=== PATIENT | female | born 1970 | race Hispanic/Latino ===

== ENCOUNTER 2016-09-11 20:20 | Inpatient (IN) | payer BC ==
[2016-09-11 20:32] VITALS: BMI 38.3
[2016-09-11 21:01] LABS: ADD MANUAL DIFF? NO
[2016-09-11 21:09] LABS: BASO # 0.02 K/mm3 (0.0-2.0); BASO % 0.4 % (0.0-3.0); EOS % 0.5 % (1.5-5.0); GRAN # 3.96 (1.4-6.5); GRAN % 72.3 % (50.0-68.0); HEMATOCRIT 28.5 % (36.0-48.0); LYMPH % 17.3 % (22.0-35.0); MEAN CELL VOLUME 83.8 fL (80.0-105.0); MEAN CORPUSCULAR HEMOGLOBIN 27.6 pg (25.0-35.0); MONO # 0.5 (0.1-0.6); MONO % 9.5 % (1.0-6.0); PLATELET COUNT 82 10^3/uL (120.0-450.0); RED CELL DISTRIBUTION WIDTH 25.9 % (11.5-14.5); WHITE BLOOD COUNT 5.5 10^3/ul (4.5-11.0)
[2016-09-11 21:17] LABS: INR 1.55 (0.93-1.08); PARTIAL THROMBOPLASTIN TIME 32.2 Seconds (23.7-30.8)
--- NOTE | 2016-09-11 21:30 | ED PDOC ---
Arrival/HPI - General Chief Complaint: Lower Extremity Problem/Injury Time Seen by Provider: 09/11/16 20:33 Historian: Patient - History of Present Illness Narrative History of Present Illness (Text): 09/11/16 20:38 Sandra Mcnamara is a 45 year old female, whose past medical history includes chronic pain, cholecystectomy, gastric bypass surgery, and bilateral lower extremity lymphedema, who presents to the Emergency department complaining of body pain. Patient states she fell recently at home and is now experiencing diffuse body pain and states "everything hurts." Patient states she feels swollen. reports patient regularly drinkg Gatorade and vodka on a daily basis. Patient denies any fever, chills, chest pain, shortness of breath, nausea , vomiting, diarrhea, urinary symptoms, headache, dizziness, or any other complaints. Time/Duration: Other (today) Symptom Onset: Gradual Symptom Course: Unchanged Activities at Onset: Rest, Light Context: Home Past Medical History - Provider Review Nursing Documentation Reviewed: Yes - Infectious Disease Hx of Infectious Diseases: None - Tetanus Immunization Tetanus Immunization: Unknown - Past Medical History Past Medical History: No Previous - Cardiac Hx Cardiac Disorders: Yes (CAD) Hx Hypertension: Yes - Pulmonary Hx Respiratory Disorders: No - Neurological Hx Neurological Disorder: Yes Hx Dizziness: Yes Hx Seizures: Yes Other/Comment: neuropathy arms and legs - HEENT Hx HEENT Disorder: No (WEARS RX GLASSES) - Renal Hx Renal Disorder: Yes Hx Kidney Stones: Yes - Endocrine/Metabolic Hx Endocrine Disorders: No - Hematological/Oncological Hx Blood Disorders: Yes Hx Anemia: Yes (BLOOD TRANSFUSION) - Integumentary Other/Comment: TATOOS ,BILATERAL LEG EDEMA, multiple bruises old and new to b/l knees and b/l arms - Musculoskeletal/Rheumatological Hx Falls: Yes - Gastrointestinal Hx Gastrointestinal Disorders: Yes Hx Diverticulitis: Yes Hx Gall Bladder Disease: Yes Hx Liver Failure: Yes (cirrhosis, jundiced) Other/Comment: COLITIS,CHOLELITHIASIS,DIVERTICULITIS,GASTRIC BYPASS 2008 lost 100 lbs gained some back - Genitourinary/Gynecological Hx Genitourinary Disorders: Yes (2 C SECTIONS,TUBAL LIGATION) Other/Comment: IUD insertion - Psychiatric Hx Psychophysiologic Disorder: Yes Hx Anxiety: Yes Hx Depression: Yes Hx Substance Use: No Other/Comment: ETOH ABUSE 1 1/.2 to 2 pints vodka a day quit 2 dys ago, INTOXICATION,INSOMNIA - Surgical History Hx Cardiac Catheterization: No Hx Cholecystectomy: Yes (2011) Hx Coronary Stent: No Hx Gastric Bypass Surgery: Yes (2007) Other/Comment: C/S X2,GASTRIC BYPASS,TUBAL LIGATION,BREAST REDUCTION,bladder sling - Anesthesia Hx Anesthesia: Yes Hx Anesthesia Reactions: No Hx Malignant Hyperthermia: No - Suicidal Assessment Feels Threatened In Home Enviroment: No Family/Social History - Physician Review Nursing Documentation Reviewed: Yes Family/Social History: No Known Family HX Smoking Status: Never Smoked Hx Alcohol Use: Yes (daily 1 1/2 to 2 pints vodka/pday quit 2 days ago) Hx Substance Use: No Hx Substance Use Treatment: No Allergies/Home Meds Allergies/Adverse Reactions: Allergies No Known Allergies Allergy (Verified 12/21/15 04:38) Home Medications: Home Meds Medication Instructions Recorded Confirmed Zolpidem Tartrate 12.5 mg PO HS 12/16/13 12/21/15 Pantoprazole [Protonix EC Tab] 20 mg PO DAILY 01/01/15 12/21/15 Furosemide [Lasix] 20 mg PO DAILY 03/03/15 12/21/15 ALPRAZolam [Xanax] 1 mg PO QID PRN 12/09/15 12/21/15 Ambien 10 mg PO HS PRN 12/09/15 12/21/15 Escitalopram [Lexapro] 10 mg PO DAILY 12/09/15 12/21/15 levETIRAcetam [Keppra] 1 tab PO BID 12/09/15 12/21/15 metOLazone [Zaroxolyn] 5 mg PO DAILY 12/09/15 12/21/15 Review of Systems - Physician Review All systems were reviewed & negative as marked: Yes - Review of Systems Constitutional: Normal. absent: Fevers Eyes: Normal ENT: Normal Respiratory: Normal. absent: SOB, Cough Cardiovascular: Normal. absent: Chest Pain Gastrointestinal: Normal. absent: Abdominal Pain, Diarrhea, Nausea, Vomiting Genitourinary Female: Normal. absent: Dysuria, Frequency, Hematuria Musculoskeletal: Myalgias (+diffuse body pain). absent: Back Pain, Neck Pain Skin: Normal. absent: Rash Neurological: Normal Endocrine: Normal Hemo/Lymphatic: Normal Psychiatric: Normal Physical Exam Vital Signs Reviewed: Yes Vital Signs Temp Pulse Resp BP Pulse Ox 09/12/16 02:09 98.6 F 95 H 22 153/92 H 09/12/16 00:10 84 17 140/76 97 09/11/16 22:32 88 17 132/78 98 09/11/16 20:30 98.5 F 101 H 18 122/92 H 96 Temperature: Afebrile Blood Pressure: Normal Pulse: Regular Respiratory Rate: Normal Appearance: Positive for: Well-Appearing, Non-Toxic, Comfortable Pain Distress: None Mental Status: Positive for: Alert and Oriented X 3 - Systems Exam Head: Present: Atraumatic, Normocephalic Pupils: Present: PERRL Extroacular Muscles: Present: EOMI Conjunctiva: Present: Normal Mouth: Present: Moist Mucous Membranes Neck: Present: Normal Range of Motion Respiratory/Chest: Present: Clear to Auscultation, Good Air Exchange. No: Respiratory Distress, Accessory Muscle Use Cardiovascular: Present: Regular Rate and Rhythm, Normal S1, S2. No: Murmurs Abdomen: Present: Normal Bowel Sounds. No: Tenderness, Distention, Peritoneal Signs Breast/Axillary: Present: Erythema (Erythematous fungoid rash beneath breasts) Back: Present: Normal Inspection Upper Extremity: Present: Other (Erythemtous fungoid rash to right/left groin). No: Cyanosis, Edema Lower Extremity: Present: Edema (Bilateral lower extremity edema), NORMAL PULSES , Normal ROM, Neurovascularly Intact, Capillary Refill < 2 s. No: Cyanosis, Tenderness, Erythema, Deformity, Temperature Abnormalties Neurological: Present: GCS=15, CN II-XII Intact, Speech Normal Skin: Present: Warm, Dry, Rashes (rt thigh and groin and under breast consistent with fungal), Normal Color Psychiatric: Present: Alert, Oriented x 3, Normal Insight, Normal Concentration Medical Decision Making ED Course and Treatment: 09/11/16 20:38 Impression: 45 year old female complaining of diffuse body pain s/p fall. Plan: -- CT Head w/o contrast -- EKG -- Labs, cardiac enzymes, alcohol level -- Urinalysis, urine cultures -- Reassess and disposition Prior Visits: Notes and results from previous visits were reviewed. On 12/21/2015, pt was seen in the Emergency department for near-syncope, dizziness, light-headedness, and weakness. Pt was admitted to the hospital for further evaluation. Progress Notes: Reviewed EKG, NSR at 92 bpm[address] Non-specific ST/T wave changes. 09/11/16 23:[address] Wes Mcdowell, who is aware and agrees with plan. Accepts pt in to his service. Pt will be admitted to [facility] for hypokalemia. Pt is no acute distress. Discussed results and hospital admission plan with pt, who is aware and verbalizes understanding. 09/12/16 01:09 Reviewed Chest X-ray, shows no active disease. CT Head shows: Brain: There is mild prominence of the ventricles and frontal sulci, compatible with atrophy. The white-del toro differentiation is preserved demonstrating no acute territorial type infarct. No acute intracranial hemorrhage is seen. Midline shift: There is no midline shift. Ventricles: See above. Bones/joints: The calvarium demonstrates no evidence for a depressed fracture. Soft tissues: There is mild soft tissue swelling of the right frontal scalp. Sinuses: Unremarkable as visualized. No acute sinusitis. Mastoid air cells: No mastoid effusion. IMPRESSION: 1. No acute intracranial abnormality. 2. Mild atrophy. - Lab Interpretations Lab Results: 09/11/16 20:45 09/11/16 20:45 Lab Results 09/11/16 22:00: Urine Color Yellow, Urine Appearance Turbid, Urine pH 7.0, Ur Specific [place] <= 1.005, Urine Protein Negative, Urine Glucose (UA) Negative, Urine Ketones Negative, Urine Blood Trace-lysed H, Urine Nitrate Negative, Urine Bilirubin Moderate H, Urine Urobilinogen 1.0 H, Ur Leukocyte Esterase Trace H, Urine RBC 0 - 2, Urine WBC 0 - 2, Ur Epithelial Cells 1 - 3, Urine Bacteria Few 09/11/16 22:00: Urine Opiates Screen Negative, Urine Methadone Screen Negative, Ur Barbiturates Screen Negative, Ur Phencyclidine Scrn Negative, Ur Amphetamines Screen Negative, U Benzodiazepines Scrn Positive H, U Oth Cocaine Metabols Negative, U Cannabinoids Screen Negative 09/11/16 20:45: Alcohol, Quantitative 288 H 09/11/16 20:45: Sodium 143, Potassium 2.9 L* D, Chloride 102, Carbon Dioxide 25 , Anion Gap 19, BUN < 2 L, Creatinine 0.9, Est GFR ( Amer) > 60, Est GFR (Non-Af Amer) > 60, Random Glucose 109, Calcium 6.8 L*, Total Bilirubin 5.2 H, AST 308 H, ALT 147 H, Alkaline Phosphatase 366 H, Total Creatine Kinase 768 H, CK-MB (CK-2) 1.3, CK-MB (CK-2) % 0.2 L, Troponin I < 0.01, Total Protein 7.4, Albumin 2.9 L, Globulin 4.5, Albumin/Globulin Ratio 0.6 L 09/11/16 20:45: PT 16.7 H, INR 1.55 H, APTT 32.2 H 09/11/16 20:45: WBC 5.5, RBC 3.40 L, Hgb 9.4 L, Hct 28.5 L, MCV 83.8, MCH 27.6, MCHC 33.0, RDW 25.9 H, Plt Count 82 L, Gran % 72.3 H, Lymph % (Auto) 17.3 L, [place] % (Auto) 9.5 H, Eos % (Auto) 0.5 L, Baso % (Auto) 0.4, Gran # 3.96, Lymph # 1.0 L, [place] # 0.5, Eos # 0.0, Baso # 0.02 I have reviewed the lab results: Yes - RAD Interpretation Radiology Orders: 09/11/16 22:30 HEAD W/O CONTRAST [CT] Stat Road Traffic Controller: ED Physician, Radiologist - EKG Interpretation Interpreted by ED Physician: Yes Type: 12 lead EKG - Medication Orders Current Medication Orders: Acetaminophen (Tylenol 325mg Tab) 650 mg PO Q4H PRN PRN Reason: Fever >100.5 F Last Admin: 09/12/16 15:41 Dose: 650 mg Betamethasone/Clotrimazole (Lotrisone) 0 gm TOP BID [facility] Last Admin: 09/12/16 12:00 Dose: 1 cre Chlordiazepoxide (Librium) 50 mg PO Q8 JACKIE PRN Reason: Protocol Chlordiazepoxide (Librium) 25 mg PO Q8 PRN; Protocol PRN Reason: Agitation Last Admin: 09/12/16 15:39 Dose: 25 mg Docusate Sodium (Colace) 100 mg PO BID [facility] Escitalopram Oxalate (Lexapro) 10 mg PO DAILY [facility] Last Admin: 09/12/16 09:40 Dose: 10 mg Potassium Chloride 10 meq/ (Sodium Chloride) 1,005 mls @ 100 mls/hr IV .Q10H3M [facility] Last Admin: 09/12/16 15:37 Dose: 100 mls/hr Levetiracetam (Keppra) 500 mg PO BID [facility] Last Admin: 09/12/16 09:40 Dose: 500 mg Ondansetron HCl (Zofran Inj) 4 mg IVP Q8H PRN PRN Reason: Nausea/Vomiting Oxycodone HCl (Oxycontin Extended Release Tab) 20 mg PO Q12 JACKIE Oxycodone HCl (Oxycodone Immediate Release Tab) 10 mg PO Q8H PRN PRN Reason: Pain, severe (8-10) Last Admin: 09/12/16 15:40 Dose: 10 mg Pantoprazole Sodium (Protonix Ec Tab) 40 mg PO 0630 [facility] Last Admin: 09/12/16 09:43 Dose: 40 mg Potassium Chloride (K-Dur 20 Meq Er Tab) 20 meq PO TID [facility] Stop: 09/14/16 23:59 Last Admin: 09/12/16 15:39 Dose: 20 meq Discontinued Medications Alprazolam (Xanax) 0.5 mg PO TID PRN; Protocol PRN Reason: Anxiety Alprazolam (Xanax) 0.5 mg PO TID [facility] PRN Reason: Protocol Last Admin: 09/12/16 09:40 Dose: 0.5 mg Re-Assess: Reassess Psych Meds Document 09/12/16 10:40 GLI (Rec: 09/12/16 10:57 GLI [id number]) Reassess Psych Med Effective Chlordiazepoxide (Librium) 50 mg PO ONCE ONE PRN Reason: Protocol Stop: 09/12/16 12:08 Last Admin: 09/12/16 12:15 Dose: 50 mg Re-Assess: Reassess Psych Meds Document 09/12/16 13:15 AE (Rec: 09/12/16 13:55 AE [facility] [id number]) Reassess Psych Med Ineffective-LIP notifed Chlordiazepoxide (Librium) 25 mg PO Q8 JACKIE PRN Reason: Protocol Potassium Chloride (Potassium Chloride 20 Meq/100 Ml) 20 meq in 100 mls @ 50 mls/hr IVPB Q2H [facility] Stop: 09/12/16 01:59 Last Admin: 09/12/16 02:26 Dose: 50 mls/hr Calcium Gluconate 1,000 mg/ (Sodium Chloride) 110 mls @ 110 mls/hr IVPB ONCE ONE Stop: 09/11/16 23:29 Last Admin: 09/12/16 02:27 Dose: 110 mls/hr Sodium Chloride (Sodium Chloride 0.9%) 1,000 mls @ 150 mls/hr IV .Q6H40M [facility] Last Admin: 09/12/16 02:26 Dose: 150 mls/hr Sodium Chloride (Sodium Chloride 0.9%) 1,000 mls @ 100 mls/hr IV .Q10H [facility] Last Admin: 09/12/16 11:56 Dose: 100 mls/hr Calcium Gluconate 1,000 mg/ (Dextrose) 110 mls @ 110 mls/hr IVPB ONCE ONE Stop: 09/12/16 14:59 Last Admin: 09/12/16 15:42 Dose: 110 mls/hr Lorazepam (Ativan) 1 mg IVP ONCE ONE PRN Reason: Protocol Stop: 09/12/16 04:04 Last Admin: 09/12/16 04:15 Dose: 1 mg Oxycodone HCl (Oxycodone Immediate Release Tab) 10 mg PO Q8H [facility] Last Admin: 09/12/16 09:39 Dose: 10 mg Re-Assess: LEESA Pain Assessment Document 09/12/16 10:39 GLI (Rec: 09/12/16 11:12 GLI [id number]) Pain Reassessment Is this a pain reassessment? Yes Sleep Is patient sleeping during reassessment? Yes Potassium Chloride (K-Dur 20 Meq Er Tab) 20 meq PO ONCE ONE Stop: 09/12/16 11:28 Last Admin: 09/12/16 11:58 Dose: 20 meq - Scribe Statement The provider has reviewed the documentation as recorded by the Scribdeann Macias All medical record entries made by the Scribdeann were at my direction and personally dictated by me. I have reviewed the chart and agree that the record accurately reflects my personal performance of the history, physical exam, medical decision making, and the department course for this patient. I have also personally directed, reviewed, and agree with the discharge instructions and disposition. Disposition/Present on Arrival - Present on Arrival Any Indicators Present on Arrival: No History of DVT/PE: No History of Uncontrolled Diabetes: No Urinary Catheter: No History of Decub. Ulcer: No History Surgical Site Infection Following: Bariatric Surgery, None - Disposition Have Diagnosis and Disposition been Completed?: Yes Diagnosis: Alcohol abuse, Hypokalemia, Hypocalcemia Disposition: HOSPITALIZED Disposition Time: 23:00 Condition: FAIR
[2016-09-11 21:41] LABS: ALB/GLOB RATIO 0.6 (1.1-1.8); ALKALINE PHOSPHATASE 366 U/L (38-133); ALT/SGPT 147 U/L (7-56); AST/SGOT 308 U/L (15-39); BILIRUBIN,TOTAL 5.2 mg/dL (0.2-1.3); CARBON DIOXIDE 25 mmol/L (21-33); CHLORIDE 102 mmol/L (98-107); GFR AFRICAN-AMERICAN > 60; GLUCOSE,RANDOM 109 mg/dL (70-110); SODIUM 143 mmol/L (132-148); TOTAL PROTEIN 7.4 g/dL (5.8-8.3)
[2016-09-11 21:50] LABS: BLOOD UREA NITROGEN < 2 mg/dL (7-21)
[2016-09-11 21:52] LABS: CALCIUM 6.8 mg/dL (8.4-10.5); TROPONIN I < 0.01 ng/mL
[2016-09-11 22:26] LABS: URINE BILIRUBIN MODERATE (NEGATIVE); URINE BLOOD TRACE-LYSED (NEGATIVE); URINE GLUCOSE (UA) NEGATIVE (NEGATIVE); URINE KETONE NEGATIVE (NEGATIVE); URINE LEUKOCYTE ESTERASE TRACE Leu/uL (NEGATIVE); URINE PROTEIN NEGATIVE mg/dL (<30 mg/dL)
[2016-09-11 22:27] LABS: URINE APPEARANCE TURBID (CLEAR); URINE COLOR YELLOW (YELLOW)
[2016-09-11 22:32] LABS: POTASSIUM 2.9 mmol/L (3.6-5.0)
[2016-09-11 22:34] LABS: URINE BACTERIA FEW (NEG); URINE RBC 0 - 2 /hpf (0-2); URINE WBC 0 - 2 /hpf (0-6)
[2016-09-12] MEDS: Sodium Chloride 0.9% 1,000 ML IV SCH ×2 (02:26→20:20)
[2016-09-12] MEDS: Clotrimazole/Betamethasone Cream(15 gm) TOP SCH ×4 (02:34→22:35)
[2016-09-12] MEDS ORDERED: oxyCODONE 10 mg Immediate Release Tab PO SCH (09:15)
[2016-09-12] MEDS: Pantoprazole 40 mg EC Tab PO SCH (09:43)
--- NOTE | 2016-09-12 10:19 | RAD ---
PROCEDURE: CHEST RADIOGRAPH, 1 VIEW HISTORY: pain COMPARISON: 12/21/2015 FINDINGS: LUNGS: Poor inspiration with low lung volumes, crowded bronchovascular markings and mild bibasilar atelectasis PLEURA: No pneumothorax or pleural fluid seen. CARDIOVASCULAR: Heart size upper limits of normal -borderline enlarged. OSSEOUS STRUCTURES: No significant abnormalities. VISUALIZED UPPER ABDOMEN: Normal. OTHER FINDINGS: None. IMPRESSION: Poor inspiration with low lung volumes, crowded bronchovascular markings and mild bibasilar atelectasis
[2016-09-12 10:24] LABS: ADD MANUAL DIFF? NO
[2016-09-12 10:30] LABS: BASO # 0.01 K/mm3 (0.0-2.0); BASO % 0.2 % (0.0-3.0); EOS % 0.5 % (1.5-5.0); GRAN # 3.03 (1.4-6.5); GRAN % 70.6 % (50.0-68.0); HEMATOCRIT 26.2 % (36.0-48.0); LYMPH # 0.8 (1.2-3.4); LYMPH % 17.7 % (22.0-35.0); MEAN CELL VOLUME 85.1 fL (80.0-105.0); MEAN CORPUSCULAR HEMOGLOBIN 27.6 pg (25.0-35.0); MEAN CORPUSCULAR HGB CONC 32.4 g/dl (31.0-37.0); MONO # 0.5 (0.1-0.6); PLATELET COUNT 72 10^3/uL (120.0-450.0); RED CELL DISTRIBUTION WIDTH 25.9 % (11.5-14.5); WHITE BLOOD COUNT 4.3 10^3/ul (4.5-11.0)
[2016-09-12 10:44] LABS: ALB/GLOB RATIO 0.6 (1.1-1.8); ALKALINE PHOSPHATASE 342 U/L (38-133); ALT/SGPT 149 U/L (7-56); AST/SGOT 269 U/L (15-39); BLOOD UREA NITROGEN 2 mg/dL (7-21); CARBON DIOXIDE 25 mmol/L (21-33); CHLORIDE 105 mmol/L (98-107); GFR AFRICAN-AMERICAN > 60; GLUCOSE,RANDOM 81 mg/dL (70-110); POTASSIUM 3.3 mmol/L (3.6-5.0); SODIUM 143 mmol/L (132-148); TOTAL PROTEIN 6.7 g/dL (5.8-8.3)
[2016-09-12 10:57] LABS: CALCIUM 6.6 mg/dL (8.4-10.5)
--- NOTE | 2016-09-12 11:14 | CT ---
PROCEDURE: CT HEAD WITHOUT CONTRAST. HISTORY: fall COMPARISON: None available. TECHNIQUE: Axial computed tomography images were obtained through the head/brain without intravenous contrast. Radiation dose: Total exam DLP = 774.23 mGy-cm. This CT exam was performed using one or more of the following dose reduction techniques: Automated exposure control, adjustment of the mA and/or kV according to patient size, and/or use of iterative reconstruction technique. FINDINGS: HEMORRHAGE: No intracranial hemorrhage. BRAIN: There appears to be some minimal chronic periventricular white matter ischemic changes. In addition, questionable artifact versus tiny chronic lacunar right basal ganglia VENTRICLES: Mild volume loss which appears somewhat more central, evidenced by enlargement of the ventricles more so than sulci. CALVARIUM: Unremarkable. PARANASAL SINUSES: Unremarkable as visualized. No significant inflammatory changes. MASTOID AIR CELLS: Unremarkable as visualized. No inflammatory changes. OTHER FINDINGS: None. IMPRESSION: No acute intracranial hemorrhage. There appears to be some minimal chronic periventricular white matter ischemic changes. In addition, questionable artifact versus tiny chronic lacunar right basal ganglia Mild central volume loss
[2016-09-12] MEDS ORDERED: Potassium Chloride 20 mEq ER Tab PO ONE (11:27)
[2016-09-12] MEDS ORDERED: Sodium Chloride 0.9% 1,000 ML IV SCH (11:30)
[2016-09-12 12:52] LABS: MAGNESIUM 1.3 mg/dL (1.7-2.2)
[2016-09-12 13:01] LABS: IRON 66 ug/dL (45-180)
[2016-09-12] MEDS: Potassium Chloride 20 mEq ER Tab PO SCH ×2 (15:39→18:13)
[2016-09-12] MEDS: oxyCODONE 10 mg Immediate Release Tab PO PRN (15:40)
--- NOTE | 2016-09-12 18:04 | CON ---
DATE: 09/12/2016 REASON FOR CONSULTATION: Hypokalemia, hypocalcemia, alcohol intoxication. HISTORY OF PRESENTING ILLNESS: A 45-year-old lady, brought to the Emergency Room with complaints of pain in her legs, thighs, knees, weakness, fatigue. The patient reports she was not feeling well. She was having in a lot of pain in her body because of neuropathy. She fell. She was unable to get up and hence was brought to the Emergency Room by her son. She reports that she has chronic pain in her legs. In the Emergency Room, she was found to have a potassium of 2.9, calcium of 6.8, elevated LFTs, elevated total bilirubin. She is currently admitted to the ICU with alcohol intoxication/withdrawal, multiple electrolyte abnormalities. PAST MEDICAL AND SURGICAL HISTORY: Seizure disorder, alcohol abuse, hypertension, anxiety, depression, CAD, gastric bypass, tubal ligation, breast reduction surgery, cholecystectomy and peripheral neuropathy. FAMILY HISTORY: Noncontributory. SOCIAL HISTORY: Current heavy alcohol use, no drug abuse, no smoking. ALLERGIES: No known drug allergies. MEDICATIONS AT HOME: Oxycodone, Keppra, zolpidem, Protonix, Lasix 20 mg daily, metolazone 5 mg daily, Lexapro, Ambien, Xanax. REVIEW OF SYSTEMS: Complains of pain all over the body, she also complains of burning under her breasts and in her thighs, she complains of rash under her breasts and in the inguinal fold, she complains of fatigue, she complains of weakness, she denies any chest pain. She denies any palpitations. She denies any dysuria. All other systems are unremarkable. PHYSICAL EXAMINATION: GENERAL: A young woman, morbidly obese, lying in bed, in the ICU, in moderate distress. VITAL SIGNS: Blood pressure 118/74, heart rate 88, respiratory rate 20, temperature 98. HEENT: Normocephalic, atraumatic, positive pallor, no icterus. NECK: Supple, no JVD. LUNGS: Bilateral equal air entry, no rales appreciated, no rhonchi appreciated. CARDIAC: S1, S2, regular rate and rhythm, no murmur, no rub. ABDOMEN: Obese, distended, soft, nontender, bowel sounds present, extensive erythematous rash under the breasts, also extensive rash in the inguinal folds. EXTREMITIES: 1+ pitting edema of the lower extremities. INTAKE AND OUTPUT: Not charted. LABORATORY DATA: WBC 4.3, hemoglobin 8.5, hematocrit 26, platelets 72, MCV 85. Sodium 143, potassium 3.3, chloride 105, CO2 25, BUN 2, creatinine 0.7, calcium 6.6, albumin 2.6, corrected calcium is 7.6, total bili 6.0, AST 269, ALT 149. Urinalysis: Yellow, turbid, pH 7.0, specific gravity less than 1.005 , moderate bilirubin, leukocyte esterase trace. Urine positive for opiates and initial alcohol level was 288. Today's alcohol level is 62. Chest x-ray shows poor inspiration with low lung volumes, crowded bronchovascular markings, mild bibasilar atelectasis. CURRENT MEDICATIONS: K-Dur 20 mEq t.i.d., Keppra, Lexapro, Lotrisone, Protonix , normal saline at 100 mL per hour, Xanax, Zofran, calcium gluconate 1 gram given this morning, Librium 50 mg given this morning, 20 mEq riders of potassium x 2 bags. ASSESSMENT AND PLAN: A 45-year-old young woman with a history of anxiety, depression, chronic pain, dependence on pain medication, chronic alcohol abuse who was admitted with alcohol intoxication, weakness, fatigue. She was found to have life-threatening hypokalemia, severe hypocalcemia, acute liver toxicity. 1. Hypokalemia, patient's potassium was 2.9 at the time of admission. Currently, her potassium is 3.3, still precariously low, needs aggressive potassium supplementation. 2. Hypocalcemia. Her corrected calcium is also only 7.6, this could predispose her to arrhythmias. 3. Elevated liver function tests. 4. Hypernatremia, dehydration. 5. Severe anemia. 6. ? gastrointestinal bleed. 7. Chronic dependence on pain medication. PLAN: 1. Add potassium 10 mEq to each bag of IV fluids. 2. Replace calcium intravenously. 3. Check iron stores. 4. Check stool occults x 3. 5. Check magnesium levels. 6. GI evaluation. 7. Abdominal imaging. 8. Librium 25 mg q. 8 hours. 9. Monitor for delirium tremens. 11. Treat for alcohol withdrawal. 12. Case discussed with ICU staff at length. 13. Recommend holding transfer out of ICU. Thank you for the courtesy of this consultation. More than 35 minutes spent in the care of this critically ill, young, unfortunate woman. Mariya Vega MD cc: [id number] TT: 09/12/2016 18:03:23 Confirmation # [id number] Dictation # [id number] [id number]
[2016-09-12] MEDS ORDERED: Magnesium Sulfate 2 GM in Sodium Chloride 0.9% 100 ML IVPB ONE (20:53)
[2016-09-12] MEDS: oxyCODONE 20 mg ER Tab (oxyCONTIN) PO SCH (21:10)
--- NOTE | 2016-09-12 22:08 | HP ---
CHIEF COMPLAINT: Weakness, acute intoxication and jaundice, complaining of pain. HISTORY OF PRESENT ILLNESS: This is a 45-year-old woman who I do not know, but is seen in our practi ce and hospitalization. She was hospitalized 3 times in 2016 and 4 times in 2014. This is her first admission to [facility] this year. She presented to the Emergency Room complaining of pain, w as found to be acutely intoxicated with a blood alcohol over 260 and severely hypokalemic as she had been in the past in a prior admission with potassium of 2.8. She was evaluated by the firmware software verification engineer robert miranda admitted to ICU. PAST MEDICAL HISTORY: Significant for hypertension and a questionable history of coronary artery dis ease. She has a history of alcohol abuse as well as polysubstance abuse, Xanax and prescription opia braden. She has a history of hepatic failure, hyperbilirubinemia due to liver failure with elevated coa gs, yet continues to drink. She has a history of renal stones, colitis, cholelithiasis and diverticu litis as well as anxiety and depression, polysubstance abuse as noted above. SOCIAL HISTORY: She is with children, abuses alcohol and takes prescription medications incl uding oxycodone, which the patient reports in the range of 30 mg 5 times a day and Valium 1 mg 3-4 ti mes a day. MEDICATIONS: She takes Zaroxolyn and furosemide for reasons I am not quite certain and takes Ambien at bedtime for sleep. ALLERGIES: She has no known allergies. REVIEW OF SYSTEMS: Difficult to obtain as she responds yes to symptoms in all organ systems. PHYSICAL EXAMINATION: GENERAL: The patient was seen in room 271 this Tuesday afternoon around 1 p.m. She was in bed compla ining of pain requesting narcotic analgesics in the form of IV Dilaudid, with a bit of a tremor noted in the right upper extremity as well as the trunk. HEENT: Conjunctivae are pink. Mucous membranes are moist. NECK: Supple, without masses. Thyroid is not palpable. LUNGS: Show good aeration, right and left. HEART: Regular, but not tachycardic. ABDOMEN: Obese and soft. EXTREMITIES: Again, overweight, but no significant deep pitting edema. IMPRESSION: 1. Acute alcohol intoxication. 2. Polysubstance use and abuse. 3. Acute liver failure. 4. Chronic anemia. 5. Hypokalemia, perhaps related to medications. 6. Hypocalcemia. 7. Hypoalbuminemia with elevated liver function tests and most likely underlying cirrhosis as a caus e of her liver failure. 8. Jaundice with a total bilirubin of 6.0. 9. Chronic pain syndrome. 10. Anxiety. 11. Depression. PLAN: We will certainly continue her antidepressant medicines as prescribed before. She had already been started on benzodiazepines for alcohol withdrawal prevention. She was seen earlier by renal co nsultant, Dr. Vega, who added an additional benzo, perhaps not realizing she had already been on one on a regularly scheduled basis; therefore, I will adjust accordingly. Would continue Keppra and loo k further into her history of seizures. I spoke with the patient at length regarding her pain and he r medical followup. I encouraged her to seek help from a psychiatrist. She had spoken with Dr. Cook by in the past and so I will ask him to reconsult. I will also ask for a consult from mercedez Burgos and look further at her prior reports and imaging procedures that may have been done. Her hypokalemia has been supplemented and will continue to supplement with oral potassium and follow her lytes closely. We will use benzodiazepines to avoid benzo withdrawal. I will change her dosing schedule of opiates to a regularly scheduled lower dose of a long acting opiate as well as intermitt ent immediately short-acting opioid at least until we receive the skillful input of pain management, perhaps she would be a candidate for Suboxone, but will follow. I will also ask for consultation gunjan rodriguez renal hepatology regarding her acute liver failure on top of chronic liver failure and most likely cirrhosis, all related to alcohol and opiates. Leonel Mcdowell MD cc: [id number] TT: 09/12/2016 22:07:17 ia
--- NOTE | 2016-09-12 22:12 | CARD ---
APPROVED REPORT EKG Measurement Heart [id number] HI 148P [id number] <Conclusion> Normal sinus rhythm Minimal voltage criteria for LVH, may be normal variant Nonspecific ST and T wave abnormality Prolonged QT Abnormal ECG
[2016-09-13] MEDS: oxyCODONE 10 mg Immediate Release Tab PO PRN ×3 (04:41→23:35)
[2016-09-13] MEDS: Pantoprazole 40 mg EC Tab PO SCH (05:32)
[2016-09-13 08:52] LABS: ADD MANUAL DIFF? NO; BASO # 0.02 K/mm3 (0.0-2.0); BASO % 0.5 % (0.0-3.0); EOS # 0.1 (0.0-0.7); EOS % 1.6 % (1.5-5.0); GRAN # 2.49 (1.4-6.5); HEMATOCRIT 25.1 % (36.0-48.0); LYMPH # 0.7 (1.2-3.4); LYMPH % 19.3 % (22.0-35.0); MEAN CELL VOLUME 86.3 fL (80.0-105.0); MEAN CORPUSCULAR HEMOGLOBIN 28.2 pg (25.0-35.0); MEAN CORPUSCULAR HGB CONC 32.7 g/dl (31.0-37.0); MONO # 0.4 (0.1-0.6); MONO % 10.6 % (1.0-6.0); PLATELET COUNT 82 10^3/uL (120.0-450.0); RED CELL DISTRIBUTION WIDTH 27.1 % (11.5-14.5); WHITE BLOOD COUNT 3.7 10^3/ul (4.5-11.0)
[2016-09-13 09:06] LABS: ALB/GLOB RATIO 0.6 (1.1-1.8); ALKALINE PHOSPHATASE 321 U/L (38-133); ALT/SGPT 144 U/L (7-56); AST/SGOT 216 U/L (15-39); BILIRUBIN,TOTAL 6.5 mg/dL (0.2-1.3); BLOOD UREA NITROGEN 4 mg/dL (7-21); CARBON DIOXIDE 25 mmol/L (21-33); CHLORIDE 105 mmol/L (98-107); GFR AFRICAN-AMERICAN > 60; GLUCOSE,RANDOM 94 mg/dL (70-110); POTASSIUM 3.5 mmol/L (3.6-5.0); SODIUM 139 mmol/L (132-148); TOTAL PROTEIN 6.5 g/dL (5.8-8.3)
[2016-09-13] MEDS: oxyCODONE 20 mg ER Tab (oxyCONTIN) PO SCH ×2 (09:06→21:16)
[2016-09-13] MEDS: Potassium Chloride 20 mEq ER Tab PO SCH ×3 (09:09→18:30)
[2016-09-13] MEDS: Clotrimazole/Betamethasone Cream(15 gm) TOP SCH ×2 (09:10→17:08)
[2016-09-13 09:18] LABS: CALCIUM 6.3 mg/dL (8.4-10.5)
[2016-09-13 09:20] LABS: FREE T4 2.15 ng/dL (0.78-2.19)
[2016-09-13 09:34] LABS: THYROID STIMULATING HORMONE 5.93 mIU/mL (0.46-4.68)
--- NOTE | 2016-09-13 11:59 | PN ---
DATE: 09/13/2016 SUBJECTIVE: The patient is seen sitting in bed. She is awake. She is alert. She is comfortable. She complains of weakness. Appetite is poor. PHYSICAL EXAMINATION: GENERAL: Obese young woman sitting in bed. VITAL SIGNS: Blood pressure 105/68, heart rate 88, respiratory rate 20, temperature 98.9. HEENT: Normocephalic, atraumatic, positive pallor. NECK: Supple. No JVD. LUNGS: Bilateral equal air entry. No rales. CARDIAC: S1, S2, regular rate and rhythm. No murmur, no rub. ABDOMEN: Obese, distended, soft, nontender, bowel sounds present. EXTREMITIES: Trace lower extremity edema. INTAKE AND OUTPUT: Not charted. LABORATORY DATA: WBC 3.7, hemoglobin 8.2, hematocrit 25, platelets 82. Sodium 139, potassium 3.5, c hloride 105, CO2 of 25, BUN 4, creatinine 0.8, glucose 94, calcium 6.3, albumin 2.4, corrected calciu m 7.3, total bili 6.5, AST 216, ALT 144. TSH 5.9. Stool occult positive. Iron saturation 25, eduin tin 26, iron 66, magnesium 1.3. CURRENT MEDICATIONS: Colace 100, K-Dur 20 mEq t.i.d., Keppra 500 b.i.d., Lexapro, Librium, Os-Modesto 50 0 b.i.d., oxycodone, Protonix, Tylenol, Zofran, normal saline with 10 mEq potassium at 100. ASSESSMENT: 1. Acute alcohol intoxication. 2. Severe hypokalemia. 3. Hypomagnesemia. 4. Severe anemia. 5. Acute liver injury. 6. Hypocalcemia. 7. Hypoalbuminemia. 8. Chronic pain. 9. Depression. 10. Anxiety. PLAN: 1. Discontinue IV fluids. The patient has received adequate fluid resuscitation. 2. Supplement potassium orally. 3. Stool occult is positive. Iron stores are low. Suspect gastritis. GI evaluation recommended. 4. Continue PPI. 5. IV calcium gluconate x 1 dose. 6. Psychiatric evaluation. 7. IV Venofer 200 mg. Check magnesium levels. Mariya Vega MD cc: [id number] TT: 09/13/2016 11:58:23 Confirmation # [id number] Dictation # [id number] jn
--- NOTE | 2016-09-13 15:03 | CON ---
DATE: 09/13/2016 REQUEST FOR CONSULT: For liver failure. HISTORY OF PRESENT ILLNESS: This is a 45-year-old female with a past medical history of hypertension , history of alcohol abuse and polysubstance abuse. She has history of hyperbilirubinemia secondary to liver failure and elevated coags as well as cholelithiasis. Came to the Emergency Room with compl aints of weakness, complaining of generalized body pain, reporting that she recently fell at home. T he patient has reportedly been taking on a regular basis Gatorade and vodka. This patient was last s een by our service back in 12/2015 for transaminitis. She was advised that she had transaminitis whi ch was thought to be multifactorial secondary to history of ETOH fatty liver and rhabdomyolysis. She was advised to avoid alcohol and go for outpatient followup. Her last endoscopy was about 2 years a go and reported history of ulcers. On review of her labs, she was noted to have elevated liver enzym es and also came with alcohol quantitative of 288. PAST MEDICAL HISTORY: As stated above, hypertension, chronic pain secondary to herniated disk, GERD, history of peptic ulcer disease, ETOH abuse, polysubstance abuse, anxiety, depression, diverticuliti s, renal stones. PAST SURGICAL HISTORY: Cholecystectomy, gastric bypass, last endoscopy was 2 years ago reports ulcer . FAMILY HISTORY: Grandmother with breast cancer. SOCIAL HISTORY: Positive ETOH, abuses alcohol and takes prescription medications like oxycodone. ALLERGIES: No known drug allergies. MEDICATIONS: Reviewed as per MAR. REVIEW OF SYSTEMS: Systems were reviewed with positive findings. VITAL SIGNS: Temperature is 98.9, blood pressure 105/68, pulse 86, respirations 20, 95 on room air. LABORATORY DATA: WBC is 3.7, H and H is 8.2 and 25.1, platelets of 82. PT is 16.7, INR is 1.55, PTT is 32.2. Sodium 139, K 3.5, BUN is 4, creatinine 0.8. Total bilirubin is 6.5, on admission it was 5.2. AST 216, ALT 144, this shows some slight improvement. Alkaline phos is 321. Total creatinine kinase on admission is 768. Urine shows trace leukocyte esterase. Stool for occult blood is positiv e. Alcohol quantitative on 09/11 is 288, 09/12 is 62. Positive for benzodiazepines. Head CT done o n admission shows no intracranial hemorrhage, minimal chronic periventricular white matter ischemic c hanges. In addition, questionable artifact versus tiny chronic right basal ganglia. Chest x-r ay shows no pneumothorax or pleural effusion, poor inspiration with low lung volumes, crowded broncho vascular vascular markings and mild bibasilar atelectasis. PHYSICAL EXAMINATION: HEENT: Sclerae anicteric. NECK: Supple. CARDIAC: S1, S2. LUNGS: Decreased breath sounds, no rales or wheeze. ABDOMEN: With bowel sounds, softly obese, nondistended, did not palpate any tenderness. No rebound, guarding or organomegaly. EXTREMITIES: Trace bilateral lower edema. NEUROLOGIC: Awake, alert, and oriented. ASSESSMENT: This is a 45-year-old female with a past medical history of polysubstance abuse, ETOH ab use, past history of gastric bypass comes to the Emergency Room with complaints of feeling weak. The patient is currently drinking daily. Her alcohol level was over 200. She is also noted to be hypok alemic, anemia, now positive guaiac, acute renal failure, depression, chronic pain. PLAN: Check hepatitis panel. Also request for abdominal ultrasound. She is on a low residual soft diet. The patient will likely benefit from GI workup in view of low H and H. She is noted to have l ow TIBC. We will check her B12 and folate. No tremors noted, but patient is on Librium, getting IV iron, Zofran p.r.n. and is on Percocet. Continue Protonix. Monitor electrolytes. Thank you for this consult and allowing us to participate in your patient's care. Will make further recommendations based upon patient's clinical course. The patient was seen and case discussed with Dr. Meza. Whitney KATHLEEN cc: [id number] TT: 09/13/2016 15:02:28 Confirmation # [id number] Dictation # [id number] an
--- NOTE | 2016-09-13 16:34 | US ---
HISTORY: elelvated LFT COMPARISON: Comparison made with CT scan of the abdomen and pelvis dated 12/21/2015. TECHNIQUE: Sonographic evaluation of the abdomen. FINDINGS: LIVER: Enlarged measuring approximately 24 cm in CC dimension. Increased echotexture consistent with fatty infiltration. Smooth contour. No obvious hepatic mass or collection. Portal vein exhibits hepatopetal flow. No ascites GALLBLADDER: Cholecystectomy. COMMON BILE DUCT: Measures 6 mm. No stones. No dilatation. PANCREAS: Unremarkable as visualized. No mass. No ductal dilatation. RIGHT KIDNEY: Measures 10.5 x 3.5 x 5.2 cmcm. Normal echogenicity. No calculus, mass, or hydronephrosis. LEFT KIDNEY: Measures 12.2 x 4.4 x 5.1 cm. Normal echogenicity. No calculus, mass, or hydronephrosis. SPLEEN: Normal in size and contour. No mass. AORTA: No aneurysmal dilatation. IVC: Unremarkable. OTHER FINDINGS: None. IMPRESSION: Findings consistent with hepatomegaly and fatty infiltration. . Status post cholecystectomy
[2016-09-13] MEDS: Magnesium Oxide 400 mg Tab UD PO SCH (20:09)
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
--- NOTE | 2016-09-13 23:57 | CON ---
DATE: 09/13/2016 This patient was seen and evaluated earlier today. The previous GI workup reviewed. This 45-year-old patient, status post gastric bypass, admitted with alcohol intoxication and abdominal pain. The patient was complaining of midepigastric abdominal discomfort, history of status post gastric bypass, history of ETOH. RECOMMENDATIONS: 1. Followup of the LFTs. 2. Continue the PPI. 3. Followup of the LFTs. 4. We will continue to follow up with her care and suggest further recommendation based on the clinical course. Ana Meza MD cc: [id number] TT: 09/13/2016 23:56:17 Confirmation # [id number] Dictation # [id number] tn MTDD
[2016-09-14] MEDS: Pantoprazole 40 mg EC Tab PO SCH (05:34)
[2016-09-14] MEDS: oxyCODONE 10 mg Immediate Release Tab PO PRN (08:07)
[2016-09-14 08:14] LABS: ADD MANUAL DIFF? NO
[2016-09-14 08:20] LABS: BASO # 0.02 K/mm3 (0.0-2.0); BASO % 0.4 % (0.0-3.0); EOS # 0.1 (0.0-0.7); EOS % 2.2 % (1.5-5.0); GRAN # 3.04 (1.4-6.5); GRAN % 67.5 % (50.0-68.0); HEMATOCRIT 27.8 % (36.0-48.0); LYMPH # 0.9 (1.2-3.4); LYMPH % 20.8 % (22.0-35.0); MEAN CELL VOLUME 88.5 fL (80.0-105.0); MEAN CORPUSCULAR HEMOGLOBIN 28.3 pg (25.0-35.0); MONO # 0.4 (0.1-0.6); MONO % 9.1 % (1.0-6.0); PLATELET COUNT 99 10^3/uL (120.0-450.0); RED CELL DISTRIBUTION WIDTH 27.8 % (11.5-14.5); WHITE BLOOD COUNT 4.5 10^3/ul (4.5-11.0)
[2016-09-14 08:31] LABS: ALB/GLOB RATIO 0.6 (1.1-1.8); ALKALINE PHOSPHATASE 333 U/L (38-133); ALT/SGPT 149 U/L (7-56); AST/SGOT 207 U/L (15-39); BILIRUBIN,TOTAL 7.5 mg/dL (0.2-1.3); BLOOD UREA NITROGEN 3 mg/dL (7-21); CARBON DIOXIDE 25 mmol/L (21-33); CHLORIDE 104 mmol/L (98-107); GFR AFRICAN-AMERICAN > 60; GLUCOSE,RANDOM 67 mg/dL (70-110); POTASSIUM 3.9 mmol/L (3.6-5.0); SODIUM 139 mmol/L (132-148); TOTAL PROTEIN 7.2 g/dL (5.8-8.3)
[2016-09-14 08:36] LABS: CALCIUM 6.9 mg/dL (8.4-10.5)
[2016-09-14] MEDS: Potassium Chloride 20 mEq ER Tab PO SCH ×3 (09:51→17:45)
[2016-09-14] MEDS: Magnesium Oxide 400 mg Tab UD PO SCH ×2 (09:51→17:44)
[2016-09-14] MEDS: oxyCODONE 20 mg ER Tab (oxyCONTIN) PO SCH ×3 (10:00→20:59)
[2016-09-14] MEDS: Clotrimazole/Betamethasone Cream(15 gm) TOP SCH ×2 (10:15→17:57)
--- NOTE | 2016-09-14 10:40 | PN ---
DATE: 09/14/2016 FOLLOWUP NOTE Seen and examined at the bedside earlier today. She is out of bed to chair, complaining of tremors. She is on Librium [id number], and also has p.r.n. orders. She received doses this morning. No complaints of nausea, vomiting, or abdominal pain. She does report loose bowel movements. She did notice some blood. Spoke to the nursing staff. They were obtaining stool studies, but not sure if her stool was mixed with urine, so unable to send. Is unsure if the blood is from the bowel or the bladder, as per nursing staff. Denies any shortness of breath or chest pain. VITAL SIGNS: Temperature is 98.6. Blood pressure is 108/68, pulse 76, respirations 20. LABORATORY DATA: WBC is 4.5, H and H are 8.9 and 27.8. Platelets are 99. Sodium 139, K 3.9, BUN 3. Creatinine is 0.9. Total bilirubin is 7.5. AST is 207, ALT 149. Alkaline phosphatase is 333. Folate is pending. B12 is 622. Stool guaiac done yesterday. It was positive. PHYSICAL EXAMINATION: HEENT: Sclerae are icteric, does appear jaundiced. NECK: Supple. CARDIAC: S1, S2. LUNGS: With decreased breath sounds, but good air entry. No rales or wheeze. ABDOMEN: With bowel sounds, softly obese, nontender on palpation at this time. No rebound, guarding, or organomegaly. NEUROLOGIC: Positive tremors. ASSESSMENT: This is a 45-year-old female with history of EtOH abuse, polysubstance abuse, and gastric bypass comes to the Emergency Room with complaints of weakness, and also complaining of abdominal pain. She has elevated liver enzymes, and bilirubin has noticeable jaundice, anemia, guaiac positive, complaining of loose stools, acute renal failure, history of chronic pain, and depression. H/O cholecystectomy. PLAN: Sent the patient for ultrasound, and the patient is noted to have hepatomegaly with fatty infiltration. Common bile duct measures 6 mm. No stones or dilatation. The patient is on Librium, is getting IV iron, magnesium. She is on Protonix daily and getting potassium replacement. Hepatitis serology is negative. Continue to monitor LFTs. WIll obtain MRCP r/o CBD stone. ADDENDUM: Patient Dariey's Discriminant Funtion for Alcoholic Hepatitis is 30, > 32 indicates poor prognosis, may benefit from steroid therapy, we would consider starting Prednisone 10 mg daily, recheck labs in am but in few c/o bloody stool/guiac positive, will plan for EGD r/o ulcer, varices. NPO after clear liquids, recheck labs in am: cbc, cmp, pt/ptt. Had positive SLIME in the past, will r/o Autoimmune Hepatitis and order autoimmune markers, see orders. The patient was seen and case discussed with Dr. Meza. Whitney KATHLEEN cc: 451 TT: 09/14/2016 10:40:04 Confirmation # [id number] Dictation # [id number] jn MTDD
[2016-09-14 17:17] LABS: FOLATE 6.9 ng/mL
[2016-09-14] MEDS: Ergocalciferol 50,000 Intl Units Cap PO SCH (17:45)
--- NOTE | 2016-09-14 18:11 | PN ---
DATE: 09/14/2016 SUBJECTIVE: The patient is currently seen on telemetry. She is sitting up at the side of her bed. She appears to be in no acute distress. She is off IV fluid hydration. MEDICATIONS: Medication list reviewed. The patient is currently on Bactroban, Colace, IV iron, pota ssium tablets, Keppra, Lexapro, Librium, Lotrisone, mag oxide, calcium carbonate, oxycodone p.r.n., O xyContin, Protonix, p.r.n. Tylenol, p.r.n. Zofran. OBJECTIVE: INTAKE AND OUTPUT: Intake 1080, output not charted. VITAL SIGNS: Blood pressure 100/64, temperature 98.3, pulse 93, respiratory rate 19. HEENT: Shows her to be normocephalic, atraumatic. Conjunctivae are pale. Sclerae are icteric. NECK: Supple, no neck vein distention. CHEST: Clear to auscultation and percussion. No rales, no rhonchi, no wheezing. CARDIOVASCULAR: Shows a regular rate and rhythm without murmurs, rubs, or gallops. ABDOMEN: Mildly obese. Mild distention. No masses appreciated. No rebound, no guarding. EXTREMITIES: Show trace to 1+ pitting lower extremity edema. No cyanosis, no clubbing. LABORATORY DATA AND IMAGING: CBC: White blood cell count 4.5, hemoglobin 8.9 with a platelet count of 99,000. Coags: PT 16.7 with a PTT of 32.2. Chemistries: Electrolytes are normal. BUN 3 with a creatinine of 0.9. K is 3.9. Glucose is 67. Calcium is 6.9 with an albumin of 2.8, corrects to 7. 8. Bilirubin is 7.5. Elevated liver enzymes, AST 207 with an ALT of 149, alkaline phosphatase is 33 3. Albumin is low at 2.9. Vitamin D level was low at less than 12.8. TSH level was mildly elevated at 5.93, but the free T4 level was normal. Microbiology: Urine culture, mixed specimen. Nasal MRS A is positive. IMAGING: Abdominal ultrasound shows hepatomegaly with a fatty liver. Status post cholecystectomy. No stones in the common bile duct. ASSESSMENT: 1. Acute alcohol intoxication. In all likelihood, her alcohol level is now back to normal as it had been dropping. 2. Status post multiple electrolyte abnormalities including that of hypokalemia, hypomagnesemia, hyp ocalcemia. The patient is on calcium supplements, magnesium supplements and magnesium level was 1.5 and we can increase the magnesium to 400 mg 3 times a day. I will also start the patient on vitamin D as her vitamin D level is low. She will start ergocalciferol 50,000 units weekly. I agree with th e continuation of Os-Modesto. I will increase Os-Modesto to 500 mg 3 times a day. The patient for right now may remain on potassium supplements. 3. Acute liver injury secondary to alcohol intake. The patient has elevated liver enzymes, elevated bilirubin. Her ultrasound shows hepatomegaly with fatty infiltration. I cautioned patient that if she continues to progress with a fatty liver she could likely end up with scarring of the liver leadi ng to cirrhosis and end-stage liver disease. 4. History of depression and anxiety, currently stable. 5. History of seizure disorder. The patient remains on Keppra. Seizures were diagnosed 1 year ago. 6. Anemia with a borderline low iron level. The patient had been started on IV Venofer. Possible b one marrow suppression secondary to alcoholic intoxication. Poor p.o. intake. Her B12 level was nor mal. Folate level is pending. 7. Methicillin-resistant Staphylococcus aureus in her nasal passages. The patient will likely start on Bactroban. PLAN: 1. Encourage patient to never touch alcohol again in light of the changes that were seen in her live r architecture. 2. Continue magnesium, calcium and vitamin D supplements. 3. Hoping to see a fall in her liver enzymes as patient gets further away from her acute alcoholic i ntoxication. 4. Continue Keppra for her seizure disorder. 5. Bactroban for the MRSA, which is positive in her nasal passages. Anthony Kelsey MD cc: [id number] TT: 09/14/2016 18:10:16 Confirmation # [id number] Dictation # [id number] mn
[2016-09-15] MEDS: oxyCODONE 10 mg Immediate Release Tab PO PRN ×2 (05:43→16:25)
[2016-09-15] MEDS: Pantoprazole 40 mg EC Tab PO SCH (06:10)
--- NOTE | 2016-09-15 07:35 | PN ---
DATE: 09/14/2016 The patient was seen yesterday by Dr. [place] Mcdowell and I am seeing her again this Tuesday morning, 06/2016. She is in bed, in no acute distress, seems relatively comfortable with current levels of me dications, but asking for more. Signs of alcohol withdrawal and tremor have been reduced and subside d. Today, she is calm. There is no tremor. Her potassium and calcium are being supplemented and fo llowed closely by renal energy sales consultant. Psychiatry note was appreciated. Looking forward to their input on medication choices and help with alcohol and/or opiate detox. Pain management consultation kay cuenca. PHYSICAL EXAMINATION: LUNGS: Clear. HEART: Regular. EXTREMITIES: Chronic bilateral edema related to liver failure noted. IMPRESSION: 1. Acute alcohol intoxication. 2. Chronic alcohol use. 3. Polypharmacy abuse, benzodiazepines and opiates. 4. Liver failure with elevated LFTs and total bilirubin, and low protein, normal coags and edema. PLAN: Case discussed with GI nurse practitioner. Will try to decrease the benzodiazepines and perha ps even the opiates tomorrow. Will add subQ Lovenox to avoid complications of deep venous thrombosis , even though the patient is mildly anticoagulated. Will need to follow closely as far as future arnaud ns if the patient is interested in detox/rehabilitation. eLonel Mcdowell MD cc: [id number] TT: 09/15/2016 07:35:00 Confirmation # [id number] Dictation # [id number] en
[2016-09-15 08:02] LABS: MEAN CELL VOLUME 90.9 fL (80.0-105.0); MEAN CORPUSCULAR HEMOGLOBIN 28.5 pg (25.0-35.0); MEAN CORPUSCULAR HGB CONC 31.4 g/dl (31.0-37.0); PLATELET COUNT 127 10^3/uL (120.0-450.0); RED CELL DISTRIBUTION WIDTH 28.7 % (11.5-14.5); WHITE BLOOD COUNT 4.9 10^3/ul (4.5-11.0)
[2016-09-15 08:16] LABS: ALB/GLOB RATIO 0.6 (1.1-1.8); ALKALINE PHOSPHATASE 361 U/L (38-133); ALT/SGPT 142 U/L (7-56); AST/SGOT 189 U/L (15-39); BILIRUBIN,DIRECT 5.7 mg/dL (0.0-0.4); BILIRUBIN,TOTAL 7.5 mg/dL (0.2-1.3); BLOOD UREA NITROGEN 3 mg/dL (7-21); CALCIUM 7.5 mg/dL (8.4-10.5); CARBON DIOXIDE 26 mmol/L (21-33); CHLORIDE 104 mmol/L (95-110); GFR AFRICAN-AMERICAN > 60; GLUCOSE,RANDOM 65 mg/dL (70-110); INR 1.92 (0.93-1.08); MAGNESIUM 1.5 mg/dL (1.7-2.2); PARTIAL THROMBOPLASTIN TIME 38.8 Seconds (23.7-30.8); PHOSPHOROUS 1.6 mg/dL (2.5-4.5); POTASSIUM 4.4 mmol/L (3.6-5.0); SODIUM 138 mmol/L (132-148); TOTAL PROTEIN 7.3 g/dL (5.8-8.3)
[2016-09-15] MEDS: Enoxaparin 40 mg Syringe SC SCH (09:41)
[2016-09-15] MEDS: Clotrimazole/Betamethasone Cream(15 gm) TOP SCH ×2 (10:20→19:16)
[2016-09-15] MEDS: oxyCODONE 20 mg ER Tab (oxyCONTIN) PO SCH ×2 (10:31→22:16)
[2016-09-15] MEDS: Magnesium Oxide 400 mg Tab UD PO SCH ×3 (10:37→17:27)
[2016-09-15] MEDS ORDERED: Lactated Ringer's 1,000 ML IV SCH (13:53)
[2016-09-15] MEDS ORDERED: Benzocaine/Butamben/Tetracai 14-2-2% TOP Spray TOP ONE (14:38)
[2016-09-15] MEDS ORDERED: Propofol 10 mg/ml Inj (20 ML) ONE (14:41)
[2016-09-15] MEDS ORDERED: Lidocaine 1% Inj (20ml) ONE (14:43)
--- NOTE | 2016-09-15 17:04 | PCM.PYCHPN ---
Psychiatric Progress Note - Psychiatric Progress Note Patient seen today, length of contact: 25 Patient Chief Complaint: Anxiety and depression Problems Identified/Issues Discussed: Is presently anxious and somewhat blunted in affect. There is about to go for a echocardiogram Medical Problems: Has had liver failure with increased liver function tests and increased total bilirubin. Also has lowered serum protein and is edematous Diagnostic Results: H/H3.19/9.1 AST 189 ALC 142 total bilirubin 7.5 Temperature 98.2 pulse 94 respiratory rate 166/77 respiratory rate 15 DSM 5 Symptoms Update: Anxious about present testing. Medication Change: Yes (Have stopped standing order of Librium. We'll get when necessary only) Medical Record Reviewed: Yes Consults ordered or reviewed: Reviewed Mental Status Examination - Cognitive Function Orientation: Person ( ), Place, Situation, Time Memory: Intact Attention: WNL Concentration: WNL Association: WNL Fund of Knowledge: WNL Decription of patient's judgement and insights: Patient aware of surroundings, reason for hospitalization and intermittent testing. There is anxious about this Can be medication seeking - Mood Mood: Anxious - Affect Affect: Blunted - Speech Speech: Appropriate - Formal Thought Process Formal Thought Process: No Impairment Psychotic Thoughts and Behaviors: None - Suicidal Ideation Suicidal Ideation: No - Homicidal Ideation Homicidal Ideation: No Goal/Treatment Plan - Goal/Treatment Plan Progress Toward Problem(s) and Goals/Treatment Plan: Will offer therapeutic supports while patient undergoes medical evaluation. We will be working with you on tapering patient's medications and placing on appropriate medication for anxiety mood in this substance abusing patient
[2016-09-16] MEDS: oxyCODONE 10 mg Immediate Release Tab PO PRN ×2 (00:33→13:48)
[2016-09-16] MEDS: Pantoprazole 40 mg EC Tab PO SCH (07:36)
[2016-09-16 07:48] LABS: INR 2.08 (0.93-1.08)
[2016-09-16 07:49] LABS: MEAN CORPUSCULAR HEMOGLOBIN 28.9 pg (25.0-35.0); MEAN CORPUSCULAR HGB CONC 31.1 g/dl (31.0-37.0); MEAN PLATELET VOLUME 10.8 fl (7.0-11.0); RED CELL DISTRIBUTION WIDTH 29.6 % (11.5-14.5); WHITE BLOOD COUNT 4.3 10^3/ul (4.5-11.0)
[2016-09-16 07:54] LABS: HEMATOCRIT 23.8 % (36.0-48.0)
[2016-09-16 08:00] LABS: ALB/GLOB RATIO 0.5 (1.1-1.8); ALKALINE PHOSPHATASE 255 U/L (38-133); ALT/SGPT 114 U/L (7-56); AST/SGOT 123 U/L (15-39); BILIRUBIN,DIRECT 4.8 mg/dL (0.0-0.4); BILIRUBIN,TOTAL 6.3 mg/dL (0.2-1.3); BLOOD UREA NITROGEN 3 mg/dL (7-21); CARBON DIOXIDE 29 mmol/L (21-33); CHLORIDE 105 mmol/L (98-107); GFR AFRICAN-AMERICAN > 60; GLUCOSE,RANDOM 86 mg/dL (70-110); POTASSIUM 4.1 mmol/L (3.6-5.0); SODIUM 138 mmol/L (132-148)
--- NOTE | 2016-09-16 08:07 | PN ---
DATE: 09/14/2016 SUBJECTIVE: The patient seen ____. She appears comfortable. She does not appear to be in any kind of distress. PHYSICAL EXAMINATION: VITAL SIGNS: Blood pressure ____, heart rate ____, respiratory rate 15, temperature 98.2. HEENT: Normocephalic, atraumatic, positive pallor. NECK: Supple, no JVD. LUNGS: Bilateral equal air entry, no rales. CARDIAC: S1, S2, regular rate and rhythm, no murmur, no rub. ABDOMEN: Obese, distended, soft, nontender, bowel sounds present. EXTREMITIES: Trace lower extremity edema. INTAKE AND OUTPUT: ____/1550. LABORATORY DATA: WBC 4.9, hemoglobin 9.1, hematocrit 29, platelets 127, MCV 90. Sodium 138, potassi um 4.4, chloride 104, CO2 26, BUN 3, creatinine 0.9, glucose 65, calcium 7.5, phosphorus 1.6, magnesi um 1.5, direct bili 5.7, total bili 7.5, AST ___, ALT 142. CURRENT MEDICATIONS: Colace, ____, potassium ____, Lotrisone, mag oxide, calcium carbonate, oxycodon e, OxyContin, ____, Tylenol. ASSESSMENT: 1. Acute alcohol intoxication. 2. Acute liver injury. 3. Hyperkalemia. 4. Hypomagnesemia. 5. Hypophosphatemia. 6. ____. 7. Obesity. PLAN: 1. ____. 2. Replace phosphorus. 3. Encourage p.o. intake. 4. Follow up endoscopy results. 5. Treatment of alcoholic hepatitis as per GI. Mariya Vega MD cc: [id number] TT: 09/15/2016 17:32:55 Confirmation # [id number] Dictation # [id number] en
[2016-09-16] MEDS: oxyCODONE 20 mg ER Tab (oxyCONTIN) PO SCH ×2 (09:09→21:50)
[2016-09-16] MEDS: Magnesium Oxide 400 mg Tab UD PO SCH ×3 (10:10→17:38)
[2016-09-16] MEDS: Enoxaparin 40 mg Syringe SC SCH (10:10)
[2016-09-16] MEDS: Clotrimazole/Betamethasone Cream(15 gm) TOP SCH ×2 (10:10→17:38)
--- NOTE | 2016-09-16 12:49 | PCM.PYCHPN ---
Psychiatric Progress Note - Psychiatric Progress Note Patient seen today, length of contact: 25 Patient Chief Complaint: Anxiety and depression Problems Identified/Issues Discussed: Is presently anxious and somewhat blunted in affect. There is about to go for a echocardiogram Medical Problems: Has had liver failure with increased liver function tests and increased total bilirubin. Also has lowered serum protein and is edematous Diagnostic Results: H/H3.19/9.1 AST 189 ALC 142 total bilirubin 7.5 Temperature 98.2 pulse 94 respiratory rate 166/77 respiratory rate 15 DSM 5 Symptoms Update: Mood and affect appear brighter. Reports alcohol craving. We'll start on Campral Medication Change: Yes (have started on Campral) Medical Record Reviewed: Yes Mental Status Examination - Cognitive Function Orientation: Person ( ), Place, Situation, Time Memory: Intact Attention: WNL Concentration: WNL Association: WNL Fund of Knowledge: [facility] Decription of patient's judgement and insights: Patient aware of surroundings, reason for hospitalization and intermittent testing. There is anxious about this Can be medication seeking - Mood Mood: Anxious, Neutral - Affect Affect: Blunted, Other - Speech Speech: Appropriate - Formal Thought Process Formal Thought Process: No Impairment Psychotic Thoughts and Behaviors: None - Suicidal Ideation Suicidal Ideation: No - Homicidal Ideation Homicidal Ideation: No Goal/Treatment Plan - Goal/Treatment Plan Progress Toward Problem(s) and Goals/Treatment Plan: Will offer therapeutic supports while patient undergoes medical evaluation. We will be working with you on tapering patient's medications and placing on appropriate medication for anxiety mood in this substance abusing patient Today (September for M (reports increased alcohol craving or pers She did not start on Revia because patient on opiates
[2016-09-16] MEDS ORDERED: Potassium Phosphate 15 MMOLE in Dextrose 5% In Water 250 ML IVPB ONE (14:18)
--- NOTE | 2016-09-16 15:08 | PN ---
DATE: 09/16/2016 SUBJECTIVE: The patient is seen in bed. She is groggy, arousable. Complains of weakness. PHYSICAL EXAMINATION: GENERAL: Obese young woman lying in bed. VITAL SIGNS: Blood pressure 94/61, heart rate 74, respiratory rate 18, temperature 97.7. HEENT: Normocephalic, atraumatic, positive pallor. NECK: Supple, no JVD. LUNGS: Bilateral equal air entry, no rales. CARDIAC: S1, S2, regular rate and rhythm, no murmur, no rub. ABDOMEN: Obese, distended, soft, nontender, bowel sounds present. EXTREMITIES: No lower extremity edema. INTAKE AND OUTPUT: 840/1325. LABORATORY DATA: WBC 4, hemoglobin 7.4, hematocrit 23.8, platelets 103. Sodium 138, potassium 4.1, chloride 105, CO2 29, BUN 3, creatinine 0.8, glucose 86, calcium 7.0, albumin 2.1, corrected calcium is 8.4, total bilirubin 6.3, direct bilirubin 4.8. AST 123, ALT 114. Folate 6.9. Endoscopy report, evidence of gastric bypass, gastric pouch with 4 cm from the GE junction, healthy a ppearing mucosa, moderate inflammation characterized with erythema found in the gastric pouch. CURRENT MEDICATIONS: Actigall, Colace, Drisdol, Keppra, Lexapro, Librium, mag oxide, Os-[place], predniso ne, Zofran. ASSESSMENT: 1. Alcoholic hepatitis. 2. Acute alcohol intoxication. 3. Acute liver injury. 4. Hypokalemia. 5. Hypomagnesemia. 6. Hypophosphatemia. 7. Severe anemia. 8. Pancytopenia. PLAN: 1. Replace potassium phosphate. 2. Replace magnesium sulfate. 3. Neutra-Phos p.o. 4. Prednisone started by GI for alcoholic hepatitis. 5. Prognosis guarded. Mariya Vega MD cc: [id number] TT: 09/16/2016 15:08:26 Confirmation # [id number] Dictation # [id number] paulette
--- NOTE | 2016-09-16 15:32 | PN ---
DATE: 09/16/2016 Seen and examined at the bedside earlier today. She had an endoscopy yesterday and was found to have gastritis. The patient is feeling slightly better. No reports of nausea, vomiting or abdominal eloise n. No fever, chills, shortness of breath or chest pain. She did have a formed bowel movement and do es not report any bleeding. The patient was started on prednisone yesterday. VITAL SIGNS: Temperature is 97.7, pulse rate was 74, blood pressure is 103/56, respirations are 20. LABORATORY DATA: WBC is 4.3, H and H is 7.4 and 23.8, platelets are 103. PT is 22.5, INR is 2.08. C hem: Sodium is 138, her K is 4.1, BUN is 3, creatinine is 0.8. Her liver enzymes, total bilirubin i s 6.3, direct bilirubin is 4.8, AST 23, ALT 114, alkaline phosphatase is 255. There is some mild sli ght improvement on LFTs. PHYSICAL EXAMINATION: HEENT: Sclerae are icteric. The patient does appear jaundiced. NECK: Supple. CARDIAC: S1, S2. LUNGS: Decreased breath sounds but good air entry, no rales or wheeze. ABDOMEN: With bowel sounds, soft. It is nontender. No rebound, guarding, or organomegaly. ASSESSMENT: This is a 45-year-old female with a history of chronic ETOH with history of polysubstanc e abuse, history of gastric bypass, came to the Emergency Room with complaints of weakness. The clifford ent also was having abdominal pain, noted to have elevated liver enzymes, is noticeable jaundice, fou nd with anemia and is guaiac positive, likely secondary to alcoholic hepatitis. The patient had an e ndoscopy done. No ulcers were found, just gastritis. In view of elevated coagulopathy, no biopsies were obtained. Also, she was started on prednisone. Her Maddrey discriminant factor was 48.4 yester day and anything greater than 32 shows poor prognosis. History of depression and chronic pain. The patient was sent for ultrasound during this admission, which showed hepatomegaly and fatty infiltrati on. PLAN: Continue the prednisone. She is getting 40 daily. Also started on Ursodiol. Monitor the LFT s. Continue Protonix. Follow up her autoimmune markers. She is on Librium p.r.n. and stool softene rs. We will continue to follow closely. The patient was seen and case discussed with Dr. Meza. Whitney KATHLEEN cc: [id number] TT: 09/16/2016 15:31:00 Confirmation # [id number] Dictation # [id number] rn
[2016-09-16] MEDS: Potassium & Sodium Phosphate PO SCH (17:38)
[2016-09-16] MEDS: HYDROmorphone 1 mg/ml ISec IVP PRN (20:22)
--- NOTE | 2016-09-16 22:17 | PN ---
DATE: 09/16/2016 The patient was seen this morning in room 271, bed 2. She is resting much more comfortably in bed with her benzodiazepine dose, then dose of Librium having been decreased to just p.r.n. Psychiatry input appreciated. She is complaining of diet and is hungry and has been on a liquid diet for the last 3 days. Of note is also on her labs showing her PT/INR is elevated. Therefore, we will discontinue Lovenox and increase her diet. HBG = 7.4 so transfusion has been ordered. PHYSICAL EXAMINATION: Remains essentially unremarkable. ABDOMEN: Soft, no significant tenderness that is easily reproducible. EXTREMITIES: Obese and edematous. IMPRESSION: 1. Liver failure. 2. Underlying liver failure, suspected due to alcohol etiology. 3. Cirrhosis 4. Polysubstance abuse. 5. History of benzoin with benzodiazepine withdrawal seizures. 6. Peripheral edema. 7. Hypocalcemia. 8. Hypokalemia. Leonel Mcdowell MD cc: [phone] TT: 09/16/2016 22:16:46 Confirmation # [id number] Dictation # [id number] melanie CHANDRA
[2016-09-17] MEDS: oxyCODONE 10 mg Immediate Release Tab PO PRN ×2 (00:32→13:30)
--- NOTE | 2016-09-17 00:48 | PN ---
DATE: 09/16/2016 Addendum to the GI progress note of ZACARIAS Dumont SUBJECTIVE: This patient was seen and evaluated earlier today. The patient has been on prednisone now, 40 mg received yesterday. The patient is feeling better, tolerating the diet. LABORATORY DATA: Hemoglobin of 7.4. LFTs show the total bilirubin has come down to 6.3, AST 120, ALT 114, alkaline phosphatase is 265. IMPRESSION: This is a 45-year-old patient with a history of ETOH admitted to the ER for alcohol and also increased LFTs. CBD normal. Alcohol hepatitis, improving slowly. We will continue with current treatment. The patient improving. Followup of the hemoglobin, hematocrit. Thank you very much for allowing me to participate in the care of the patient. Ana Meza MD cc: [phone] TT: 09/17/2016 00:48:12 Confirmation # [id number] Dictation # [id number] tiffany CHANDRA
[2016-09-17] MEDS: HYDROmorphone 1 mg/ml ISec IVP PRN ×4 (02:23→23:20)
[2016-09-17] MEDS: Pantoprazole 40 mg EC Tab PO SCH (05:40)
[2016-09-17 08:00] LABS: HEMATOCRIT 31.2 % (36.0-48.0); MEAN CELL VOLUME 93.1 fL (80.0-105.0); MEAN CORPUSCULAR HEMOGLOBIN 29.3 pg (25.0-35.0); MEAN CORPUSCULAR HGB CONC 31.4 g/dl (31.0-37.0); MEAN PLATELET VOLUME 10.5 fl (7.0-11.0); RED CELL DISTRIBUTION WIDTH 28.7 % (11.5-14.5); WHITE BLOOD COUNT 4.2 10^3/ul (4.5-11.0)
[2016-09-17 08:23] LABS: ALB/GLOB RATIO 0.6 (1.1-1.8); ALKALINE PHOSPHATASE 282 U/L (38-133); ALT/SGPT 110 U/L (7-56); AST/SGOT 151 U/L (15-39); BILIRUBIN,DIRECT 5.9 mg/dL (0.0-0.4); BILIRUBIN,TOTAL 7.7 mg/dL (0.2-1.3); BLOOD UREA NITROGEN 4 mg/dL (7-21); CALCIUM 7.5 mg/dL (8.4-10.5); CARBON DIOXIDE 28 mmol/L (21-33); CHLORIDE 106 mmol/L (98-107); GFR AFRICAN-AMERICAN > 60; GLUCOSE,RANDOM 63 mg/dL (70-110); POTASSIUM 4.1 mmol/L (3.6-5.0); SODIUM 139 mmol/L (132-148); TOTAL PROTEIN 6.8 g/dL (5.8-8.3)
[2016-09-17] MEDS: Potassium & Sodium Phosphate PO SCH ×2 (09:23→18:44)
[2016-09-17] MEDS: Magnesium Oxide 400 mg Tab UD PO SCH ×3 (09:23→18:44)
[2016-09-17] MEDS: oxyCODONE 20 mg ER Tab (oxyCONTIN) PO SCH ×2 (09:23→22:27)
[2016-09-17] MEDS: Clotrimazole/Betamethasone Cream(15 gm) TOP SCH ×2 (09:28→18:46)
--- NOTE | 2016-09-17 10:57 | PN ---
DATE: 09/17/2016 SUBJECTIVE: The patient is seen lying in bed. She complains of feeling weak. She is also complaini ng of lower extremity pain. She is complaining of back pain. She denies any nausea, vomiting. PHYSICAL EXAMINATION: GENERAL: Obese, middle-aged lady lying in bed. VITAL SIGNS: Blood pressure 111/73, heart rate 74, respiratory rate 20, temperature 98.1. HEENT: Normocephalic, atraumatic, positive pallor. NECK: Supple, no JVD. LUNGS: Symmetrical expansion, bilateral equal air entry. CARDIAC: S1, S2, regular rate and rhythm, no murmur, no rub. ABDOMEN: Obese, distended, soft, nontender, bowel sounds present. EXTREMITIES: 2+ pitting edema of the lower extremities. INTAKE AND OUTPUT: 1767/900. LABORATORY DATA: WBC 4.2, hemoglobin 9.8, hematocrit 31, platelets 108. Sodium 139, potassium 4.1, chloride 106, CO2 28, BUN 4, creatinine 0.9, glucose 63, calcium 7.5, albumin 2.6, corrected calcium 8.5. Direct bilirubin 5.9, AST 151, ALT 110. Hepatitis profile is negative. Antimitochondrial anti body negative. CURRENT MEDICATIONS: Actigall, bacitracin, Colace, Dilaudid, Drisdol, Flexeril, Keppra, Lexapro, Seda rium, Lyrica, mag oxide, Neutra-Phos, Os-[place], prednisone, Protonix, Tylenol, Zofran. The patient received 2 units of blood yesterday. ASSESSMENT: 1. Acute alcoholic hepatitis. 2. Status post acute alcohol intoxication. 3. Multiple electrolyte abnormalities, now corrected. 4. Severe hypoalbuminemia secondary to acute liver injury. 5. Pancytopenia, secondary to alcohol-induced marrow suppression. 6. Lower extremity edema, third spacing secondary to hypoalbuminemia. PLAN: 1. Continue oral magnesium oxide. 2. Continue Neutra-Phos. 3. Continue prednisone as advised by GI. 4. Continue thiamine, B12. 5. No diuretics at this point because of low blood pressure and risks of hypotensive liver injury. Mariya Vega MD cc: [id number] TT: 09/17/2016 10:57:13 Confirmation # [id number] Dictation # [id number] mn
--- NOTE | 2016-09-17 12:31 | PCM.PYCHPN ---
Psychiatric Progress Note - Psychiatric Progress Note Patient seen today, length of contact: 25 Patient Chief Complaint: Anxiety and depression Problems Identified/Issues Discussed: Is presently anxious and somewhat blunted in affect. There is about to go for a echocardiogram Medical Problems: Has had liver failure with increased liver function tests and increased total bilirubin. Also has lowered serum protein and is edematous Diagnostic Results: H/H3.19/9.1 AST 189 ALC 142 total bilirubin 7.5 Temperature 98.2 pulse 94 respiratory rate 166/77 respiratory rate 15 DSM 5 Symptoms Update: Seems more withdrawn than yesterday The patient is concerned that she has not gotten Campral as described to her (2 pills 3 times daily) Medication Change: Yes (have started on Campral) Medical Record Reviewed: Yes Mental Status Examination - Cognitive Function Orientation: Person ( ), Place, Situation, Time Memory: Intact Attention: WNL Concentration: WNL Association: WNL Fund of Knowledge: [facility] Decription of patient's judgement and insights: Patient aware of surroundings, reason for hospitalization and intermittent testing. There is anxious about this Can be medication seeking - Mood Mood: Anxious, Neutral - Affect Affect: Blunted, Other - Speech Speech: Appropriate - Formal Thought Process Formal Thought Process: No Impairment Psychotic Thoughts and Behaviors: None - Suicidal Ideation Suicidal Ideation: No - Homicidal Ideation Homicidal Ideation: No Goal/Treatment Plan - Goal/Treatment Plan Progress Toward Problem(s) and Goals/Treatment Plan: Will offer therapeutic supports while patient undergoes medical evaluation. We will be working with you on tapering patient's medications and placing on appropriate medication for anxiety mood in this substance abusing patient Today (September M (reports increased alcohol craving or pers She did not start on Revia because patient on opiates On September 17 it was noted that she had been started on Campral probably yesterday to reduce her alcohol proclivity Patient seems more sluggish today
--- NOTE | 2016-09-17 16:01 | PN ---
DATE: 09/17/2016 HISTORY OF PRESENT ILLNESS: Seen and examined at the bedside earlier today. Denies any nausea, vomi ting, or abdominal pain. She is moving her bowels, but no reports of any bleeding. States she did n ot get much sleep last night. Tolerating oral intake. LABORATORY DATA: WBC is 4.2, H and H are 9.8 and 31.2. Her platelet count is 108. Sodium is 139, p otassium 4.1, BUN 4, creatinine is 0.9, BUN is 4, creatinine is 0.9. The total bilirubin is 7.7, dir ect bili is 5.9, AST 151, ALT 110, alk phos is 282. Today, the LFTs are noted to slightly trend up. PHYSICAL EXAMINATION: HEENT: Sclera is icteric. NECK: Supple. CARDIAC: S1, S2. LUNGS: With decreased breath sounds, but good aeration. No rales or wheeze. ABDOMEN: With bowel sounds, soft, nontender. No rebound or guarding. EXTREMITIES: Positive bilateral edema. ASSESSMENT: A 45-year-old obese female with history of ethyl alcohol, admitted with elevated LFTs wi th alcoholic hepatitis. Started on prednisone. The patient is also noted to be anemic. Status post 2 units of packed RBCs yesterday. She did go for an endoscopy and found to have gastritis, history of gastric bypass. PLAN: We will continue the 40 mg of prednisone, but will break it up to 20 b.i.d. Continue the emile diol, monitor LFTs. Also, request for CMP, PT, PTT. Continue her diet as tolerated. The patient is on Librium. Improved tremors, not noticeable. Continue Colace. The patient is getting Dilaudid fo r pain and oxycodone. Continue PPI. Will continue to follow closely. The patient was seen and case discussed with Dr. Meza. Whitney Crystal HEVER cc: 451 TT: 09/17/2016 16:01:04 Confirmation # [id number] Dictation # [id number] dn
[2016-09-17 19:21] LABS: LKM-1 Ab (IgG) <=20.0 U (<=20.0)
[2016-09-18] MEDS: Pantoprazole 40 mg EC Tab PO SCH (06:31)
[2016-09-18] MEDS: HYDROmorphone 1 mg/ml ISec IVP PRN ×3 (06:32→18:47)
[2016-09-18 07:44] LABS: ADD MANUAL DIFF? NO
[2016-09-18 08:00] LABS: INR 1.76 (0.93-1.08)
[2016-09-18 08:04] LABS: BASO # 0.02 K/mm3 (0.0-2.0); BASO % 0.5 % (0.0-3.0); EOS # 0.1 (0.0-0.7); EOS % 1.4 % (1.5-5.0); GRAN # 2.59 (1.4-6.5); GRAN % 60.4 % (50.0-68.0); LYMPH # 0.9 (1.2-3.4); LYMPH % 20.6 % (22.0-35.0); MEAN CELL VOLUME 94.8 fL (80.0-105.0); MEAN CORPUSCULAR HEMOGLOBIN 29.7 pg (25.0-35.0); MEAN CORPUSCULAR HGB CONC 31.4 g/dl (31.0-37.0); MEAN PLATELET VOLUME 10.6 fl (7.0-11.0); MONO # 0.7 (0.1-0.6); MONO % 17.1 % (1.0-6.0); PLATELET COUNT 104 10^3/uL (120.0-450.0); RED CELL DISTRIBUTION WIDTH 28.9 % (11.5-14.5); RETIC% 6.56 % (0.5-1.5); WHITE BLOOD COUNT 4.3 10^3/ul (4.5-11.0)
[2016-09-18 08:10] LABS: ALB/GLOB RATIO 0.6 (1.1-1.8); ALKALINE PHOSPHATASE 246 U/L (38-133); ALT/SGPT 96 U/L (7-56); AST/SGOT 139 U/L (15-39); BILIRUBIN,DIRECT 5.6 mg/dL (0.0-0.4); BILIRUBIN,TOTAL 7.3 mg/dL (0.2-1.3); BLOOD UREA NITROGEN 5 mg/dL (7-21); CALCIUM 7.5 mg/dL (8.4-10.5); CARBON DIOXIDE 28 mmol/L (21-33); CHLORIDE 106 mmol/L (98-107); GFR AFRICAN-AMERICAN > 60; GLUCOSE,RANDOM 62 mg/dL (70-110); POTASSIUM 3.9 mmol/L (3.6-5.0); SODIUM 140 mmol/L (132-148); TOTAL PROTEIN 6.4 g/dL (5.8-8.3)
[2016-09-18 09:47] LABS: ERYTHROCYTE SEDIMENTATION RATE 29 mm/hr (0.0-20.0)
[2016-09-18] MEDS: Potassium & Sodium Phosphate PO SCH ×2 (10:29→17:28)
[2016-09-18] MEDS: Magnesium Oxide 400 mg Tab UD PO SCH ×3 (10:29→17:28)
[2016-09-18] MEDS: Clotrimazole/Betamethasone Cream(15 gm) TOP SCH ×2 (10:33→17:29)
[2016-09-18] MEDS: oxyCODONE 20 mg ER Tab (oxyCONTIN) PO SCH ×2 (10:34→21:39)
--- NOTE | 2016-09-18 14:15 | PN ---
DATE: 09/18/2016 SUBJECTIVE: The patient is seen lying in bed. She appears weak, lethargic. PHYSICAL EXAMINATION: GENERAL: Obese, middle-aged lady lying in bed. VITAL SIGNS: Blood pressure 100/72, heart rate 80, respiratory rate 18, temperature 98.2. HEENT: Normocephalic, atraumatic, positive pallor. NECK: Supple, no JVD. LUNGS: Bilateral equal air entry, no rales. CARDIAC: S1, S2, regular rate and rhythm, no murmur, no rub. ABDOMEN: Obese, distended, soft, nontender, bowel sounds present. EXTREMITIES: 2+ pitting edema of the lower extremities. INTAKE AND OUTPUT: 900/800. LABORATORY DATA: WBC 4.3, hemoglobin 9.1, hematocrit 29, platelets 104. Sodium 140, potassium 3.9, chloride 106, CO2 28, BUN 5, creatinine 1.0, glucose 62, calcium 7.5, albumin 2.3, corrected calcium is 8.6, total bilirubin 7.3, direct bili 5.6, AST 139, ALT 96. CURRENT MEDICATIONS: Actigall, Bactroban, Colace, Dilaudid, vitamin D, Flexeril, Keppra, Lexapro, Li brium, pregabalin, mag oxide, Neutra-Phos, Os-[place], prednisone, Protonix, Tylenol, Zofran. ASSESSMENT AND PLAN: 1. Acute alcoholic intoxication. 2. Acute alcoholic hepatitis. 3. Severe hypoalbuminemia. 4. Multiple electrolyte abnormalities, now corrected. 5. Depression. 6. Chronic pain. 7. Pancytopenia. 8. Lower extremity edema. PLAN: 1. Continue prednisone as per GI. 2. Continue Librium. 3. Continue pain management. 4. Continue PPI. 5. Continue mag oxide and Neutra-Phos. Mariya Vega MD cc: [id number] TT: 09/18/2016 14:14:25 Confirmation # [id number] Dictation # [id number] melanie
[2016-09-18] MEDS: PrednisoLONE 15 mg/5 ml Oral Syrup (240 ml) PO SCH (17:31)
--- NOTE | 2016-09-18 20:22 | PN ---
DATE: 09/17/2016 The patient was seen this Tuesday morning in room 271, bed 2. Pain management consultation was apprec iated. The patient continues to be followed by renal for her severe hypokalemia and hypocalcemia as well as GI. Endoscopy was performed. She is on a trial dose of steroids on the outside chance that some of her abnormal liver function tests may be related to autoimmune involvement, although I would tend to think this is extremely unlikely in view of the patient's history. Will continue medications as above and follow closely. Leonel Mcdowell MD cc: 439 TT: 09/18/2016 20:21:42 Confirmation # [id number] Dictation # [id number] dn
--- NOTE | 2016-09-18 20:47 | PN ---
DATE: 09/18/2016 SUBJECTIVE: The patient was seen this Tuesday morning in room 271, bed 2. She is in bed, quite com fortable in fact quite groggy and lethargic having received a dose of IV Dilaudid earlier this mornin g. She is sleepy and obtunded, but yet arousable. Breath sounds are equal bilaterally and heart is not tachycardic. IMPRESSION: 1. Underlying liver disease with jaundice and icterus, abnormal LFTs. 2. Polysubstance abuse. 3. Chronic opiate use. 4. Chronic benzo use with a history of benzo withdrawal seizures. 5. Chronic alcoholism with acute alcohol intoxication on admission at 286. 6. Morbid obesity. 7. Peripheral edema related to hypoalbuminemia. 8. Severe hypokalemia, hypocalcemia, possibly related to diuretics versus true underlying renal dise ase. PLAN: In view of the altered mental status and lethargy, I will decrease the Dilaudid added by our p ain cash management officer. I will also decrease the dose on the regularly scheduled long acting oral opiate and continue the p.r.n. opiate as ordered. Her regularly scheduled benzodiazepine has been d iscontinued. Leave the p.r.n. dose as is and start to decrease that further hopefully with the input and guidance of our psychiatry foreign law consultant and rely more heavily on the Lyrica, cyclobenzaprine and n on-opiate suggestions from pain management. Leonel Mcdowell MD cc: [phone] TT: 09/18/2016 20:46:55 Confirmation # [id number] Dictation # [id number] paulette
[2016-09-18] MEDS: oxyCODONE 10 mg Immediate Release Tab PO PRN (22:50)
[2016-09-19] MEDS: HYDROmorphone 1 mg/ml ISec IVP PRN ×3 (05:35→17:11)
[2016-09-19] MEDS: Pantoprazole 40 mg EC Tab PO SCH (05:35)
[2016-09-19 07:59] LABS: ADD MANUAL DIFF? NO
[2016-09-19 08:12] LABS: INR 1.74 (0.93-1.08)
[2016-09-19 08:19] LABS: ALB/GLOB RATIO 0.6 (1.1-1.8); ALKALINE PHOSPHATASE 230 U/L (38-133); ALT/SGPT 85 U/L (7-56); AST/SGOT 124 U/L (15-39); BILIRUBIN,TOTAL 6.4 mg/dL (0.2-1.3); BLOOD UREA NITROGEN 5 mg/dL (7-21); CALCIUM 7.6 mg/dL (8.4-10.5); CARBON DIOXIDE 28 mmol/L (21-33); CHLORIDE 107 mmol/L (95-110); GFR AFRICAN-AMERICAN > 60; GLUCOSE,RANDOM 56 mg/dL (70-110); MAGNESIUM 1.9 mg/dL (1.7-2.2); POTASSIUM 3.8 mmol/L (3.6-5.0); SODIUM 142 mmol/L (132-148); TOTAL PROTEIN 6.1 g/dL (5.8-8.3)
[2016-09-19 09:06] LABS: BASO # 0.02 K/mm3 (0.0-2.0); BASO % 0.5 % (0.0-3.0); EOS # 0.1 (0.0-0.7); EOS % 1.4 % (1.5-5.0); GRAN # 2.57 (1.4-6.5); GRAN % 60.6 % (50.0-68.0); HEMATOCRIT 29.3 % (36.0-48.0); LYMPH # 0.9 (1.2-3.4); LYMPH % 21.7 % (22.0-35.0); MEAN CELL VOLUME 95.8 fL (80.0-105.0); MEAN CORPUSCULAR HEMOGLOBIN 29.4 pg (25.0-35.0); MEAN CORPUSCULAR HGB CONC 30.7 g/dl (31.0-37.0); MEAN PLATELET VOLUME 11.2 fl (7.0-11.0); MONO # 0.7 (0.1-0.6); MONO % 15.8 % (1.0-6.0); PLATELET COUNT 109 10^3/uL (120.0-450.0); RED CELL DISTRIBUTION WIDTH 28.9 % (11.5-14.5); WHITE BLOOD COUNT 4.2 10^3/ul (4.5-11.0)
[2016-09-19] MEDS: oxyCODONE 20 mg ER Tab (oxyCONTIN) PO SCH ×2 (10:08→22:33)
[2016-09-19] MEDS: Magnesium Oxide 400 mg Tab UD PO SCH ×3 (11:09→17:11)
[2016-09-19] MEDS: Potassium & Sodium Phosphate PO SCH ×2 (11:10→17:11)
[2016-09-19] MEDS: Clotrimazole/Betamethasone Cream(15 gm) TOP SCH ×2 (11:10→17:03)
[2016-09-19] MEDS: PrednisoLONE 15 mg/5 ml Oral Syrup (240 ml) PO SCH ×2 (11:22→17:18)
--- NOTE | 2016-09-19 17:28 | PN ---
DATE: 09/18/2016 SUBJECTIVE: This patient was seen and evaluated earlier. Discussed with the nursing staff. The patient appears to be more lethargic. PHYSICAL EXAMINATION: VITAL SIGNS: Temperature was 98.7, blood pressure 115/72, pulse 87, respirations 19. HEENT: Atraumatic, jaundiced. NECK: Supple. HEART: S1, S2 heard. LUNGS: Bilateral air entry present. ABDOMEN: Soft. EXTREMITIES: Mild edema present. LABORATORY DATA: Hemoglobin is 9.1, hematocrit 29, WBC 4.3, platelets is 104. Chemistry showed a bilirubin is 7.6, direct bilirubin . AST is 139, ALT 96 , alkaline phosphatase 246. IMPRESSION: A 45-year-old patient with alcoholic hepatitis, elevated ammonia level. The patient's MELD score was high. The patient's discriminant factor was his significant elevation. Started the patient on prednisolone. The patient was on prednisone and has been changed to prednisolone in view of these hepatic dysfunction, which can alter the metabolism of prednisone. Will repeat the labs in a.m. Will continue to closely follow up her care. Thank you very much for allowing me to participate in the care of this patient. Ana Meza MD cc: [phone] TT: 09/19/2016 17:28:02 Confirmation # [id number] Dictation # [id number] clarisa CHANDRA
--- NOTE | 2016-09-19 17:34 | PN ---
DATE: 09/19/2016 SUBJECTIVE: This patient was seen and evaluated earlier today. The patient appears to be more alert. VITAL SIGNS: Temperature is 98.5, blood pressure is 112/68, pulse 70, respirations 19, and O2 sat is 98. HEENT: Atraumatic, jaundiced. NECK: Supple. HEART: S1, S2 heard. LUNGS: Bilateral air entry present. ABDOMEN: Soft. EXTREMITIES: Mild edema present. LABORATORY DATA: Bilirubin has come down to 6.4, AST 124, ALT is 85 and alkaline phosphatase 230. IMPRESSION/PLAN: This is a 45-year-old patient with probable alcoholic hepatitis with the increased discriminant factor ratio on prednisone or prednisolone 40 mg daily in divided doses. The patient has hepatic encephalopathy with elevated ammonia level. The patient has been started on Xifaxan and also on lactulose. The patient is still mobile. Her INR is elevated to 1.74. The reasonable thing is to consider DVT prophylaxis in a lower dose of 5000 units b.i.d. q.12 hourly. Continue to closely follow up the LFTs and also repeat the INR. Will follow up ammonia level and mental status changes. Will continue lactulose and rifaximin and also p.o. prednisolone. I will follow up the labs. Thank you very much for allowing us to participate in the care of the patient. Ana Meza MD cc: [phone] TT: 09/19/2016 17:33:21 Confirmation # [id number] Dictation # [id number] clarisa CHANDRA
[2016-09-20] MEDS: HYDROmorphone 1 mg/ml ISec IVP PRN ×4 (00:53→18:29)
[2016-09-20] MEDS: Pantoprazole 40 mg EC Tab PO SCH (06:25)
[2016-09-20 07:02] LABS: ALB/GLOB RATIO 0.6 (1.1-1.8); ALKALINE PHOSPHATASE 238 U/L (38-133); ALT/SGPT 91 U/L (7-56); AST/SGOT 130 U/L (15-39); BILIRUBIN,TOTAL 6.8 mg/dL (0.2-1.3); BLOOD UREA NITROGEN 6 mg/dL (7-21); CALCIUM 7.8 mg/dL (8.4-10.5); CARBON DIOXIDE 27 mmol/L (21-33); CHLORIDE 107 mmol/L (98-107); GFR AFRICAN-AMERICAN > 60; GLUCOSE,RANDOM 62 mg/dL (70-110); POTASSIUM 3.7 mmol/L (3.6-5.0); SODIUM 141 mmol/L (132-148); TOTAL PROTEIN 6.6 g/dL (5.8-8.3)
[2016-09-20 07:23] LABS: URINE APPEARANCE SL CLOUDY (CLEAR); URINE BILIRUBIN MODERATE (NEGATIVE); URINE BLOOD TRACE-LYSED (NEGATIVE); URINE COLOR DARK YELLOW (YELLOW); URINE GLUCOSE (UA) NEGATIVE (NEGATIVE); URINE KETONE NEGATIVE (NEGATIVE); URINE LEUKOCYTE ESTERASE TRACE Leu/uL (NEGATIVE); URINE PROTEIN NEGATIVE mg/dL (<30 mg/dL)
[2016-09-20 07:36] LABS: URINE BACTERIA MOD (NEG); URINE RBC 0 - 2 /hpf (0-2); URINE WBC 0 - 2 /hpf (0-6)
[2016-09-20 07:37] LABS: INR 1.56 (0.93-1.08)
--- NOTE | 2016-09-20 08:21 | PN ---
DATE: 09/19/2016 The patient was seen this Tuesday afternoon near the noon hour resting comfortably in room 271, bed 2. She is awake but groggy, lethargic, complaining of pain and wanting more pain medicines. I explain ed to her that she is groggy and lethargic, and her response is that she is tired and groggy and leth argic because of poor sleep because of pain and, therefore, needs more pain medicines. I explained t o her the progress that she has made in reducing the benzodiazepines and opiates, but she is just ask ing for more drugs. I spoke with her at great length about the possibility of long-term polysubstanc e abuse rehabilitation program, but she is not at all interested at this point. Will need to seek ad vice of a multitude of consultants: licensing worker, social planners, discharge planners and social serv ices as to eventual disposition of this case when medically stable. Leonel Mcdowell MD cc: [phone] TT: 09/20/2016 08:20:55 Confirmation # [id number] Dictation # [id number] tiffany
[2016-09-20] MEDS: oxyCODONE 20 mg ER Tab (oxyCONTIN) PO SCH ×2 (09:51→22:35)
[2016-09-20] MEDS: Potassium & Sodium Phosphate PO SCH ×2 (09:53→18:08)
[2016-09-20] MEDS: Magnesium Oxide 400 mg Tab UD PO SCH ×3 (09:53→18:08)
[2016-09-20] MEDS: Clotrimazole/Betamethasone Cream(15 gm) TOP SCH ×2 (09:54→18:09)
[2016-09-20] MEDS: PrednisoLONE 15 mg/5 ml Oral Syrup (240 ml) PO SCH ×2 (11:08→18:08)
--- NOTE | 2016-09-20 12:49 | PCM.PYCHPN ---
Psychiatric Progress Note - Psychiatric Progress Note Patient seen today, length of contact: 25 Patient Chief Complaint: Anxiety and depression On September 20 complaining of severe back pain asking for more pain medication Affect constricted. Hard to redirect away from her present pain complaints and request for analgesic relief Problems Identified/Issues Discussed: Is presently anxious and somewhat blunted in affect. There is about to go for a echocardiogram On September 20 complaining of pain. Affect constricted. Pain medication seeking I have learned that campral has not yet been started then hopefully will start later today or tomorrow Medical Problems: Has had liver failure with increased liver function tests and increased total bilirubin. Also has lowered serum protein and is edematous Diagnostic Results: H/H3.19/9.1 AST 189 ALC 142 total bilirubin 7.5 Temperature 98.2 pulse 94 respiratory rate 166/77 respiratory rate 15 DSM 5 Symptoms Update: Affect constricted. Focusing on pain complaints in her back. Seeking analgesic/ opioid relief. Dr. Goetz's note reviewed and appreciated Medication Change: Yes (Hopefully we'll get started on Campral 2 tabs 3 times a day) Medical Record Reviewed: Yes Mental Status Examination - Cognitive Function Orientation: Person ( ), Place, Situation, Time Memory: Intact Attention: WNL Concentration: Poor Association: WNL Fund of Knowledge: WNL Decription of patient's judgement and insights: Patient aware of surroundings, reason for hospitalization and intermittent testing. There is anxious about this Can be medication seeking - Mood Mood: Anxious, Neutral - Affect Affect: Blunted, Other - Speech Speech: Appropriate - Formal Thought Process Formal Thought Process: No Impairment Psychotic Thoughts and Behaviors: None - Suicidal Ideation Suicidal Ideation: No - Homicidal Ideation Homicidal Ideation: No Goal/Treatment Plan - Goal/Treatment Plan Progress Toward Problem(s) and Goals/Treatment Plan: Will offer therapeutic supports while patient undergoes medical evaluation. We will be working with you on tapering patient's medications and placing on appropriate medication for anxiety mood in this substance abusing patient Today (September M (reports increased alcohol craving or pers She did not start on Revia because patient on opiates On September 17 it was noted that she had been started on Campral probably yesterday to reduce her alcohol proclivity Patient seems more sluggish today On September 20 appears more blunted and more medication seeking and complaining of greater pain. Hopefully will start on Campral today
--- NOTE | 2016-09-20 12:50 | CP.PCM.PN ---
Subjective - Date & Time of Evaluation Date of Evaluation: 09/20/16 Time of Evaluation: 11:00 - Subjective Subjective: Seen and examined earlier today. No acute overnight events. Patient lethargic but oriented, she reprots she didnt sleep well last night. No reports of bleeding. Ammonia level yesterday 26. Objective - Vital Signs/Intake and Output Vital Signs (last 24 hours): Temp Pulse Resp BP Pulse Ox 97.9 F 69 20 120/76 96 09/20/16 06:00 09/20/16 06:00 09/20/16 06:00 09/20/16 06:00 09/20/16 06:00 Intake and Output: 09/20/16 09/20/16 06:59 18:59 Intake Total 857 Output Total 700 Balance 157 - Medications Medications: Current Medications Betamethasone/Clotrimazole (Lotrisone) 0 gm TOP BID [facility] Last Admin: 09/20/16 09:54 Dose: 1 cre Calcium Carbonate (Oscal) 500 mg PO TID [facility] Last Admin: 09/20/16 09:53 Dose: 500 mg Chlordiazepoxide (Librium) 25 mg PO Q8 PRN; Protocol PRN Reason: Agitation Last Admin: 09/18/16 10:29 Dose: 25 mg Cyclobenzaprine HCl (Flexeril) 10 mg PO HS [facility] Last Admin: 09/19/16 22:32 Dose: 10 mg Ergocalciferol (Drisdol 50,000 Intl Units Cap) 1 cap PO Q7D [facility] Last Admin: 09/14/16 17:45 Dose: 1 cap Escitalopram Oxalate (Lexapro) 10 mg PO DAILY [facility] Last Admin: 09/20/16 09:53 Dose: 10 mg Heparin Sodium (Porcine) (Heparin) 5,000 units SC Q12 [facility] PRN Reason: Protocol Last Admin: 09/20/16 09:53 Dose: 5,000 units Hydromorphone HCl (Dilaudid) 0.5 mg IVP Q6H PRN PRN Reason: Pain, severe (8-10) Last Admin: 09/20/16 06:25 Dose: 0.5 mg Lactulose (Enulose) 20 gm PO BID [facility] Last Admin: 09/20/16 09:53 Dose: 20 gm Levetiracetam (Keppra) 500 mg PO BID [facility] Last Admin: 09/20/16 09:53 Dose: 500 mg Magnesium Oxide (Mag-Ox) 400 mg PO TID [facility] Last Admin: 09/20/16 09:53 Dose: 400 mg Mupirocin (Bactroban Ointment) 1 gm TOP BID [facility] Last Admin: 09/20/16 09:54 Dose: 1 applic Ondansetron HCl (Zofran Inj) 4 mg IVP Q8H PRN PRN Reason: Nausea/Vomiting Last Admin: 09/16/16 20:21 Dose: 4 mg Oxycodone HCl (Oxycontin Extended Release Tab) 10 mg PO Q12 [facility] Last Admin: 09/20/16 09:51 Dose: 10 mg Pantoprazole Sodium (Protonix Ec Tab) 40 mg PO 0630 [facility] Last Admin: 09/20/16 06:25 Dose: 40 mg Potassium Phos/Sodium Phos (Neutra-Phos) 1 pkt PO BID [facility] Last Admin: 09/20/16 09:53 Dose: 1 pkt Prednisolone (Prednisolone Oral Soln) 20 mg PO BID [facility] Last Admin: 09/20/16 11:08 Dose: 20 mg Pregabalin (Lyrica) 50 mg PO BID [facility] Last Admin: 09/20/16 09:52 Dose: 50 mg Rifaximin (Xifaxan) 550 mg PO BID [facility] PRN Reason: Protocol Last Admin: 09/20/16 09:53 Dose: 550 mg Ursodiol (Actigall) 300 mg PO BID [facility] Last Admin: 09/20/16 09:53 Dose: 300 mg - Labs Labs: 09/19/16 07:57 09/20/16 06:00 PT 16.9 Seconds (9.9-11.8) H 09/20/16 06:00 INR 1.56 (0.93-1.08) H 09/20/16 06:00 APTT 38.8 Seconds (23.7-30.8) H 09/15/16 07:20 - Constitutional Appears: No Acute Distress - Head Exam Head Exam: NORMAL INSPECTION - Eye Exam Eye Exam: Normal appearance, Scleral icterus - ENT Exam ENT Exam: Mucous Membranes Moist - Neck Exam Neck Exam: Normal Inspection - Respiratory Exam Respiratory Exam: NORMAL BREATHING PATTERN. absent: Rales, Wheezes, Respiratory Distress - Cardiovascular Exam Cardiovascular Exam: +S1, +S2 - GI/Abdominal Exam GI & Abdominal Exam: Soft, Normal Bowel Sounds. absent: Guarding, Tenderness, Organomegaly, Rebound - Extremities Exam Extremities Exam: Pedal Edema. absent: Calf Tenderness Additional comments: bilateral, no calf tenderness - Neurological Exam Neurological Exam: Oriented x3 - Skin Additional comments: less jaundice Assessment and Plan - Assessment and Plan (Free Text) Assessment: ASSESSMENT: Alcoholic Hepatitis Anemia, s/p 2unitis PRBC s/p EGD Gastritis H/O Gastric Bypass Hepatic encephalopathy PLAN: Continue Prednisone, on 20 mg BID continue Urisodiol monitor LFT continue COlace, monitor for diarrhea continue PPI monitor for overt GI bleed on Xifaxin Patient Maddrey's descriminant funtion has improved, from 48.4 to currently today at 30.3, good prognosis, remains on prednisone and will titrate accordingly. The patient was seen and case discussed with Dr. Meza.
--- NOTE | 2016-09-20 18:21 | PN ---
DATE: 09/20/2016 SUBJECTIVE: The patient is lying in bed. She appears to be sedated. She appears comfortable. PHYSICAL EXAMINATION: GENERAL: Obese young woman lying in bed. VITAL SIGNS: Blood pressure 131/89, heart rate 82, respiratory rate 18, temperature 97.8. HEENT: Normocephalic, atraumatic, positive pallor. NECK: Supple, no JVD. LUNGS: Bilateral equal air entry, no rales. CARDIAC: S1, S2, regular rate and rhythm, no murmur, no rub. ABDOMEN: Obese, distended, soft, nontender, bowel sounds present. EXTREMITIES: 2+ pitting edema of the lower extremities. INTAKE AND OUTPUT: 962/600. LABORATORY DATA: WBC 4.2, hemoglobin 9.0, hematocrit 29, platelets 109. Sodium 141, potassium 3.7, chloride 107, CO2 27, BUN 6, creatinine 0.9, glucose 62, calcium 7.8, total bili 6.8, AST 130, ALT 91 , albumin 2.4, corrected calcium is 8.9. CURRENT MEDICATIONS: Actigall, Bactroban, Dilaudid, Drisdol, Enulose, Flexeril, Keppra, Librium, Lot risone, mag oxide, Neutra-Phos, Os-[place], prednisone 20 b.i.d., Protonix, Rifampin, Zofran. ASSESSMENT AND PLAN: 1. Acute alcohol intoxication. 2. Acute alcoholic hepatitis. 3. Chronic pain. 4. Multiple electrolyte abnormalities, now resolving. 5. Hypokalemia. 6. Hypophosphatemia. PLAN: 1. Check phosphorus levels. 2. Continue phosphorus supplementation. 3. Continue prednisone for acute alcoholic hepatitis as per GI. 4. Monitor electrolytes closely. 5. Limit pain medication. Mariya Vega MD cc: [id number] TT: 09/20/2016 18:20:43 Confirmation # [id number] Dictation # [id number] mn
--- NOTE | 2016-09-20 20:41 | PN ---
DATE: 09/20/2016 ADDENDUM This is an addendum to the GI progress report dictated by Whitney Rojas NP. The patient complains of loose bowel movements. Presently, on Rifaximin for hepatic encephalopathy, Also, on prednisolone 20 mg b.i.d. The patient is on magnesium oxide and this could also be contributing to the diarrhea. We will discontinue. PHYSICAL EXAMINATION: ABDOMEN: Soft, jaundiced; the patient has no tenderness. RECOMMENDATIONS: To discontinue the magnesium oxide. We will consider IV magnesium if needed. We will discontinue the lactulose first and then will consider magnesium oxide. Will continue the Rifaximin. Monitor LFTs, transaminases. Her total bilirubin still remains. 6.8. We will continue to follow patient. Ana Meza MD cc: [id number] TT: 09/20/2016 20:40:13 Confirmation # [id number] Dictation # [id number] mn COR[place]ON
[2016-09-21] MEDS: HYDROmorphone 1 mg/ml ISec IVP PRN ×4 (00:21→18:33)
[2016-09-21] MEDS: Pantoprazole 40 mg EC Tab PO SCH (06:28)
[2016-09-21 07:04] LABS: ALB/GLOB RATIO 0.6 (1.1-1.8); ALKALINE PHOSPHATASE 238 U/L (38-133); ALT/SGPT 92 U/L (7-56); AST/SGOT 142 U/L (15-39); BILIRUBIN,TOTAL 7.4 mg/dL (0.2-1.3); BLOOD UREA NITROGEN 6 mg/dL (7-21); CALCIUM 7.8 mg/dL (8.4-10.5); CARBON DIOXIDE 30 mmol/L (21-33); CHLORIDE 105 mmol/L (98-107); GFR AFRICAN-AMERICAN > 60; GLUCOSE,RANDOM 62 mg/dL (70-110); POTASSIUM 4.1 mmol/L (3.6-5.0); SODIUM 141 mmol/L (132-148); TOTAL PROTEIN 6.9 g/dL (5.8-8.3)
[2016-09-21 07:10] LABS: INR 1.59 (0.93-1.08); PARTIAL THROMBOPLASTIN TIME 34.1 Seconds (23.7-30.8)
--- NOTE | 2016-09-21 09:24 | PN ---
DATE: 09/20/2016 The patient is a 45-year-old female who was admitted to [facility] 8 days ago with hypoka lemia, hypocalcemia. She is known to have a history of alcoholic hepatitis. She is also on chronic opioids because of low back pain. She has difficulty keeping away from alcohol. On admission, her blood alcohol level was over 260. She also has a history of hypertension, coronary artery disease, alcohol abuse, as well as his opioid abuse. When seen today, she is lying in bed. She is awake. She is somewhat groggy. She has no complaints other than asking for increased dosage of opiates for chronic pain. PHYSICAL EXAMINATION: GENERAL: She is anasarcic ABDOMEN: Round, tense. EXTREMITIES: She has lymph edema of both lower extremities. She is being followed by Dr. Israel - the psychiatrist, Dr. Vega - the electric crane operator, Dr. Meza - the it program auditor. LABORATORY DATA: Her liver enzymes at this point remain elevated with a total bilirubin of 6.8. AST is 130. ALT is 91. They were somewhat higher. They came down to this level and seem to have plat eaued over the past few days. Her ammonia level remains elevated, for which she is receiving lactulose and Actigall, vitamin D. She is receiving subacute heparin for DVT prophylaxis. She is also receiving Rifaximin, as well as Prot tima, oral prednisolone, Os-[place], Neutra-Phos, Lyrica, Lotrisone to the skin folds, Librium, Lexapro, Keppra for history of seizures, Flexeril. We will continue to follow the patient closely. Case was discussed with the patient's . He i s rather disgusted and upset with the patient continuing to drink and continuing to use opiates. We will continue to lecture the patient as far as dangers of alcohol and drug abuse. We are following t he patient's lab work closely. Hopefully, the ammonia level and liver enzymes will continue to fall, and as the patient stabilizes, will be discharged to home. She once again was reminded the need for alcohol and substance abuse counseling post-discharge, but it does not seem likely the patient will agree to this at this point. Russell Mcdowell MD cc: [phone] TT: 09/21/2016 09:23:22 Confirmation # [id number] Dictation # [id number] jn
[2016-09-21] MEDS: oxyCODONE 20 mg ER Tab (oxyCONTIN) PO SCH ×2 (09:29→21:40)
[2016-09-21] MEDS: Potassium & Sodium Phosphate PO SCH ×2 (09:30→17:22)
[2016-09-21] MEDS: Clotrimazole/Betamethasone Cream(15 gm) TOP SCH ×2 (09:31→17:24)
[2016-09-21] MEDS: PrednisoLONE 15 mg/5 ml Oral Syrup (240 ml) PO SCH ×2 (11:00→17:44)
--- NOTE | 2016-09-21 12:58 | PN ---
DATE: 09/21/2016 Seen and examined at the bedside earlier today. She is a little more awake compared to yesterday. T he patient complaint of numerous stools yesterday. She reports having 3 pasty bowel movements this m orning. No bleeding. Her lactulose and magnesium oxide was discontinued yesterday. VITAL SIGNS: Temperature is 97.6, blood pressure 115/66, pulse 68, respirations 18, 98 on room air. LABORATORY DATA: PT is 17.9, INR is 1.59, PTT 34.1. Sodium 141, K 4.1, BUN 6, creatinine is 0.8. To vince bilirubin is 7.4, direct bilirubin is 142, ALT is 92, alkaline phosphatase is 238. Immunology: The SLIME is positive. Her antimitochondrial antibody is negative. The actin IgG antibody is less than 20, so that is negative. Her LKMA is less than 20, so that is negative. This was done to rule out autoimmune hepatitis. PHYSICAL EXAMINATION: HEENT: Sclerae are icteric. NECK: Supple. CARDIAC: S1, S2. LUNGS: Decreased breath sounds but good air entry, no rales or wheeze. ABDOMEN: With bowel sounds, soft. No tenderness on palpation. No rebound or guarding. EXTREMITIES: Positive bilateral lower edema. NEUROLOGIC: She is awake and oriented, but looks groggy. ASSESSMENT: Alcoholic hepatitis, hepatic encephalopathy. Her ammonia level is better, has improved. Anemia, status post 2 units. H and H is steady. Had endoscopy. No bleeding. Found to have gastri tis. History of gastric bypass. PLAN: The patient now is on prednisolone 20 b.i.d. Continue the Xifaxan and Actigall. Monitor LFTs . Continue PPI. The patient is requesting more pain medication. She is being followed by americo hurley. I will continue to follow closely. She is also on heparin for DVT prophylaxis. Seen and ex amined with Dr. Meza. Whitney Rojas HEVER cc: [id number] TT: 09/21/2016 12:57:40 Confirmation # [id number] Dictation # [id number] paulette
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
[2016-09-21] MEDS: Ergocalciferol 50,000 Intl Units Cap PO SCH (18:38)
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
[2016-09-22] MEDS: HYDROmorphone 1 mg/ml ISec IVP PRN ×2 (00:27→06:28)
--- NOTE | 2016-09-22 01:26 | PN ---
DATE: 09/21/2016 ADDENDUM This is an addendum to the GI progress report dictated by Whitney Rojas APN. The patient was seen and evaluated today. The patient appears more lethargic. Will follow up with a repeat CT. The patient is on aspirin and Plavix, status post recent PCI. The patient has a combination of colitis and ischemic colitis. Continue the antibiotics as per infectious disease. We will discuss with renal about starting the patient on TPN. Thank you very much for allowing us to participate in the care of the patient. Ana Meza MD cc: [phone] TT: 09/22/2016 01:25:36 Confirmation # [id number] Dictation # [id number] clarisa CHANDRA
[2016-09-22] MEDS: Pantoprazole 40 mg EC Tab PO SCH (06:27)
[2016-09-22 07:15] LABS: ALB/GLOB RATIO 0.6 (1.1-1.8); ALKALINE PHOSPHATASE 201 U/L (38-133); ALT/SGPT 79 U/L (7-56); AST/SGOT 131 U/L (15-39); BILIRUBIN,TOTAL 7.1 mg/dL (0.2-1.3); BLOOD UREA NITROGEN 7 mg/dL (7-21); CALCIUM 7.3 mg/dL (8.4-10.5); CARBON DIOXIDE 31 mmol/L (21-33); CHLORIDE 106 mmol/L (98-107); GFR AFRICAN-AMERICAN > 60; GLUCOSE,RANDOM 66 mg/dL (70-110); POTASSIUM 3.8 mmol/L (3.6-5.0); SODIUM 141 mmol/L (132-148); TOTAL PROTEIN 6.1 g/dL (5.8-8.3)
--- NOTE | 2016-09-22 08:17 | PN ---
DATE: 09/21/2016 ADDENDUM This is an addendum to the GI progress report dictated by Whitney Rojas NP. The patient was seen and evaluated earlier. The patient's diarrhea has now improved as 3 small past y stools. The patient is off the lactulose and also his Colace and off the magnesium. Repeat magnes ium level was normal. LABORATORY DATA: Her hemoglobin now remains stable at 9. Chemistry still shows a slightly up total bilirubin of 7.4. The patient has been on prednisone. The patient's hepatitis serology is negative. The SLIME titer is elevated at 150. Other markers negative. Clinically, this morning. PHYSICAL EXAMINATION: ABDOMEN: Soft. There is no tenderness. The patient is also subcu heparin. The patient has been on Flexeril which will discontinued now. In view of this significant hepatic dy sfunction with a persistent elevation of the LFTs. We will also follow up ammonia level. The patien graciela is presently on Librium 25 mg q. 8 hourly. The reasonable thing is to cut down the dosage of the L ibrium. In view of the hepatic dysfunction we will continue to closely follow up her care. Thank you very much for allowing me to participate in the care of the patient. Ana Meza MD cc: [id number] TT: 09/22/2016 01:31:41 Confirmation # [id number] Dictation # [id number] melanie
--- NOTE | 2016-09-22 08:19 | PN ---
DATE: 09/21/2016 SUBJECTIVE: The patient is seen lying in bed. She is sedated. PHYSICAL EXAMINATION: GENERAL: A middle-aged obese lady lying in bed. VITAL SIGNS: Blood pressure 115/66, heart rate , respiratory rate 18, temperature 97.6. HEENT: Atraumatic, normocephalic. Positive pallor. NECK: Supple, no JVD. LUNGS: Bilaterally equal air entry, Decreased air entry at bases. CARDIAC: S1, S2, regular rate and rhythm. ABDOMEN: + pitting edema. EXTREMITIES: INTAKE AND OUTPUT: 420/400. LABORATORY DATA: WBC 4.2, hemoglobin 9, hematocrit 29, platelets 109, sodium 141, potassium 4.1, chloride 105, CO2 30, BUN 6, creatinine 0.8, glucose 62, calcium 7.8, total bilirubin 7.4, AST 142, ALT 92. Albumin 2.6, corrected calcium is 8.8. CURRENT MEDICATIONS: List reviewed. ASSESSMENT: 1. Status post acute alcohol intoxication. 2. Acute alcoholic hepatitis. 3. Hepatic encephalopathy. 4. Resolved hypokalemia, hypomagnesemia. 5. Severe hypoalbuminemia/peripheral edema. PLAN: 1. Continue Rifaximin and prednisone. 2. Push p.o. intake. 3. MOnitor electrolytes 4. IV albumin??. Mariya Vega MD cc: [id number] TT: 09/21/2016 23:38:11 Confirmation # [id number] Dictation # [id number] tiffany CHANDRA
[2016-09-22] MEDS: Potassium & Sodium Phosphate PO SCH ×2 (09:41→18:11)
[2016-09-22] MEDS: Clotrimazole/Betamethasone Cream(15 gm) TOP SCH ×2 (09:41→18:13)
[2016-09-22] MEDS: oxyCODONE 20 mg ER Tab (oxyCONTIN) PO SCH (09:42)
[2016-09-22] MEDS: PrednisoLONE 15 mg/5 ml Oral Syrup (240 ml) PO SCH ×2 (09:49→18:17)
--- NOTE | 2016-09-22 11:50 | PN ---
DATE: 09/22/2016 The patient is a 45-year-old female who was admitted to the [facility] 10 days ago with hypokalemia, hypocalcemia, hypomagnesemia. She is known to have a history of alcoholic hepa titis. She is also on chronic opioids because of back pain. On admission, her blood alcohol level w as over 260. She also has a history of hypertension, coronary artery disease, alcohol and opioid abu se. CURRENT MEDICATIONS: At present, she is being treated with Actigall 300 mg twice a day, human albumi n 12.5 grams intravenously twice a day, ergocalciferol 50,000 units every 7 days, subcutaneous hepari n for DVT prophylaxis, Keppra 500 mg twice a day, Lexapro 10 mg once a day, Librium 25 mg every 8 lalit rs as needed, Lyrica 100 mg twice a day, Neutra-Phos 1 packet twice a day, Os-[place] 500 mg 3 times a da y, prednisone 20 mg twice a day, Protonix 40 mg in the morning, rifaximin 550 mg twice a day and Zofr an as needed. PHYSICAL EXAMINATION: GENERAL: When seen today, the patient had just completed physical therapy. She is feeling well. e offers no new complaints. Her physical exam is unchanged. LUNGS: Clear anteriorly. HEART: Regular. ABDOMEN: Obese. EXTREMITIES: Show bilateral edema up to the hips. She has anasarcic. LABORATORY DATA: Blood work today shows the total bilirubin is 7.1, AST is 131, ALT is 79, alkaline phosphatase is also elevated at 201. Her ammonia is normal at 20. BUN and creatinine are 7 and 0.8. We will continue to follow the patient closely. Encouraged physical therapy and plan for discharge w ithin the next few days. Russell Mcdowell MD cc: [id number] TT: 09/22/2016 11:49:17 Confirmation # [id number] Dictation # [id number] mn
--- NOTE | 2016-09-22 12:17 | PN ---
DATE: 09/22/2016 Seen and examined at the bedside earlier today. She is a little more awake, but still looks lethargi c at times. She said she slept well. No nausea, vomiting. Denies abdominal pain. She had 2 pasty stools this morning. Denies any watery diarrhea. No reports of any bleeding. VITAL SIGNS: Temperature is 98.3, blood pressure 107/72, pulse 80, respirations 20, 97 on room air. LABORATORY DATA: Sodium 141, K is 3.8, ammonia is 20, BUN is 7, creatinine is 0.8. Total bilirubin 7.1, AST 131, ALT 79, alkaline phosphatase is 201. Albumin is 2.2, this is a little lower. PHYSICAL EXAMINATION: HEENT: Sclerae are icteric. NECK: Supple. CARDIAC: S1, S2. LUNGS: With decreased breath sounds but good air entry. ABDOMEN: With bowel sounds. Softly obese, nontender. No rebound or guarding. EXTREMITIES: Positive bilateral edema. ASSESSMENT: A 45-year-old female with alcoholic hepatitis, improving hepatic encephalopathy; anemia, status post 2 units; had endoscopy, found to have gastritis, history of gastric bypass. She has hyp oalbuminemia. Her liver enzymes are fluctuating. Her Flexeril was discontinued in view of her hepat ic dysfunction and fluctuating LFTs. Right now, she is on Librium p.r.n. She is on DVT prophylaxis. We will give her a few days of album in; please see order. On Protonix daily, on prednisolone 20 b.i.d., Xifaxan, and ursodiol. Will con tinue to trend her liver enzymes. The patient is aware that she should stop drinking alcohol. The p atcelestine was seen and case discussed with Dr. Meza. Whitney KATHLEEN cc: [id number] TT: 09/22/2016 12:16:14 Confirmation # [id number] Dictation # [id number] mn
--- NOTE | 2016-09-22 17:24 | PN ---
DATE: 09/22/2016 SUBJECTIVE: The patient is lying in bed. She is groggy, arousable. She complains of back pain. Sh e denies any nausea, vomiting. She is eating. She is also complaining of loose bowels. PHYSICAL EXAMINATION: GENERAL: Obese young woman lying in bed. VITAL SIGNS: Blood pressure 107/72, heart rate 80, respiratory rate 20, temperature 98. HEENT: Normocephalic, atraumatic, positive pallor, positive icterus. NECK: Supple, no JVD. LUNGS: Bilateral equal air entry, decreased breath sounds at bases. CARDIAC: S1, S2, regular rate and rhythm, no murmur, no rub. ABDOMEN: Obese, distended, soft, nontender, bowel sounds present. EXTREMITIES: 2+ pitting edema of the lower extremities. INTAKE AND OUTPUT: Not charted. LABORATORY DATA: Sodium 141, potassium 3.8, chloride 106, CO2 31, BUN 7, creatinine 0.8, glucose 56, calcium 7.3, total bilirubin 7.1. AST 131, ALT 79. CURRENT MEDICATIONS: Actigall, albumin, Bactroban, Dilaudid, Drisdol, heparin, Keppra, Lexapro, Lyri ca, sodium phosphate, Os-[place], oxycodone, prednisone, rifaximin, Zofran. ASSESSMENT: 1. Alcoholic hepatitis. 2. Hepatic encephalopathy. 3. Anemia. 4. Gastritis. 5. Resolved hypokalemia. 6. Severe hypoalbuminemia. 7. Edema. PLAN: 1. Continue prednisone. 2. Continue Xifaxan. 3. Trial of albumin. Mariya Vega MD cc: [id number] TT: 09/22/2016 17:23:57 Confirmation # [id number] Dictation # [id number] ln
[2016-09-22] MEDS: Albumin Human 25% (12.5 gm/50 ml) IV SCH (18:14)
[2016-09-22] MEDS: oxyCODONE 10 mg ER Tab (oxyCONTIN) PO SCH (21:31)
--- NOTE | 2016-09-22 22:02 | PN ---
DATE: 09/22/2016 The patient is a 45-year-old white female who was admitted 10 days ago with hypokalemia, hypo calcemia and hypomagnesemia and with a history of alcoholic hepatitis. She has also been on chronic opioids because of back pain. Her blood alcohol level on admission was over 260 mg percent. She also has a history of hypertension, coronary artery disease. The patient appears flat, pale. She provides little insight. She tells me she is not feeling well. I am of the impression that for reasons uncertain as I have on several occasions left the patient's b ed and nursing side thinking that she had her Campral (acamprosate) started only to find out that thi s has not been the case. I have again reviewed the situation with nursing. This is a medication uti lized to decrease alcohol craving. Blood pressure 138/96, temperature 98.7, pulse rate 86, temperature 20. eMndez Israel MD, PhD cc: [id number] TT: 09/22/2016 22:01:58 Confirmation # [id number] Dictation # [id number] tiffany
--- NOTE | 2016-09-23 00:49 | PN ---
DATE: 09/22/2016 This is an addendum to the GI progress report dictated by Whitney Rojas NP. The patient denies having any good bowel movements. He states a small amount she is passing. Lactulose has been discontinued , because she was complaining of diarrhea. The patient did have hepatic encephalopathy. The patient has been on Xifaxan. PHYSICAL EXAMINATION: GENERAL: Deeply jaundiced. ABDOMEN: Soft. There is mild tenderness on deep palpation in the epigastric area, otherwise unremar kable. The patient is off the now. We will continue to closely followup the LFTs. Continue the Actig all. Followup the LFTs. The patient is still on prednisolone; we will continue that. Ana Meza MD cc: [id number] TT: 09/23/2016 00:48:36 Confirmation # [id number] Dictation # [id number] mn
[2016-09-23] MEDS: Pantoprazole 40 mg EC Tab PO SCH (05:58)
[2016-09-23] MEDS: Potassium & Sodium Phosphate PO SCH ×2 (09:30→17:41)
[2016-09-23] MEDS: oxyCODONE 10 mg ER Tab (oxyCONTIN) PO SCH ×2 (09:31→21:29)
[2016-09-23] MEDS: Clotrimazole/Betamethasone Cream(15 gm) TOP SCH ×2 (09:33→17:37)
[2016-09-23] MEDS: Albumin Human 25% (12.5 gm/50 ml) IV SCH ×2 (09:46→17:34)
[2016-09-23] MEDS: PrednisoLONE 15 mg/5 ml Oral Syrup (240 ml) PO SCH ×2 (09:47→17:37)
--- NOTE | 2016-09-23 11:49 | PN ---
DATE: 09/23/2016 SUBJECTIVE: The patient is seen in 5R. She is awake. She is alert. She is feeling better. She de nies any abdominal pain, nausea, vomiting. She still has diarrhea. PHYSICAL EXAMINATION: GENERAL: Obese, middle-aged lady. VITAL SIGNS: Blood pressure 101/57, heart rate 70, respiratory rate 20, temperature 98. HEENT: Normocephalic, atraumatic. NECK: Supple, no JVD. LUNGS: Bilateral equal air entry, decreased breath sounds at bases. CARDIAC: S1, S2, regular rate and rhythm, no murmur, no rub. ABDOMEN: Obese, distended, soft, nontender, bowel sounds present. EXTREMITIES: 3+ pitting edema of the lower extremities. INTAKE AND OUTPUT: 1740/not charted. LABORATORY DATA: Sodium 141, potassium 3.8, chloride 106, CO2 31, BUN 7, creatinine 0.8, glucose 66, calcium 7.3, albumin 2.2, corrected calcium is 8.5, total bilirubin 7.1. AST 131, ALT 79. MEDICATIONS: List reviewed. ASSESSMENT: 1. Acute alcoholic hepatitis. 2. Hepatic encephalopathy. 3. Chronic pain. 4. Anasarca. 5. Hypoalbuminemia. 6. Resolved hypomagnesemia. 7. Resolved hypophosphatemia. PLAN: 1. Monitor urine output. 2. Daily weights. 3. Continue prednisone and rifaximin. 4. Pain management. Mariya Vega MD cc: [id number] TT: 09/23/2016 11:48:20 Confirmation # [id number] Dictation # [id number] paulette
--- NOTE | 2016-09-23 12:26 | PN ---
DATE: 09/23/2016 Seen and examined at the bedside earlier today. Denies any nausea, vomiting. No abdominal pain. No reports of any overt GI bleed. The patient is having bowel movements, but reports it to be pasty. No diarrhea or bleeding. VITAL SIGNS: Temperature is 98.0, blood pressure is 101/57, pulse 70, respirations 20, 96% on room air. No new labs are noted for today. PHYSICAL EXAMINATION: HEENT: Sclera is icteric. NECK: Supple. CARDIAC: S1, S2. LUNG SOUNDS: With decreased breath sounds, but no rales or wheeze. ABDOMEN: With bowel sounds, soft. It was not tender on palpation. No rebound , guarding. EXTREMITIES: Lower extremities, bilateral edema. NEUROLOGIC: The patient is awake, but always looks lethargic, but easily arousable. ASSESSMENT/PLAN: A 45-year-old female with alcoholic hepatitis, improving, hepatic encephalopathy. The patient's liver enzymes are fluctuating. She was on Flexeril that was discontinued in view of her hepatic dysfunction. The patient was also noted to have anemia, had an upper endoscopy, found to have gastritis, history of gastric bypass, hypoalbuminemia. The patient is on albumin. She is also complaining of multiple bowel movements. We will request stool for Clostridium difficile. Continue gastrointestinal prophylaxis. Encourage patient to sit in chair with assistance. Spoke to nursing staff. She is on heparin q. 12. Continue PPI. She is on prednisone, Xifaxan, Actigall and will have labs in the a.m. We will check her liver enzymes, PT and CBC. As per renal, psychiatry and pain management. The patient was seen and case discussed with Dr. Meza. Whitney KATHLEEN cc: [id number] TT: 09/23/2016 12:25:25 Confirmation # [id number] Dictation # [id number] en MTDD
[2016-09-23] MEDS: ACAMPROSATE CALCIUM 333 MG PO SCH (17:41)
--- NOTE | 2016-09-23 21:25 | PCM.PYCHPN ---
Psychiatric Progress Note - Psychiatric Progress Note Patient seen today, length of contact: 25 Patient Chief Complaint: Anxiety and depression On September 20 complaining of severe back pain asking for more pain medication Affect constricted. Hard to redirect away from her present pain complaints and request for analgesic relief Problems Identified/Issues Discussed: Is presently anxious and somewhat blunted in affect. There is about to go for a echocardiogram On September 20 complaining of pain. Affect constricted. Pain medication seeking I have learned that campral has not yet been started then hopefully will start later today or tomorrow On September 23 met with patient and with perceives that patient is really suffering from a relationship she had with her father when younger. From my perspective patient's father is overemphasizing that earlier developmental plight to her present behavioral and physiologic disturbance Patient herself appears to be more alert, brighter, more focused and more interactive today. I have reviewed situation with nursing and the thus far inability to get the patient started on Campral Note that she had problems liver profile/toxicity is considered to be reasonably good; with a greater emphasis on renal function Medical Problems: Has had liver failure with increased liver function tests and increased total bilirubin. Also has lowered serum protein and is edematous Diagnostic Results: H/H3.19/9.1 AST 189 ALC 142 total bilirubin 7.5 Temperature 98.2 pulse 94 respiratory rate 166/77 respiratory rate 15 DSM 5 Symptoms Update: Mood and affect improved. Patient more spontaneous. Broader range of affect. Medication Change: Yes (Hopefully we'll get started on Campral 2 tabs 3 times a day) Medical Record Reviewed: Yes Mental Status Examination - Cognitive Function Orientation: Person ( ), Place, Situation, Time Memory: Intact Attention: WNL Concentration: Poor Association: WNL Fund of Knowledge: WNL Decription of patient's judgement and insights: Patient aware of surroundings, reason for hospitalization and intermittent testing. There is anxious about this Can be medication seeking On September 23 appears to be brighter, more reasonable, more engageable - Mood Mood: Anxious, Neutral - Affect Affect: Other - Speech Speech: Appropriate - Formal Thought Process Formal Thought Process: No Impairment Psychotic Thoughts and Behaviors: None - Suicidal Ideation Suicidal Ideation: No - Homicidal Ideation Homicidal Ideation: No Goal/Treatment Plan - Goal/Treatment Plan Progress Toward Problem(s) and Goals/Treatment Plan: Will offer therapeutic supports while patient undergoes medical evaluation. We will be working with you on tapering patient's medications and placing on appropriate medication for anxiety mood in this substance abusing patient Today (September for M (reports increased alcohol craving or pers She did not start on Revia because patient on opiates On September 17 it was noted that she had been started on Campral probably yesterday to reduce her alcohol proclivity Patient seems more sluggish today On September 20 appears more blunted and more medication seeking and complaining of greater pain. Hopefully will start on Campral today On September 23 since informing me of an intent to go to a rehabilitation facility in [place] for one month this should be encouraged
[2016-09-23 23:52] VITALS: RESP 18
--- NOTE | 2016-09-24 00:47 | PN ---
DATE: 09/23/2016 ADDENDUM: This is an addendum to the GI progress report dictated by Whitney Roajs NP. SUBJECTIVE: The patient was seen and evaluated earlier. Has episodes of loose bowel movements. Small amount trace of blood also she was complaining of. The patient remains jaundiced. The bilirubin remains stable. The patient is off the Flexeril. RECOMMENDATIONS: We will continue to follow up the LFTs. Continue the pureed diet. Thank you very much for allowing us to participate in the care of the patient. Ana Meza MD cc: [id number] TT: 09/24/2016 00:46:53 Confirmation # [id number] Dictation # [id number] mn MTDD
[2016-09-24] MEDS: Pantoprazole 40 mg EC Tab PO SCH (06:14)
[2016-09-24 07:20] LABS: ADD MANUAL DIFF? NO
[2016-09-24 07:22] LABS: BASO # 0.03 K/mm3 (0.0-2.0); BASO % 0.6 % (0.0-3.0); EOS % 0.6 % (1.5-5.0); GRAN # 3.57 (1.4-6.5); GRAN % 72.5 % (50.0-68.0); HEMATOCRIT 29.3 % (36.0-48.0); LYMPH # 0.8 (1.2-3.4); MEAN CORPUSCULAR HEMOGLOBIN 30.7 pg (25.0-35.0); MEAN CORPUSCULAR HGB CONC 30.7 g/dl (31.0-37.0); MEAN PLATELET VOLUME 10.7 fl (7.0-11.0); MONO # 0.5 (0.1-0.6); MONO % 9.3 % (1.0-6.0); PLATELET COUNT 107 10^3/uL (120.0-450.0); RED CELL DISTRIBUTION WIDTH 27.4 % (11.5-14.5); WHITE BLOOD COUNT 4.9 10^3/ul (4.5-11.0)
[2016-09-24 07:38] LABS: INR 1.59 (0.93-1.08)
[2016-09-24 07:45] LABS: ALB/GLOB RATIO 0.6 (1.1-1.8); ALKALINE PHOSPHATASE 189 U/L (38-133); ALT/SGPT 82 U/L (7-56); AST/SGOT 121 U/L (15-39); BILIRUBIN,TOTAL 6.1 mg/dL (0.2-1.3); BLOOD UREA NITROGEN 8 mg/dL (7-21); CALCIUM 7.3 mg/dL (8.4-10.5); CARBON DIOXIDE 32 mmol/L (21-33); CHLORIDE 105 mmol/L (98-107); GFR AFRICAN-AMERICAN > 60; GLUCOSE,RANDOM 61 mg/dL (70-110); POTASSIUM 3.6 mmol/L (3.6-5.0); SODIUM 141 mmol/L (132-148); TOTAL PROTEIN 5.9 g/dL (5.8-8.3)
[2016-09-24] MEDS: Potassium & Sodium Phosphate PO SCH ×2 (09:37→17:39)
[2016-09-24] MEDS: ACAMPROSATE CALCIUM 333 MG PO SCH ×3 (09:39→17:38)
[2016-09-24] MEDS: oxyCODONE 10 mg ER Tab (oxyCONTIN) PO SCH (09:45)
[2016-09-24] MEDS: Albumin Human 25% (12.5 gm/50 ml) IV SCH ×2 (10:55→17:37)
[2016-09-24] MEDS: PrednisoLONE 15 mg/5 ml Oral Syrup (240 ml) PO SCH ×2 (10:56→17:39)
--- NOTE | 2016-09-24 11:54 | PN ---
DATE: 09/24/2016 Seen and examined at the bedside this morning. The patient is awake and alert, states that she washed herself earlier this morning and does feel like she feels better today. No nausea, vomiting. No shortness of breath or chest pain. Denies any abdominal pain. The patient does report having some loose bowel movements and saw blood in the toilet. Denies any rectal pain. VITAL SIGNS: Temperature is 97.5, blood pressure 112/70, pulse rate is 79, respirations 18. LABORATORY DATA: WBC is 4.9, H and H is 9.0 and 29.3, platelets are 107. PT is 17.2, INR is 1.59. Chem: Sodium 141, K 3.6, BUN is 8, creatinine is 0.7. Her total bilirubin is 6.1, AST 121, ALT 82, alk phos is 189. LFTs show improvement today. Albumin is 2.3. PHYSICAL EXAMINATION: HEENT: Sclerae are icteric. NECK: Supple. CARDIAC: S1, S2. LUNGS: With decreased breath sounds, but good air entry. ABDOMEN: With bowel sounds, softly obese, nontender. NEUROLOGIC: Awake, alert, and oriented. EXTREMITIES: Lower extremities with bilateral edema. She complains of leg pain , but denies any calf tenderness. RECTAL: Noted to have large external hemorrhoids. No blood is noted. Possibly has internal hemorrhoids. ASSESSMENT/PLAN: Alcoholic hepatitis. LFTs show a downward trend today. The patient was taken off of Flexeril as well. The patient was complaining of back pain. Improved hepatics, status post hepatic encephalopathy, history of gastric bypass. Anemia, status post 2 units of packed RBCs. Status post endoscopy, found to have gastritis. The patient has bilateral lower leg edema, complaining of some leg pain. The patient did have Clostridium difficile collected for complaint of loose bowel movements that was negative. She was taken off of her Xifaxan and magnesium as that could be contributing to this: The patient remains on proton pump inhibitor, on heparin subQ q. 12. We will request for Dopplers of bilateral lower extremities. The patient is on prednisolone, Xifaxan, and Actigall. The patient was seen and case discussed with Dr. Meza. Whitney KATHLEEN cc: [id number] TT: 09/24/2016 11:53:33 Confirmation # [id number] Dictation # [id number] tn MTDD
[2016-09-24] MEDS: Clotrimazole/Betamethasone Cream(15 gm) TOP SCH ×2 (13:30→17:38)
--- NOTE | 2016-09-24 14:16 | PCM.PYCHPN ---
Psychiatric Progress Note - Psychiatric Progress Note Patient seen today, length of contact: 25 Patient Chief Complaint: Anxiety and depression On September 20 complaining of severe back pain asking for more pain medication Affect constricted. Hard to redirect away from her present pain complaints and request for analgesic relief Problems Identified/Issues Discussed: Is presently anxious and somewhat blunted in affect. There is about to go for a echocardiogram On September 20 complaining of pain. Affect constricted. Pain medication seeking I have learned that campral has not yet been started then hopefully will start later today or tomorrow On September 23 met with patient and with perceives that patient is really suffering from a relationship she had with her father when younger. From my perspective patient's father is overemphasizing that earlier developmental plight to her present behavioral and physiologic disturbance Patient herself appears to be more alert, brighter, more focused and more interactive today. I have reviewed situation with nursing and the thus far inability to get the patient started on Campral Note that she had problems liver profile/toxicity is considered to be reasonably good; with a greater emphasis on renal function Medical Problems: Has had liver failure with increased liver function tests and increased total bilirubin. Also has lowered serum protein and is edematous Diagnostic Results: H/H3.19/9.1 AST 189 ALC 142 total bilirubin 7.5 Temperature 98.2 pulse 94 respiratory rate 166/77 respiratory rate 15 DSM 5 Symptoms Update: Patient's mood and affect continue to improve. She is paying closer attention to her grooming. I have observed her looking in the mirror. That she is not entirely clear what her follow-up will be with regard to going to a rehabilitation facility in [place]. This represents a less definitive statement than yesterday. Medication Change: No (Hopefully we'll get started on Campral 2 tabs 3 times a day) Medical Record Reviewed: Yes Consults ordered or reviewed: Review ED Mental Status Examination - Cognitive Function Orientation: Person ( ), Place, Situation, Time Memory: Intact Attention: WNL Concentration: WNL Association: WNL Fund of Knowledge: WNL Decription of patient's judgement and insights: Patient aware of surroundings, reason for hospitalization and intermittent testing. There is anxious about this Can be medication seeking On September 23 appears to be brighter, more reasonable, more engageable - Mood Mood: Neutral - Affect Affect: Other - Speech Speech: Appropriate - Formal Thought Process Formal Thought Process: No Impairment Psychotic Thoughts and Behaviors: None - Suicidal Ideation Suicidal Ideation: No - Homicidal Ideation Homicidal Ideation: No Goal/Treatment Plan - Goal/Treatment Plan Progress Toward Problem(s) and Goals/Treatment Plan: Will offer therapeutic supports while patient undergoes medical evaluation. We will be working with you on tapering patient's medications and placing on appropriate medication for anxiety mood in this substance abusing patient Today (September M (reports increased alcohol craving or pers She did not start on Revia because patient on opiates On September 17 it was noted that she had been started on Campral probably yesterday to reduce her alcohol proclivity Patient seems more sluggish today On September 20 appears more blunted and more medication seeking and complaining of greater pain. Hopefully will start on Campral today On September 23 since informing me of an intent to go to a rehabilitation facility in [place] for one month this should be encouraged
--- NOTE | 2016-09-24 14:19 | PN ---
DATE: 09/24/2016 SUBJECTIVE: The patient is seen walking to the bathroom. She is awake. She is alert. She is compl aining of diarrhea. PHYSICAL EXAMINATION: GENERAL: Obese, middle-aged lady, in no acute distress. VITAL SIGNS: Blood pressure was 112/70, heart rate 79, respiratory rate 18, temperature 97. HEENT: Normocephalic, atraumatic, positive pallor. NECK: Supple, no JVD. LUNGS: Bilateral equal air entry. EXTREMITIES: 2+ pitting edema. INTAKE AND OUTPUT: 2039/not charted. LABORATORY DATA: WBC 4.9, hemoglobin 9, hematocrit 29, platelets 107. Sodium 141, potassium 3.6, ch loride 105, CO2 32, BUN 8, creatinine 0.7, glucose 61, calcium 7.3, total bili 6.1. AST 121, ALT 82, albumin 2.3. Corrected calcium is 8.4. CURRENT MEDICATIONS: Actigall, albumin, Bactroban, Dilaudid, vitamin D, heparin, Keppra, Lexapro, Li brium, Lotrisone, Lyrica, Neutra-Phos, Os-[place], prednisone 20 b.i.d., Protonix, Rifaximin, Zofran. ASSESSMENT: 1. Acute alcoholic hepatitis. 2. Hepatic encephalopathy. 3. Diarrhea. 4. Resolved hypophosphatemia. 5. Resolved hypomagnesemia. 6. Mild hypokalemia. 7. History of gastric bypass. PLAN: 1. Continue prednisone. 2. Continue rifaximin. 3. Continue IV albumin for 24 more hours. 4. Continue to monitor LFTs. Mariya Vega MD cc: [id number] TT: 09/24/2016 14:18:58 Confirmation # [id number] Dictation # [id number] paulette
[2016-09-24 17:07] VITALS: BP 108/57; PULSE 90; TEMP 98.3; O2SAT 97
--- NOTE | 2016-09-24 18:05 | US ---
HISTORY: Leg pain and swelling. Evaluate for DVT PHYSICIAN(S): Ronnie Hudson MD. TECHNIQUE: Duplex sonography and color-flow Doppler with graded compression were used to evaluate the deep venous systems of both lower extremities. The exam is very limited by body habitus and edema. The lower femoral veins and tibial veins are not well seen FINDINGS: The visualized deep venous systems of both lower extremities are sonographically normal and compressible. Normal wave forms and augmentation are seen. There is no sonographic evidence for deep venous thrombosis in the visualized segments of both lower extremities. IMPRESSION: No sonographic evidence for deep venous thrombosis in the visualized segments of both lower extremities. Very limited study.
--- NOTE | 2016-09-25 13:48 | CP.PCM.PN ---
Subjective - Date & Time of Evaluation Date of Evaluation: 09/25/16 Time of Evaluation: 13:45 Objective - Vital Signs/Intake and Output Vital Signs (last 24 hours): Temp Pulse Resp BP Pulse Ox 98.3 F 90 18 108/57 L 97 09/24/16 16:00 09/24/16 16:00 09/24/16 16:00 09/24/16 16:00 09/24/16 16:00 - Labs Labs: 09/24/16 07:00 09/24/16 07:00 PT 17.2 Seconds (9.9-11.8) H 09/24/16 07:00 INR 1.59 (0.93-1.08) H 09/24/16 07:00 APTT 34.1 Seconds (23.7-30.8) H 09/21/16 06:00
--- NOTE | 2016-09-27 08:50 | PN ---
DATE: 09/24/2016 ADDENDUM This is an addendum to the GI consultation and progress report dictated by Whitney Rojas NP. The patient is feeling much improved. Ambulating and more alert. She had a Doppler of the lower extremities done to rule out DVT and was negative. The patient is off the Flexeril and partly this could cause elevation in LFT. LFTs also showed a downward trend. Abdomen is soft. The only other complaint is loose bowel movements. The patient is on prednisolone for alcoholic hepatitis. The patient has elevated ammonia level, hepatic encephalopathy. The patient is on Lactulose. Will continue the Xifaxan . At the time of examination, the plan was to transfer to the TCU for further evaluation, we will clinically followup. Ana Meza MD cc: [id number] TT: 09/25/2016 00:27:59 Confirmation # [id number] Dictation # [id number] MTDD
--- NOTE | 2016-10-30 15:17 | DS ---
This is a brief discharge summary for a rather long 2-weeks hospital stay for this 46-year-old unfort unate woman with multiple issues having needed to be addressed. She presented to the acute care faci viviany at [facility] via Emergency Room complaining of generalized weakness as reported by her fa esthela. She was found to be acutely intoxicated with a blood alcohol over 260 and severely hypokalemic with potassium of 2.8. She was therefore evaluated by the senior warehouse clerk and admitted to intensive car e unit. Her past medical history if significant for other hospitalizations for acute alcohol intoxic ation, opiate and benzodiazepine use, severe hypokalemia due to diuretics, edema, liver failure with elevated liver function tests and hyperbilirubinemia, and abnormal coags. In spite of this and count less warnings in past, she continues to drink alcohol. She also has a history of kidney stones, coli tis, cholelithiasis, diverticulitis, anxiety, depression and polysubstance abuse as noted above. She is with children; takes Zaroxolyn, furosemide, Ambien and narcotic analgesics for pain contr ol. She has no allergies. COURSE OF HOSPITAL STAY: Admitted to intensive care, her potassium was supplemented and she improved clinically. She continued to ask for analgesics for pain. Workup, including abdominal ultrasound w as done. Consultations by the renal because of the severe hyponatremia and GI because of her liver f ailure were called. She was also followed by her psychiatrist, Dr. Israel, for mental health issues. She became quite jaundiced with a bilirubin peaking at about 7.5, although from her history and her liver enzymes and bilirubin, the diagnosis of alcoholic liver failure seemed quite obvious, but GI w as still concerned with the possibility of autoimmune hepatitis. She was treated with steroids, but with little response. Through the course of the stay, I continued to college admissions counselor her on her chronic ____ . With the assistance of psychiatrist, Dr. Israel, we were able to taper her benzodiazepines and dis continue them. We were also able to decrease the amount of opiate analgesics used without causing ov ert withdrawal symptoms. This continued to improve, became more alert and awake as medications were decreased. She agreed to consider long-term substance abuse program in [place], but as much as case management and social workers tried to make arrangements, it could not be allowed by her insurance an d so she was transferred to the transitional care unit at [facility] for additional treatment, tapering of her medications and continuation of steroids. She was discharged on 09/24/16. FINAL DISCHARGE RESULTS: 1. Acute alcohol intoxication. 2. Polysubstance use and abuse. 3. Acute liver failure. 4. Chronic anemia. 5. Hypokalemia due to diuretics. 6. Hypocalcemia. 7. Hypoalbuminemia with elevated liver function tests, most likely due to underlying cirrhosis cause d by alcoholic liver failure. 8. Jaundice with a total bilirubin peaking at 7.55. 9. Chronic pain syndrome. 10. Anxiety. 11. Depression. 12. Morbid obesity. PLAN: The patient will transfer to the transitional care unit and we will follow her there. Leonel Mcdowell MD cc: [id number] TT: 10/30/2016 15:16:32 ma
== END 2016-09-24 19:10 | DRG 640 ==
LOC: ED 20:20 → ERH 09-12 00:33 → CCU 09-12 03:51 → 2RSO 09-12 13:14 → 5RSO 09-21 21:58
PROVIDERS: ADMIT Internal Medicine; ATTEND Internal Medicine
PROC: 30233N1 Transfusion of Nonautologous Red Blood Cells into Peripheral Vein, Percutaneous Approach (ICD-10-PCS; principal; 2016-09-16)
DX: E87.6 Hypokalemia (principal); K72.00 Acute and subacute hepatic failure without coma; F10.229 Alcohol dependence with intoxication, unspecified; E83.42 Hypomagnesemia; E86.0 Dehydration; G89.4 Chronic pain syndrome; F11.20 Opioid dependence, uncomplicated; D61.818 Other pancytopenia; E87.0 Hyperosmolality and hypernatremia; I10 Essential (primary) hypertension; E83.51 Hypocalcemia; K70.10 Alcoholic hepatitis without ascites; I25.10 Atherosclerotic heart disease of native coronary artery without angina pectoris; G40.909 Epilepsy, unspecified, not intractable, without status epilepticus; E66.01 Morbid (severe) obesity due to excess calories; G62.1 Alcoholic polyneuropathy; K21.9 Gastro-esophageal reflux disease without esophagitis; Y90.8 Blood alcohol level of 240 mg/100 ml or more; E83.39 Other disorders of phosphorus metabolism; E88.09 Other disorders of plasma-protein metabolism, not elsewhere classified; K29.70 Gastritis, unspecified, without bleeding; F41.9 Anxiety disorder, unspecified; F32.9 Major depressive disorder, single episode, unspecified; M54.10 Radiculopathy, site unspecified; Z98.84 Bariatric surgery status; Z87.442 Personal history of urinary calculi; Z87.11 Personal history of peptic ulcer disease; Z98.61 Coronary angioplasty status; Z90.49 Acquired absence of other specified parts of digestive tract; Z91.81 History of falling; Z80.3 Family history of malignant neoplasm of breast

== ENCOUNTER 2016-09-24 19:10 | Inpatient (IN) | payer BC ==
[2016-09-24 19:53] VITALS: BMI 45.8
[2016-09-25] MEDS: oxyCODONE 10 mg ER Tab (oxyCONTIN) PO SCH ×3 (01:40→21:46)
[2016-09-25] MEDS: Pantoprazole 40 mg EC Tab PO SCH (05:33)
[2016-09-25] MEDS ORDERED: Pantoprazole 20 mg EC Tab PO SCH (06:30)
[2016-09-25 07:53] LABS: ALB/GLOB RATIO 0.6 (1.1-1.8); BILIRUBIN,DIRECT 4.2 mg/dL (0.0-0.4); BILIRUBIN,TOTAL 5.6 mg/dL (0.2-1.3); TOTAL PROTEIN 6.2 g/dL (5.8-8.3)
[2016-09-25 07:54] LABS: INR 1.68 (0.93-1.08)
[2016-09-25] MEDS: Potassium & Sodium Phosphate PO SCH ×2 (09:38→18:32)
[2016-09-25] MEDS: Clotrimazole/Betamethasone Cream(15 gm) TOP SCH ×2 (09:57→18:31)
[2016-09-25] MEDS ORDERED: ACAMPROSATE PO SCH (10:00)
[2016-09-25] MEDS: PrednisoLONE 15 mg/5 ml Oral Syrup (240 ml) PO SCH ×2 (10:03→18:39)
[2016-09-25 13:48] LABS: BLOOD UREA NITROGEN 9 mg/dL (7-21); CARBON DIOXIDE 29 mmol/L (21-33); CHLORIDE 107 mmol/L (95-110); GFR AFRICAN-AMERICAN > 60; GLUCOSE,RANDOM 66 mg/dL (70-110); POTASSIUM 3.5 mmol/L (3.6-5.0); SODIUM 141 mmol/L (132-148)
--- NOTE | 2016-09-25 13:57 | CP.PCM.PN ---
Addendum entered and electronically signed by Sandy Donis MD 09/25/16 17:05: Patient's Hcg is reported Neg Cats can of the head and Xrays ordered stat. Original Note: <Bart Hankins - Last Filed: 09/25/16 13:58> Subjective - Date & Time of Evaluation Date of Evaluation: 09/25/16 Time of Evaluation: 13:30 - Subjective Subjective: 45 year old morbidly obese female fell and hit her right knee and forehead earlier today in her bathroom. Her right knee hit the floor and then her head hit on the wall. Pt. was complaining of right knee pain. She was sitting in her chair initially and then she was able to move to the bed without assistance for the exam. She denied headache or LOC. A one time dose of Toradol was ordered for to manage her knee pain. On exam CN 2-12 were grossly intact, her heart was RRR, and lungs were CTAB, there was sweeling and 4+ pitting edema on her legs. Her right knee pain was made worse with flexion. Urine Hcg was ordered for planned head CT and xrays of her knees, hips, and pelvis. Will order when, HcG is negative. Objective - Vital Signs/Intake and Output Vital Signs (last 24 hours): Temp Pulse Resp BP Pulse Ox 98.2 F 76 18 99/60 L 95 09/25/16 10:00 09/25/16 10:00 09/25/16 10:00 09/25/16 10:00 09/25/16 10:00 Intake and Output: 09/25/16 09/25/16 06:59 18:59 Intake Total 300 Balance 300 - Medications Medications: Current Medications Betamethasone/Clotrimazole (Lotrisone) 0 gm TOP BID [facility] Last Admin: 09/25/16 09:57 Dose: 1 appl Calcium Carbonate (Oscal) 500 mg PO TID [facility] Last Admin: 09/25/16 09:38 Dose: 500 mg Chlordiazepoxide (Librium) 25 mg PO Q8 PRN; Protocol PRN Reason: Agitation Diphenoxylate HCl/Atropine (Lomotil 0.025-2.5 Mg Tablet) 1 tab PO QID [facility] Ergocalciferol (Drisdol 50,000 Intl Units Cap) 1 cap PO Q7D [facility] Escitalopram Oxalate (Lexapro) 10 mg PO DAILY [facility] Last Admin: 09/25/16 09:37 Dose: 10 mg Home Med (Home Med) 2 unit PO TID [facility] Hydromorphone HCl (Dilaudid) 2 mg PO Q6 PRN PRN Reason: moderate pain ( 4-7 ) Last Admin: 09/25/16 11:15 Dose: 2 mg Levetiracetam (Keppra) 500 mg PO BID [facility] Last Admin: 09/25/16 09:37 Dose: 500 mg Mupirocin (Bactroban Ointment) 0 gm TOP BID [facility] Last Admin: 09/25/16 09:56 Dose: 1 appl Ondansetron HCl (Zofran Inj) 4 mg IVP Q8H PRN PRN Reason: Nausea/Vomiting Oxycodone HCl (Oxycontin Extended Release Tab) 10 mg PO Q12 [facility] Stop: 09/27/16 22:01 Last Admin: 09/25/16 09:38 Dose: 10 mg Pantoprazole Sodium (Protonix Ec Tab) 40 mg PO 0630 [facility] Last Admin: 09/25/16 05:33 Dose: 40 mg Potassium Phos/Sodium Phos (Neutra-Phos) 1 pkt PO BID [facility] Last Admin: 09/25/16 09:38 Dose: 1 pkt Prednisolone (Prednisolone Oral Soln) 20 mg PO BID [facility] Last Admin: 09/25/16 10:03 Dose: 20 mg Pregabalin (Lyrica) 100 mg PO BID [facility] Last Admin: 09/25/16 09:43 Dose: 100 mg Rifaximin (Xifaxan) 550 mg PO BID [facility] PRN Reason: Protocol Last Admin: 09/25/16 09:39 Dose: 550 mg Ursodiol (Actigall) 300 mg PO BID [facility] Last Admin: 09/25/16 09:36 Dose: 300 mg - Labs Labs: PT 18.1 Seconds (9.9-11.8) H 09/25/16 07:20 INR 1.68 (0.93-1.08) H 09/25/16 07:20 <Sandy Donis - Last Filed: 09/25/16 14:34> Objective - Vital Signs/Intake and Output Vital Signs (last 24 hours): Temp Pulse Resp BP Pulse Ox 98.2 F 76 18 99/60 L 95 05/13/17 10:00 09/25/16 10:00 09/25/16 10:00 09/25/16 10:00 09/25/16 10:00 Intake and Output: 09/25/16 09/25/16 06:59 18:59 Intake Total 300 Balance 300 - Medications Medications: Current Medications Betamethasone/Clotrimazole (Lotrisone) 0 gm TOP BID [facility] Last Admin: 09/25/16 09:57 Dose: 1 appl Calcium Carbonate (Oscal) 500 mg PO TID [facility] Last Admin: 09/25/16 09:38 Dose: 500 mg Chlordiazepoxide (Librium) 25 mg PO Q8 PRN; Protocol PRN Reason: Agitation Diphenoxylate HCl/Atropine (Lomotil 0.025-2.5 Mg Tablet) 1 tab PO QID [facility] Ergocalciferol (Drisdol 50,000 Intl Units Cap) 1 cap PO Q7D [facility] Escitalopram Oxalate (Lexapro) 10 mg PO DAILY [facility] Last Admin: 09/25/16 09:37 Dose: 10 mg Home Med (Home Med) 2 unit PO TID [facility] Hydromorphone HCl (Dilaudid) 2 mg PO Q6 PRN PRN Reason: moderate pain ( 4-7 ) Last Admin: 09/25/16 11:15 Dose: 2 mg Levetiracetam (Keppra) 500 mg PO BID [facility] Last Admin: 09/25/16 09:37 Dose: 500 mg Mupirocin (Bactroban Ointment) 0 gm TOP BID [facility] Last Admin: 09/25/16 09:56 Dose: 1 appl Ondansetron HCl (Zofran Inj) 4 mg IVP Q8H PRN PRN Reason: Nausea/Vomiting Oxycodone HCl (Oxycontin Extended Release Tab) 10 mg PO Q12 [facility] Stop: 09/27/16 22:01 Last Admin: 09/25/16 09:38 Dose: 10 mg Pantoprazole Sodium (Protonix Ec Tab) 40 mg PO 0630 [facility] Last Admin: 09/25/16 05:33 Dose: 40 mg Potassium Phos/Sodium Phos (Neutra-Phos) 1 pkt PO BID [facility] Last Admin: 09/25/16 09:38 Dose: 1 pkt Prednisolone (Prednisolone Oral Soln) 20 mg PO BID [facility] Last Admin: 09/25/16 10:03 Dose: 20 mg Pregabalin (Lyrica) 100 mg PO BID [facility] Last Admin: 09/25/16 09:43 Dose: 100 mg Rifaximin (Xifaxan) 550 mg PO BID [facility] PRN Reason: Protocol Last Admin: 09/25/16 09:39 Dose: 550 mg Ursodiol (Actigall) 300 mg PO BID [facility] Last Admin: 09/25/16 09:36 Dose: 300 mg - Labs Labs: 09/25/16 13:35 PT 18.1 Seconds (9.9-11.8) H 09/25/16 07:20 INR 1.68 (0.93-1.08) H 09/25/16 07:20 Attending/Attestation - Attestation I have personally seen and examined this patient.: Yes I have fully participated in the care of the patient.: Yes I have reviewed all pertinent clinical information, including history, physical exam and plan: Yes Notes (Text): 09/25/16 14:17 Pt states she had a preexisting pain in the krees,now the pain is worse and also has pain in the lower back. No seizure or noc reported. O/E pt is alert ,awake ,oriented x3. Vs:BP 133/83 RR18 HR 88/min T 98.2 O2 sat 98% Kiana.No localised tenderness or hematoma on the forehead or scalp noted. Ecchymotic areas noted on the forearms(attributed to needlesticks) Movement of both knees are somewhat restricted, worse on the right side than the left. Movement of the right hip is also partially restricted, tenderness noted on palpation on lower back. IMP: S/P fall, worsening of pre-existing pain in the right knee. PLAN: Will get urine HCG, if negative will send her for X-RAYS. Toradol ordered for pain.
[2016-09-25] MEDS: Atropine-Diphenoxylate 0.025-2.5 mg Tab PO SCH ×3 (14:13→21:46)
[2016-09-25] MEDS: [UNRECOGNIZED DRUG - OTHER] PO SCH ×2 (14:13→18:28)
[2016-09-25] MEDS ORDERED: Potassium Chloride 40 mEq/30 ml LIQ UD PO ONE (17:56)
--- NOTE | 2016-09-25 18:47 | CON ---
DATE: 09/25/2016 REASON FOR CONSULTATION: Profuse diarrhea, weakness, electrolyte imbalance. HISTORY OF PRESENTING ILLNESS: The patient is a 45-year-old morbidly obese young woman with s histor y of seizure disorder, alcohol abuse, hypertension, anxiety, depression, chronic pain, coronary arter y disease, history of gastric bypass, cholecystectomy who was initially admitted to the ICU with alco hol intoxication, acute alcoholic hepatitis, hepatic encephalopathy. The patient was treated. Now, she is in the transitional care unit. She is complaining of diarrhea. She is complaining of fatigue . She is complaining of weakness. She is also complaining of inability to lift her legs. PAST MEDICAL AND SURGICAL HISTORY: Hypertension, anxiety, depression, seizure disorder, coronary art jean disease, history of gastric bypass, alcohol abuse, breast reduction surgery, cholecystectomy, per ipheral neuropathy. FAMILY HISTORY: Noncontributory. SOCIAL HISTORY: Alcohol use, no drug abuse, no smoking. ALLERGIES: No known drug allergies. CURRENT MEDICATIONS: Actigall, mupirocin, Dilaudid, Drisdol, Keppra, Lexapro, Librium, Lotrisone, Ly angelique, Neutra-Phos, Os-[place], prednisone, Protonix, , Zofran. REVIEW OF SYSTEMS: All systems are reviewed; pertinent positives as mentioned in the history of pres enting illness, the rest unremarkable. PHYSICAL EXAMINATION: GENERAL: A young woman seen in her room, complaining of lower extremity weakness. VITAL SIGNS: Blood pressure 99/60, heart rate 76, respiratory rate 18, temperature 98.2. HEENT: Normocephalic, atraumatic, positive pallor. NECK: Supple, no JVD. LUNGS: Bilateral equal air entry, decreased breath sounds at bases, equal expansion. CARDIAC: S1, S2, regular rate and rhythm, no murmur, no rub. ABDOMEN: Obese, distended, soft, nontender, bowel sounds present. EXTREMITIES: 2+ pitting edema of the lower extremities. INTAKE AND OUTPUT: Not charted. LABORATORY DATA: Total bili 5.6, direct bilirubin 4.2, AST 139, ALT 80, albumin 2.3, INR 1.6. Stool occult positive. ASSESSMENT AND PLAN: 1. Persistent diarrhea. 2. Blood in stool. 3. Acute alcoholic hepatitis, resolving. 4. Hypokalemia, hypomagnesemia, hypocalcemia. 5. Morbid obesity. 6. Hypertension, currently blood pressure is low. PLAN: 1. Check BMP. 2. Monitor H and H. 3. Lomotil for diarrhea. Mariya Vega MD cc: [id number] TT: 09/25/2016 18:46:47 Confirmation # [id number] Dictation # [id number] dn
--- NOTE | 2016-09-25 23:05 | CP.PCM.PN ---
Subjective - Date & Time of Evaluation Date of Evaluation: 09/25/16 Time of Evaluation: 23:04 - Subjective Subjective: analgesic Objective - Vital Signs/Intake and Output Vital Signs (last 24 hours): Temp Pulse Resp BP Pulse Ox 98.1 F 68 18 101/66 96 09/25/16 16:00 09/25/16 16:00 09/25/16 16:00 09/25/16 16:00 09/25/16 16:00 Intake and Output: 09/25/16 09/26/16 18:59 06:59 Intake Total 300 Balance 300 - Medications Medications: Current Medications Betamethasone/Clotrimazole (Lotrisone) 0 gm TOP BID [facility] Last Admin: 09/25/16 18:31 Dose: 1 appl Calcium Carbonate (Oscal) 500 mg PO QID [facility] Last Admin: 09/25/16 21:46 Dose: 500 mg Chlordiazepoxide (Librium) 25 mg PO Q8 PRN; Protocol PRN Reason: Agitation Diphenoxylate HCl/Atropine (Lomotil 0.025-2.5 Mg Tablet) 1 tab PO QID [facility] Last Admin: 09/25/16 21:46 Dose: 1 tab Ergocalciferol (Drisdol 50,000 Intl Units Cap) 1 cap PO Q7D [facility] Escitalopram Oxalate (Lexapro) 10 mg PO DAILY [facility] Last Admin: 09/25/16 09:37 Dose: 10 mg Home Med (Home Med) 2 unit PO TID [facility] Last Admin: 09/25/16 18:28 Dose: 2 unit Hydromorphone HCl (Dilaudid) 2 mg PO Q6 PRN PRN Reason: moderate pain ( 4-7 ) Last Admin: 09/25/16 19:38 Dose: 2 mg Levetiracetam (Keppra) 500 mg PO BID [facility] Last Admin: 09/25/16 18:29 Dose: 500 mg Mupirocin (Bactroban Ointment) 0 gm TOP BID [facility] Last Admin: 09/25/16 18:28 Dose: 1 appl Ondansetron HCl (Zofran Inj) 4 mg IVP Q8H PRN PRN Reason: Nausea/Vomiting Oxycodone HCl (Oxycontin Extended Release Tab) 10 mg PO Q12 [facility] Stop: 09/27/16 22:01 Last Admin: 09/25/16 21:46 Dose: 10 mg Pantoprazole Sodium (Protonix Ec Tab) 40 mg PO 0630 [facility] Last Admin: 09/25/16 05:33 Dose: 40 mg Potassium Phos/Sodium Phos (Neutra-Phos) 1 pkt PO BID [facility] Last Admin: 09/25/16 18:32 Dose: 1 pkt Prednisolone (Prednisolone Oral Soln) 20 mg PO BID [facility] Last Admin: 09/25/16 18:39 Dose: 20 mg Pregabalin (Lyrica) 100 mg PO BID [facility] Last Admin: 09/25/16 18:33 Dose: 100 mg Rifaximin (Xifaxan) 550 mg PO BID [facility] PRN Reason: Protocol Last Admin: 09/25/16 18:33 Dose: 550 mg Ursodiol (Actigall) 300 mg PO BID [facility] Last Admin: 09/25/16 18:28 Dose: 300 mg - Labs Labs: 09/25/16 13:35 PT 18.1 Seconds (9.9-11.8) H 09/25/16 07:20 INR 1.68 (0.93-1.08) H 09/25/16 07:20
--- NOTE | 2016-09-26 00:17 | PN ---
DATE: 09/25/2016 ADDENDUM This is an addendum to the GI progress report earlier. SUBJECTIVE: This patient was seen and evaluated earlier today. The patient is ambulating well. Appears much more comfortable. Still complains of loose bowel movements. PHYSICAL EXAMINATION: VITAL SIGNS: Temperature is 98.1, pulse is 68, blood pressure is 101/66, respirations 18. HEENT: Atraumatic. Jaundiced. Less pronounced. ABDOMEN: Soft. No tenderness. LUNGS: Bilateral air entry present. HEART: S1, S2 heard. LABORATORY DATA: INR is 1.68. Chemistry: Potassium 3.5 was supplemented p.o. Total bilirubin 5.6; is showing downward trend now, total bilirubin is 4.2. AST 139, ALT is 80, alkaline phosphatase 175, calcium is 7.0, but corrected calcium is normal since the albumin is only 2.3. IMPRESSION/PLAN: This 45-year-old patient with history of alcohol use, admitted with alcoholic hepatitis. The patient also has SLIME positive chronically. The patient had a significantly increased discriminant factor. Started on steroids. The patient is on prednisolone 40 mg daily in divided doses. The patient also on ursodiol. The patient was on Flexeril, which has been discontinued. The patient had hepatic encephalopathy with elevated ammonia level. The patient has been on Xifaxan. The patient on Lomotil now. We will be very cautious on Lomotil as the patient is also on oxycodone and the patient has been on oxycodone 10 mg q. 12 hourly and 2 mg q. 6 hourly. We will continue to closely follow up her care and we will check the serum. Thank you very much for allowing us to participate in the care of the patient. Ana Meza MD cc: [id number] TT: 09/26/2016 00:17:20 Confirmation # [id number] Dictation # [id number] tiffany CHANDRA
--- NOTE | 2016-09-26 01:20 | CP.PCM.PN ---
Subjective - Date & Time of Evaluation Date of Evaluation: 09/26/16 Time of Evaluation: 01:14 - Subjective Subjective: Patient was seen at bedside because she requested intravenous dilaudid for pain. Has pain in both legs. Has no other complaints now. Medical record was reviewed. This 45 year old white woman was admitted with alcohol intoxication, alcoholic hepatitis, alcoholic encephalopathy. Has PMH of HTN, seizure disorder, anxiety, depression, CAD, gastric bypass surgery, alcohol abuse, breast reduction surgery, cholecystectomy, peripheral neuropathy, leg weakness. Objective - Vital Signs/Intake and Output Vital Signs (last 24 hours): Temp Pulse Resp BP Pulse Ox 98.1 F 68 18 101/66 96 09/25/16 16:00 09/25/16 16:00 09/25/16 16:00 09/25/16 16:00 09/25/16 16:00 Intake and Output: 09/25/16 09/26/16 18:59 06:59 Intake Total 300 Balance 300 - Medications Medications: Current Medications Betamethasone/Clotrimazole (Lotrisone) 0 gm TOP BID [facility] Last Admin: 09/25/16 18:31 Dose: 1 appl Calcium Carbonate (Oscal) 500 mg PO QID [facility] Last Admin: 09/25/16 21:46 Dose: 500 mg Chlordiazepoxide (Librium) 25 mg PO Q8 PRN; Protocol PRN Reason: Agitation Diphenoxylate HCl/Atropine (Lomotil 0.025-2.5 Mg Tablet) 1 tab PO QID [facility] Last Admin: 09/25/16 21:46 Dose: 1 tab Ergocalciferol (Drisdol 50,000 Intl Units Cap) 1 cap PO Q7D [facility] Escitalopram Oxalate (Lexapro) 10 mg PO DAILY [facility] Last Admin: 09/25/16 09:37 Dose: 10 mg Home Med (Home Med) 2 unit PO TID [facility] Last Admin: 09/25/16 18:28 Dose: 2 unit Hydromorphone HCl (Dilaudid) 2 mg PO Q6 PRN PRN Reason: moderate pain ( 4-7 ) Last Admin: 09/26/16 00:35 Dose: 2 mg Levetiracetam (Keppra) 500 mg PO BID [facility] Last Admin: 09/25/16 18:29 Dose: 500 mg Mupirocin (Bactroban Ointment) 0 gm TOP BID [facility] Last Admin: 09/25/16 18:28 Dose: 1 appl Ondansetron HCl (Zofran Inj) 4 mg IVP Q8H PRN PRN Reason: Nausea/Vomiting Oxycodone HCl (Oxycontin Extended Release Tab) 10 mg PO Q12 [facility] Stop: 09/27/16 22:01 Last Admin: 09/25/16 21:46 Dose: 10 mg Pantoprazole Sodium (Protonix Ec Tab) 40 mg PO 0630 [facility] Last Admin: 09/25/16 05:33 Dose: 40 mg Potassium Phos/Sodium Phos (Neutra-Phos) 1 pkt PO BID [facility] Last Admin: 09/25/16 18:32 Dose: 1 pkt Prednisolone (Prednisolone Oral Soln) 20 mg PO BID [facility] Last Admin: 09/25/16 18:39 Dose: 20 mg Pregabalin (Lyrica) 100 mg PO BID [facility] Last Admin: 09/25/16 18:33 Dose: 100 mg Rifaximin (Xifaxan) 550 mg PO BID [facility] PRN Reason: Protocol Last Admin: 09/25/16 18:33 Dose: 550 mg Ursodiol (Actigall) 300 mg PO BID [facility] Last Admin: 09/25/16 18:28 Dose: 300 mg - Labs Labs: 09/25/16 13:35 PT 18.1 Seconds (9.9-11.8) H 09/25/16 07:20 INR 1.68 (0.93-1.08) H 09/25/16 07:20 - Constitutional Appears: Well, No Acute Distress - Head Exam Head Exam: ATRAUMATIC, NORMAL INSPECTION, NORMOCEPHALIC - Eye Exam Eye Exam: Normal appearance - ENT Exam ENT Exam: Normal External Ear Exam - Neck Exam Neck Exam: Normal Inspection - Respiratory Exam Respiratory Exam: NORMAL BREATHING PATTERN - Cardiovascular Exam Cardiovascular Exam: absent: JVD - GI/Abdominal Exam GI & Abdominal Exam: absent: Distended - Rectal Exam Rectal Exam: Deferred - Extremities Exam Extremities Exam: Normal Inspection - Back Exam Back Exam: NORMAL INSPECTION - Neurological Exam Neurological Exam: Alert, Oriented x3 - Psychiatric Exam Psychiatric exam: Normal Affect, Normal Mood - Skin Skin Exam: Normal Color Assessment and Plan - Assessment and Plan (Free Text) Assessment: A/P:Legs pain. Peripheral neuropathy. Obesity. Alcohol abuse. HTN. CAD. Continue present management. Ultram 50 mg PO x 1. Flexaril 10 mg PO x 1.
[2016-09-26] MEDS: Pantoprazole 40 mg EC Tab PO SCH (06:22)
[2016-09-26 07:38] LABS: INR 1.66 (0.93-1.08)
[2016-09-26 07:42] LABS: ALB/GLOB RATIO 0.6 (1.1-1.8); BILIRUBIN,DIRECT 3.6 mg/dL (0.0-0.4); BILIRUBIN,TOTAL 4.9 mg/dL (0.2-1.3); MAGNESIUM 1.8 mg/dL (1.7-2.2); TOTAL PROTEIN 6.4 g/dL (5.8-8.3)
[2016-09-26] MEDS: [UNRECOGNIZED DRUG - OTHER] PO SCH ×3 (09:53→17:40)
[2016-09-26] MEDS: Clotrimazole/Betamethasone Cream(15 gm) TOP SCH ×2 (09:54→17:41)
[2016-09-26] MEDS: Atropine-Diphenoxylate 0.025-2.5 mg Tab PO SCH ×3 (09:54→17:41)
[2016-09-26] MEDS: oxyCODONE 10 mg ER Tab (oxyCONTIN) PO SCH (09:55)
[2016-09-26] MEDS: Potassium & Sodium Phosphate PO SCH ×2 (09:55→17:42)
[2016-09-26] MEDS: PrednisoLONE 15 mg/5 ml Oral Syrup (240 ml) PO SCH ×2 (10:10→18:21)
--- NOTE | 2016-09-26 19:16 | PN ---
DATE: 09/26/2016 SUBJECTIVE: This patient was seen and evaluated earlier. The patient said the diarrhea has slowed d own. PHYSICAL EXAMINATION: VITAL SIGNS: Temperature is 97.4, pulse 65, blood pressure 101/66. HEENT: Atraumatic, jaundiced. NECK: Supple. HEART: S1, S2 heard. LUNGS: Bilateral air entry present. ABDOMEN: Soft. There is no tenderness. EXTREMITIES. Mild edema bilaterally present. NEUROLOGIC: Alert, oriented. Moves all the extremities. LABORATORY DATA: INR is 1.66. Total bilirubin 4.9, is turning downward trend. Direct bilirubin 3.6 . Alkaline phosphatase 179, ALT is 85. IMPRESSION: 1. This is a 45-year-old patient admitted with alcoholic hepatitis with elevated discriminant factor over 32, requiring starting of the steroid, presently on prednisolone 20 mg twice daily. The patien t is also on Actigall 300 mg twice daily. 2. History of encephalopathy, elevated ammonia level, presently on Xifaxan. 3. History of diarrhea. Presently on Lomotil around the clock q.i.d. Would recommend to continue c hanging it to p.r.n. basis. Request stool for C. diff. We will continue to closely follow up her ca re. Thank you very much for allowing us to participate in the care of this patient. The patient's potass ium is 3.5 yesterday; recheck the magnesium and also the patient is on Neutra-Phos supplement. We wi ll again check the potassium and also magnesium level in a.m. Ana Meza MD cc: [id number] TT: 09/26/2016 19:15:58 Confirmation # [id number] Dictation # [id number] tiffany
[2016-09-27] MEDS: oxyCODONE 10 mg ER Tab (oxyCONTIN) PO SCH ×3 (00:24→21:19)
[2016-09-27] MEDS: Atropine-Diphenoxylate 0.025-2.5 mg Tab PO SCH (00:24)
--- NOTE | 2016-09-27 03:58 | CP.PCM.PN ---
Subjective - Date & Time of Evaluation Date of Evaluation: 09/27/16 Time of Evaluation: 03:36 - Subjective Subjective: S:Hemorrhoidal cream was requested by patient . Complains of pain in anus. Denies bleeding. Gives history of Hemorrhoids. Denies any constipation. O: Last Vital Signs 3 Temp 97.4 F L 09/26/16 16:00 Pulse 65 09/26/16 16:00 Resp 20 09/26/16 16:00 BP 101/66 09/26/16 16:00 Pulse Ox 95 09/26/16 16:00 Awake, alert. Not in distress. LUNGS:Normal breathing pattern. A:History of hemorroids. P:Anusol cream topically BID. Objective - Vital Signs/Intake and Output Vital Signs (last 24 hours): Temp Pulse Resp BP Pulse Ox 97.4 F L 65 20 101/66 95 09/26/16 16:00 09/26/16 16:00 09/26/16 16:00 09/26/16 16:00 09/26/16 16:00 Intake and Output: 09/26/16 09/27/16 18:59 06:59 Intake Total 300 Balance 300 - Medications Medications: Current Medications Betamethasone/Clotrimazole (Lotrisone) 0 gm TOP BID [facility] Last Admin: 09/26/16 17:41 Dose: 1 appl Calcium Carbonate (Oscal) 500 mg PO QID [facility] Last Admin: 09/27/16 00:24 Dose: 500 mg Chlordiazepoxide (Librium) 25 mg PO Q8 PRN; Protocol PRN Reason: Agitation Diphenoxylate HCl/Atropine (Lomotil 0.025-2.5 Mg Tablet) 1 tab PO QID [facility] Last Admin: 09/27/16 00:24 Dose: 1 tab Doxercalciferol (Hectorol) 0.5 mcg PO DAILY [facility] Last Admin: 09/26/16 12:26 Dose: 0.5 mcg Ergocalciferol (Drisdol 50,000 Intl Units Cap) 1 cap PO Q7D [facility] Escitalopram Oxalate (Lexapro) 10 mg PO DAILY [facility] Last Admin: 09/26/16 09:54 Dose: 10 mg Home Med (Home Med) 2 unit PO TID [facility] Last Admin: 09/26/16 17:40 Dose: 2 unit Hydromorphone HCl (Dilaudid) 2 mg PO Q6 PRN PRN Reason: moderate pain ( 4-7 ) Last Admin: 09/26/16 20:14 Dose: 2 mg Levetiracetam (Keppra) 500 mg PO BID [facility] Last Admin: 09/26/16 17:41 Dose: 500 mg Mupirocin (Bactroban Ointment) 0 gm TOP BID [facility] Last Admin: 09/26/16 17:40 Dose: 1 appl Ondansetron HCl (Zofran Inj) 4 mg IVP Q8H PRN PRN Reason: Nausea/Vomiting Oxycodone HCl (Oxycontin Extended Release Tab) 10 mg PO Q12 [facility] Stop: 09/27/16 22:01 Last Admin: 09/27/16 00:24 Dose: 10 mg Pantoprazole Sodium (Protonix Ec Tab) 40 mg PO 0630 [facility] Last Admin: 09/26/16 06:22 Dose: 40 mg Potassium Phos/Sodium Phos (Neutra-Phos) 1 pkt PO BID [facility] Last Admin: 09/26/16 17:42 Dose: 1 pkt Prednisolone (Prednisolone Oral Soln) 20 mg PO BID [facility] Last Admin: 09/26/16 18:21 Dose: 20 mg Pregabalin (Lyrica) 100 mg PO BID [facility] Last Admin: 09/26/16 17:41 Dose: 100 mg Rifaximin (Xifaxan) 550 mg PO BID [facility] PRN Reason: Protocol Last Admin: 09/26/16 17:42 Dose: 550 mg Ursodiol (Actigall) 300 mg PO BID [facility] Last Admin: 09/26/16 17:40 Dose: 300 mg - Labs Labs: 09/25/16 13:35 PT 17.9 Seconds (9.9-11.8) H 09/26/16 07:00 INR 1.66 (0.93-1.08) H 09/26/16 07:00
[2016-09-27] MEDS: Hydrocortisone 2.5% Rectal Cream(30 gm) PR SCH ×3 (04:23→17:31)
[2016-09-27] MEDS: Pantoprazole 40 mg EC Tab PO SCH (05:37)
[2016-09-27 07:00] LABS: ALB/GLOB RATIO 0.6 (1.1-1.8); ALKALINE PHOSPHATASE 199 U/L (38-133); ALT/SGPT 93 U/L (7-56); AST/SGOT 153 U/L (15-39); BILIRUBIN,DIRECT 3.6 mg/dL (0.0-0.4); BILIRUBIN,TOTAL 4.7 mg/dL (0.2-1.3); BLOOD UREA NITROGEN 11 mg/dL (7-21); CALCIUM 7.1 mg/dL (8.4-10.5); CARBON DIOXIDE 31 mmol/L (21-33); CHLORIDE 106 mmol/L (98-107); GFR AFRICAN-AMERICAN > 60; GLUCOSE,RANDOM 61 mg/dL (70-110); MAGNESIUM 1.8 mg/dL (1.7-2.2); SODIUM 142 mmol/L (132-148); TOTAL PROTEIN 6.7 g/dL (5.8-8.3)
[2016-09-27] MEDS ORDERED: Atropine-Diphenoxylate 0.025-2.5 mg Tab PO PRN (09:25)
[2016-09-27] MEDS: [UNRECOGNIZED DRUG - OTHER] PO SCH ×3 (09:56→17:32)
[2016-09-27] MEDS: Potassium & Sodium Phosphate PO SCH ×2 (09:57→17:33)
[2016-09-27] MEDS: Clotrimazole/Betamethasone Cream(15 gm) TOP SCH ×2 (11:10→17:32)
[2016-09-27] MEDS: PrednisoLONE 15 mg/5 ml Oral Syrup (240 ml) PO SCH ×2 (12:21→17:57)
--- NOTE | 2016-09-27 12:31 | RAD ---
HISTORY: constipation COMPARISON: CT of the abdomen and pelvis with contrast performed 12/14/15 FINDINGS: Examination limited by habitus. Nonspecific bowel gas pattern. Air is noted within small bowel and colon. Moderate constipation. Cholecystectomy clips. IUD. Degenerative changes of the spine and pelvis. IMPRESSION: Moderate constipation.
--- NOTE | 2016-09-27 15:47 | PCM.PYCHPN ---
Psychiatric Progress Note - Psychiatric Progress Note Patient seen today, length of contact: 25 Patient Chief Complaint: body aches and pains and rectal bleeding Problems Identified/Issues Discussed: Patient has a history of opioid and alcohol abuse. While on the medical store gross floor had been started on Campral Steps have been made to have the patient go to a long-term rehabilitation in [place] upon discharge here but patient is wavering in her commitment towards this. Medical Problems: Hemorrhoids, history of anasarca and edema. Alcoholic hepatitis by history. Diagnostic Results: As noted in chart DSM 5 Symptoms Update: Mood and affect appear to be brightening. Patient is physically uncomfortable. Had earlier today gone for an abdominal x-ray series. His having rectal bleeding. Medication Change: No (We'll check to see if patient is still on Campral) Medical Record Reviewed: Yes Consults ordered or reviewed: Reviewed the Mental Status Examination - Cognitive Function Orientation: Place, Situation, Time Memory: Intact Attention: WNL Concentration: WNL Association: WNL Fund of Knowledge: WN Decription of patient's judgement and insights: Intact - Mood Mood: Neutral - Affect Affect: Flat - Speech Speech: Appropriate, Soft - Formal Thought Process Formal Thought Process: No Impairment - Suicidal Ideation Suicidal Ideation: No - Homicidal Ideation Homicidal Ideation: No Goal/Treatment Plan - Goal/Treatment Plan Progress Toward Problem(s) and Goals/Treatment Plan: Will work on getting patient to accept the need for a inpatient rehabilitation upon discharge here. We'll check to see if patient is on Campral here.
--- NOTE | 2016-09-27 17:41 | PN ---
DATE: 09/27/2016 SUBJECTIVE: The patient is seen walking in the hallway. She is awake. She is alert. She complains of some diarrhea. She also complains of rectal bleeding. She admits to having hemorrhoids. PHYSICAL EXAMINATION: GENERAL: Obese, middle-aged lady. VITAL SIGNS: Blood pressure 122/70, heart rate 93, respiratory rate 20, temperature 97.9. HEENT: Normocephalic, atraumatic. NECK: Supple. No JVD. LUNGS: Bilateral equal air entry, no rales. CARDIAC: S1, S2, regular rate, rhythm, no murmur, no rub. ABDOMEN: Obese, distended, soft, nontender, bowel sounds present. EXTREMITIES: 2+ pitting edema of the lower extremities. INTAKE AND OUTPUT: Not charted. LABORATORY DATA: Sodium 142, potassium 4.0, chloride 106, CO2 is 31, BUN 11, creatinine 0.8, glucose 61, calcium 7.1, magnesium 1.8, total bili is 4.7, albumin 2.6, corrected calcium 8.1. ASSESSMENT AND PLAN: 1. Acute alcoholic hepatitis. 2. Hypocalcemia. 3. Resolved hypokalemia. 4. Diarrhea/hemorrhoidal bleeding. 5. Obesity. PLAN: 1. Continue vitamin D 50,000 units once a week. 2. Continue Hectorol 0.5 mcg daily. 3. Monitor labs 2 or 3 times a week. 4. Continue Lomotil for diarrhea. Mariya Vega MD cc: [id number] TT: 09/27/2016 17:41:07 Confirmation # [id number] Dictation # [id number] dn
[2016-09-27] MEDS: Vancomycin 25 MG/ML PO SCH ×2 (17:57→23:04)
--- NOTE | 2016-09-27 21:58 | PN ---
DATE: 09/27/2016 SUBJECTIVE: The patient was seen and evaluated earlier. The patient has been on Lomotil before. St ill has small bowel movements. The concern is whether there is fecal impaction versus C. diff. The patient did have requested for an abdominal x-ray. PHYSICAL EXAMINATION: GENERAL: Remains jaundiced. VITAL SIGNS: Temperature 98.7, pulse 85, blood pressure 117/71, respirations 20, O2 sat is 96%. HEENT: Atraumatic, anicteric. Jaundiced. NECK: Supple. HEART: S1, S2 heard. LUNGS: Bilateral air entry present. ABDOMEN: Soft. There is no mass palpable. No tenderness. EXTREMITIES: Mild edema present. NEUROLOGIC: Alert, oriented. Moves all the extremities. LABORATORY DATA: Total bilirubin has come down to 4.7, alkaline phosphatase 199. Stool for C. diff antigen was positive. Abdominal x-ray shows a large amount of stool present, especially in the dist al colon with a distended colon. IMPRESSION: 1. This 45-year-old patient was admitted with alcoholic hepatitis with elevated discriminant factor over 32 requiring steroid and now on prednisolone 20 mg twice daily. The patient also is on Actigall 300 mg twice daily; is improving. 2. History of diarrhea. The patient did have a significant amount of stool present in the distal co sinan. The patient did have a mildly dilated colon, distended proximal dilated distal colon. The clifford ent's C. diff antigen was positive, clinically is more suggestive of C. difficile colitis, antigen po sitive, the patient on steroid. This is reasonable to start the patient on vancomycin 250 mg q.i.d. and discontinue the Lomotil. 3. History of hepatic encephalopathy and elevated ammonia level. Presently improved. The patient p resently on maintenance Xifaxan. 4. His other comorbidities include chronic back pain on chronic pain medication. We will continue to follow. Continue the present management. Thank you very much for allowing us to participate in the care of the patient. Ana Meza MD cc: [id number] TT: 09/27/2016 21:57:56 Confirmation # [id number] Dictation # [id number] mn
[2016-09-28] MEDS: Pantoprazole 40 mg EC Tab PO SCH (05:32)
--- NOTE | 2016-09-28 09:27 | PN ---
DATE: 09/27/2016 The patient is a 45-year-old female who was admitted to [facility] on 09/12 with hypokalem ia, hypocalcemia, hypomagnesemia, and abnormal liver enzymes. She is known to have a history of alco holic hepatitis. She is on chronic opioids because of back pain. On admission, her blood alcohol level was over 260. She also has a history of hypertension, coronary artery disease, alcohol, and opioid abuse. Her electrolytes were corrected on the medical floor, an d most of her analgesics were markedly decreased. The patient did well, although she did continue se veral times a day to ask for more and more pain medicine, which she did not receive during the hospit al stay. The patient was stabilized, and on 09/24, was transferred to the transitional care unit for physical t herapy. I spoke at length with manager case, the patient, apparently herself on the bedside, contac gume an inpatient drug and alcohol rehab facility, and application was placed. As per case management , we are awaiting acceptance to the facility, and once notice is given, the patient will be transferr ed there. However, the patient did state too that she may not be able to go directly from [facility] to the facility. She needs a few days to purchase clothing, proper attire, etc. During the hospital stay, the patient claims to have fallen in the bathroom, and was another reason t o request increased pain medicine. I continuously assured the patient that she will be withdrawing f rom oral alcohol and pain medicines at a rehab, and it would be beneficial for her to begin now. When seen today, the patient is resting comfortably, and she has no new complaints. Her vital signs are stable, and we are continuing to encourage physical therapy, ambulating with a walker. We will c ontinue to follow the patient closely and await her disposition at discharge to home in approximately 5 days versus discharge to inpatient alcohol and drug abuse center. Russell Mcdowell MD cc: [phone] TT: 09/28/2016 09:27:24 Confirmation # [id number] Dictation # [id number] jn
[2016-09-28] MEDS: [UNRECOGNIZED DRUG - OTHER] PO SCH ×3 (10:03→17:17)
[2016-09-28] MEDS: Clotrimazole/Betamethasone Cream(15 gm) TOP SCH ×2 (10:04→17:18)
[2016-09-28] MEDS: Potassium & Sodium Phosphate PO SCH (10:05)
[2016-09-28] MEDS: Vancomycin 25 MG/ML PO SCH ×4 (10:08→22:39)
[2016-09-28 10:23] VITALS: RESP 18
[2016-09-28] MEDS: Hydrocortisone 2.5% Rectal Cream(30 gm) PR SCH ×2 (11:28→17:16)
[2016-09-28] MEDS: PrednisoLONE 15 mg/5 ml Oral Syrup (240 ml) PO SCH ×2 (11:30→18:31)
[2016-09-28] MEDS ORDERED: Ergocalciferol 50,000 Intl Units Cap PO SCH (20:15)
--- NOTE | 2016-09-29 02:14 | PN ---
DATE: 09/28/2016 SUBJECTIVE: This patient was seen and evaluated earlier today. She discussed the diarrhea has been slowing down. The LFTs have been showing a downward trend. The patient is still on prednisolone. HISTORY OF PRESENT ILLNESS: History of SLIME positive, but clinically, this was more like alcoholic hepatitis pattern. We may consider the liver biopsy. Since the patient is now on prednisolone and improving, we will follow up initially for LFTs. The patient with a history of chronic back pain on pain medication. History of hepatic encephalopathy, on Xifaxan, stool for C. diff antigen positive. History of diarrhea, clinically more suggestive of Clostridium difficile colitis. The patient did have some significant amount of stool in the rectal area. PHYSICAL EXAMINATION: ABDOMEN: Softly distended. No tenderness. RECOMMENDATIONS: Would recommend to follow up with the LFTs. Continue p.o. vancomycin, which has been started. Thank you very much for allowing us to participate in the care of the patient. This is an addendum to the GI progress report dictated by Whitney Rojas NP. Ana Meza MD cc: [id number] TT: 09/29/2016 02:13:58 Confirmation # [id number] Dictation # [id number] tiffany CHANDRA
[2016-09-29] MEDS: Pantoprazole 40 mg EC Tab PO SCH (05:46)
[2016-09-29 08:47] LABS: INR 1.47 (0.93-1.08)
[2016-09-29] MEDS: [UNRECOGNIZED DRUG - OTHER] PO SCH ×3 (09:12→17:21)
[2016-09-29] MEDS: Clotrimazole/Betamethasone Cream(15 gm) TOP SCH ×2 (09:12→17:21)
[2016-09-29] MEDS: Hydrocortisone 2.5% Rectal Cream(30 gm) PR SCH ×2 (09:12→17:20)
[2016-09-29] MEDS: Vancomycin 25 MG/ML PO SCH ×4 (09:13→21:19)
[2016-09-29] MEDS: PrednisoLONE 15 mg/5 ml Oral Syrup (240 ml) PO SCH ×2 (10:36→17:41)
[2016-09-29 11:27] LABS: ALB/GLOB RATIO 0.7 (1.1-1.8); ALKALINE PHOSPHATASE 159 U/L (38-133); ALT/SGPT 83 U/L (7-56); AST/SGOT 111 U/L (15-39); BILIRUBIN,TOTAL 3.1 mg/dL (0.2-1.3); BLOOD UREA NITROGEN 10 mg/dL (7-21); CALCIUM 7.2 mg/dL (8.4-10.5); CARBON DIOXIDE 31 mmol/L (21-33); CHLORIDE 105 mmol/L (95-110); GFR AFRICAN-AMERICAN > 60; GLUCOSE,RANDOM 64 mg/dL (70-110); POTASSIUM 4.4 mmol/L (3.6-5.0); SODIUM 142 mmol/L (132-148); TOTAL PROTEIN 6.2 g/dL (5.8-8.3)
--- NOTE | 2016-09-29 13:45 | PN ---
DATE: 09/29/2016 Seen and examined at the bedside this afternoon. The patient states that she is having regular bowel movements. No reports of diarrhea and also does not notice any blood per rectum. Denies any nausea , vomiting, or abdominal pain, feeling better. VITAL SIGNS: Temperature is 98.2, blood pressure 128/84, pulse 72, respirations 18, 98 on room air. LABORATORY DATA: Today, PT 15.9, INR is 1.47. Chem: Sodium 142, K 4.4, BUN 10, creatinine is 0.8. Total bilirubin is 3.1, AST is 111, ALT is 83, alkaline phosphatase 159. There is some improvement i n LFTs. PHYSICAL EXAMINATION: HEENT: Sclerae have improving icterus. NECK: Supple. CARDIAC: S1, S2. LUNGS: Decreased breath sounds but good aeration. ABDOMEN: With bowel sounds, softly obese. No tenderness appreciated on palpation. No rebound or gu arding. EXTREMITIES: Still with some lower extremity edema, but no pain. ASSESSMENT: History of hepatic encephalopathy, Clostridium difficile antigen positive, chronic back pain on pain medication, alcoholic hepatitis, obesity. PLAN: Continue oral vancomycin. She remains on steroids. Her liver enzymes are improving. She is also on Ursodiol and Xifaxan. Continue GI prophylaxis. She is on Protonix and Dilaudid for pain, an d getting Anusol for her hemorrhoids. Awaiting possible plans to be made for patient to be transferr ed to substance abuse rehabilitation, [place]. We will continue to trend LFTs. The patient was seen and case discussed with Dr. Meza. Whitney KTAHLEEN cc: [id number] TT: 09/29/2016 13:44:37 Confirmation # [id number] Dictation # [id number] paulette
--- NOTE | 2016-09-29 16:41 | PN ---
DATE: 09/29/2016 SUBJECTIVE: The patient is seen lying in bed. She appears comfortable. She does not appear to be i n any kind of distress. PHYSICAL EXAMINATION: VITAL SIGNS: Blood pressure 128/84, heart rate 72, respiratory rate 18, temperature 98.2. LABORATORY DATA: INR 1.4, sodium 142, potassium 4.4, chloride 105, CO2 31, BUN 10, creatinine 0.8, g lucose 64, calcium 7.2, albumin 2.5, total bili 3.1. ASSESSMENT AND PLAN: 1. Resolving acute hepatitis. 2. History of alcohol abuse. 3. Electrolytes within normal limits. 4. We will discontinue followup. Mariya Vega MD cc: [id number] TT: 09/29/2016 16:40:55 Confirmation # [id number] Dictation # [id number]
[2016-09-30] MEDS: Pantoprazole 40 mg EC Tab PO SCH (06:00)
--- NOTE | 2016-09-30 16:27 | PN ---
DATE: 09/30/2016 [employer] system is down. Unable to obtain recent labs or any diagnostic tests. Seen and examined at the bedside earlier today in TCU. The patient with no new complaints. No repor ts of any bleeding. PHYSICAL EXAMINATION: VITAL SIGNS: Stable. HEENT: Sclerae anicteric. NECK: Supple. CARDIAC: S1, S2. LUNGS: Clear. ABDOMEN: With bowel sounds, soft, nontender. ASSESSMENT: 1. Clostridium difficile colitis. 2. Alcoholic hepatitis. 3. SLIME positive ? autoimmune hepatitis versus alcoholic hepatitis. The patient with poor MELD score . Initially started on prednisolone. 3. History of gastric bypass. 4. Obesity. PLAN: We will start to wean patient off prednisolone. We will discontinue 20 mg b.i.d. and start 15 mg p.o. b.i.d. We will recommend to continue the vancomycin for additional 2-3 weeks as patient sti ll remains on prednisolone. Discontinued the Xifaxan and continue Actigall. We will continue to keira nd LFTs which are improving. The patient's bowel movements are improving. Arrangements are being [facility] for alcoholic rehabilitation. Plan discussed with Dr. Wes Mcdowell. The patient was seen and harry e discussed with Dr. Meza. Again as a note, [employer] is still not functioning. The computer system is down. Whitney KATHLEEN cc: 451 TT: 09/30/2016 16:27:13 Confirmation # [id number] Dictation # [id number] tiffany
[2016-09-30] MEDS: Vancomycin 25 MG/ML PO SCH (23:05)
[2016-10-01 04:54] LABS: ALB/GLOB RATIO 0.7 (1.1-1.8); ALKALINE PHOSPHATASE 150 U/L (38-133); ALT/SGPT 84 U/L (7-56); AST/SGOT 122 U/L (15-39); BILIRUBIN,TOTAL 3.3 mg/dL (0.2-1.3); BLOOD UREA NITROGEN 11 mg/dL (7-21); CALCIUM 7.4 mg/dL (8.4-10.5); CARBON DIOXIDE 28 mmol/L (21-33); CHLORIDE 106 mmol/L (98-107); GFR AFRICAN-AMERICAN > 60; GLUCOSE,RANDOM 85 mg/dL (70-110); POTASSIUM 3.6 mmol/L (3.6-5.0); SODIUM 142 mmol/L (132-148); TOTAL PROTEIN 6.8 g/dL (5.8-8.3)
[2016-10-01] MEDS: Pantoprazole 40 mg EC Tab PO SCH (05:32)
--- NOTE | 2016-10-01 05:41 | CP.PCM.PN ---
Subjective - Date & Time of Evaluation Date of Evaluation: 10/01/16 Time of Evaluation: 05:38 - Subjective Subjective: Responded to a CODE STAR announcement promptly. Patient was lying on the floor in prone position almost perpendicular to bed. States that she was sitting on the edge of bed and slipped forward. Fell on both hands and knees. Complains of bot knees and back pain.(Which is not new.) Denies hitting her head. No loss of consciousness. No other symptoms before or after fall. Has received dilaudid PO little while ago. Medical record was reviewed. She was admitted with alcohol intoxication, alcoholic hepatitis, alcoholic encephalopathy. Has PMH of HTN, seizure disorder, anxiety, depression, CAD, gastric bypass surgery, alcohol abuse, breast reduction surgery, cholecystectomy, peripheral neuropathy, leg weakness. Objective - Vital Signs/Intake and Output Vital Signs (last 24 hours): Temp Pulse Resp BP Pulse Ox 98.4 F 79 18 118/75 95 09/29/16 16:00 09/29/16 16:00 09/29/16 16:00 09/29/16 16:00 09/29/16 16:00 126/83,98.1*F, 71/min, FSBS 79 mg %. Pulse ox 98% . - Medications Medications: Current Medications Betamethasone/Clotrimazole (Lotrisone) 0 gm TOP BID [facility] Last Admin: 09/29/16 17:21 Dose: 1 appl Escitalopram Oxalate (Lexapro) 10 mg PO DAILY [facility] Last Admin: 09/29/16 09:12 Dose: 10 mg Home Med (Home Med) 2 unit PO TID [facility] Last Admin: 09/29/16 17:21 Dose: 2 unit Hydrocortisone (Anusol-Hc) 1 gm LA BID [facility] Last Admin: 09/29/16 17:20 Dose: 1 applic Hydromorphone HCl (Dilaudid) 2 mg PO Q6 PRN PRN Reason: Pain, severe (8-10) Last Admin: 10/01/16 05:00 Dose: 2 mg Levetiracetam (Keppra) 500 mg PO BID [facility] Last Admin: 09/29/16 17:21 Dose: 500 mg Pantoprazole Sodium (Protonix Ec Tab) 40 mg PO 0630 [facility] Last Admin: 10/01/16 05:32 Dose: 40 mg Prednisolone (Prednisolone Oral Soln) 15 mg PO BID [facility] Pregabalin (Lyrica) 100 mg PO BID [facility] Last Admin: 09/29/16 17:22 Dose: 100 mg Ursodiol (Actigall) 300 mg PO BID [facility] Last Admin: 09/29/16 17:20 Dose: 300 mg Vancomycin HCl (Vancocin 25 Mg/Ml (Oral Use)) 250 mg PO QID [facility] PRN Reason: Protocol Last Admin: 09/30/16 23:05 Dose: 250 mg - Labs Labs: 09/30/16 07:00 PT 15.9 Seconds (9.9-11.8) H 09/29/16 08:20 INR 1.47 (0.93-1.08) H 09/29/16 08:20 - Constitutional Appears: Well, No Acute Distress - Head Exam Head Exam: ATRAUMATIC, NORMAL INSPECTION, NORMOCEPHALIC Additional comments: Obese person. - Eye Exam Eye Exam: Normal appearance - ENT Exam ENT Exam: Normal External Ear Exam - Neck Exam Neck Exam: Normal Inspection - Respiratory Exam Respiratory Exam: NORMAL BREATHING PATTERN - Cardiovascular Exam Cardiovascular Exam: absent: JVD - GI/Abdominal Exam GI & Abdominal Exam: absent: Distended - Rectal Exam Rectal Exam: Deferred - Extremities Exam Additional comments: Minimal both patellar tenderness + - Back Exam Additional comments: Midline tenderness from upper thoracic to sacral region- Minimal. - Neurological Exam Neurological Exam: Alert, Oriented x3 - Psychiatric Exam Psychiatric exam: Normal Affect, Normal Mood - Skin Skin Exam: Normal Color Additional comments: Negative bruises, contusions. Assessment and Plan - Assessment and Plan (Free Text) Assessment: A/P:S/P Fall. Back pain. Both knees pain. HTN. CAD. Seizure. Obesity. Fingerstick blood glucose. Pulse ox stat. Nurse will notify PMD in AM. Xray marcos thoracic + both knees at discretion of PMD after evaluation by PMD in AM.
[2016-10-01 08:00] LABS: ALB/GLOB RATIO 0.7 (1.1-1.8); BILIRUBIN,DIRECT 2.2 mg/dL (0.0-0.4); BILIRUBIN,TOTAL 2.8 mg/dL (0.2-1.3); TOTAL PROTEIN 6.4 g/dL (5.8-8.3)
--- NOTE | 2016-10-01 08:17 | PN ---
DATE: 09/30/2016 Today is day 6 for this 45-year-old woman in transitional care unit with a long history of polysubsta nce abuse. She is seen out of bed, ambulating in the room. I complimented her on her progress so fa r having done what is essentially a detox during this course of this hospital stay and getting off of her longstanding benzodiazepines and dramatically reducing her opiate use. She continues to beg for IV Dilaudid feeling that this is what she needs for pain control and that when she goes home, she wi ll be able to further detox herself from all opiate use. My goal would be to continue to decrease th e Dilaudid using gabapentin and perhaps tramadol or NSAIDs as treatment for her back symptoms. I exp lained to her that much of her pain she reports is the pain of opiate withdrawal and addiction, which she seems convinced on her need for IV opiates. I have counseled her at great length. Psychiatric input and consultation is appreciated. The patient continues to report she is interested in a long-t [facility] alcohol and polysubstance abuse rehabilitation program. She is continuing on Campral for alcohol to assist her in abstaining from alcohol. We will follow closely and hopefully continue along this plan. I will be away for the next few days. The patient will be followed by Dr. [place] Mcdowell on a r egular basis. Today is day 6 of a usual 8-day stay in the transitional care unit. Hopefully, discha rge plans can be made towards a long-term 28-day rehabilitation program. Leonel Mcdowell MD cc: [phone] TT: 10/01/2016 08:07:39 Confirmation # [id number] Dictation # [id number] en
[2016-10-01] MEDS: Hydrocortisone 2.5% Rectal Cream(30 gm) PR SCH ×2 (10:21→17:46)
[2016-10-01] MEDS: [UNRECOGNIZED DRUG - OTHER] PO SCH ×3 (10:22→17:47)
[2016-10-01] MEDS: Clotrimazole/Betamethasone Cream(15 gm) TOP SCH ×2 (10:22→17:47)
[2016-10-01] MEDS: PrednisoLONE 15 mg/5 ml Oral Syrup (240 ml) PO SCH ×2 (10:23→17:52)
[2016-10-01] MEDS: Vancomycin 25 MG/ML PO SCH ×5 (10:24→23:15)
--- NOTE | 2016-10-01 11:26 | PN ---
DATE: 10/01/2016 Seen and examined at the bedside this morning. The patient slipped off the bed last night. Reported ly, did not hit her head. She does complain of some back pain this morning, but in no acute distress . Reports to be having formed stool. No diarrhea and no bleeding. Requesting her diet be changed t o regular and not to be soft. No new complaints. VITAL SIGNS: Temperature is 97.9, blood pressure is 128/82, pulse 69, respirations 18, 95 on room ai r. LABORATORY DATA: Today, liver enzymes, total bilirubin is 2.8, direct bilirubin is 2.2, AST 117, ALT 83, alkaline phosphatase is 170. Her liver enzymes continue to improve slowly. The patient's jaund ice continues to improve. PHYSICAL EXAMINATION: HEENT: Sclerae are anicteric. NECK: Supple. CARDIAC: S1, S2. LUNGS: Sounds are clear. ABDOMEN: With bowel sounds, soft, nontender, no rebound, guarding, or organomegaly. EXTREMITIES: Positive edema, same. ASSESSMENT: Alcoholic hepatitis, SLIME positive, autoimmune hepatitis, alcoholic hepatitis. Initially , the patient had a poor MELD score and started on prednisolone and is improved. Clostridium diffici le colitis may be secondary to steroid use. History of gastric bypass, obesity, chronic back pain on pain medication. PLAN: Prednisolone was decreased. She is now on 15 mg p.o. b.i.d., is on ursodiol, oral vancomycin. Continue PPI. She is on Dilaudid for pain. Getting Keppra and Lexapro. The patient is awaiting [facility] for rehab. The patient was seen and case discussed with Dr. Meza. Whitney Crystal HEVER cc: 451 TT: 10/01/2016 11:25:29 Confirmation # [id number] Dictation # [id number] paulette
--- NOTE | 2016-10-01 14:39 | PCM.PYCHPN ---
Psychiatric Progress Note - Psychiatric Progress Note Patient seen today, length of contact: 25 Patient Chief Complaint: body aches and pains and rectal bleeding Problems Identified/Issues Discussed: Patient has a history of opioid and alcohol abuse. 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 Medical Problems: Hemorrhoids, history of anasarca and edema. Alcoholic hepatitis by history. Diagnostic Results: As noted in chart DSM 5 Symptoms Update: I have reviewed her situation with nursing who informs me that patient has been rejected for rehabilitation program in [place]. She has also been falling. This is considered to be attention seeking and possibly medication seeking Nonetheless the patient's mood and affect appears brighter today. She indicates a willingness or desire to go to work when she leaves the hospital and a desire to stay on the campground that I have started her on while in the hospital to help her reduce her alcohol drinking. She expresses an intent to see me in my office. Medication Change: No (We'll check to see if patient is still on Campral) Medical Record Reviewed: Yes Mental Status Examination - Cognitive Function Orientation: Place, Situation, Time Memory: Intact Attention: WNL Concentration: WNL Association: [facility] Fund of Knowledge: [facility] Decription of patient's judgement and insights: Intact - Mood Mood: Neutral - Affect Affect: Flat - Speech Speech: Appropriate, Soft - Formal Thought Process Formal Thought Process: No Impairment - Suicidal Ideation Suicidal Ideation: No - Homicidal Ideation Homicidal Ideation: No Goal/Treatment Plan - Goal/Treatment Plan Progress Toward Problem(s) and Goals/Treatment Plan: Will work on getting patient to accept the need for a inpatient rehabilitation upon discharge here. We'll check to see if patient is on Campral here. On October 01 patient has been rejected from a rehabilitation program in [place] on the basis that that she has been admitted to walk off of her medication. She expresses a desire to remain on Campral, feeling that it is cutting down on her desire to drink. She expresses a willingness and desire to see me in my office. I have suggested she make an appointment.
[2016-10-01 16:17] LABS: HEMATOCRIT 32.1 % (36.0-48.0); MEAN CELL VOLUME 103.9 fL (80.0-105.0); MEAN CORPUSCULAR HEMOGLOBIN 31.7 pg (25.0-35.0); MEAN CORPUSCULAR HGB CONC 30.5 g/dl (31.0-37.0); MEAN PLATELET VOLUME 11.6 fl (7.0-11.0); RED CELL DISTRIBUTION WIDTH 23.4 % (11.5-14.5); WHITE BLOOD COUNT 7.8 10^3/ul (4.5-11.0)
[2016-10-02] MEDS: Pantoprazole 40 mg EC Tab PO SCH (05:40)
[2016-10-02] MEDS: Hydrocortisone 2.5% Rectal Cream(30 gm) PR SCH ×2 (10:48→17:25)
[2016-10-02] MEDS: PrednisoLONE 15 mg/5 ml Oral Syrup (240 ml) PO SCH ×2 (10:49→17:26)
[2016-10-02] MEDS: Vancomycin 25 MG/ML PO SCH ×4 (10:49→22:10)
[2016-10-02] MEDS: Clotrimazole/Betamethasone Cream(15 gm) TOP SCH ×2 (10:49→17:25)
[2016-10-02] MEDS: [UNRECOGNIZED DRUG - OTHER] PO SCH ×3 (10:49→17:25)
--- NOTE | 2016-10-02 12:58 | PN ---
DATE: 10/02/2016 The patient is a 45-year-old female who was admitted to [facility] on 09/11 with hypocalcemia, hypokalemia and markedly elevated alcohol level above 260. She is followed by Dr. Israel, the psychiatrist, Dr. Meza, the aerial planting and cultivation manager as well as Dr. Vega, the gearcase assembler. As the patient's condition improved, she was transferred to the transitional care unit on 2016. Since then the patient is doing relatively well; however, she did fall twice during her stay on the TCU. She continually asks for more pain medicines saying that oral hydromorphone does not work. She requires intravenous hydromorphone because of her pain, yet at the same time, the patient does not give the appearance of being in that much pain and is often found sleeping comfortably. At this point, we are planning discharge to home in a few days. There had been talk of discharge to an alcohol and substance abuse rehabilitation center. However, the patient was not qualified because of her inability to ambulate without a walker and/or climbs stairs. Here at physical therapy, she does ambulate with a walker, however, as of yesterday. The patient said she was going to attempt stairs. Last physical therapy note shows the patient ambulating about 250 feet x 2. The patient is currently being treated with Actigall 300 mg twice a day, Anusol-HC as needed, Dilaudid 2 mg every 6 hours as needed for severe pain, Keppra 500 mg twice a day, Lexapro 10 mg, Lyrica 100 mg twice a day, oral prednisolone 15 mg twice a day, Protonix 40 mg in the morning and she is on vancomycin 250 mg for C. diff, testing for which was positive for C. diff antigen, but negative for C. diff toxin. We are anticipating discharging the patient to home in approximately 3 days. We are encouraging physical therapy, abstinence from alcohol, and abstinence if not at least a decrease in her opiate analgesic use. When seen today, she is resting comfortably, in no acute distress. Physical exam is essentially unchanged with clear lungs, regular heart rate, morbid obesity and extreme anasarca, bilateral lower extremities. Russell Mcdowell MD cc: 438 TT: 10/02/2016 12:57:08 Confirmation # [id number] Dictation # [id number] rn MTDD
[2016-10-03] MEDS: Pantoprazole 40 mg EC Tab PO SCH (05:45)
[2016-10-03] MEDS: Hydrocortisone 2.5% Rectal Cream(30 gm) PR SCH ×2 (09:45→18:00)
[2016-10-03] MEDS: Clotrimazole/Betamethasone Cream(15 gm) TOP SCH ×2 (09:46→18:03)
[2016-10-03] MEDS: [UNRECOGNIZED DRUG - OTHER] PO SCH ×3 (09:46→18:02)
[2016-10-03] MEDS: PrednisoLONE 15 mg/5 ml Oral Syrup (240 ml) PO SCH ×2 (11:33→18:03)
[2016-10-03] MEDS: Vancomycin 25 MG/ML PO SCH ×4 (11:34→21:41)
--- NOTE | 2016-10-03 16:49 | PN ---
DATE: 10/03/2016 SUBJECTIVE: This patient was seen and evaluated earlier today, discussed with the nursing staff. The patient did have some episodes of bright red blood per rectum, smaller amount yesterday. She was concerned. She states the diarrhea has much improved. Semi-solid stool. Still on chronic pain medication for her back pain. PHYSICAL EXAMINATION: VITAL SIGNS: Temperature is 97, pulse 86, blood pressure is 137/89. HEENT: The patient less jaundiced. NECK: Supple. HEART: S1, S2 heard. LUNGS: Bilateral air entry present. ABDOMEN: Soft. EXTREMITIES: Mild edema present. LABORATORY DATA: There are no recent labs today. IMPRESSION: 1. This 45-year-old patient with alcoholic hepatitis with elevated discriminant factor on steroid tapering dose, SLIME positive. Cannot rule out autoimmune hepatitis. The patient is on tapering dose of steroid, presently on prednisolone 30 mg daily. 2. History of Clostridium difficile colitis, on p.o. vancomycin. 3. Status post gastric bypass, obesity. 4. Chronic back pain, on chronic pain medication. Would also recommend the patient will continue to slowly taper the dose. The patient's liver enzymes in December were completely normal clinically, 12/2015 was essentially unremarkable. The patient's other autoimmune serologies were all negative except SLIME, so it is not typical of autoimmune. But, however, she would benefit from liver biopsy If after the tapering dose, the LFTs remains evaluated, she may need a liver biopsy. The important thing is compliance of the patient I did a rectal examination today, slightly increased anorectal tone, suggestive of possible fissure to be considered. The patient has hemorrhoids, but there are no masses present. No blood in the stool, rectal. The patient may benefit from the elective colonoscopic evaluation. Presently has a Clostridium difficile colitis and clinically improving. Would avoid anesthesia and propofol sedation in the patient with acute hepatitis present time. We will continue to closely follow up her care. Thank you very much for allowing us to participate in the care of the patient. Ana Meza MD cc: [id number] TT: 10/03/2016 16:48:14 Confirmation # [id number] Dictation # [id number] [facility]
[2016-10-04] MEDS: Pantoprazole 40 mg EC Tab PO SCH (05:29)
[2016-10-04 06:39] LABS: ADD MANUAL DIFF? NO
[2016-10-04 07:01] LABS: BASO # 0.03 K/mm3 (0.0-2.0); BASO % 0.4 % (0.0-3.0); EOS # 0.1 (0.0-0.7); EOS % 1.3 % (1.5-5.0); GRAN # 6.38 (1.4-6.5); GRAN % 75.7 % (50.0-68.0); HEMATOCRIT 30.6 % (36.0-48.0); LYMPH # 1.4 (1.2-3.4); LYMPH % 16.3 % (22.0-35.0); MEAN CELL VOLUME 103.7 fL (80.0-105.0); MEAN CORPUSCULAR HEMOGLOBIN 31.2 pg (25.0-35.0); MEAN CORPUSCULAR HGB CONC 30.1 g/dl (31.0-37.0); MONO # 0.5 (0.1-0.6); MONO % 6.3 % (1.0-6.0); PLATELET COUNT 101 10^3/uL (120.0-450.0); RED CELL DISTRIBUTION WIDTH 20.2 % (11.5-14.5); WHITE BLOOD COUNT 8.4 10^3/ul (4.5-11.0)
[2016-10-04 07:12] LABS: ALB/GLOB RATIO 0.8 (1.1-1.8); ALKALINE PHOSPHATASE 166 U/L (38-133); ALT/SGPT 70 U/L (7-56); AST/SGOT 82 U/L (15-39); BILIRUBIN,TOTAL 2.1 mg/dL (0.2-1.3); BLOOD UREA NITROGEN 13 mg/dL (7-21); CALCIUM 7.2 mg/dL (8.4-10.5); CARBON DIOXIDE 28 mmol/L (21-33); CHLORIDE 109 mmol/L (98-107); GFR AFRICAN-AMERICAN > 60; GLUCOSE,RANDOM 73 mg/dL (70-110); POTASSIUM 3.8 mmol/L (3.6-5.0); SODIUM 142 mmol/L (132-148); TOTAL PROTEIN 6.3 g/dL (5.8-8.3)
[2016-10-04] MEDS: Hydrocortisone 2.5% Rectal Cream(30 gm) PR SCH ×2 (10:02→18:05)
[2016-10-04] MEDS: [UNRECOGNIZED DRUG - OTHER] PO SCH ×3 (10:02→18:03)
[2016-10-04] MEDS: Clotrimazole/Betamethasone Cream(15 gm) TOP SCH ×2 (10:03→18:02)
[2016-10-04] MEDS: Vancomycin 25 MG/ML PO SCH ×4 (10:04→22:38)
[2016-10-04] MEDS: PrednisoLONE 15 mg/5 ml Oral Syrup (240 ml) PO SCH ×2 (10:36→18:03)
--- NOTE | 2016-10-04 12:11 | PN ---
DATE: 10/04/2016 Seen and examined at the bedside this morning. The patient denies any nausea, vomiting, abdominal pain. No reports of any bleeding per rectum. No acute overnight events reported. VITAL SIGNS: Stable. LABORATORY DATA: WBC 8.4, H and H are 9.2 and 30.6, platelets are 101; this is better. Chem: Sodium 142, K 3.8, BUN 13, creatinine 0.8. Total bilirubin is 2.1, AST 82, ALT 70, alkaline phosphatase is 166. The liver enzymes improving. PHYSICAL EXAMINATION: HEENT: Sclerae are anicteric. NECK: Supple. CARDIAC: S1, S2. LUNGS: With decreased breath sounds, but good air entry. No rales or wheeze. ABDOMEN: With bowel sounds. Soft, nontender. No rebound or guarding. EXTREMITIES: Still have some edema. No calf tenderness. ASSESSMENT: Improving alcoholic hepatitis. She initially had elevated discriminant factor and was started on steroids which we have been cutting down. She was also found to be SLIME positive; cannot rule out autoimmune hepatitis. She also with Clostridium difficile colitis, this is improved, she is not having any diarrhea; history of gastric bypass, obesity, chronic back pain, on chronic pain medications. PLAN: We will cut down her prednisolone from 15 mg b.i.d. for daily dose of 30 to prednisolone 10 mg b.i.d. for daily dose of 20. We are slowly weaning her off of the steroids. If LFTs remain elevated, may benefit from a liver biopsy. The patient would benefit from an elective colonoscopic evaluation. In view of the acute hepatitis, would recommend to avoid any anesthesia and propofol sedation at this time. Continue the diet as tolerated. She remains on PPI. She is on Dilaudid, getting Anusol suppositories, on Actigall, oral vancomycin. The patient was seen and case discussed with Dr. Meza. Whitney Crystal HEVER cc: [id number] TT: 10/04/2016 12:10:27 Confirmation # [id number] Dictation # [id number] tiffany CHANDRA
--- NOTE | 2016-10-04 13:53 | PCM.PYCHPN ---
Psychiatric Progress Note - Psychiatric Progress Note Patient seen today, length of contact: 25 Patient Chief Complaint: body aches and pains and rectal bleeding Problems Identified/Issues Discussed: Patient has a history of opioid and alcohol abuse. While on the medical store gross floor had been started on Campral Steps have been made to have the patient go to a long-term rehabilitation in [place] upon discharge here but patient is wavering in her commitment towards this. Medical Problems: Hemorrhoids, history of anasarca and edema. Alcoholic hepatitis by history. Diagnostic Results: As noted in chart DSM 5 Symptoms Update: Mood and affect continue to improve. Nursing informs me patient was found sleeping on the toilet. This is an indication of excessive sedative medication intake. Patient reports a significant decrease in her craving and is attributing this to being on Campral. Reviewed possible treatment options on an outpatient basis; patient concerns about the cost of care in my office but we'll look into it. Medication Change: No (We'll check to see if patient is still on Campral) Medical Record Reviewed: Yes Consults ordered or reviewed: Reviewed the Mental Status Examination - Cognitive Function Orientation: Place, Situation, Time Memory: Intact Attention: WNL Concentration: WNL Association: [facility] Fund of Knowledge: [facility] Decription of patient's judgement and insights: Intact - Mood Mood: Neutral - Affect Affect: Broad - Speech Speech: Appropriate, Soft - Formal Thought Process Formal Thought Process: No Impairment Psychotic Thoughts and Behaviors: none - Suicidal Ideation Suicidal Ideation: No - Homicidal Ideation Homicidal Ideation: No Goal/Treatment Plan - Goal/Treatment Plan Progress Toward Problem(s) and Goals/Treatment Plan: Will work on getting patient to accept the need for a inpatient rehabilitation upon discharge here. We'll check to see if patient is on Campral here. On October 01 patient has been rejected from a rehabilitation program in [place] on the basis that that she has been admitted to walk off of her medication. She expresses a desire to remain on Campral, feeling that it is cutting down on her desire to drink. She expresses a willingness and desire to see me in my office. I have suggested she make an appointment.
--- NOTE | 2016-10-04 23:45 | PN ---
DATE: 10/04/2016 This patient was seen and evaluated today. The patient feels better. Diarrhea has significantly imp roved, has only . LFTs continue to show a downward trend, total bilirubin is only 1.1, AST also has come down to 166 and ALT is 70. Alkaline phosphatase is elevated to 156. Would recommend at this point: Taper down the dose of prednisolone to 30 mg. Continue the Actigall. Xifaxan has been discontinued. The patient is on p.o. vancomycin. The patient is also on predniso lone. In view of the prednisolone and C. diff, it is reasonable to prolonged the course for vancomyc in. We will continue to closely follow up her care and suggest further management based on the clini emeterio course. Ana Meza MD cc: [id number] TT: 10/04/2016 23:44:50 Confirmation # [id number] Dictation # [id number] mn
--- NOTE | 2016-10-05 00:05 | PN ---
DATE: 10/04/2016 SUBJECTIVE: This patient was seen and evaluated earlier today. The diarrhea has also improved. Had no further bleeding episodes. PHYSICAL EXAMINATION: ABDOMEN: Soft. LABORATORY DATA: The bilirubin continues to improve. Alkaline phosphatase is still elevated mildly. Total bilirubin is only . RECOMMENDATIONS: Would recommend at this point close followup of the hemoglobin and hematocrit. Fol lowup of the LFTs. The patient has now been cut down to 10 mg twice daily. Advised to follow up. T he patient may need elective colonoscopy and endoscopy. Also, the patient's hemoglobin is 9.2, 101. Continue to closely follow up. Followup and suggest further recommendation based on the clini emeterio course. Ana Meza MD cc: [id number] TT: 10/05/2016 00:04:47 Confirmation # [id number] Dictation # [id number] mn
[2016-10-05 03:24] LABS: BILIRUBIN,DIRECT 2.3 mg/dL (0.0-0.4)
[2016-10-05] MEDS: Pantoprazole 40 mg EC Tab PO SCH (06:14)
[2016-10-05] MEDS: Hydrocortisone 2.5% Rectal Cream(30 gm) PR SCH (09:45)
[2016-10-05] MEDS: Clotrimazole/Betamethasone Cream(15 gm) TOP SCH (09:45)
[2016-10-05] MEDS: [UNRECOGNIZED DRUG - OTHER] PO SCH (09:45)
[2016-10-05] MEDS: Vancomycin 25 MG/ML PO SCH (09:46)
[2016-10-05] MEDS: PrednisoLONE 15 mg/5 ml Oral Syrup (240 ml) PO SCH (10:52)
[2016-10-05 11:05] VITALS: BP 110/66; PULSE 82; TEMP 98.7; O2SAT 98
--- NOTE | 2016-10-05 22:18 | PN ---
DATE: 10/05/2016 The patient was seen late this Tuesday in room 203, bed 1. She is ready for discharge to home today. A discharge order had been called in and medications were written for the patient by Dr Montana Mcdowell for the patient to take to the drugstore. I spoke with her at great length regarding the progress we had made during the course of this hospital stay. Tapering and discontinuing of benzodiazepines and dramatically reducing her opiate use. She seems to be doing well with SSRIs. Is markedly more clear and alert now as if a fog has been lifted from her brain, so she reports. I detailed her progress and the medical obstacles she faces ahead. If she remains alcohol-free for 6 months, she would be a candidate to be followed by the liver team at [facility] based on liver enzymes and what happens to her total bilirubin over the course of the next few months, as well as her protein, PT/INR, and peripheral edema. I spoke with her at great length regarding her benzodiazepines for anxiety, and more so, regarding her use of opiates. I explained to her that because of the tapering schedule we had her on during the course of this hospital stay, if she is were to go home and resume the dose of medications she found at home were taken by other family members as she was before, this would be certainly excessive and probably fatal. She was cautioned about the risk of severe overdose if she resumes doses that she was estimated to have been taking before , in the range of 150 mg of oxycodone in the course of the day, along with to 6 mg of Xanax. I told her she has the potential for a normal life ahead of her, drug and alcohol free, to enjoy her children, and not have them burdened with her . I encouraged her to continue with AA. She already has 2 sponsors that she has been in touch with. I encouraged her to make 90 meetings in 90 days. I warned her again about the dose of opiates that she was taking before and how this can be extremely toxic and fatal. She is certainly well aware and was able to repeat that back in the form of a question, which I confirmed once again. I advised her for close followup with AA, as well as with psychiatry. She will need a tapering dose of prednisolone, as well as a PPI, and I encouraged her to discontinue all opiates. Leonel Mcdowell MD cc: [id number] TT: 10/05/2016 22:17:49 Confirmation # [id number] Dictation # [id number] tn MTDD
--- NOTE | 2016-10-17 11:10 | DS ---
Date of discharge to transitional care unit is 09/24, and then discharged to home 10/05. This is a brief discharge summary for a very long and complicated hospital stay for this unfortunate lost soul, 45-year-old morbidly obese female with multiple substance abuse, who presented to the [facility] Room on 09/12, was treated on the acute care floor until 09/24, and then in the transitional care unit until 10/05. She initially presented to the Emergency Room acutely intoxicated with a blood al cohol in the 280-range after being found by her family acutely intoxicated and severely hypokalemic w ith a potassium of 2.8. PAST MEDICAL HISTORY: Significant for alcohol and substance abuse, chronic prescription opiate use, hypertension, liver failure, hyperbilirubinemia, elevated liver enzymes, abnormal coags, renal stones , cholelithiasis, diverticulitis, anxiety, and depression. She is with children. Initially, she reported taking oxycodone in the range of 30 mg 5 times a day along with Valium and alcohol. She uses Zaroxolyn and furosemide because of leg edema. Admitted to the medical floor, she was treated with electrolytes and fluids. Her coags and liver fun ctions were abnormal because of underlying liver disease. It was my internal medicine suspicion from known the patient that this was all alcohol-related liver disease. However, gastroenterology consul tants were also concerned with the rare unusual possibilities including an autoimmune hepatitis. So she was treated with a course of steroids. In addition to GI, she was followed by renal hypertension because of the electrolyte abnormalities, as well as psychiatry, who know her. During the course of her stay, I impressed upon her the need for her to reduce and eliminate the chronic opiate use, as w ell as benzodiazepines and polysubstance abuse including alcohol. She was seen by Dr. Mendez. Medications were adjusted up and then down, as we focused on our goal o f reducing her benzodiazepines and narcotic analgesics. Her ____, her LFTs were always abnormal. Co ags were slightly abnormal. She was jaundiced and icteric. I explained to her that because of her c ontinued drinking, she was not a candidate for the liver transplant team evaluation at [facility], that this is something we should keep in mind in the near future. I was reassuring to her shane t she did have potential to change her lifestyle and live a better and longer life to enjoy her famil y, that she can focus on this, but many times, she did not and would ask for increasing analgesic. W ith effort, I got the entire medical team to focus in this direction. We were able to taper her opia braden, manage her liver failure, correct her electrolyte imbalance, and ready her discharge to the [facility] care unit for additional physical therapy, conditioning, and tapering of her dependent medic ations. FINAL DISCHARGE DIAGNOSES: 1. Acute alcohol intoxication. 2. Chronic alcoholism. 3. Liver failure. 4. Severe electrolyte abnormalities due to diuretics. 5. Polysubstance abuse - benzodiazepines, opiates, and alcohol. The patient is discharged to the transitional care unit. We will follow her there. Leonel Mcdowell MD cc: [id number] TT: 10/17/2016 11:09:34 melanie
== END 2016-10-05 14:57 | disposition home or self-care (01) | DRG 433 ==
LOC: TRCU 19:10
PROVIDERS: ADMIT Internal Medicine; ATTEND Internal Medicine
PROC: F07Z9FZ Gait Training/Functional Ambulation Treatment using Assistive, Adaptive, Supportive or Protective Equipment (ICD-10-PCS; principal; 2016-09-27)
PROC: F07Z5FZ Bed Mobility Treatment using Assistive, Adaptive, Supportive or Protective Equipment (ICD-10-PCS; 2016-09-27)
PROC: F07Z8FZ Transfer Training Treatment using Assistive, Adaptive, Supportive or Protective Equipment (ICD-10-PCS; 2016-09-27)
PROC: F08Z2FZ Grooming/Personal Hygiene Treatment using Assistive, Adaptive, Supportive or Protective Equipment (ICD-10-PCS; 2016-09-28)
DX: K70.10 Alcoholic hepatitis without ascites (principal); A04.7 Enterocolitis due to Clostridium difficile; K72.90 Hepatic failure, unspecified without coma; Z68.42 Body mass index [BMI] 45.0-49.9, adult; E87.6 Hypokalemia; E83.42 Hypomagnesemia; I10 Essential (primary) hypertension; E83.51 Hypocalcemia; E66.01 Morbid (severe) obesity due to excess calories; I25.10 Atherosclerotic heart disease of native coronary artery without angina pectoris; G40.909 Epilepsy, unspecified, not intractable, without status epilepticus; F41.9 Anxiety disorder, unspecified; F32.9 Major depressive disorder, single episode, unspecified; G62.9 Polyneuropathy, unspecified; K64.9 Unspecified hemorrhoids; M79.605 Pain in left leg; M79.604 Pain in right leg; G89.29 Other chronic pain; M54.5 Low back pain; R60.1 Generalized edema; F10.10 Alcohol abuse, uncomplicated; Y90.9 Presence of alcohol in blood, level not specified; M25.561 Pain in right knee; Z98.84 Bariatric surgery status; Z79.891 Long term (current) use of opiate analgesic

== ENCOUNTER 2016-11-03 16:16 | Emergency (ER) | payer BC ==
[2016-11-03 16:16] VITALS: BMI 38.3
[2016-11-03 16:44] VITALS: BP 131/86; PULSE 77; RESP 16; TEMP 98.3; O2SAT 97
--- NOTE | 2016-11-03 16:45 | ED PDOC ---
Arrival/HPI - General Chief Complaint: Alcohol Ingestion Time Seen by Provider: 11/03/16 16:17 Historian: Patient - History of Present Illness Narrative History of Present Illness (Text): 11/03/16 16:46 A 46 year old female whose past medical history includes alcohol abuse, seizure disorder, opioid dependence, liver disease, major depression, chronic pain and gastric bypass, presents to the emergency department with alcohol intoxication. Patient reports drinking alcohol earlier this afternoon and "feeling bad". Patient notes she felt anxious and restless while drinking. Patient denies any abdominal pain, nausea, vomiting, chest pain, dizziness, or any other complaints at this time. Symptom Onset: Sudden Symptom Course: Unchanged Activities at Onset: Rest Context: Home Past Medical History - Provider Review Nursing Documentation Reviewed: Yes - Infectious Disease Hx of Infectious Diseases: None - Tetanus Immunization Tetanus Immunization: Unknown - Past Medical History Past Medical History: No Previous - Cardiac Hx Cardiac Disorders: Yes (CAD) Hx Hypertension: Yes - Pulmonary Hx Respiratory Disorders: No - Neurological Hx Neurological Disorder: Yes Hx Dizziness: Yes Hx Seizures: Yes Other/Comment: neuropathy arms and legs - HEENT Hx HEENT Disorder: No (WEARS RX GLASSES) - Renal Hx Renal Disorder: Yes Hx Kidney Stones: Yes - Endocrine/Metabolic Hx Endocrine Disorders: No - Hematological/Oncological Hx Blood Disorders: Yes Hx Anemia: Yes (BLOOD TRANSFUSION) - Integumentary Other/Comment: TATOOS ,BILATERAL LEG EDEMA, multiple bruises old and new to b/l knees and b/l arms - Musculoskeletal/Rheumatological Hx Back Pain: Yes Hx Falls: Yes - Gastrointestinal Hx Gastrointestinal Disorders: Yes Hx Diverticulitis: Yes Hx Gall Bladder Disease: Yes Hx Liver Failure: Yes (cirrhosis, jundiced) Other/Comment: COLITIS,CHOLELITHIASIS,DIVERTICULITIS,GASTRIC BYPASS - Genitourinary/Gynecological Hx Genitourinary Disorders: Yes (2 C SECTIONS,TUBAL LIGATION) Other/Comment: IUD insertion - Psychiatric Hx Psychophysiologic Disorder: Yes Hx Anxiety: Yes Hx Depression: Yes Hx Substance Use: Yes Other/Comment: ETOH ABUSE - Surgical History Hx Cardiac Catheterization: No Hx Cholecystectomy: Yes (2011) Hx Coronary Stent: No Hx Gastric Bypass Surgery: Yes (2007) Other/Comment: C/S X2,GASTRIC BYPASS,TUBAL LIGATION,BREAST REDUCTION,bladder sling - Anesthesia Hx Anesthesia Reactions: No Hx Malignant Hyperthermia: No - Suicidal Assessment Feels Threatened In Home Enviroment: No Family/Social History - Physician Review Nursing Documentation Reviewed: Yes Family/Social History: No Known Family HX Smoking Status: Never Smoked Hx Alcohol Use: Yes Hx Substance Use: Yes Hx Substance Use Treatment: No Allergies/Home Meds Allergies/Adverse Reactions: Allergies No Known Allergies Allergy (Verified 11/03/16 16:24) Home Medications: Home Meds Medication Instructions Recorded Confirmed Zolpidem Tartrate 12.5 mg PO HS 12/16/13 11/03/16 Pantoprazole [Protonix EC Tab] 40 mg PO DAILY 01/01/15 11/03/16 ALPRAZolam [Xanax] 1 mg PO TID 12/09/15 11/03/16 Escitalopram [Lexapro] 10 mg PO DAILY 12/09/15 11/03/16 levETIRAcetam [Keppra] 500 mg PO BID 12/09/15 11/03/16 Review of Systems - Physician Review All systems were reviewed & negative as marked: Yes - Review of Systems Gastrointestinal: absent: Abdominal Pain, Nausea, Vomiting Psychiatric: Anxiety. absent: Suicidal Ideation Physical Exam Vital Signs Reviewed: Yes Vital Signs Temp Pulse Resp BP Pulse Ox 11/03/16 16:26 98.3 F 77 16 131/86 97 Temperature: Afebrile Blood Pressure: Normal Pulse: Regular Respiratory Rate: Normal Appearance: Positive for: Well-Appearing, Non-Toxic, Comfortable Pain Distress: None Mental Status: Positive for: Alert and Oriented X 3 - Systems Exam Head: Present: Atraumatic, Normocephalic Pupils: Present: PERRL Conjunctiva: Present: Normal Mouth: Present: Moist Mucous Membranes Pharnyx: Present: Normal. No: ERYTHEMA, EXUDATE Neck: Present: Normal Range of Motion Respiratory/Chest: Present: Clear to Auscultation, Good Air Exchange. No: Respiratory Distress, Accessory Muscle Use Cardiovascular: Present: Regular Rate and Rhythm, Normal S1, S2. No: Murmurs Abdomen: Present: Normal Bowel Sounds. No: Tenderness, Distention, Peritoneal Signs Back: Present: Normal Inspection Upper Extremity: Present: Normal Inspection. No: Cyanosis, Edema Lower Extremity: Present: Normal Inspection. No: Edema Neurological: Present: GCS=15, CN II-XII Intact, Speech Normal Skin: Present: Warm, Dry, Normal Color. No: Rashes Psychiatric: Present: Alert, Oriented x 3, Normal Concentration, Anxious, Depressed Mood Medical Decision Making ED Course and Treatment: 11/03/16 16:42 Impression: A 46 year old female with alcohol intoxication with no acute symptoms and no SI. Plan: -- Reassess and disposition Prior Visits: Notes and results from previous visits were reviewed. Patient was last seen in the Emergency department on 09/11/16 for body pain s/p fall. Patient admitted for hypokalemia [facility]. Progress Notes: 11/03/16 17:53 Patient brought in intoxicated but ambulatory and normal speech. No SI with benign exam. While sitting in the ED, the patient request pain medicine for chronic back pain; Tylenol and baclofen were ordered. She declined them and wanted oxycodone instead. Patient's [employer] checked. She was given a script for 240 oxycodone tabs on 10/05/16. She was informed that as it is a chronic condition, that the condition should be treated outpatient and follow up with pain management. 11/03/16 17:59 The patient is awake and ambulatory and her 24 y.o. son Scott came and picked her up to drive her home. - Medication Orders Current Medication Orders: Discontinued Medications Acetaminophen (Tylenol 325mg Tab) 975 mg PO STAT STA Stop: 11/03/16 16:57 Last Admin: 11/03/16 17:00 Dose: Not Given Non-Admin Reason: Patient Refused Baclofen (Lioresal) 10 mg PO TID STA Stop: 11/03/16 16:57 Last Admin: 11/03/16 17:00 Dose: Not Given Non-Admin Reason: Patient Refused - Scribe Statement The provider has reviewed the documentation as recorded by the Gwen Chowdhury Provider Scribe Attestation: All medical record entries made by the Nicoleibdeann were at my direction and personally dictated by me. I have reviewed the chart and agree that the record accurately reflects my personal performance of the history, physical exam, medical decision making, and the department course for this patient. I have also personally directed, reviewed, and agree with the discharge instructions and disposition. Disposition/Present on Arrival - Present on Arrival Any Indicators Present on Arrival: No History of DVT/PE: No History of Uncontrolled Diabetes: No Urinary Catheter: No History of Decub. Ulcer: No History Surgical Site Infection Following: Bariatric Surgery, None - Disposition Have Diagnosis and Disposition been Completed?: Yes Diagnosis: Alcohol intoxication Disposition: HOME/ ROUTINE Disposition Time: 17:40 Patient Plan: Discharge Condition: GOOD Additional Instructions: Stop alcohol use. Follow up with your primary care doctor. Return to the emergency department if any new concerning symptoms.
== END 2016-11-03 17:45 | disposition home or self-care (01) ==
LOC: ED 16:16
DX: F10.129 Alcohol abuse with intoxication, unspecified (principal)

== ENCOUNTER 2017-02-28 21:55 | Inpatient (IN) | payer BC ==
[2017-02-28 21:56] VITALS: BMI 38.3
--- NOTE | 2017-02-28 22:33 | ED PDOC ---
Arrival/HPI - General Chief Complaint: Trauma Time Seen by Provider: 02/28/17 21:58 Historian: Patient - History of Present Illness Narrative History of Present Illness (Text): 02/28/17 22:29 Sandra Mcnamara is a 46 year old female, whose past medical history includes chronic pain, neuropathy, cholecystectomy, gastric bypass surgery, and bilateral lower extremity lymphedema, who presents to the Emergency department status post fall tonight. Patient states tonight she stood up and fell to the ground. Patient states she hit the right side of her head but is unable to remember what she hit her head against. states he did not witness the fall. Patient reports associated palpitations, notes she drink alcohol on a daily basis and has "shakes." Patient also notes she has a rash underneath her breast and lower abdomen. Patient states she was placed on an anti-fungal by her PMD but denies any relief. Patient denies any fever, chills, chest pain, shortness of breath, nausea, vomiting, diarrhea, urinary symptoms, back pain, neck pain, headache, dizziness, or any other complaints. PMD: Dr. Josep Mcdowell Symptom Onset: Sudden Symptom Course: Unchanged Activities at Onset: Light Context: Home Past Medical History - Provider Review Nursing Documentation Reviewed: Yes - Infectious Disease Hx of Infectious Diseases: None - Tetanus Immunization Tetanus Immunization: Unknown - Past Medical History Past Medical History: No Previous - Cardiac Hx Cardiac Disorders: Yes (CAD) Hx Hypertension: Yes - Pulmonary Hx Respiratory Disorders: No - Neurological Hx Neurological Disorder: Yes Hx Dizziness: Yes Hx Seizures: Yes Other/Comment: neuropathy arms and legs - HEENT Hx HEENT Disorder: No (WEARS RX GLASSES) - Renal Hx Renal Disorder: Yes Hx Kidney Stones: Yes - Endocrine/Metabolic Hx Endocrine Disorders: No - Hematological/Oncological Hx Blood Disorders: Yes Hx Anemia: Yes (BLOOD TRANSFUSION) - Integumentary Other/Comment: TATOOS ,BILATERAL LEG EDEMA, multiple bruises old and new to b/l knees and b/l arms - Musculoskeletal/Rheumatological Hx Back Pain: Yes Hx Falls: Yes - Gastrointestinal Other/Comment: COLITIS,CHOLELITHIASIS,DIVERTICULITIS,GASTRIC BYPASS 2008 lost 100 lbs gained some back - Genitourinary/Gynecological Hx Genitourinary Disorders: Yes (2 C SECTIONS,TUBAL LIGATION) Other/Comment: IUD insertion - Psychiatric Hx Substance Use: Yes Other/Comment: ETOH ABUSE 1 1/.2 to 2 pints vodka a day quit 2 dys ago, INTOXICATION,INSOMNIA - Surgical History Hx Cardiac Catheterization: No Hx Cholecystectomy: Yes (2011) Hx Coronary Stent: No Hx Gastric Bypass Surgery: Yes (2007) Other/Comment: C/S X2,GASTRIC BYPASS,TUBAL LIGATION,BREAST REDUCTION,bladder sling - Anesthesia Hx Anesthesia: Yes Hx Anesthesia Reactions: No Hx Malignant Hyperthermia: No - Suicidal Assessment Feels Threatened In Home Enviroment: No Family/Social History - Physician Review Nursing Documentation Reviewed: Yes Family/Social History: Unknown Family HX Smoking Status: Never Smoked Hx Alcohol Use: Yes Frequency of alcohol use: Daily Hx Substance Use: Yes Hx Substance Use Treatment: No Allergies/Home Meds Allergies/Adverse Reactions: Allergies No Known Allergies Allergy (Verified 11/03/16 16:24) Home Medications: Home Meds Medication Instructions Recorded Confirmed Zolpidem Tartrate 12.5 mg PO HS 12/16/13 11/03/16 Pantoprazole [Protonix EC Tab] 40 mg PO DAILY 01/01/15 11/03/16 ALPRAZolam [Xanax] 1 mg PO TID 12/09/15 11/03/16 Escitalopram [Lexapro] 10 mg PO DAILY 12/09/15 11/03/16 levETIRAcetam [Keppra] 500 mg PO BID 12/09/15 11/03/16 Review of Systems - Physician Review All systems were reviewed & negative as marked: Yes - Review of Systems Constitutional: Other (+shaking). absent: Fevers Eyes: Normal ENT: Normal Respiratory: Normal. absent: SOB Cardiovascular: Palpitations Gastrointestinal: Normal. absent: Abdominal Pain, Diarrhea, Nausea, Vomiting Genitourinary Female: Normal. absent: Dysuria, Frequency, Hematuria, Urine Output Changes, Other Musculoskeletal: absent: Back Pain Skin: Cellulitis Neurological: Other (+head injury) Endocrine: Normal Hemo/Lymphatic: Normal Psychiatric: Normal Physical Exam Vital Signs Reviewed: Yes Vital Signs Temp Pulse Resp BP Pulse Ox 03/01/17 02:45 86 20 115/72 98 02/28/17 22:13 97.8 F 82 18 117/71 96 Temperature: Afebrile Blood Pressure: Normal Pulse: Regular Respiratory Rate: Normal Appearance: Positive for: Well-Appearing, Non-Toxic, Comfortable Pain Distress: None Mental Status: Positive for: Alert and Oriented X 3 - Systems Exam Head: Present: Normocephalic, Ecchymosis (Ecchymosis over right eye) Pupils: Present: PERRL Extroacular Muscles: Present: EOMI Conjunctiva: Present: Normal Mouth: Present: Moist Mucous Membranes Neck: Present: Normal Range of Motion. No: Meningeal Signs, MIDLINE TENDERNESS , Paraspinal Tenderness Respiratory/Chest: Present: Clear to Auscultation, Good Air Exchange. No: Respiratory Distress, Accessory Muscle Use Cardiovascular: Present: Regular Rate and Rhythm, Normal S1, S2. No: Murmurs Abdomen: Present: Normal Bowel Sounds. No: Tenderness, Distention, Peritoneal Signs Upper Extremity: Present: Normal Inspection. No: Cyanosis, Edema Lower Extremity: Present: Normal Inspection. No: Edema Neurological: Present: GCS=15, CN II-XII Intact, Speech Normal Skin: Present: Warm, Dry, Normal Color, Other (Cellulitis underneath breasts and pannus) Psychiatric: Present: Alert, Oriented x 3, Normal Insight, Normal Concentration Medical Decision Making ED Course and Treatment: 02/28/17 22:29 Impression: 46 year old female presents s/p fall with head injury. Differential Diagnosis included but are not limited to: syncope vs. electrolyte abnormality vs. alcohol intoxication vs. fracture Plan: -- CT Head w/o contrast -- CT Maxillofacial w/o contrast -- EKG -- Labs, alcohol level, Beta-HCG, troponin -- UA, urine cultures, urine drug screen -- IV fluids -- Reassess and disposition Prior Visits: Notes and results from previous visits were reviewed. On 11/03/2016, pt was seen in the Emergency department for alcohol intoxication. Pt was d/c home. Progress Notes: Reviewed EKG, NSR at 79 bpm. Prolonged QT. No acute ischemia. 03/01/17 00:15 Reviewed radiology, CT Head shows: Brain: There is mild prominence of sulci, gyri and ventricles. There is no midline shift. There are no intra-axial or extra axial mass lesions or areas of hemorrhage. Franco-white differentiation is maintained. Ventricles: See above. Bony structures: Cranial vault is intact. Soft tissues: unremarkable Sinuses: There is no acute sinusitis. Ears and mastoids: Middle ears and mastoids unremarkable. Orbits: Orbital contents are unremarkable. IMPRESSION: No acute intracranial abnormality CT Maxillofacial shows: Bones/joints: There are no acute facial bone fractures. There are degenerative changes in the upper cervical spine. Soft tissues: There are no facial masses. Orbits: Globes are intact.Retrobulbar structures are symmetric. Sinuses: There is no acute sinusitis. There is mucoperiosteal thickening in the right maxillary antrum. There are retention cysts/polyps in the right maxillary antrum. Middle ears and mastoids: Middle ears and mastoids are unremarkable. Dental: Streak artifact from dental fillings degrades image quality. Streak artifact from dental fillings degrades image quality. There are occasional apical erosions. Brain: No focal abnormalities are seen in visualized portion of the brain. IMPRESSION: No facial bone fracture; dental disease. 03/01/17 00:[address] Josep Mcdowell, who is aware and agrees with plan. Accepts pt in to his service. Pt will be admitted to Telemetry for syncope and hypocalcemia. - Lab Interpretations Microbiology Results: Microbiology Results 02/28/17 23:15 Urine,Catheterized Urine Culture - Preliminary Gram Negative [facility] Results: 02/28/17 23:01 02/28/17 23:01 Lab Results 02/28/17 23:15: Urine Color Yellow, Urine Appearance Sl cloudy, Urine pH 7.0, Ur Specific [place] <= 1.005, Urine Protein Negative, Urine Glucose (UA) Negative, Urine Ketones Negative, Urine Blood Trace-intact H, Urine Nitrate Negative, Urine Bilirubin Small H, Urine Urobilinogen 0.2, Ur Leukocyte Esterase Negative, Urine RBC 0 - 2, Urine WBC 0 - 2, Ur Epithelial Cells 1 - 3, Urine Bacteria Mod 02/28/17 23:15: Urine Opiates Screen Negative, Urine Methadone Screen Negative, Ur Barbiturates Screen Negative, Ur Phencyclidine Scrn Negative, Ur Amphetamines Screen Negative, U Benzodiazepines Scrn Positive H, U Oth Cocaine Metabols Negative, U Cannabinoids Screen Negative 02/28/17 23:01: Beta HCG, Quant < 2.39 02/28/17 23:01: Alcohol, Quantitative 276 H 02/28/17 23:01: Sodium 150 H, Potassium 3.1 L, Chloride 109 H, Carbon Dioxide 26 , Anion Gap 18, BUN 3 L, Creatinine 0.7, Est GFR ( Amer) > 60, Est GFR ( Non-Af Amer) > 60, Random Glucose 93, Calcium 5.9 L*, Total Bilirubin 4.2 H, AST 189 H, ALT 51, Alkaline Phosphatase 239 H, Troponin I 0.01, Total Protein 6.6, Albumin 2.4 L, Globulin 4.2, Albumin/Globulin Ratio 0.6 L 02/28/17 23:01: WBC 6.0 D, RBC 3.50, Hgb 10.8 L, Hct 31.8 L, MCV 90.9, MCH 30.9 , MCHC 34.0, RDW 22.9 H, Plt Count 58 L, Gran % 75.5 H, Lymph % (Auto) 18.5 L, [place] % (Auto) 4.8, Eos % (Auto) 0.7 L, Baso % (Auto) 0.5, Gran # 4.52, Lymph # 1.1 L, [place] # 0.3, Eos # 0.0, Baso # 0.03 I have reviewed the lab results: Yes - RAD Interpretation Radiology Orders: 02/28/17 22:30 HEAD W/O CONTRAST [CT] Stat 02/28/17 22:31 MAXILLOFACIAL W/O CONTRAST [CT] Stat [employer]: Radiologist - EKG Interpretation Interpreted by ED Physician: Yes Type: 12 lead EKG - Medication Orders Current Medication Orders: Acetaminophen (Tylenol 325mg Tab) 650 mg PO Q4H PRN PRN Reason: Pain, Mild (1-3) Chlordiazepoxide (Librium) 50 mg PO Q8 JACKIE PRN Reason: Protocol Last Admin: 03/02/17 21:04 Dose: 50 mg Clotrimazole (Lotrimin 1%) 0 gm TOP BID JACKIE Last Admin: 03/02/17 17:31 Dose: 1 applic Duloxetine HCl (Cymbalta) 20 mg PO DAILY JACKIE Folic Acid (Folic Acid) 1 mg PO DAILY [facility] Sodium Chloride (Sodium Chloride 0.45%) 1,000 mls @ 100 mls/hr IV .Q10H JACKIE Last Admin: 03/02/17 20:21 Dose: 100 mls/hr eMAR Start Stop Document 03/02/17 20:21 [facility] (Rec: 03/02/17 20:21 [facility] [id number]) Intravenous Solution Start Date 03/02/17 Start Time 20:21 Levetiracetam (Keppra) 500 mg PO BID [facility] Last Admin: 03/02/17 17:31 Dose: 500 mg Multivitamins/Minerals (Therapeutic-M Tab) 1 tab PO 0800 [facility] Ondansetron HCl (Zofran Tab) 4 mg PO Q8H PRN PRN Reason: Nausea/Vomiting Last Admin: 03/02/17 21:14 Dose: 4 mg Oxycodone HCl (Oxycodone Immediate Release Tab) 5 mg PO Q6H PRN PRN Reason: Pain, severe (8-10) Last Admin: 03/02/17 16:27 Dose: 5 mg MAR Pain Assessment Document 03/02/17 16:27 KMS (Rec: 03/02/17 16:27 S [id number]) Pain Reassessment Is this a pain reassessment? Yes Sleep Is patient sleeping during reassessment? No Presence of Pain Presence of Pain Yes Pain Scale Used Pain Scale Used Numeric Location Pain Location Body Site Back Description Intensity of Pain at present 8 Pantoprazole Sodium (Protonix Ec Tab) 40 mg PO 0600 [facility] Last Admin: 03/02/17 05:22 Dose: 40 mg Potassium Chloride (K-Dur 20 Meq Er Tab) 20 meq PO BRK [facility] Last Admin: 03/02/17 07:58 Dose: 20 meq Thiamine HCl (Vitamin B1 Tab) 100 mg PO DAILY [facility] Last Admin: 03/02/17 10:27 Dose: 100 mg Tobramycin Sulfate (Tobrex 0.3% Ophth Soln) 0 drop OU BID [facility] Zolpidem Tartrate (Ambien) 5 mg PO HS [facility] PRN Reason: Protocol Last Admin: 03/02/17 21:04 Dose: 5 mg Re-Assess: Reassess Psych Meds Document 03/02/17 22:04 [facility] (Rec: 03/02/17 22:14 [facility] [id number]) Reassess Psych Med Effective Discontinued Medications Alprazolam (Xanax) 1 mg PO TID [facility] PRN Reason: Protocol Last Admin: 03/01/17 14:29 Dose: Alprazolam (Xanax) 0.5 mg PO TID [facility] PRN Reason: Protocol Last Admin: 03/01/17 17:18 Dose: 0.5 mg Alprazolam (Xanax) 0.5 mg PO TID PRN; Protocol PRN Reason: Anxiety Last Admin: 03/02/17 10:27 Dose: 0.5 mg Behavioural Document 03/02/17 10:27 KMS (Rec: 03/02/17 10:27 KMS [id number]) Maintenance Maintenance Dose Yes Behavior Behavior for Medication: Anxiety Continuous crying/screaming/ yelling Re-Assess: Reassess Psych Meds Document 03/02/17 11:27 KMS (Rec: 03/02/17 13:09 KMS [id number]) Reassess Psych Med Effective Calcium Chloride (Calcium Chloride) 1,000 mg IV ONCE ONE Stop: 02/28/17 23:58 Last Admin: 03/01/17 21:22 Dose: Chlordiazepoxide (Librium) 25 mg PO Q8 JACKIE PRN Reason: Protocol Last Admin: 03/02/17 05:21 Dose: 25 mg Diazepam (Valium) 10 mg PO ONCE ONE PRN Reason: Protocol Stop: 03/01/17 08:14 Last Admin: 03/01/17 08:19 Dose: 10 mg Behavioural Document 03/01/17 08:19 (Rec: 03/01/17 08:19 [id number]) Behavior Behavior for Medication: Anxiety Re-Assess: Reassess Psych Meds Document 03/01/17 09:19 J (Rec: 03/01/17 11:57 [id number]) Reassess Psych Med Effective Escitalopram Oxalate (Lexapro) 10 mg PO DAILY [facility] Last Admin: 03/02/17 10:26 Dose: 10 mg Sodium Chloride (Sodium Chloride 0.9%) 1,000 mls @ 80 mls/hr IV .[id number] [facility] Last Admin: 03/01/17 03:15 Dose: Potassium Chloride (Potassium Chloride 20 Meq/100 Ml) 20 meq in 100 mls @ 50 mls/hr IVPB Q2H JACKIE Stop: 03/01/17 03:44 Last Admin: 03/01/17 04:00 Dose: 50 mls/hr eMAR Start Stop Document 03/01/17 04:00 CDE (Rec: 03/01/17 07:06 CDE [id number]) Intravenous Solution Start Date 03/01/17 Start Time 04:00 End Date 03/01/17 End time 06:00 Total Infusion Time 120 Sodium Chloride (Sodium Chloride 0.9%) 1,000 mls @ 100 mls/hr IV .Q10H STA Stop: 03/01/17 11:18 Last Admin: 03/01/17 02:21 Dose: 100 mls/hr eMAR Start Stop Document 03/01/17 02:21 SS (Rec: 03/01/17 02:21 SS [id number]) Intravenous Solution Start Date 03/01/17 Start Time 02:21 Vancomycin HCl (Vancomycin 1gm) 1 gm in 250 mls @ 167 mls/hr IVPB STAT STA PRN Reason: Protocol Stop: 03/01/17 02:49 Last Admin: 03/01/17 07:07 Dose: Vancomycin HCl (Vancomycin 1gm) 1 gm in 250 mls @ 167 mls/hr IVPB STAT STA PRN Reason: Protocol Stop: 03/01/17 08:24 Last Admin: 03/01/17 07:06 Dose: 167 mls/hr eMAR Start Stop Document 03/01/17 07:06 CDE (Rec: 03/01/17 07:07 CDE [id number]) Intravenous Solution Start Date 03/01/17 Start Time 07:07 End Date 03/01/17 End time 08:37 Total Infusion Time 90 Calcium Gluconate 1,000 mg/ (Sodium Chloride) 110 mls @ 110 mls/hr IVPB ONCE ONE Stop: 03/02/17 08:55 Last Admin: 03/02/17 08:10 Dose: 110 mls/hr eMAR Start Stop Document 03/02/17 08:10 KMS (Rec: 03/02/17 08:10 KMS [id number]) Intravenous Solution Start Date 03/02/17 Start Time 08:10 End Date 03/02/17 End time 09:10 Total Infusion Time 60 Calcium Gluconate 1,000 mg/ (Sodium Chloride) 110 mls @ 110 mls/hr IVPB ONCE ONE Stop: 03/02/17 20:20 Last Admin: 03/02/17 20:38 Dose: 110 mls/hr eMAR Start Stop Document 03/02/17 20:38 [facility] (Rec: 03/02/17 20:38 [id number] Intravenous Solution Start Date 03/02/17 Start Time 20:38 End Date 03/02/17 End time 21:38 Total Infusion Time 60 Lorazepam (Ativan) 1 mg IVP ONCE ONE PRN Reason: Protocol Stop: 02/28/17 22:38 Last Admin: 02/28/17 23:08 Dose: 1 mg IVP Administration Document 02/28/17 23:08 SS (Rec: 02/28/17 23:08 SS [id number]) Charges for Administration # of IVP Administrations 1 Ondansetron HCl (Zofran Inj) 4 mg IVP STAT STA Stop: 03/02/17 01:24 Last Admin: 03/02/17 01:40 Dose: 4 mg IVP Administration Document 03/02/17 01:40 [facility] (Rec: 03/02/17 01:40 SGG [id number]) Charges for Administration # of IVP Administrations 1 Pantoprazole Sodium (Protonix Ec Tab) 40 mg PO DAILY JACKIE Last Admin: 03/01/17 09:34 Dose: 40 mg Silver Sulfadiazine (Silvadene 1% 25 Gm) 0 gm TP STAT STA Stop: 03/01/17 01:22 Last Admin: 03/01/17 21:23 Dose: Tobramycin Sulfate (Tobrex 0.3% Ophth Oint) 0 appl OU BID JACKIE Tobramycin Sulfate (Tobrex 0.3% Ophth Soln) 0 drop OU STAT STA Stop: 03/02/17 21:00 Last Admin: 03/02/17 21:14 Dose: 1 drop - Scribe Statement The provider has reviewed the documentation as recorded by the Nicoleibdeann Macias All medical record entries made by the Nicoleibdeann were at my direction and personally dictated by me. I have reviewed the chart and agree that the record accurately reflects my personal performance of the history, physical exam, medical decision making, and the department course for this patient. I have also personally directed, reviewed, and agree with the discharge instructions and disposition. Disposition/Present on Arrival - Present on Arrival Any Indicators Present on Arrival: No History of DVT/PE: No History of Uncontrolled Diabetes: No Urinary Catheter: No History of Decub. Ulcer: No History Surgical Site Infection Following: Bariatric Surgery, None - Disposition Have Diagnosis and Disposition been Completed?: Yes Diagnosis: Cellulitis, Alcohol abuse, Hypokalemia, Hypocalcemia Disposition: HOSPITALIZED Disposition Time: 00:00 Condition: FAIR
[2017-02-28 23:18] LABS: BASO # 0.03 K/mm3 (0.0-2.0); BASO % 0.5 % (0.0-3.0); EOS % 0.7 % (1.5-5.0); GRAN # 4.52 (1.4-6.5); GRAN % 75.5 % (50.0-68.0); HEMATOCRIT 31.8 % (36.0-48.0); LYMPH # 1.1 (1.2-3.4); LYMPH % 18.5 % (22.0-35.0); MEAN CELL VOLUME 90.9 fl (80.0-105.0); MEAN CORPUSCULAR HEMOGLOBIN 30.9 pg (25.0-35.0); MONO # 0.3 (0.1-0.6); MONO % 4.8 % (1.0-6.0); PLATELET COUNT 58 10^3/uL (120.0-450.0)
[2017-02-28 23:29] LABS: ALB/GLOB RATIO 0.6 (1.1-1.8); ALKALINE PHOSPHATASE 239 U/L (38-126); ALT/SGPT 51 U/L (7-56); AST/SGOT 189 U/L (14-36); BILIRUBIN,TOTAL 4.2 mg/dL (0.2-1.3); BLOOD UREA NITROGEN 3 mg/dL (7-21); CARBON DIOXIDE 26 mmol/L (21-33); CHLORIDE 109 mmol/L (98-107); GFR AFRICAN-AMERICAN > 60; GLUCOSE,RANDOM 93 mg/dL (70-110); POTASSIUM 3.1 mmol/L (3.6-5.0); SODIUM 150 mmol/L (132-148); TOTAL PROTEIN 6.6 g/dL (5.8-8.3)
[2017-02-28 23:33] LABS: URINE BILIRUBIN SMALL (NEGATIVE); URINE BLOOD TRACE-INTACT (NEGATIVE); URINE GLUCOSE (UA) NEGATIVE (NEGATIVE); URINE KETONE NEGATIVE (NEGATIVE); URINE LEUKOCYTE ESTERASE NEGATIVE Leu/uL (NEGATIVE); URINE PROTEIN NEGATIVE mg/dL (<30 mg/dL); URINE UROBILINOGEN 0.2 E.U./dL (<1 E.U./dL)
[2017-02-28 23:33] LABS: CALCIUM 5.9 mg/dL (8.4-10.5)
[2017-02-28 23:42] LABS: TROPONIN I 0.01 ng/mL
[2017-02-28 23:45] LABS: URINE APPEARANCE SL CLOUDY (CLEAR); URINE COLOR YELLOW (YELLOW)
[2017-02-28 23:52] LABS: URINE BACTERIA MOD (NEG); URINE RBC 0 - 2 /hpf (0-2); URINE WBC 0 - 2 /hpf (0-6)
[2017-02-28] MEDS ORDERED: Calcium Chloride 1000 mg/10 ml Syringe IV ONE (23:57)
--- NOTE | 2017-03-01 00:19 | CT ---
EXAM: CT Head Without Intravenous Contrast EXAM DATE/TIME: 02/28/2017 10:30 PM CLINICAL HISTORY: 46 years old, female; Injury or trauma; Fall; Initial encounter; Concussion / head injury TECHNIQUE: Axial computed tomography images of the head/brain without intravenous contrast. All CT scans at this facility use one or more dose reduction techniques, viz.: automated exposure control; ma/kV adjustment per patient size (including targeted exams where dose is matched to indication; i.e. head); or iterative reconstruction technique. COMPARISON: CT - HEAD W/O CONTRAST 09/12/2016 12:32:34 AM FINDINGS: Brain: There is mild prominence of sulci, gyri and ventricles. There is no midline shift. There are no intra-axial or extra axial mass lesions or areas of hemorrhage. Franco-white differentiation is maintained. Ventricles: See above. Bony structures: Cranial vault is intact. Soft tissues: unremarkable Sinuses: There is no acute sinusitis. Ears and mastoids: Middle ears and mastoids unremarkable. Orbits: Orbital contents are unremarkable. IMPRESSION: No acute intracranial abnormality
--- NOTE | 2017-03-01 00:24 | CT ---
EXAM: CT Maxillofacial Without Intravenous Contrast EXAM DATE/TIME: 02/28/2017 10:31 PM CLINICAL HISTORY: 46 years old, female; Injury or trauma; Fall; Initial encounter; Concussion /head injury; Loss of consciousness not known TECHNIQUE: Axial computed tomography images of the face without intravenous contrast. All CT scans at this facility use one or more dose reduction techniques, viz.: automated exposure control; ma/kV adjustment per patient size (including targeted exams where dose is matched to indication; i.e. head); or iterative reconstruction technique. Coronal and sagittal reformatted images were created and reviewed. COMPARISON: CT - HEAD W/O CONTRAST 09/12/2016 12:32:34 AM FINDINGS: Bones/joints: There are no acute facial bone fractures. There are degenerative changes in the upper cervical spine. Soft tissues: There are no facial masses. Orbits: Globes are intact.Retrobulbar structures are symmetric. Sinuses: There is no acute sinusitis. There is mucoperiosteal thickening in the right maxillary antrum. There are retention cysts/polyps in the right maxillary antrum. Middle ears and mastoids: Middle ears and mastoids are unremarkable. Dental: Streak artifact from dental fillings degrades image quality. Streak artifact from dental fillings degrades image quality. There are occasional apical erosions. Brain: No focal abnormalities are seen in visualized portion of the brain. IMPRESSION: No facial bone fracture; dental disease Additional findings as described above.
[2017-03-01] MEDS: Sodium Chloride 0.9% 1,000 ML IV SCH ×2 (01:13→03:15)
[2017-03-01] MEDS ORDERED: Sodium Chloride 0.9% 1,000 ML IV STA (01:19)
[2017-03-01] MEDS ORDERED: Vancomycin 1gm in NS 250ml 1 GM/250 ML BAG IVPB STA ×2 (01:20→06:55)
[2017-03-01] MEDS ORDERED: Silver Sulfadiazine 1% Cream (25 gm) TP STA (01:21)
[2017-03-01 05:15] LABS: RED CELL DISTRIBUTION WIDTH 22.9 % (11.5-14.5)
[2017-03-01] MEDS: Sodium Chloride 0.45% 1,000 ML IV SCH ×3 (07:06→23:15)
[2017-03-01] MEDS: Potassium Chloride 20 mEq ER Tab PO SCH (09:34)
[2017-03-01] MEDS ORDERED: Pantoprazole 40 mg EC Tab PO SCH (10:00)
[2017-03-01] MEDS: Clotrimazole 1% Cream(30 gm) TOP SCH ×2 (12:02→17:23)
[2017-03-01] MEDS: oxyCODONE 5 mg Immediate Release Tab PO PRN ×2 (17:34→23:15)
--- NOTE | 2017-03-01 22:18 | CARD ---
APPROVED REPORT EKG Measurement Heart [id number] <Conclusion> Normal sinus rhythm Low voltage QRS Prolonged QT Abnormal ECG
[2017-03-02] MEDS: oxyCODONE 5 mg Immediate Release Tab PO PRN ×3 (05:21→16:27)
[2017-03-02] MEDS: Pantoprazole 40 mg EC Tab PO SCH (05:22)
[2017-03-02 07:15] LABS: BASO # 0.02 K/mm3 (0.0-2.0); BASO % 0.3 % (0.0-3.0); EOS % 0.3 % (1.5-5.0); GRAN # 4.76 (1.4-6.5); GRAN % 75.7 % (50.0-68.0); HEMATOCRIT 30.6 % (36.0-48.0); LYMPH # 1.1 (1.2-3.4); LYMPH % 17.5 % (22.0-35.0); MEAN CORPUSCULAR HEMOGLOBIN 30.6 pg (25.0-35.0); MONO # 0.4 (0.1-0.6); MONO % 6.2 % (1.0-6.0); PLATELET COUNT 56 10^3/uL (120.0-450.0); RED CELL DISTRIBUTION WIDTH 22.3 % (11.5-14.5); WHITE BLOOD COUNT 6.3 10^3/ul (4.5-11.0)
[2017-03-02 07:32] LABS: ALB/GLOB RATIO 0.5 (1.1-1.8); ALKALINE PHOSPHATASE 228 U/L (38-126); ALT/SGPT 60 U/L (7-56); AST/SGOT 181 U/L (14-36); BILIRUBIN,TOTAL 7.7 mg/dL (0.2-1.3); BLOOD UREA NITROGEN 3 mg/dL (7-21); CARBON DIOXIDE 28 mmol/L (21-33); CHLORIDE 105 mmol/L (95-110); GFR AFRICAN-AMERICAN > 60; GLUCOSE,RANDOM 74 mg/dL (70-110); POTASSIUM 3.4 mmol/L (3.6-5.0); SODIUM 141 mmol/L (132-148); TOTAL PROTEIN 6.5 g/dL (5.8-8.3)
[2017-03-02 07:41] LABS: CALCIUM 5.5 mg/dL (8.4-10.5)
[2017-03-02] MEDS: Potassium Chloride 20 mEq ER Tab PO SCH (07:58)
--- NOTE | 2017-03-02 08:45 | HP ---
DATE OF ADMISSION: 03/01/2017 CHIEF COMPLAINT: Fall at home, acute alcohol intoxication, long history of polysubstance abuse. HISTORY OF PRESENT ILLNESS: This is a 46-year-old woman known to my practice for several years with a history of polysubstance use including benzodiazepines and opioids. The patient states she recently went on a heavy alcohol drinking binge of approximately 2 or 3 weeks and stopped drinking for 2 or 3 days, became tremulous and so started drinking again, became quite intoxicated, fell at home, and came to the emergency room, where her blood alcohol level was found to be 276. She was therefore admitted late last night and is now being seen this Tuesday at noon hour in room 272, bed 2 on a monitor worker. PAST MEDICAL HISTORY: Significant for several other hospitalizations related to acute alcohol intoxication and polysubstance use as well severe hypokalemia. She has a history of hepatic failure, hyperbilirubinemia due to liver failure with elevated coags and in spite of this extensive conversation she continues to drink and one time during the most recent hospitalization earlier this year she was evaluated in extensive alcohol rehab program in [place], but changed her mind. Past history is also significant for renal stones, colitis, cholelithiasis, diverticulitis, anxiety, and depression. SOCIAL HISTORY: She is , with children. Abuses alcohol. MEDICATIONS: Takes prescription medications including oxycodone that she reports in the range of 60 to 100mg daily, as well as Xanax and Ambien. ALLERGIES: SHE HAS NO KNOWN ALLERGIES. REVIEW OF SYSTEMS: Difficult to obtain, as the patient is quite lethargic and obtunded. PHYSICAL EXAMINATION: GENERAL: The patient is seen in room 272, bed 2 this Tuesday at approximately 1:30 p.m. She is resting comfortable. Quite lethargic. Speech is slurred. She has additional narcotics and narcotic analgesics and benzodiazepine worrying about alcohol withdrawal tremor and opioid withdrawal. HEENT: Conjunctivae are pink. Mucous membranes are moist. NECK: Supple. There is no JVD. There are no carotid bruits. Thyroid is nonpalpable. Neck is obese. LUNGS: Showed good aeration right and left and are clear. There are no rales or wheezes. HEART: Regular and not tachycardic. ABDOMEN: Soft and nontender. There is no guarding or rebound. Abdomen is obese. EXTREMITIES: Show +1 soft edema of obesity. IMPRESSION: 1. Acute alcohol intoxication. 2. Fall at home. 3. Hypokalemia with potassium of 3.1. 4. Hypocalcemia with calcium of 5.9, related to hypoalbuminemia with an albumin of only 2.4. 5. History of depression. 6. History of polysubstance abuse. 7. Chronic benzodiazepine use. 8. Chronic opioid use. 9. Chronic alcoholism. 10. Morbid obesity. 11. History of liver failure. PLAN: The patient will be admitted to telemetry floor. Potassium and calcium will be supplemented. Because of her today's lethargy, I will decrease her benzodiazepines, but consuming low dose to avoid withdrawal and help with alcohol withdrawal related tremors. In the past, we had tapered and discontinued opioids, but I say that as an outpatient her dose has returned to prior high levels. I will try to taper her opioids over the next few days as well and hopefully will be able to explain more to the patient, as her lethargy and acute intoxication clears. Consultation for Psychiatry was placed. We will reorder morning labs. Leonel Mcdowell MD [place]
[2017-03-02] MEDS: Sodium Chloride 0.45% 1,000 ML IV SCH ×2 (10:06→20:21)
[2017-03-02] MEDS: Clotrimazole 1% Cream(30 gm) TOP SCH ×3 (10:31→17:31)
--- NOTE | 2017-03-02 20:39 | CON ---
HISTORY OF PRESENT ILLNESS: The patient is 46-year-old female, multiple medical issues including chronic pain neuropathy, cholecystectomy, gastric bypass surgery, bilateral lower extremity lymphedema. The patient also has history of alcohol use disorder. The patient was admitted on the medical site, status post fall and possible alcohol withdrawals. The patient was seen and examined. The patient presented to be alert, kind of withdrawn. Flat affect. The patient reported that she suffers from alcohol use disorder and the patient had a binge drinking and she stopped taking alcohol abruptly and she was not feeling good. The patient reported that she had lower extremity neuropathy most likely due to alcohol use disorder. The patient has history of being in detox and rehabs in the past. The patient reported that she attends AA meetings and NA meetings. The patient reported that she suffers from anxiety and she had generalized anxiety disorder started after delivering her kids. Right now, kids are grown up and the youngest son is 18-year-old. The patient and her is supportive. The patient reported that she feels depressed as well as hopeless. She does not have future plans. The patient also reported that her anxiety out of control. As per Dr. Mcdowell's note, the patient has history of polysubstance abuse. Most likely, the patient has addition to the prescription medication oxycodone, also Xanax as well as Valium. PHYSICAL EXAMINATION: VITAL SIGNS: This communications writer reviewed vital signs temperature 99.2, pulse is 92, blood pressure 126/78, respirations 18, oxygen saturation is 98. MEDICATIONS: Reviewed. The patient is on Tylenol, Xanax 0.5 mg three times a day, but it will be discontinued. This communications writer will prefer for the patient to have Librium, but higher doses three times a day 50 mg with a plan to decrease that slowly. The patient also is on Lexapro 10 mg daily, but the patient said that there is no relief from that medication willing to stop that medication. This communications writer will offer Cymbalta for neuropathy as well as for depression and anxiety. The patient is on Keppra 500 mg twice a day. The patient is on oxycodone, Protonix, K-Dur, sodium chloride. The patient was on thiamine 100 mg daily. This communications writer add on multivitamins and folic acid. The patient is also on Ambien 5 mg at the nighttime. LABORATORY DATA: Labs reviewed. Chemistry reviewed. AST and ALT is mildly elevated. Toxicology positive for benzodiazepines and alcohol was 276. MENTAL STATUS EXAMINATION: The patient presented to be alert, has bruise under her right eye. Intermittent eye contact. Speech was under productive. She has no answers. Mood described as depressed and anxious. Affect was flat. Thought processes was goal directed. Thought content, the patient denied visual, auditory, or tactile hallucinations. Denied paranoid ideation. The patient denied thoughts of harming herself or others. Denied intent or plan. Insight and judgment limited. Impulses are well controlled. IMPRESSION: Rule out substance-induced mood disorder, rule out generalized anxiety disorder, rule out alcohol use disorder, rule out addiction to prescription medications such as benzodiazepines, pain killers and Valium. The patient has multiple medical issues. This communications writer would like to rule out mood disorder due to general medical condition. PLAN: Cymbalta was started for neuropathy and anxiety as well as for depression 20 mg p.o. daily, risk, benefits and alternatives discussed with the patient. Lexapro was discontinued because the patient did not experience any relief from her symptoms, instead of 2 benzodiazepine, Xanax and Librium, this communications writer would prefer to have only one medication longer acting such as Librium 50 mg three times a day. Xanax will be discontinued. Librium will be tapered down. For insomnia, the patient has Ambien at the nighttime, we will continue that. Multivitamins, thiamine and folic acid will be continued. Please consider to have neurology consultation for neuropathy to rule out alcohol induced neuropathy, family involvement, social work involvement. This communications writer will follow up and advise accordingly. Should you have any questions give me a call back. Thank you very much for letting participate in care of your patient. Katrin Olivares MD
[2017-03-02] MEDS ORDERED: Tobramycin 0.3% OPH OINT OU SCH (20:45)
[2017-03-02] MEDS ORDERED: Tobramycin 0.3% OPH OINT OU STA (20:57)
[2017-03-02] MEDS ORDERED: Tobramycin 0.3% OPHT SOLN OU STA (20:59)
[2017-03-03] MEDS: oxyCODONE 5 mg Immediate Release Tab PO PRN ×4 (00:39→21:14)
[2017-03-03] MEDS: Pantoprazole 40 mg EC Tab PO SCH (05:07)
[2017-03-03] MEDS: Sodium Chloride 0.45% 1,000 ML IV SCH ×2 (05:08→16:35)
[2017-03-03 06:57] LABS: HEMATOCRIT 27.6 % (36.0-48.0); MEAN CELL VOLUME 90.5 fl (80.0-105.0); MEAN CORPUSCULAR HEMOGLOBIN 30.5 pg (25.0-35.0); MEAN CORPUSCULAR HGB CONC 33.7 g/dl (31.0-37.0); PLATELET COUNT 40 10^3/uL (120.0-450.0); RED CELL DISTRIBUTION WIDTH 22.4 % (11.5-14.5); WHITE BLOOD COUNT 3.8 10^3/ul (4.5-11.0)
[2017-03-03 07:17] LABS: ALB/GLOB RATIO 0.5 (1.1-1.8); ALKALINE PHOSPHATASE 175 U/L (38-126); ALT/SGPT 49 U/L (7-56); AST/SGOT 142 U/L (14-36); BILIRUBIN,TOTAL 8.2 mg/dL (0.2-1.3); BLOOD UREA NITROGEN 3 mg/dL (7-21); CARBON DIOXIDE 28 mmol/L (21-33); CHLORIDE 107 mmol/L (98-107); GFR AFRICAN-AMERICAN > 60; GLUCOSE,RANDOM 68 mg/dL (70-110); SODIUM 141 mmol/L (132-148); TOTAL PROTEIN 5.8 g/dL (5.8-8.3)
[2017-03-03 07:23] LABS: CALCIUM 5.3 mg/dL (8.4-10.5)
[2017-03-03] MEDS: Potassium Chloride 20 mEq ER Tab PO SCH ×3 (07:32→17:44)
[2017-03-03] MEDS: Clotrimazole 1% Cream(30 gm) TOP SCH ×2 (07:33→17:45)
[2017-03-03] MEDS: Multivitamin With Minerals Tab PO SCH (09:14)
[2017-03-03] MEDS: Tobramycin 0.3% OPHT SOLN OU SCH ×2 (09:16→17:45)
--- NOTE | 2017-03-03 15:51 | PN ---
SUBJECTIVE: Shortly, the patient is 46-year-old female shows up with a history of anxiety, history of alcohol use disorder and possible addiction to pain killer. The patient was admitted on the medical site, status post fall and possible alcohol withdrawal symptom. Psych consult was called for evaluation of the present symptoms and possible medication management. The patient was seen yesterday, please see initial note for more detailed information. The patient is followed up today. The patient said that she had restless night. This typewriter aligner will increase the dose of Ambien. This typewriter aligner started Cymbalta yesterday, but the patient will get her first dose today. The patient feels more comfortable in part of her withdrawal symptom but still has some subjective times of alcohol withdrawal problem. The patient still appears to be depressed. PHYSICAL EXAMINATION: VITAL SIGNS: Stable. Temperature 99.1, pulse 81, blood pressure 124/84, respirations 20, oxygen saturation 96. MEDICATIONS: Reviewed. The patient is on Librium 50 mg p.o. q.8 hours scheduled, continue that for another 24 hours. The patient is on Cymbalta 20 mg daily for depression, anxiety and for diabetic neuropathy, folic acid, Keppra, multivitamins, Zofran, oxycodone, Protonix, potassium chloride, thiamine, and Ambien will be increased to 10 mg. LABORATORY DATA: Labs were reviewed. Most recent labs from today, platelet count is 30. Chemistry also reviewed. Potassium 3.0, calcium is 5.3. AST and ALT is 142 and 49 which is trending down. Urinalysis, blood trace and bilirubin small. Toxicology; benzodiazepines positive, and alcohol 273. Microbiology reviewed, E. coli urine. MENTAL STATUS EXAMINATION: The patient presented to be alert and oriented, flat affect, and tearful affect. Mood described, "I do not feel good." Thought process was coherent and goal directed. Thought content: The patient denied visual, auditory, or tactile hallucinations. Denied paranoid ideation. The patient reported she feels helplessness and hopelessness. Denied any thoughts of killing herself or others. No psychotic symptoms . Insight and judgment very limited. Impulses are well controlled. IMPRESSION: Rule out generalized anxiety disorder, rule out substance-induced mood disorder, rule-out substance-induced anxiety disorder, alcohol use disorder, alcohol withdrawal symptoms. PLAN: Continue current management. Continue multivitamins, thiamine, folic acid. Cymbalta was started for neuropathy as well as depression and generalized anxiety disorder. The patient scheduled, we should continue that for another 24 hours and then start tapering that down. Family involvement. The patient was offered to stay in the psychiatric inpatient unit. Katrin Olivares MD
[2017-03-03] MEDS ORDERED: oxyCODONE 5 mg Immediate Release Tab PO ONE (20:05)
[2017-03-03] MEDS ORDERED: Clotrimazole/Betamethasone Lotion(30 ml) TOP ONE (23:45)
[2017-03-04] MEDS: Sodium Chloride 0.45% 1,000 ML IV SCH ×2 (02:00→05:12)
--- NOTE | 2017-03-04 03:12 | PN ---
DATE: 03/03/2017 SUBJECTIVE: The patient seen this evening, resting comfortably in room 272, bed 2. She reports chronic pain and is requesting increase in analgesics as well as sleeping aids. Consult by Dr. Wilkes of Psychiatry is greatly appreciated. The patient was pleased to meet with her and hear her suggestions and recommendations. I spoke with the patient at length again about her alcohol and prescription medication use. She says she realized the severity of condition and how this is having critical impact on her life and life span. PHYSICAL EXAMINATION: GENERAL: The patient is morbidly obese with bilateral conjunctivitis noted and occasional twitching spasm of the upper extremities. HEENT: Mucous membranes are moist. NECK: Supple without masses. LUNGS: Clear with good auscultation, right and left. HEART: Regular and not tachycardic. ABDOMEN: Obese. EXTREMITIES: Obese with trace edema of obesity. LABORATORY DATA: Her calcium and potassium remain low. I will increase her potassium supplementation to 20 mEq 3 times a day. Another bolus of IV calcium was given today and we will add some oral calcium carbonate. Morning labs were ordered. We will follow closely. We will ask Neurology to see the patient for her alcoholic peripheral neuropathy as recommended in the Psychiatry note. Dr. Gore knows the patient from the last visit for the alcoholic neuropathy. Leonel Mcdowell MD
[2017-03-04] MEDS: oxyCODONE 5 mg Immediate Release Tab PO PRN ×3 (05:09→21:19)
[2017-03-04] MEDS: Pantoprazole 40 mg EC Tab PO SCH (05:09)
[2017-03-04 06:35] LABS: BASO # 0.01 K/mm3 (0.0-2.0); BASO % 0.3 % (0.0-3.0); EOS # 0.1 (0.0-0.7); EOS % 1.5 % (1.5-5.0); GRAN # 2.18 (1.4-6.5); GRAN % 66.3 % (50.0-68.0); HEMATOCRIT 28.1 % (36.0-48.0); LYMPH # 0.7 (1.2-3.4); LYMPH % 22.5 % (22.0-35.0); MEAN CELL VOLUME 91.5 fl (80.0-105.0); MEAN CORPUSCULAR HEMOGLOBIN 30.9 pg (25.0-35.0); MEAN CORPUSCULAR HGB CONC 33.8 g/dl (31.0-37.0); MONO # 0.3 (0.1-0.6); MONO % 9.4 % (1.0-6.0); RED CELL DISTRIBUTION WIDTH 22.6 % (11.5-14.5); WHITE BLOOD COUNT 3.3 10^3/ul (4.5-11.0)
[2017-03-04 06:52] LABS: BLOOD UREA NITROGEN 2 mg/dL (7-21); CARBON DIOXIDE 28 mmol/L (21-33); CHLORIDE 108 mmol/L (98-107); GFR AFRICAN-AMERICAN > 60; GLUCOSE,RANDOM 65 mg/dL (70-110); POTASSIUM 3.1 mmol/L (3.6-5.0); SODIUM 140 mmol/L (132-148)
[2017-03-04 07:05] LABS: PHOSPHOROUS 1.7 mg/dL (2.5-4.5)
[2017-03-04 07:07] LABS: CALCIUM 5.3 mg/dL (8.4-10.5)
[2017-03-04 07:25] LABS: MAGNESIUM 0.9 mg/dL (1.7-2.2)
[2017-03-04 07:36] LABS: PLATELET COUNT 38 10^3/uL (120.0-450.0)
[2017-03-04] MEDS: Multivitamin With Minerals Tab PO SCH (07:42)
[2017-03-04] MEDS ORDERED: Magnesium Sulfate 2 GM in Sodium Chloride 0.9% 100 ML IVPB ONE ×2 (07:57→14:55)
[2017-03-04] MEDS ORDERED: Potassium Phosphate 15 MMOLE in Sodium Chloride 0.9% 250 ML IVPB ONE (07:57)
[2017-03-04] MEDS ORDERED: Sodium Chloride 0.45% 1,000 ML IV SCH (08:22)
[2017-03-04 08:50] LABS: ALB/GLOB RATIO 0.5 (1.1-1.8); BILIRUBIN,DIRECT 6.6 mg/dL (0.0-0.4); BILIRUBIN,TOTAL 8.7 mg/dL (0.2-1.3); TOTAL PROTEIN 5.7 g/dL (5.8-8.3)
--- NOTE | 2017-03-04 09:51 | CP.PCM.CON ---
History of Present Illness - History of Present Illness History of Present Illness: Neurology Consult Note for Michael Holden PGY2 Reason for consult: EtOH peripheral neuropathy This is a 46yo female with past medical history of alcohol abuse, polysubstance abuse, hypokalemia, cirrhosis, neuropathy, diverticulitis, anxiety/depression who came to the ED for fall. She reports she was drinking alcohol for several weeks then stopped for a couple days and began drinking again. She got out of the bed and felt weak in her legs and fell on the Right side of her head. She did not lose consciousness and denies tongue biting, bowel/bladder incontinence , vision changes, weakness, fever or chills, chest pain, dizziness, vertigo or shortness of breath. She lives with her , but he did not witness the fall. She reports she has numbness/tingling in her arms and legs which has been chronic. She also reports she has not eaten in 10 days and does not take multivitamins at home. She has been hospitalized in the past for similar circumstances. In the ED, head CT was noted to be negative for acute pathology. Maxillofacial CT was negative for fracture. She was found to be hypokalemic, hypocalcemic, hypernatremic and hyperbilirubinemia. Patient was also positive for alcohol and opiates. Past medical history: alcohol abuse, polysubstance abuse, hypokalemia, cirrhosis , neuropathy, diverticulitis, anxiety/depression Past surgical history: Cholecystectomy, gastric bypass Home medications: Xanax, Keppra, Lexapro, Protonix, Ambien, Oxycodone Allergies: No known allergies SH: Positive for alcohol use, polysubstance abuse (opioids) Review of Systems - Review of Systems All systems: reviewed and no additional remarkable complaints except Review of Systems: + numbness/tingling Past Patient History - Infectious Disease Hx of Infectious Diseases: None - Tetanus Immunizations Tetanus Immunization: Unknown - Past Medical History & Family History Past Medical History?: Yes - Past Social History Smoking Status: Never Smoked Alcohol: > 2 Drinks/Day Drugs: Opiates Home Situation {Lives}: With Family - CARDIAC Hx Cardiac Disorders: Yes (CAD) Hx Hypertension: Yes - PULMONARY Hx Respiratory Disorders: No - NEUROLOGICAL Hx Neurological Disorder: Yes Hx Dizziness: Yes Hx Seizures: Yes Other/Comment: neuropathy arms and legs - HEENT Hx HEENT Problems: No (WEARS RX GLASSES) - RENAL Hx Chronic Kidney Disease: Yes Hx Kidney Stones: Yes - ENDOCRINE/METABOLIC Hx Endocrine Disorders: No - HEMATOLOGICAL/ONCOLOGICAL Hx Blood Disorders: Yes Hx Anemia: Yes (BLOOD TRANSFUSION) - INTEGUMENTARY Other/Comment: TATOOS ,BILATERAL LEG EDEMA, multiple bruises old and new to b/l knees and b/l arms - MUSCULOSKELETAL/RHEUMATOLOGICAL Hx Back Pain: Yes Hx Falls: Yes - GASTROINTESTINAL Other/Comment: COLITIS,CHOLELITHIASIS,DIVERTICULITIS,GASTRIC BYPASS 2007 lost 100 lbs gained some back - GENITOURINARY/GYNECOLOGICAL Hx Genitourinary Disorders: Yes (2 C SECTIONS,TUBAL LIGATION) Other/Comment: IUD insertion - PSYCHIATRIC Hx Substance Use: Yes Other/Comment: ETOH ABUSE 1 1/.2 to 2 pints vodka a day quit 2 dys ago, INTOXICATION,INSOMNIA - SURGICAL HISTORY Hx Cardiac Catheterization: No Hx Cholecystectomy: Yes (2011) Hx Coronary Stent: No Hx Gastric Bypass Surgery: Yes (2007) Other/Comment: C/S X2,GASTRIC BYPASS,TUBAL LIGATION,BREAST REDUCTION,bladder sling - ANESTHESIA Hx Anesthesia: Yes Hx Anesthesia Reactions: No Hx Malignant Hyperthermia: No Meds Allergies/Adverse Reactions: Allergies Allergy/AdvReac Type Severity Reaction Status Date / Time No Known Allergies Allergy Verified 11/03/16 16:24 - Medications Medications: Current Medications Acetaminophen (Tylenol 325mg Tab) 650 mg PO Q4H PRN PRN Reason: Pain, Mild (1-3) Calcium Carbonate (Oscal) 500 mg PO TID JACKIE Chlordiazepoxide (Librium) 50 mg PO Q8 [facility] PRN Reason: Protocol Last Admin: 03/04/17 05:09 Dose: 50 mg Ciprofloxacin (Cipro) 250 mg PO Q12 JACKIE PRN Reason: Protocol Stop: 03/06/17 23:00 Duloxetine HCl (Cymbalta) 20 mg PO DAILY [facility] Last Admin: 03/03/17 09:14 Dose: 20 mg Folic Acid (Folic Acid) 1 mg PO DAILY [facility] Last Admin: 03/03/17 09:14 Dose: 1 mg Potassium Phosphate 15 mmole/ (Sodium Chloride) 255 mls @ 42.5 mls/hr IVPB ONCE ONE Stop: 03/04/17 13:56 Potassium Chloride (Potassium Chloride 10 Meq/100 Ml) 10 meq in 100 mls @ 100 mls/hr IVPB Q2H [facility] Stop: 03/04/17 11:14 Sodium Chloride (Sodium Chloride 0.45%) 1,000 mls @ 50 mls/hr IV .Q20H [facility] Stop: 03/04/17 15:00 Last Admin: 03/04/17 08:48 Dose: 50 mls/hr Levetiracetam (Keppra) 500 mg PO BID [facility] Last Admin: 03/03/17 17:44 Dose: 500 mg Magnesium Chloride (Slow-Mag) 64 mg PO DAILY [facility] Multivitamins/Minerals (Therapeutic-M Tab) 1 tab PO 0800 [facility] Last Admin: 03/04/17 07:42 Dose: 1 tab Neomycin/Polymyxin/Dexamethasone (Maxitrol Opht Susp) 0 ml OU QID [facility] Nystatin (Nystop Topical Powder) 0 gm TOP BID [facility] Ondansetron HCl (Zofran Tab) 4 mg PO Q8H PRN PRN Reason: Nausea/Vomiting Last Admin: 03/04/17 07:42 Dose: 4 mg Oxycodone HCl (Oxycodone Immediate Release Tab) 5 mg PO Q6H PRN PRN Reason: Pain, severe (8-10) Last Admin: 03/04/17 05:09 Dose: 5 mg Pantoprazole Sodium (Protonix Ec Tab) 40 mg PO 0600 [facility] Last Admin: 03/04/17 05:09 Dose: 40 mg Potassium Chloride (K-Dur 20 Meq Er Tab) 20 meq PO TID [facility] Last Admin: 03/03/17 17:44 Dose: 20 meq Thiamine HCl (Vitamin B1 Tab) 100 mg PO Q8H [facility] Last Admin: 03/04/17 06:53 Dose: 100 mg Tobramycin Sulfate (Tobrex 0.3% Ophth Soln) 0 drop OU BID [facility] Stop: 03/04/17 09:59 Last Admin: 03/03/17 17:45 Dose: 1 drop Zolpidem Tartrate (Ambien) 10 mg PO HS [facility] PRN Reason: Protocol Last Admin: 03/03/17 21:13 Dose: 10 mg Physical Exam - Constitutional Appears: No Acute Distress - Head Exam Head Exam: NORMAL INSPECTION, NORMOCEPHALIC - Eye Exam Eye Exam: PERRL Pupil Exam: NORMAL ACCOMODATION, PERRL Additional comments: bruising around R eye - ENT Exam ENT Exam: Mucous Membranes Dry - Respiratory Exam Respiratory Exam: Clear to Auscultation Bilateral, NORMAL BREATHING PATTERN. absent: Rales, Rhonchi, Wheezes - Cardiovascular Exam Cardiovascular Exam: REGULAR RHYTHM, +S1, +S2. absent: Gallop, Rubs, Systolic Murmur - GI/Abdominal Exam GI & Abdominal Exam: Normal Bowel Sounds, Soft. absent: Rebound, Rigid, Tenderness - Extremities Exam Extremities exam: Positive for: pedal edema. Negative for: calf tenderness - Neurological Exam Neurological exam: Alert, CN II-XII Intact, Oriented x3 Additional comments: + asterixis - Expanded Neurological Exam Expanded Patient oriented to: person, place, time Cranial nerves: EOM's Intact: Normal, Facial Palsey w/Forehead Movement: Normal , Facial Palsey w/o Forehead Movement: Normal, Facial Sensation: Normal, Tongue Deviation: Normal Cerebellar Function: Finger to Nose: Normal Upper motor neuron: Pronator Drift: Normal Sensory exam: Lower Extremity 2 Point Discrimination: Abnormal Left, Abnormal Right, Upper Extremity 2 Point Discrimination: Abnormal Left, Abnormal Right Neuro motor strength exam: Left Upper Extremity: 5, Right Upper Extremity: 5, Left Lower Extremity: 5, Right Lower Extremity: 5 Coma Scale Eye Opening: SPONTANEOUS Coma Scale Motor Response: OBEYS COMMANDS Coma Scale Verbal: Oriented Coma Scale Total: 15 - Psychiatric Exam Psychiatric exam: Normal Affect, Normal Mood - Skin Skin Exam: Dry, Normal Color, Warm Results - Vital Signs Recent Vital Signs: Last Vital Signs Temp 99.1 F 03/04/17 08:00 Pulse 76 03/04/17 08:00 Resp 18 03/04/17 08:00 BP 107/60 03/04/17 08:00 Pulse Ox 97 03/04/17 08:00 - Labs Result Diagrams: 03/04/17 06:16 03/04/17 06:16 Labs: Laboratory Results - last 24 hr 03/04/17 03/04/17 03/04/17 06:16 06:16 06:16 WBC 3.3 L RBC 3.07 L Hgb 9.5 L Hct 28.1 L MCV 91.5 MCH 30.9 MCHC 33.8 RDW 22.6 H Plt Count 38 L* Gran % 66.3 Lymph % (Auto) 22.5 [place] % (Auto) 9.4 H Eos % (Auto) 1.5 Baso % (Auto) 0.3 Gran # 2.18 Lymph # 0.7 L [place]hin # 0.3 Eos # 0.1 Baso # 0.01 Sodium 140 Potassium 3.1 L Chloride 108 H Carbon Dioxide 28 Anion Gap 7 L BUN 2 L Creatinine 0.8 Est GFR ( Amer) > 60 Est GFR (Non-Af Amer) > 60 Random Glucose 65 L Calcium 5.3 L* Phosphorus 1.7 L Magnesium 0.9 L* Total Bilirubin Direct Bilirubin AST ALT Alkaline Phosphatase Ammonia Total Protein Albumin Globulin Albumin/Globulin Ratio 03/04/17 03/04/17 08:00 08:30 WBC RBC Hgb Hct MCV MCH MCHC RDW Plt Count Gran % Lymph % (Auto) [place] % (Auto) Eos % (Auto) Baso % (Auto) Gran # Lymph # [place] # Eos # Baso # Sodium Potassium Chloride Carbon Dioxide Anion Gap BUN Creatinine Est GFR ( Amer) Est GFR (Non-Af Amer) Random Glucose Calcium Phosphorus Magnesium Total Bilirubin 8.7 H Direct Bilirubin 6.6 H AST 130 H ALT 42 Alkaline Phosphatase 169 H Ammonia 22 Total Protein 5.7 L Albumin 1.9 L Globulin 3.7 Albumin/Globulin Ratio 0.5 L Assessment & Plan - Assessment and Plan (Free Text) Assessment: This is a 46yo female with past medical history of alcohol abuse, polysubstance abuse, hypokalemia, cirrhosis, neuropathy, diverticulitis, anxiety/depression who came to the ED for fall and acute alcohol intoxication. Head CT was noted to be negative as well as maxillofacial CT. She was found to have multiple metabolic derangements. Peripheral neuropathy can be secondary to chronic alcohol use and metabolic derangements. Plan: - Correct electrolyte abnormalities (hypocalcemia, hypokalemia, hypomagnesia, hypophosphatemia) - Will check B12 and Folate - Psych changed Lexapro to Cymbalta to help with peripheral neuropathy - Continue Keppra for seizure prophylaxis - Counseled patient on alcohol cessation as well as adequate nutrition - Thiamine 100mg q8h PO - Continue Folic Acid - Continue CIWA protocol and monitor patient for withdrawal - Maintain systolic blood pressure between 120-130s. - Physical therapy - Patient will need multivitamin as well as thiamine and folic acid as outpatient Case seen, discussed and reviewed with Dr. Gore. Michael Burgos PGY2 - Date & Time Date: 03/04/17 Time: 10:01
[2017-03-04] MEDS: Potassium Chloride 20 mEq ER Tab PO SCH ×3 (09:56→18:31)
[2017-03-04] MEDS: Nystatin 100,000 Units/gm Topical Pow(15 gm) TOP SCH ×2 (09:58→18:32)
[2017-03-04] MEDS: Neomy-Polymyx-Dexameth Ophth Susp (5 ml) OU SCH ×5 (09:59→21:21)
[2017-03-04 10:05] LABS: INR 2.66 (0.93-1.08); PARTIAL THROMBOPLASTIN TIME 52.3 Seconds (25.1-36.5)
--- NOTE | 2017-03-04 10:28 | CP.PCM.CON ---
<Whitney Rojas - Last Filed: 03/04/17 15:25> History of Present Illness - History of Present Illness History of Present Illness: Seen and examined at the bedside this morning, the chart was reviewed. Request for GI consult is for EtOH, liver failure. HPI: This is a 46-year-old obese female with a past medical history of EtOH abuse,peptic ulcer disease, polysubstance abuse, history of acute liver failure, treated with steroid therapy, she is known to our service, was last seen by our service back in September 2016 for Acute liver Failure likely secondary to Alcohol Abuse, was concerned with automimmune hepatitis, had a poor Maddrey disccriminant score was above 32, she was [address] on steroids, the patient did well and discussed on numerous occasion regarding alcohol cessation, she discharge home for ETOH rehab. This time patient was brought to the emergency room status post fall at home, the patient reports that she had some neuropathy in her lower extremities that caused her to lose her balance and fall. The patient denies loss of consciousness, she is noted to have bruising on her left eye. The patient admitted to binge drinking alcohol for the past 6 weeks. She did report that she stopped drinking when she was discharged back in September. When asked what caused her to start drinking again the patient states that she she is "bored," she is unable to go out,she has difficulty to ambulate. On this admission she had elevated LFT but notice a rise in liver enzymes, she does admit tremors, no seizure activity. Does complain of nausea, no vomiting. Denies any abdominal pain, currently is having loose bowel movement, denies any melena or bright red blood per rectum. The patient was found to have an alcohol level of 276. Her last alcohol intake was Tuesday morning prior to her admission. Her most recent endoscopy was September 2016 for anemia, she was found to have gastritis and gastric bypass was noted, no ulcers found.she did have a head CT on admission which was negative for acute infarct or bleed. Past medical history: EtOH, polysubstance abuse, acute liver failure, hypertension, obesity, chronic pain, history of peptic ulcer disease, diverticulitis, anxiety, depression, colitis Surgical history: Cholecystectomy, gastric bypass Family history: Grandmother: Breast cancer Allergies: No known drug allergies Medications: Reviewed as per minute R Social history: Denies tobacco, positive EtOH, denies recreational drugs, she is AAA ROS: Systems reviewed with positive findings see HPI Past Patient History - Infectious Disease Hx of Infectious Diseases: None - Tetanus Immunizations Tetanus Immunization: Unknown - Past Medical History & Family History Past Medical History?: Yes - Past Social History Smoking Status: Never Smoked - CARDIAC Hx Cardiac Disorders: Yes (CAD) Hx Hypertension: Yes - PULMONARY Hx Respiratory Disorders: No - NEUROLOGICAL Hx Neurological Disorder: Yes Hx Dizziness: Yes Hx Seizures: Yes Other/Comment: neuropathy arms and legs - HEENT Hx HEENT Problems: No (WEARS RX GLASSES) - RENAL Hx Chronic Kidney Disease: Yes Hx Kidney Stones: Yes - ENDOCRINE/METABOLIC Hx Endocrine Disorders: No - HEMATOLOGICAL/ONCOLOGICAL Hx Blood Disorders: Yes Hx Anemia: Yes (BLOOD TRANSFUSION) - INTEGUMENTARY Other/Comment: TATOOS ,BILATERAL LEG EDEMA, multiple bruises old and new to b/l knees and b/l arms - MUSCULOSKELETAL/RHEUMATOLOGICAL Hx Back Pain: Yes Hx Falls: Yes - GASTROINTESTINAL Other/Comment: COLITIS,CHOLELITHIASIS,DIVERTICULITIS,GASTRIC BYPASS 2007 lost 100 lbs gained some back - GENITOURINARY/GYNECOLOGICAL Hx Genitourinary Disorders: Yes (2 C SECTIONS,TUBAL LIGATION) Other/Comment: IUD insertion - PSYCHIATRIC Hx Substance Use: Yes Other/Comment: ETOH ABUSE 1 1/.2 to 2 pints vodka a day quit 2 dys ago, INTOXICATION,INSOMNIA - SURGICAL HISTORY Hx Cardiac Catheterization: No Hx Cholecystectomy: Yes (2011) Hx Coronary Stent: No Hx Gastric Bypass Surgery: Yes (2007) Other/Comment: C/S X2,GASTRIC BYPASS,TUBAL LIGATION,BREAST REDUCTION,bladder sling - ANESTHESIA Hx Anesthesia: Yes Hx Anesthesia Reactions: No Hx Malignant Hyperthermia: No Meds Allergies/Adverse Reactions: Allergies Allergy/AdvReac Type Severity Reaction Status Date / Time No Known Allergies Allergy Verified 11/03/16 16:24 - Medications Medications: Current Medications Acetaminophen (Tylenol 325mg Tab) 650 mg PO Q4H PRN PRN Reason: Pain, Mild (1-3) Calcium Carbonate (Oscal) 500 mg PO TID JACKIE Chlordiazepoxide (Librium) 50 mg PO Q8 JACKIE PRN Reason: Protocol Last Admin: 03/04/17 05:09 Dose: 50 mg Ciprofloxacin (Cipro) 250 mg PO Q12 JACKIE PRN Reason: Protocol Stop: 03/06/17 23:00 Duloxetine HCl (Cymbalta) 20 mg PO DAILY [facility] Last Admin: 03/03/17 09:14 Dose: 20 mg Folic Acid (Folic Acid) 1 mg PO DAILY [facility] Last Admin: 03/03/17 09:14 Dose: 1 mg Potassium Phosphate 15 mmole/ (Sodium Chloride) 255 mls @ 42.5 mls/hr IVPB ONCE ONE Stop: 03/04/17 13:56 Potassium Chloride (Potassium Chloride 10 Meq/100 Ml) 10 meq in 100 mls @ 100 mls/hr IVPB Q2H [facility] Stop: 03/04/17 11:14 Sodium Chloride (Sodium Chloride 0.45%) 1,000 mls @ 50 mls/hr IV .Q20H [facility] Stop: 03/04/17 15:00 Last Admin: 03/04/17 08:48 Dose: 50 mls/hr Levetiracetam (Keppra) 500 mg PO BID [facility] Last Admin: 03/03/17 17:44 Dose: 500 mg Magnesium Chloride (Slow-Mag) 64 mg PO DAILY [facility] Multivitamins/Minerals (Therapeutic-M Tab) 1 tab PO 0800 [facility] Last Admin: 03/04/17 07:42 Dose: 1 tab Neomycin/Polymyxin/Dexamethasone (Maxitrol Opht Susp) 0 ml OU QID [facility] Nystatin (Nystop Topical Powder) 0 gm TOP BID [facility] Ondansetron HCl (Zofran Tab) 4 mg PO Q8H PRN PRN Reason: Nausea/Vomiting Last Admin: 03/04/17 07:42 Dose: 4 mg Oxycodone HCl (Oxycodone Immediate Release Tab) 5 mg PO Q6H PRN PRN Reason: Pain, severe (8-10) Last Admin: 03/04/17 05:09 Dose: 5 mg Pantoprazole Sodium (Protonix Ec Tab) 40 mg PO 0600 [facility] Last Admin: 03/04/17 05:09 Dose: 40 mg Potassium Chloride (K-Dur 20 Meq Er Tab) 20 meq PO TID [facility] Last Admin: 03/03/17 17:44 Dose: 20 meq Thiamine HCl (Vitamin B1 Tab) 100 mg PO Q8H [facility] Last Admin: 03/04/17 06:53 Dose: 100 mg Tobramycin Sulfate (Tobrex 0.3% Ophth Soln) 0 drop OU BID [facility] Stop: 03/04/17 09:59 Last Admin: 03/03/17 17:45 Dose: 1 drop Zolpidem Tartrate (Ambien) 10 mg PO HS JACKIE PRN Reason: Protocol Last Admin: 03/03/17 21:13 Dose: 10 mg Physical Exam - Constitutional Appears: No Acute Distress - Head Exam Head Exam: NORMOCEPHALIC - Eye Exam Eye Exam: PERRL, Scleral icterus - ENT Exam ENT Exam: Mucous Membranes Moist Additional comments: right eye bruise, skin intact, old front teeth broken from previous old fall per patient - Neck Exam Neck exam: Positive for: Normal Inspection - Respiratory Exam Respiratory Exam: Decreased Breath Sounds, NORMAL BREATHING PATTERN. absent: Rales, Wheezes, Respiratory Distress - Cardiovascular Exam Cardiovascular Exam: +S1, +S2 - GI/Abdominal Exam GI & Abdominal Exam: Distended, Normal Bowel Sounds, Soft. absent: Guarding, Rebound, Tenderness - Extremities Exam Extremities exam: Positive for: pedal edema, pedal pulses present. Negative for : calf tenderness - Neurological Exam Neurological exam: Alert, Oriented x3 Additional comments: (+) tremors bilateral hands, intermittent twitch of tight arm, no sezures noted - Skin Skin Exam: Dry, Warm Additional comments: jaundice Results - Vital Signs Recent Vital Signs: Last Vital Signs Temp 99.1 F 03/04/17 08:00 Pulse 76 03/04/17 08:00 Resp 18 03/04/17 08:00 BP 107/60 03/04/17 08:00 Pulse Ox 97 03/04/17 08:00 - Labs Result Diagrams: 03/04/17 06:16 03/04/17 06:16 Labs: Laboratory Results - last 24 hr 03/04/17 03/04/17 03/04/17 06:16 06:16 06:16 WBC 3.3 L RBC 3.07 L Hgb 9.5 L Hct 28.1 L MCV 91.5 MCH 30.9 MCHC 33.8 RDW 22.6 H Plt Count 38 L* Gran % 66.3 Lymph % (Auto) 22.5 [place] % (Auto) 9.4 H Eos % (Auto) 1.5 Baso % (Auto) 0.3 Gran # 2.18 Lymph # 0.7 L [place] # 0.3 Eos # 0.1 Baso # 0.01 Sodium 140 Potassium 3.1 L Chloride 108 H Carbon Dioxide 28 Anion Gap 7 L BUN 2 L Creatinine 0.8 Est GFR ( Amer) > 60 Est GFR (Non-Af Amer) > 60 Random Glucose 65 L Calcium 5.3 L* Phosphorus 1.7 L Magnesium 0.9 L* Total Bilirubin Direct Bilirubin AST ALT Alkaline Phosphatase Ammonia Total Protein Albumin Globulin Albumin/Globulin Ratio 03/04/17 03/04/17 08:00 08:30 WBC RBC Hgb Hct MCV MCH MCHC RDW Plt Count Gran % Lymph % (Auto) [place] % (Auto) Eos % (Auto) Baso % (Auto) Gran # Lymph # [place] # Eos # Baso # Sodium Potassium Chloride Carbon Dioxide Anion Gap BUN Creatinine Est GFR ( Amer) Est GFR (Non-Af Amer) Random Glucose Calcium Phosphorus Magnesium Total Bilirubin 8.7 H Direct Bilirubin 6.6 H AST 130 H ALT 42 Alkaline Phosphatase 169 H Ammonia 22 Total Protein 5.7 L Albumin 1.9 L Globulin 3.7 Albumin/Globulin Ratio 0.5 L Assessment & Plan - Assessment and Plan (Free Text) Assessment: ASSESSMENT: Acute alcohol intoxication Alcohol withdrawal Elevated liver enzymes likely secondary to Alcoholic hepatitis, Kenyetta's Discriminant function is 90.6 based on todays PT(29.8)/PT reference level 12 and TB level 8.7 , with poor prognosis, > 32 indcates poor prognosis and may benefit from glucocorticoid therapy, in this patient c patient with current infection (UTI) on antibiotics, will hold off, will be more at risk for immunocompromised. History of acute liver failure, with poor Maddery's discriminate factor, treated with steroids Status post fall Electrolyte imbalance History of polysubstance abuse Chronic alcoholism Peripheral neuropathy UTI (+) Ecoli Obesity History of gastric bypass History of peptic ulcer disease Plan: Follow-up ammonia level Obtaining stat PT PTT Request for abdominal ultrasound Seizure precautions On Librium Continued GI prophylaxis ON IV antibtitics, Cipro on Keppra Trend LFTs on folic acid SCD while in bed neuro/psych eval Thank you for this consult and from allowing us to participate in patient's care , further recommendations based on clinical course. Seen and discussed with Dr. Meza. ADDENDUM: PT/PTT reviewed:Kenyetta's Discriminant function is 90.6 based on todays PT(29.8)/PT reference level 12 and TB level 8.7 , with poor prognosis, > 32 indcates poor prognosis and may benefit from glucocorticoid therapy, although this patient is currently being treated for infection (UTI) on antibiotics, will hold off on starting steroid therapy at the moment and will keep close monitor of LFT and PT, will be more at risk for immunnosuppressed. <Ana Meza V - Last Filed: 03/04/17 21:37> Meds - Medications Medications: Current Medications Acetaminophen (Tylenol 325mg Tab) 650 mg PO Q4H PRN PRN Reason: Pain, Mild (1-3) Calcium Carbonate (Oscal) 500 mg PO TID [facility] Last Admin: 03/04/17 18:32 Dose: 500 mg Chlordiazepoxide (Librium) 50 mg PO Q8 JACKIE PRN Reason: Protocol Last Admin: 03/04/17 21:21 Dose: 50 mg Ciprofloxacin (Cipro) 250 mg PO Q12 JACKIE PRN Reason: Protocol Stop: 03/06/17 23:00 Last Admin: 03/04/17 21:20 Dose: 250 mg Duloxetine HCl (Cymbalta) 20 mg PO DAILY [facility] Last Admin: 03/04/17 09:57 Dose: 20 mg Folic Acid (Folic Acid) 1 mg PO DAILY [facility] Last Admin: 03/04/17 09:56 Dose: 1 mg Gabapentin (Neurontin) 100 mg PO TID JACKIE PRN Reason: Protocol Last Admin: 03/04/17 19:06 Dose: 100 mg Levetiracetam (Keppra) 500 mg PO BID [facility] Last Admin: 03/04/17 18:31 Dose: 500 mg Magnesium Chloride (Slow-Mag) 64 mg PO DAILY [facility] Last Admin: 03/04/17 10:37 Dose: 64 mg Multivitamins/Minerals (Therapeutic-M Tab) 1 tab PO 0800 [facility] Last Admin: 03/04/17 07:42 Dose: 1 tab Neomycin/Polymyxin/Dexamethasone (Maxitrol Opht Susp) 0 ml OU QID [facility] Last Admin: 03/04/17 21:21 Dose: 1 drop Nystatin (Nystop Topical Powder) 0 gm TOP BID [facility] Last Admin: 03/04/17 18:32 Dose: 1 pow Ondansetron HCl (Zofran Tab) 4 mg PO Q8H PRN PRN Reason: Nausea/Vomiting Last Admin: 03/04/17 07:42 Dose: 4 mg Oxycodone HCl (Oxycodone Immediate Release Tab) 5 mg PO Q6H PRN PRN Reason: Pain, severe (8-10) Last Admin: 03/04/17 21:19 Dose: 5 mg Pantoprazole Sodium (Protonix Ec Tab) 40 mg PO 0600 JACKIE Last Admin: 03/04/17 05:09 Dose: 40 mg Potassium Chloride (K-Dur 20 Meq Er Tab) 20 meq PO TID JACKIE Last Admin: 03/04/17 18:31 Dose: 20 meq Thiamine HCl (Vitamin B1 Tab) 100 mg PO Q8H JACKIE Last Admin: 03/04/17 13:45 Dose: 100 mg Zolpidem Tartrate (Ambien) 10 mg PO HS JACKIE PRN Reason: Protocol Last Admin: 03/03/17 21:13 Dose: 10 mg Results - Vital Signs Recent Vital Signs: Last Vital Signs Temp 97.6 F 03/04/17 12:00 Pulse 78 03/04/17 12:00 Resp 21 03/04/17 12:00 BP 107/71 03/04/17 12:00 Pulse Ox 97 03/04/17 09:00 - Labs Result Diagrams: 03/04/17 06:16 03/04/17 06:16 Labs: Laboratory Results - last 24 hr 03/04/17 03/04/17 03/04/17 06:16 06:16 06:16 WBC 3.3 L RBC 3.07 L Hgb 9.5 L Hct 28.1 L MCV 91.5 MCH 30.9 MCHC 33.8 RDW 22.6 H Plt Count 38 L* Gran % 66.3 Lymph % (Auto) 22.5 [place] % (Auto) 9.4 H Eos % (Auto) 1.5 Baso % (Auto) 0.3 Gran # 2.18 Lymph # 0.7 L [place] # 0.3 Eos # 0.1 Baso # 0.01 PT INR APTT Sodium 140 Potassium 3.1 L Chloride 108 H Carbon Dioxide 28 Anion Gap 7 L BUN 2 L Creatinine 0.8 Est GFR ( Amer) > 60 Est GFR (Non-Af Amer) > 60 Random Glucose 65 L Calcium 5.3 L* Phosphorus 1.7 L Magnesium 0.9 L* Total Bilirubin Direct Bilirubin AST ALT Alkaline Phosphatase Ammonia Total Protein Albumin Globulin Albumin/Globulin Ratio Vitamin B12 Folate 03/04/17 03/04/17 03/04/17 07:58 08:00 08:30 WBC RBC Hgb Hct MCV MCH MCHC RDW Plt Count Gran % Lymph % (Auto) [place] % (Auto) Eos % (Auto) Baso % (Auto) Gran # Lymph # [place] # Eos # Baso # PT INR APTT Sodium Potassium Chloride Carbon Dioxide Anion Gap BUN Creatinine Est GFR ( Amer) Est GFR (Non-Af Amer) Random Glucose Calcium Phosphorus Magnesium Total Bilirubin 8.7 H Direct Bilirubin 6.6 H AST 130 H ALT 42 Alkaline Phosphatase 169 H Ammonia 22 Total Protein 5.7 L Albumin 1.9 L Globulin 3.7 Albumin/Globulin Ratio 0.5 L Vitamin B12 822 Folate 7.1 03/04/17 09:30 WBC RBC Hgb Hct MCV MCH MCHC RDW Plt Count Gran % Lymph % (Auto) [place] % (Auto) Eos % (Auto) Baso % (Auto) Gran # Lymph # [place] # Eos # Baso # PT 29.8 H INR 2.66 H APTT 52.3 H Sodium Potassium Chloride Carbon Dioxide Anion Gap BUN Creatinine Est GFR ( Amer) Est GFR (Non-Af Amer) Random Glucose Calcium Phosphorus Magnesium Total Bilirubin Direct Bilirubin AST ALT Alkaline Phosphatase Ammonia Total Protein Albumin Globulin Albumin/Globulin Ratio Vitamin B12 Folate Attending/Attestation - Attestation I have personally seen and examined this patient.: Yes I have fully participated in the care of the patient.: Yes I have reviewed all pertinent clinical information: Yes Notes (Text): p 03/04/17 21:37
[2017-03-04] MEDS: Magnesium Chloride 64 mg ER Tab PO SCH (10:37)
[2017-03-04 13:02] LABS: FOLATE 7.1 ng/mL
[2017-03-04] MEDS ORDERED: SODIUM CHLORIDE IV SCH (14:56)
[2017-03-04] MEDS ORDERED: POTASSIUM PHOSPHATE IV SCH (14:56)
--- NOTE | 2017-03-04 17:13 | PN ---
Covering for Dr. Olivares. Chart reviewed and the patient interviewed. The patient is a 46-year-old white female with multiple medical issues including chronic neuropathy, status post cholecystectomy, gastric bypass surgery, bilateral lower extremity lymphedema and with a history of alcohol use. She was admitted after a fall and possible alcohol withdrawal. The patient is presently anxious, appears depressed and spoke of her alcohol use. She has a history of having been both detoxified and referred to rehabilitations in the past. She has had seizures and is being treated for this although it is unclear to me if the possibility of alcohol withdrawal seizures has been fully considered as the patient has been maintained on antiseizure medication (Keppra). It is noted that the patient had most recently been taking benzodiazepines and opiates. The patient is presently complaining of pain which is a presumed frequent occurrence both possibly due to legitimate and not so legitimate reasons. She presently is being maintained on Ambien 10 mg bedtime, Cymbalta 20 mg daily, Keppra (500 mg b.i.d. is noted) and Librium 50 mg q.8 hours and Neurontin 100 mg t.i.d. It is noted that the patient on admission was positive for both alcohol and opiates as anticipated. The patient will be continued to be monitored. Mendez Israel MD/ PhD
--- NOTE | 2017-03-04 17:54 | CON ---
DATE: 03/04/2017 REASON FOR CONSULTATION: Hypokalemia, hypocalcemia, hypophosphatemia, hypomagnesemia. HISTORY OF PRESENT ILLNESS: A 46-year-old lady known to me from prior evaluation, was admitted on 03/01. In the emergency room, she gave a history of heavy alcohol binge drinking for 2 to 3 weeks prior to presentation. She stopped 2 days before presenting. She became tremulous and started drinking again. Fell at home. In the emergency room, her alcohol level was found to be 276. The patient was found to be hypokalemic, hypophosphatemic, hypocalcemic. She has been receiving supplementation. Consultation is requested for persistent electrolyte abnormalities. PAST MEDICAL AND SURGICAL HISTORY: Alcohol abuse, alcohol intoxication, polysubstance abuse, hepatic failure, hyperbilirubinemia, kidney stones, cholelithiasis, diverticulitis, anxiety, depression, neuropathy. FAMILY HISTORY: Noncontributory. SOCIAL HISTORY: Heavy alcohol use, no smoking, no drug abuse. ALLERGIES: No known drug allergies. MEDICATIONS AT HOME: Oxycodone, Xanax, Ambien. REVIEW OF SYSTEMS: The patient reports that she is very tremulous. She is having the shakes, she also complains of severe pain in her lower extremities. Right now, she says that she has to stop alcohol intake. She is going to take pain medication instead. PHYSICAL EXAMINATION GENERAL: Obese, young woman, lying in bed with involuntary movements of her upper extremities and tremors. VITAL SIGNS: Blood pressure 107/71, heart rate 78, respiratory rate 21, temperature 97.6, T-max is 99.1. HEENT: Normocephalic, atraumatic, positive pallor. NECK: Supple. No JVD. LUNGS: Bilateral equal air entry. Bilateral equal expansion. No rales. CARDIAC: S1 and S2, regular rate and rhythm. No murmur, no rub. ABDOMEN: Obese, distended, soft, positive tenderness in the epigastrium, bowel sounds present. EXTREMITIES: No lower extremity edema. INTAKE AND OUTPUT: 1320/850. LABORATORY DATA: WBC 3.3, hemoglobin 9.5, hematocrit 28, platelets 38. Sodium 140, potassium 3.1, chloride 108, CO2 of 28, BUN 2, creatinine 0.8, glucose 65, calcium 5.3, phosphorous 1.9, magnesium 0.9, albumin 1.9, corrected calcium is 6.7, total bili 8.7, direct bili 6.6, AST 130, ALT 42. Alcohol 276 at the time of presentation, latest one less than 10, benzodiazepine positive. CURRENT MEDICATIONS: Ambien, calcium gluconate 1 g given this morning, ciprofloxacin 250 q.12, Cymbalta 20, folic acid, potassium 20 mEq t.i.d., p.o. Keppra, Librium, gabapentin, Nystatin, [place], oxycodone, Protonix, magnesium chloride, half-normal saline at 50. ASSESSMENT: 1. Alcohol abuse, admitted with alcohol intoxication. 2. Multiple electrolyte abnormalities including hypokalemia, hypomagnesemia, hypocalcemia, hypophosphatemia. 3. Chronic malnutrition. 4. Morbid obesity. PLAN: 1. Add 30 mmol potassium phosphate to each liter of half-normal saline. 2. Magnesium sulfate IV piggyback. 3. Calcium gluconate 1 g IV piggyback second dose today. 4. Monitor electrolytes closely. Thank you for the courtesy of the consultation. We will follow this patient closely with you. Mariya Vega MD
[2017-03-04] MEDS ORDERED: oxyCODONE 10 mg Immediate Release Tab PO ONE (19:01)
[2017-03-04] MEDS ORDERED: Clotrimazole/Betamethasone Cream(15 gm) TOP ONE (23:15)
--- NOTE | 2017-03-05 01:50 | PN ---
DAILY PROGRESS NOTE DATE: 03/04/2017 SUBJECTIVE: The patient was seen this Tuesday evening in room 272, bed 2 with no visitors at the bedside. She is awake and alert, a bit tremulous. Complaining of pain in the back and anxiety. PHYSICAL EXAMINATION: HEAD AND NECK: Unremarkable except for some early signs of volume overload. LUNGS: Show good aeration in the right and left. HEART: Not tachycardic. EXTREMITIES: Shows +1 soft edema. No calf tenderness. IMPRESSION: Alcohol withdrawal, opiate withdrawal, benzodiazepine tapering withdrawal, hypokalemia, hypocalcemia, hepatic failure, and history of polysubstance abuse. PLAN: I spoke with the patient at length regarding her condition and the severity of it. She seems to understand, but still complains of pain and asked for additional pain medicine. I will add some single dose of oxycodone 10 mg this evening, I leave the benzodiazepines at current level. Potassium and calcium supplements have been supplemented as well as magnesium. Renal institutional nutrition consultant has been called because of multiple electrolyte imbalances as well as GI because of hepatic failure. Bone marrow also showed the signs of alcohol toxicity with macrocytosis and thrombocytopenia. Thrombocytopenia is also contributed to early liver failure and cirrhosis. Leonel Mcdowell MD
[2017-03-05] MEDS: oxyCODONE 5 mg Immediate Release Tab PO PRN ×2 (03:37→11:08)
[2017-03-05] MEDS: Pantoprazole 40 mg EC Tab PO SCH (05:30)
[2017-03-05 08:04] LABS: BASO # 0.02 K/mm3 (0.0-2.0); BASO % 0.6 % (0.0-3.0); EOS % 1.2 % (1.5-5.0); GRAN # 2.13 (1.4-6.5); GRAN % 62.2 % (50.0-68.0); HEMATOCRIT 27.6 % (36.0-48.0); LYMPH # 0.8 (1.2-3.4); LYMPH % 24.3 % (22.0-35.0); MEAN CELL VOLUME 93.2 fl (80.0-105.0); MEAN CORPUSCULAR HEMOGLOBIN 31.1 pg (25.0-35.0); MEAN CORPUSCULAR HGB CONC 33.3 g/dl (31.0-37.0); MONO # 0.4 (0.1-0.6); MONO % 11.7 % (1.0-6.0); PLATELET COUNT 45 10^3/uL (120.0-450.0); RED CELL DISTRIBUTION WIDTH 22.7 % (11.5-14.5); WHITE BLOOD COUNT 3.4 10^3/ul (4.5-11.0)
[2017-03-05 08:11] LABS: INR 2.6 (0.93-1.08)
[2017-03-05 08:32] LABS: ALB/GLOB RATIO 0.5 (1.1-1.8); ALKALINE PHOSPHATASE 172 U/L (38-126); ALT/SGPT 51 U/L (7-56); AST/SGOT 125 U/L (14-36); BILIRUBIN,TOTAL 9.8 mg/dL (0.2-1.3); BLOOD UREA NITROGEN 2 mg/dL (7-21); CARBON DIOXIDE 27 mmol/L (21-33); CHLORIDE 110 mmol/L (98-107); GFR AFRICAN-AMERICAN > 60; GLUCOSE,RANDOM 64 mg/dL (70-110); POTASSIUM 4.3 mmol/L (3.6-5.0); SODIUM 142 mmol/L (132-148)
[2017-03-05 08:44] LABS: CALCIUM 5.8 mg/dL (8.4-10.5)
[2017-03-05] MEDS: Neomy-Polymyx-Dexameth Ophth Susp (5 ml) OU SCH ×4 (09:09→22:02)
[2017-03-05] MEDS: Magnesium Chloride 64 mg ER Tab PO SCH (09:10)
[2017-03-05] MEDS: Nystatin 100,000 Units/gm Topical Pow(15 gm) TOP SCH ×2 (09:10→19:00)
[2017-03-05] MEDS: Potassium Chloride 20 mEq ER Tab PO SCH ×3 (09:11→18:59)
[2017-03-05] MEDS: Multivitamin With Minerals Tab PO SCH (09:11)
[2017-03-05] MEDS: Potassium & Sodium Phosphate PO SCH ×2 (11:08→18:59)
--- NOTE | 2017-03-05 13:23 | PN ---
DATE: SUBJECTIVE: The patient is currently seen on 2R. She is lying supine in bed. She appears to be comfortable. She no longer has any nausea or vomiting. She states she has loose stools, but no diarrhea. The patient has an extensive history of alcohol abuse. She states that she is committed to no longer taking any alcohol. MEDICATIONS: Medication list reviewed. The patient is currently on Ambien, IV calcium, Cipro, Cymbalta, folic acid, K-Tab, Keppra, Librium, Neurontin, Nystatin, Os-[place], oxycodone p.r.n., Protonix, Slow-Mag, MultiVites, Tylenol, thiamine, and Zofran p.r.n. OBJECTIVE INTAKE/OUTPUT: Intake of 2195 and output of 400. VITAL SIGNS: Blood pressure of 101/63, temperature of 97.4, pulse of 72 with a respiratory rate of 20. HEENT: Exam shows her to be normocephalic and atraumatic. Conjunctivae are pale. Sclerae are anicteric. NECK: Supple. No neck vein distention. CHEST: Clear to auscultation and percussion. Decreased breath sounds at bases. CARDIOVASCULAR: S1 and S2 normal. No audible murmurs, rubs or gallops. ABDOMEN: Moderately obese. Minimal distention. Soft. No tenderness over her mid epigastric or right upper quadrant area. No rebound or guarding. EXTREMITIES: Extremities are puffy, but no lower extremity pitting edema. NEUROLOGIC: Shows no asterixis. LABORATORY DATA AND IMAGING STUDIES: Labs from today CBC, white blood cell count low at 3.4, hemoglobin of 9.2, and platelet count is 45,000. Coags: PT of 29.2 and INR of 2.6. Chemistries show normal electrolytes. Sodium is 142, potassium is 4.3, chloride is 110 with a CO2 of 27, BUN is down to 2 with a creatinine of 0.9. Glucose is 64. Calcium remains low at 5.8, albumin is 2.0 and corrected calcium is 7.4. Bilirubin is elevated at 9.8. Yesterday's phosphorus was 11, 0.7, and magnesium level of 0.9. Elevated liver enzymes noted. Urine was negative. Toxicology screen is positive for benzodiazepines and alcohol. ASSESSMENT 1. Substance abuse with alcohol abuse and liver disease as noted above. 2. Multiple electrolyte abnormalities including hypokalemia which has resolved, hypomagnesemia, hypocalcemia and hypophosphatemia. Normal renal parameters. 3. History of multi substance abuse including alcohol. 4. History of obesity. PLAN 1. Discussed with the patient the need to change her lifestyle in order to avoid further complications. 2, We will start the patient on oral supplements for calcium and phosphorus. The patient had received IV calcium and IV phosphorus therapy. Today's magnesium level and phosphorus level are pending. 3. Daily labs until her electrolytes correct. 4. The patient cautioned about the obvious damage she has done to her liver secondary to alcohol abuse. Anthony Kelsey MD MTDD
[2017-03-06] MEDS: oxyCODONE 5 mg Immediate Release Tab PO PRN ×4 (01:12→20:32)
[2017-03-06] MEDS: Pantoprazole 40 mg EC Tab PO SCH (05:06)
[2017-03-06 07:36] LABS: ALB/GLOB RATIO 0.5 (1.1-1.8); ALKALINE PHOSPHATASE 152 U/L (38-126); ALT/SGPT 52 U/L (7-56); AST/SGOT 108 U/L (14-36); BILIRUBIN,TOTAL 9.9 mg/dL (0.2-1.3); BLOOD UREA NITROGEN 2 mg/dL (7-21); CARBON DIOXIDE 25 mmol/L (21-33); CHLORIDE 112 mmol/L (95-110); GFR AFRICAN-AMERICAN > 60; GLUCOSE,RANDOM 79 mg/dL (70-110); MAGNESIUM 1.5 mg/dL (1.7-2.2); PHOSPHOROUS 1.7 mg/dL (2.5-4.5); POTASSIUM 3.8 mmol/L (3.6-5.0); SODIUM 141 mmol/L (132-148); TOTAL PROTEIN 5.7 g/dL (5.8-8.3)
[2017-03-06 07:39] LABS: INR 2.47 (0.93-1.08)
[2017-03-06 07:45] LABS: HEMATOCRIT 25.7 % (36.0-48.0); MEAN CELL VOLUME 94.5 fl (80.0-105.0); MEAN CORPUSCULAR HEMOGLOBIN 31.6 pg (25.0-35.0); MEAN CORPUSCULAR HGB CONC 33.5 g/dl (31.0-37.0); PLATELET COUNT 49 10^3/uL (120.0-450.0); RED CELL DISTRIBUTION WIDTH 23.3 % (11.5-14.5)
[2017-03-06 07:46] LABS: CALCIUM 6.1 mg/dL (8.4-10.5)
[2017-03-06] MEDS: Multivitamin With Minerals Tab PO SCH (08:09)
[2017-03-06] MEDS: Potassium & Sodium Phosphate PO SCH ×2 (09:49→17:25)
[2017-03-06] MEDS: Magnesium Chloride 64 mg ER Tab PO SCH (09:49)
[2017-03-06] MEDS: Neomy-Polymyx-Dexameth Ophth Susp (5 ml) OU SCH ×4 (09:50→22:17)
[2017-03-06] MEDS: Nystatin 100,000 Units/gm Topical Pow(15 gm) TOP SCH ×2 (09:50→17:26)
[2017-03-06] MEDS: Potassium Chloride 20 mEq ER Tab PO SCH ×3 (09:50→17:25)
[2017-03-06] MEDS ORDERED: Magnesium Sulfate 2 GM in Sodium Chloride 0.9% 100 ML IV ONE (11:02)
[2017-03-06] MEDS ORDERED: Sodium Phosphate 15 MMOLE in Dextrose 5% In Water 250 ML IVPB ONE (11:02)
--- NOTE | 2017-03-06 23:46 | PN ---
DATE: 03/06/2017 SUBJECTIVE: The patient seen this Tuesday afternoon in 272, bed 2. She is out of bed in the chair in good spirit and actually looks better than the last several days. She seems to understand her medical situation, the severity of her illness and need to change her lifestyle choices and these episodes liver failure are becoming harder and more difficulty for her to recover. PHYSICAL EXAMINATION EXTREMITIES: +1 bilateral pedal edema is noted. Electrolytes are a little bit improved compared to few days ago with aggressive supplementation. GI workup was ordered, but the patient refused abdominal ultrasound. We will continue to follow closely. Physical therapy is scheduled on Tuesday, actually work on discharge planning. Lenoel Mcdowell MD 03/06/2017 [place]
--- NOTE | 2017-03-07 00:10 | PN ---
DATE: 03/05/2017 SUBJECTIVE: The patient was seen on Tuesday morning in room 272, bed 2. She is resting comfortably out of bed in the chair. Seems to be in better spirits. States that her conjunctivitis is clearing nicely. The tinea under the breast and in the groin is healing better with nystatin powder. She is still craving opiates and dealing with anxiety at best she can. PHYSICAL EXAMINATION: HEENT: Conjunctivae are still pink and slightly injected. Mucous membranes are moist. NECK: Supple without masses. LUNGS: Clear. HEART: Regular and not tachycardic. ABDOMEN: Obese. EXTREMITIES: Showed soft +1 edema. IMPRESSION: Hypocalcemia, hypokalemia, hypoproteinemia, cirrhosis, liver failure, hyperbilirubinemia, alcohol withdrawal, acute alcohol intoxication resolving, chronic alcoholism, polysubstance abuse, and opioid use. PLAN: Continuing to monitor electrolytes and supplement them aggressively with Renal now on board. Gastrointestinal workup for severe liver disease ,liver failure appreciated. I spoke with the patient at great length regarding her condition and the severity of her illness and the need for lifestyle change. Leonel Mcdowell MD
--- NOTE | 2017-03-07 03:12 | PN ---
DATE: 03/06/2017 SUBJECTIVE: This patient was seen and evaluated earlier. The patient appears deeply jaundiced, tolerating the diet, feels slightly better. PHYSICAL EXAMINATION VITAL SIGNS: On examination, temperature is 98.7, pulse 81 and blood pressure 121/77. HEENT: Atraumatic, anicteric. Jaundiced. NECK: Supple. HEART: S1 and S2 heard. LUNGS: Bilateral air entry present. ABDOMEN: Soft. EXTREMITIES: Mild edema present. NEUROLOGICAL: Alert and oriented. Moves all the extremities. No asterixis present. LABORATORY DATA: Hemoglobin 8.6, hematocrit 25.7, WBC 3.0 and platelets 49, 000. BUN 2 and creatinine 0.9. AST 108, ALT 52 and alkaline phosphatase 152. Total bilirubin only mildly elevated to 6.9. The patient's calcium is 6.1; however, corrected calcium is 7.7. IMPRESSION: This 46-year-old patient admitted with history of ETOH, jaundice, history of active alcohol use. Probably due to acute alcoholic hepatitis. The patient multiple admissions in the past, also has SLIME positive. The plan is to do the liver biopsy once the patient is completely recovers from the alcoholic hepatitis. Clinically, she was improving. The patient at that time mentioned that she has completely stopped alcohol, but however she has gone back to drinking alcohol. The bilirubin is compared to previous is significantly elevated, now has became more stabilized. The reasonable thing is the ultrasound showed no stones. Hepatic profile in the past has been negative. The patient has urinary tract infection, on antibiotics. Discriminant factor is significantly elevated, she is a candidate for steroid; however, in the view of the patient appears to be slightly improving and also has active urinary tract infection, we will hold off starting the patient on steroid. We will restart it based on the clinical course soon, if needed. The patient's hemoglobin is low, but no active bleeding noticed. The patient also has thrombocytopenia. Thrombocytopenia can be related to the alcohol also. However, if she is going to continuing the thrombocytopenia, we will discontinue the Pepcid. We will substitute with Carafate. We will continue to closely follow up her care. Ana Meza MD
[2017-03-07] MEDS: oxyCODONE 5 mg Immediate Release Tab PO PRN ×2 (05:13→16:10)
[2017-03-07] MEDS: Sucralfate 1 gm/10 ml Oral Susp UD PO SCH ×2 (05:19→16:11)
[2017-03-07 07:17] LABS: HEMATOCRIT 27.2 % (36.0-48.0); MEAN CELL VOLUME 96.5 fl (80.0-105.0); MEAN CORPUSCULAR HEMOGLOBIN 31.9 pg (25.0-35.0); MEAN CORPUSCULAR HGB CONC 33.1 g/dl (31.0-37.0); PLATELET COUNT 54 10^3/uL (120.0-450.0); RED CELL DISTRIBUTION WIDTH 23.2 % (11.5-14.5); WHITE BLOOD COUNT 3.4 10^3/ul (4.5-11.0)
[2017-03-07 07:26] LABS: INR 2.38 (0.93-1.08)
[2017-03-07 07:37] LABS: ALB/GLOB RATIO 0.5 (1.1-1.8); ALKALINE PHOSPHATASE 147 U/L (38-126); ALT/SGPT 37 U/L (7-56); AST/SGOT 103 U/L (14-36); BILIRUBIN,TOTAL 10.5 mg/dL (0.2-1.3); BLOOD UREA NITROGEN 2 mg/dL (7-21); CARBON DIOXIDE 27 mmol/L (21-33); CHLORIDE 110 mmol/L (98-107); GFR AFRICAN-AMERICAN > 60; GLUCOSE,RANDOM 70 mg/dL (70-110); MAGNESIUM 1.7 mg/dL (1.7-2.2); POTASSIUM 4.4 mmol/L (3.6-5.0); SODIUM 141 mmol/L (132-148); TOTAL PROTEIN 5.8 g/dL (5.8-8.3)
[2017-03-07 07:42] LABS: CALCIUM 6.3 mg/dL (8.4-10.5)
[2017-03-07] MEDS: Multivitamin With Minerals Tab PO SCH (08:23)
--- NOTE | 2017-03-07 08:27 | PN ---
DATE: 03/06/2017 SUBJECTIVE: The patient is currently seen sitting at the side of bed. Presently, no IV piggybacks are running. The patient remains on oral supplements for her electrolyte abnormalities. The patient told that if she does not stop drinking, she will likely destroy her liver and . MEDICATIONS: Medication list reviewed. The patient is currently on Ambien, Cipro, Cymbalta, folic acid, K-Tab, Keppra, Librium, Maxitrol ophthalmic suspension, Neurontin, Neutra-Phos, nystatin, Os-[place], oxycodone p.r.n., Protonix, Slow-Mag, therapeutic-M tab, multivitamins, vitamin B1, thiamine, and Zofran p.r.n. OBJECTIVE INTAKE AND OUTPUT: 1577 in and output 1300. VITAL SIGNS: Blood pressure is 113/72, temperature is 99, respiratory rate is 19, and pulse is 77. HEENT: Shows her to be normocephalic and atraumatic. Conjunctivae are pale. Sclerae nonicteric. NECK: Supple. No neck vein distention. CHEST: Clear to auscultation and percussion. No rales. No rhonchi. No wheezing. Decreased breath sounds at the bases. CARDIOVASCULAR: Shows S1 and S2 normal. No audible murmurs, rubs, or gallops. ABDOMEN: Moderately obese. No distention. Soft. No tenderness over a midepigastric or right upper quadrant area. No rebound or guarding. EXTREMITIES: Lower extremities are puffy, but no cyanosis, clubbing, or edema. NEUROLOGIC: No asterixis. LABORATORY DATA AND IMAGING: CBC today white blood cell count 3.0, platelet count is 49,000 with hemoglobin of 8.6. The patient remains pancytopenic. Coags; PT 27.71 with an INR of 2.47. Chemistries; sodium 141, potassium 3.8, chloride 112 with a CO2 of 25, BUN 2 with a creatinine of 0.9. Glucose is 79. Calcium is 6.1, corrected calcium for her low albumin, is 7.7. Phosphorus level remains low at 1.7 and magnesium level was low at 1.5. Bilirubin is elevated at 9.9. Liver enzymes remain elevated. Albumin is 1.9. Vitamin D level is pending. Microbiology; urine was positive for E-coli. The patient remains on Cipro. ASSESSMENT: 1. Substance abuse with alcohol abuse and liver disease as noted above. 2. Multiple electrolyte abnormalities including hypokalemia, which has resolved, hypomagnesemia, hypocalcemia, and hypophosphatemia. The patient is receiving both oral and IV supplements. She has normal renal parameters. 3. Hepatitis secondary to alcohol abuse. Elevated liver enzymes. 4. History of obesity. PLAN: 1. Discussed with the patient in great detail. She must stop alcohol drinking. I have explained to her she will destroy her liver and end-up with end-stage liver disease with cirrhosis. 2. Continue oral and IV calcium, magnesium, and phosphorus supplements. 3. Continue to monitor all of her labs on a daily basis until her electrolytes correct. 4. Continue to monitor the patient on telemetry. Anthony Kelsey MD MTDD
[2017-03-07] MEDS: Potassium Chloride 20 mEq ER Tab PO SCH ×3 (09:18→18:12)
[2017-03-07] MEDS: Magnesium Chloride 64 mg ER Tab PO SCH (09:18)
[2017-03-07] MEDS: Potassium & Sodium Phosphate PO SCH ×2 (09:19→18:13)
[2017-03-07] MEDS: Neomy-Polymyx-Dexameth Ophth Susp (5 ml) OU SCH ×3 (09:20→18:14)
[2017-03-07] MEDS: Nystatin 100,000 Units/gm Topical Pow(15 gm) TOP SCH ×2 (09:20→18:14)
--- NOTE | 2017-03-07 10:07 | PN ---
DATE: 03/06/2017 SUBJECTIVE: This patient was seen and evaluated earlier. Appears deeply jaundiced. The patient denies any abdominal pain. The patient is tolerating the diet. Feels slightly better. PHYSICAL EXAMINATION: VITAL SIGNS: Temperature 98.7, pulse 91, and blood pressure 121/77. HEENT: Atraumatic and anicteric. NECK: Supple. HEART: S1 and S2 heard. LUNGS: Bilateral air entry present. ABDOMEN: Soft. Tenderness present. liver edge palpable. EXTREMITIES: No cyanosis. Mild edema present. NEUROLOGIC: Alert and oriented, moves all the extremities. LABORATORY DATA: Hemoglobin 8.6, hematocrit 25.7, WBC 3.0, and platelets 49. BUN 22 and creatinine 0.9. Continue with antibiotics as per ID. Ana Meza MD
--- NOTE | 2017-03-07 13:35 | CP.PCM.PN ---
<Whitney Rojas - Last Filed: 03/07/17 13:34> Subjective - Date & Time of Evaluation Date of Evaluation: 03/07/17 Time of Evaluation: 09:50 - Subjective Subjective: Seen and examined at the bedside earlier this morning, the chart was reviewed. Patient denies abdominal pain, no nausea vomiting still remains jaundice. Denies shortness of breath or chest pain. No reports of overt GI bleed. Objective - Vital Signs/Intake and Output Vital Signs (last 24 hours): Temp Pulse Resp BP Pulse Ox 99 F 80 20 92/63 L 94 L 03/07/17 12:00 03/07/17 12:00 03/07/17 12:00 03/07/17 12:00 03/07/17 06:00 Intake and Output: 03/07/17 03/07/17 06:59 18:59 Intake Total 690 Output Total 200 Balance 490 - Medications Medications: Current Medications Calcium Carbonate (Oscal) 1,000 mg PO TID [facility] Last Admin: 03/07/17 09:21 Dose: 1,000 mg Chlordiazepoxide (Librium) 50 mg PO Q8 [facility] PRN Reason: Protocol Last Admin: 03/07/17 06:23 Dose: 50 mg Duloxetine HCl (Cymbalta) 20 mg PO DAILY [facility] Last Admin: 03/07/17 09:19 Dose: 20 mg Folic Acid (Folic Acid) 1 mg PO DAILY [facility] Last Admin: 03/07/17 09:19 Dose: 1 mg Gabapentin (Neurontin) 300 mg PO BID [facility] PRN Reason: Protocol Last Admin: 03/07/17 09:18 Dose: 300 mg Levetiracetam (Keppra) 500 mg PO BID [facility] Last Admin: 03/07/17 09:18 Dose: 500 mg Magnesium Chloride (Slow-Mag) 64 mg PO DAILY [facility] Last Admin: 03/07/17 09:18 Dose: 64 mg Multivitamins/Minerals (Therapeutic-M Tab) 1 tab PO 0800 [facility] Last Admin: 03/07/17 08:23 Dose: 1 tab Neomycin/Polymyxin/Dexamethasone (Maxitrol Opht Susp) 0 ml OU QID [facility] Last Admin: 03/07/17 09:20 Dose: 2 drop Nystatin (Nystop Topical Powder) 0 gm TOP BID [facility] Last Admin: 03/07/17 09:20 Dose: 2 pow Ondansetron HCl (Zofran Tab) 4 mg PO Q8H PRN PRN Reason: Nausea/Vomiting Last Admin: 03/04/17 07:42 Dose: 4 mg Oxycodone HCl (Oxycodone Immediate Release Tab) 5 mg PO Q6H PRN PRN Reason: Pain, severe (8-10) Last Admin: 03/07/17 05:13 Dose: 5 mg Potassium Chloride (K-Dur 20 Meq Er Tab) 20 meq PO TID [facility] Last Admin: 03/07/17 09:18 Dose: 20 meq Potassium Phos/Sodium Phos (Neutra-Phos) 1 pkt PO BID [facility] Last Admin: 03/07/17 09:19 Dose: 1 pkt Sucralfate (Carafate Oral Susp) 1 gm PO 0600,1600 [facility] Last Admin: 03/07/17 05:19 Dose: 1 gm Thiamine HCl (Vitamin B1 Tab) 100 mg PO Q8H [facility] Last Admin: 03/07/17 06:24 Dose: 100 mg Zolpidem Tartrate (Ambien) 10 mg PO HS [facility] PRN Reason: Protocol Last Admin: 03/06/17 22:11 Dose: 10 mg - Labs Labs: 03/07/17 07:03 03/07/17 07:03 PT 26.7 SECONDS (9.4-12.5) H 03/07/17 07:03 INR 2.38 (0.93-1.08) H 03/07/17 07:03 APTT 52.3 Seconds (25.1-36.5) H 03/04/17 09:30 - Constitutional Appears: No Acute Distress - Eye Exam Eye Exam: Scleral icterus - ENT Exam ENT Exam: Mucous Membranes Moist - Cardiovascular Exam Cardiovascular Exam: +S1, +S2 - GI/Abdominal Exam GI & Abdominal Exam: Distended, Soft. absent: Guarding, Tenderness, Organomegaly, Rebound - Extremities Exam Extremities Exam: Pedal Edema. absent: Calf Tenderness - Neurological Exam Neurological Exam: Alert, Awake, Oriented x3 - Skin Skin Exam: Dry, Warm Additional comments: jaundice Assessment and Plan - Assessment and Plan (Free Text) Assessment: ASSESSMENT: Acute alcohol intoxication Alcohol withdrawal Elevated liver enzymes likely secondary to Alcoholic hepatitis, patient has elevated discriminate factor currently not a candidate for steroid therapy as recommended secondary to recurrent urinary infection, he will continue to follow her status and consider need based on her clinical course. Thrombocytopenia, likely due to EtOH History of acute liver failure, with poor [place]'s discriminate factor, treated with steroids in the past Status post fall Electrolyte imbalance History of polysubstance abuse Chronic alcoholism Peripheral neuropathy UTI (+) Ecoli Obesity History of gastric bypass History of peptic ulcer disease Plan: Check manual platelet continue diet as tolerated continue Carafate, off PPI, thrombocytopenia On Librium On IV antibiotics, Cipro on Keppra Trend LFTs on folic acid SCD while in bed Seen and discussed with Dr. Meza. <Ana Meza V - Last Filed: 03/07/17 23:36> Objective - Vital Signs/Intake and Output Vital Signs (last 24 hours): Temp Pulse Resp BP Pulse Ox 99 F 88 20 92/63 L 94 L 03/07/17 12:00 03/07/17 18:00 03/07/17 12:00 03/07/17 12:00 03/07/17 06:00 Intake and Output: 03/07/17 03/08/17 18:59 06:59 Intake Total 1920 Output Total 10 Balance 1910 - Medications Medications: Current Medications Calcium Carbonate (Oscal) 1,000 mg PO TID [facility] Last Admin: 03/07/17 18:12 Dose: 1,000 mg Chlordiazepoxide (Librium) 50 mg PO Q8 [facility] PRN Reason: Protocol Last Admin: 03/07/17 22:59 Dose: 50 mg Duloxetine HCl (Cymbalta) 20 mg PO DAILY [facility] Last Admin: 03/07/17 09:19 Dose: 20 mg Ergocalciferol (Drisdol 50,000 Intl Units Cap) 1 cap PO Q7D [facility] Last Admin: 03/07/17 18:44 Dose: 1 cap Folic Acid (Folic Acid) 1 mg PO DAILY [facility] Last Admin: 03/07/17 09:19 Dose: 1 mg Gabapentin (Neurontin) 300 mg PO BID [facility] PRN Reason: Protocol Last Admin: 03/07/17 18:12 Dose: 300 mg Levetiracetam (Keppra) 500 mg PO BID [facility] Last Admin: 03/07/17 18:12 Dose: 500 mg Magnesium Chloride (Slow-Mag) 64 mg PO DAILY [facility] Last Admin: 03/07/17 09:18 Dose: 64 mg Multivitamins/Minerals (Therapeutic-M Tab) 1 tab PO 0800 [facility] Last Admin: 03/07/17 08:23 Dose: 1 tab Neomycin/Polymyxin/Dexamethasone (Maxitrol Opht Susp) 0 ml OU QID [facility] Last Admin: 03/07/17 18:14 Dose: 2 drop Nystatin (Nystop Topical Powder) 0 gm TOP BID [facility] Last Admin: 03/07/17 18:14 Dose: 4 pow Ondansetron HCl (Zofran Tab) 4 mg PO Q8H PRN PRN Reason: Nausea/Vomiting Last Admin: 03/04/17 07:42 Dose: 4 mg Oxycodone HCl (Oxycodone Immediate Release Tab) 5 mg PO Q6H PRN PRN Reason: Pain, severe (8-10) Last Admin: 03/07/17 16:10 Dose: 5 mg Potassium Chloride (K-Dur 20 Meq Er Tab) 20 meq PO TID [facility] Last Admin: 03/07/17 18:12 Dose: 20 meq Potassium Phos/Sodium Phos (Neutra-Phos) 1 pkt PO BID [facility] Last Admin: 03/07/17 18:13 Dose: 1 pkt Sucralfate (Carafate Oral Susp) 1 gm PO 0600,1600 [facility] Last Admin: 03/07/17 16:11 Dose: 1 gm Thiamine HCl (Vitamin B1 Tab) 100 mg PO Q8H [facility] Last Admin: 03/07/17 22:58 Dose: 100 mg Zolpidem Tartrate (Ambien) 10 mg PO HS [facility] PRN Reason: Protocol Last Admin: 03/06/17 22:11 Dose: 10 mg - Labs Labs: 03/07/17 07:03 03/07/17 07:03 PT 26.7 SECONDS (9.4-12.5) H 03/07/17 07:03 INR 2.38 (0.93-1.08) H 03/07/17 07:03 APTT 52.3 Seconds (25.1-36.5) H 03/04/17 09:30 Attending/Attestation - Attestation I have personally seen and examined this patient.: Yes I have fully participated in the care of the patient.: Yes I have reviewed all pertinent clinical information, including history, physical exam and plan: Yes Notes (Text): This is an addendum to GI progress report dictated by Whitney Rojas APN.The patient was seen and examined earlier. Medical records, lab studies, imagings were reviewed. Last 24 hours events reviewed. Agreed with the above treatment plan as outlined in Whitney Rojas APN's notes the with the addition of the following Total bilirubin shows upward trend Off Cipro Follow-up LFT patient may need a liver biopsy as patient SLIME positive and if the LFT continues to show upward trend. Most likely causes is alcohol induced hepatitis chronic. 03/07/17 23:23
--- NOTE | 2017-03-07 15:36 | CP.PCM.PN ---
Subjective - Date & Time of Evaluation Date of Evaluation: 03/07/17 Time of Evaluation: 13:30 - Subjective Subjective: Neurology Progress note for Dr. Gore's service Patient seen and examined at bedside this morning. No acute overnight events or new complaints reported. She is visibly jaundiced. Denies chest pain, palpitations, SOB. Objective - Vital Signs/Intake and Output Vital Signs (last 24 hours): Temp Pulse Resp BP Pulse Ox 99 F 80 20 92/63 L 94 L 03/07/17 12:00 03/07/17 12:00 03/07/17 12:00 03/07/17 12:00 03/07/17 06:00 Intake and Output: 03/07/17 03/07/17 06:59 18:59 Intake Total 690 Output Total 200 Balance 490 - Medications Medications: Current Medications Calcium Carbonate (Oscal) 1,000 mg PO TID [facility] Last Admin: 03/07/17 14:16 Dose: 1,000 mg Chlordiazepoxide (Librium) 50 mg PO Q8 [facility] PRN Reason: Protocol Last Admin: 03/07/17 14:16 Dose: 50 mg Duloxetine HCl (Cymbalta) 20 mg PO DAILY [facility] Last Admin: 03/07/17 09:19 Dose: 20 mg Folic Acid (Folic Acid) 1 mg PO DAILY [facility] Last Admin: 03/07/17 09:19 Dose: 1 mg Gabapentin (Neurontin) 300 mg PO BID [facility] PRN Reason: Protocol Last Admin: 03/07/17 09:18 Dose: 300 mg Levetiracetam (Keppra) 500 mg PO BID [facility] Last Admin: 03/07/17 09:18 Dose: 500 mg Magnesium Chloride (Slow-Mag) 64 mg PO DAILY [facility] Last Admin: 03/07/17 09:18 Dose: 64 mg Multivitamins/Minerals (Therapeutic-M Tab) 1 tab PO 0800 [facility] Last Admin: 03/07/17 08:23 Dose: 1 tab Neomycin/Polymyxin/Dexamethasone (Maxitrol Opht Susp) 0 ml OU QID [facility] Last Admin: 03/07/17 14:17 Dose: 2 drop Nystatin (Nystop Topical Powder) 0 gm TOP BID [facility] Last Admin: 03/07/17 09:20 Dose: 2 pow Ondansetron HCl (Zofran Tab) 4 mg PO Q8H PRN PRN Reason: Nausea/Vomiting Last Admin: 03/04/17 07:42 Dose: 4 mg Oxycodone HCl (Oxycodone Immediate Release Tab) 5 mg PO Q6H PRN PRN Reason: Pain, severe (8-10) Last Admin: 03/07/17 05:13 Dose: 5 mg Potassium Chloride (K-Dur 20 Meq Er Tab) 20 meq PO TID [facility] Last Admin: 03/07/17 14:16 Dose: 20 meq Potassium Phos/Sodium Phos (Neutra-Phos) 1 pkt PO BID [facility] Last Admin: 03/07/17 09:19 Dose: 1 pkt Sucralfate (Carafate Oral Susp) 1 gm PO 0600,1600 [facility] Last Admin: 03/07/17 05:19 Dose: 1 gm Thiamine HCl (Vitamin B1 Tab) 100 mg PO Q8H [facility] Last Admin: 03/07/17 14:16 Dose: 100 mg Zolpidem Tartrate (Ambien) 10 mg PO HS [facility] PRN Reason: Protocol Last Admin: 03/06/17 22:11 Dose: 10 mg - Labs Labs: 03/07/17 07:03 03/07/17 07:03 PT 26.7 SECONDS (9.4-12.5) H 03/07/17 07:03 INR 2.38 (0.93-1.08) H 03/07/17 07:03 APTT 52.3 Seconds (25.1-36.5) H 03/04/17 09:30 - Constitutional Appears: Older Than Stated Age, Chronically Ill - Head Exam Head Exam: ATRAUMATIC, NORMAL INSPECTION, NORMOCEPHALIC - Eye Exam Eye Exam: EOMI, PERRL, Scleral icterus - ENT Exam ENT Exam: Mucous Membranes Moist - Respiratory Exam Respiratory Exam: Decreased Breath Sounds. absent: Rales, Rhonchi, Wheezes - Cardiovascular Exam Cardiovascular Exam: RRR, +S1, +S2. absent: Gallop, JVD, Rubs - GI/Abdominal Exam GI & Abdominal Exam: Soft. absent: Distended, Firm, Guarding, Rigid, Tenderness , Rebound - Neurological Exam Neurological Exam: Alert, Awake, Oriented x3 - Psychiatric Exam Psychiatric exam: Normal Affect, Normal Mood - Skin Skin Exam: Dry, Intact, Warm Additional comments: jaundice Assessment and Plan - Assessment and Plan (Free Text) Plan: 46yo female with past medical history of alcohol abuse, polysubstance abuse, hypokalemia, cirrhosis, neuropathy, diverticulitis, anxiety/depression who came to the ED for fall and acute alcohol intoxication. Head CT was noted to be negative as well as maxillofacial CT. She was found to have multiple metabolic derangements. Peripheral neuropathy can be secondary to chronic alcohol use and metabolic derangements. - Monitor and correct electrolyte abnormalities as indicated - Psych changed Lexapro to Cymbalta to help with peripheral neuropathy - Continue Keppra for seizure prophylaxis - Recommended alcohol cessation as well as adequate nutrition - Thiamine 100mg q8h PO - Continue Folic Acid - Continue CIWA protocol and monitor patient for withdrawal - Maintain systolic blood pressure between 120-130s. - Physical therapy - Patient will need multivitamin as well as thiamine and folic acid as outpatient Patient seen and case discussed/reviewed with attending, Dr. Gore
[2017-03-07] MEDS ORDERED: Ergocalciferol 50,000 Intl Units Cap PO SCH (17:45)
--- NOTE | 2017-03-07 22:44 | PN ---
ADDENDUM Vitamin D less than 12.8. Urine culture: E. coli. CURRENT MEDICATIONS: Zolpidem, Carafate, Cymbalta, folic acid, potassium 20 mEq t.i.d., Keppra, gabapentin, potassium phosphate 1 packet b.i.d., [place], oxycodone, magnesium chloride, vitamin, thiamine, Zofran. ASSESSMENT: 1. Alcohol abuse. 2. Thrombocytopenia. 3. Resolved hypokalemia, hypomagnesemia. 4. Severe hypocalcemia, low vitamin D. 5. Hepatitis. 6. Obesity. PLAN: 1. Drisdol 50,000 units once a week. 2. Os-[place] 1000 t.i.d. 3. Calcium gluconate 1 g IV piggyback. Mariya Vega MD
[2017-03-08] MEDS: Sucralfate 1 gm/10 ml Oral Susp UD PO SCH ×2 (06:49→17:59)
[2017-03-08] MEDS: Multivitamin With Minerals Tab PO SCH (08:12)
[2017-03-08 08:44] LABS: HEMATOCRIT 29.9 % (36.0-48.0); MEAN CELL VOLUME 97.7 fl (80.0-105.0); MEAN CORPUSCULAR HEMOGLOBIN 31.7 pg (25.0-35.0); MEAN CORPUSCULAR HGB CONC 32.4 g/dl (31.0-37.0); MEAN PLATELET VOLUME 10.6 fl (7.0-11.0); RED CELL DISTRIBUTION WIDTH 23.5 % (11.5-14.5); WHITE BLOOD COUNT 3.9 10^3/ul (4.5-11.0)
[2017-03-08 09:05] LABS: ALB/GLOB RATIO 0.5 (1.1-1.8); ALKALINE PHOSPHATASE 162 U/L (38-126); ALT/SGPT 39 U/L (7-56); AST/SGOT 97 U/L (14-36); BILIRUBIN,TOTAL 12.2 mg/dL (0.2-1.3); BLOOD UREA NITROGEN 2 mg/dL (7-21); CARBON DIOXIDE 25 mmol/L (21-33); CHLORIDE 108 mmol/L (98-107); GFR AFRICAN-AMERICAN > 60; GLUCOSE,RANDOM 63 mg/dL (70-110); MAGNESIUM 1.6 mg/dL (1.7-2.2); PHOSPHOROUS 2.2 mg/dL (2.5-4.5); POTASSIUM 4.2 mmol/L (3.6-5.0); SODIUM 140 mmol/L (132-148); TOTAL PROTEIN 6.4 g/dL (5.8-8.3)
[2017-03-08 09:08] LABS: CALCIUM 6.7 mg/dL (8.4-10.5)
[2017-03-08] MEDS: Potassium Chloride 20 mEq ER Tab PO SCH ×3 (09:29→17:53)
[2017-03-08] MEDS: Potassium & Sodium Phosphate PO SCH ×2 (09:29→18:17)
[2017-03-08] MEDS: Magnesium Chloride 64 mg ER Tab PO SCH (09:29)
[2017-03-08] MEDS: Nystatin 100,000 Units/gm Topical Pow(15 gm) TOP SCH ×2 (09:46→17:53)
--- NOTE | 2017-03-08 09:59 | PN ---
DATE: 03/07/2017 SUBJECTIVE: The patient is seen lying in bed. She is seen to be sleeping comfortably. She denies any pain. She denies any chest tightness. PHYSICAL EXAMINATION GENERAL: Young woman, lying in bed. VITAL SIGNS: Blood pressure 108/56, heart rate 79, respiratory rate 20, temperature 97.9. HEENT: Normocephalic, atraumatic, positive pallor. NECK: Supple, no JVD. LUNGS: Bilateral equal entry, rales. CARDIAC: S1, S2. Regular rate and rhythm, no murmur, no rub. ABDOMEN: Obese, distended, soft, nontender, bowel sounds present. EXTREMITIES: 1+ pitting edema. INTAKE AND OUTPUT: 690/200. LABORATORY DATA WBC 3.4, hemoglobin nine, hematocrit 27, platelets 54. Sodium 141, potassium 4.4, chloride 110, CO2 27, BUN 2, creatinine 0.8, glucose 70, calcium 6.3, albumin 1.9, corrected calcium is 7.7, magnesium Mariya Vega MD
[2017-03-08] MEDS: Neomy-Polymyx-Dexameth Ophth Susp (5 ml) OU SCH ×6 (10:00→21:18)
[2017-03-08] MEDS ORDERED: Magnesium Sulfate 2 GM in Sodium Chloride 0.9% 100 ML IV ONE (13:22)
[2017-03-08] MEDS ORDERED: Sodium Phosphate 15 MMOLE in Dextrose 5% In Water 250 ML IVPB ONE (13:23)
--- NOTE | 2017-03-08 14:59 | PN ---
DATE: 03/07/2017 SUBJECTIVE: The patient is a 46-year-old female who was admitted to the [facility] six days ago with a diagnosis of hypocalcemia and syncope. She is known to have a history of alcoholic intoxication and alcoholic cirrhosis. She was found to have abnormal electrolytes as notably hypocalcemia. When seen today, she is resting comfortably. Her legs are edematous/anasarcic. PHYSICAL EXAMINATION: VITAL SIGNS: She is afebrile, blood pressure is 108/56, heart rate is 79. HEART: Regular. LUNGS: Clear anteriorly. LABORATORY DATA: PT/INR is 247. The patient is not on anticoagulants. Total bilirubin is 9.9, calcium is 6.1. Hemoglobin and hematocrit were 11.6 and 25.7 respectively. Potassium is 3.8. PLAN: We will continue to follow the patient closely. She is also being followed by Dr. Kelsey, the shank taper to assist with the electrolyte imbalances. Russell Mcdowell MD MTDD
[2017-03-08] MEDS: PrednisoLONE 15 mg/5 ml Oral Syrup (240 ml) PO SCH (17:54)
--- NOTE | 2017-03-08 18:34 | CP.PCM.PN ---
<Whitney Rojas - Last Filed: 03/08/17 18:34> Subjective - Date & Time of Evaluation Date of Evaluation: 03/08/17 Time of Evaluation: 10:05 - Subjective Subjective: Seen and examined at the bedside earlier today, the chart was reviewed. Patient remains jaundice, complains of back pain, denies nausea, vomiting, or abdominal pain. The patient did report having loose BM this morning, but no melena or bright red blood per rectum. Tolerating oral intake. Objective - Vital Signs/Intake and Output Vital Signs (last 24 hours): Temp Pulse Resp BP Pulse Ox 99.8 F H 77 20 118/50 L 95 03/08/17 16:53 03/08/17 16:53 03/08/17 16:53 03/08/17 16:53 03/08/17 06:00 - Medications Medications: Current Medications Calcium Carbonate (Oscal) 1,000 mg PO TID [facility] Last Admin: 03/08/17 17:53 Dose: 1,000 mg Chlordiazepoxide (Librium) 25 mg PO Q8 [facility] PRN Reason: Protocol Last Admin: 03/08/17 13:21 Dose: Not Given Duloxetine HCl (Cymbalta) 20 mg PO DAILY [facility] Last Admin: 03/08/17 09:30 Dose: 20 mg Ergocalciferol (Drisdol 50,000 Intl Units Cap) 1 cap PO Q7D [facility] Last Admin: 03/07/17 18:44 Dose: 1 cap Folic Acid (Folic Acid) 1 mg PO DAILY [facility] Last Admin: 03/08/17 09:30 Dose: 1 mg Gabapentin (Neurontin) 300 mg PO BID [facility] PRN Reason: Protocol Last Admin: 03/08/17 17:52 Dose: 300 mg Sodium Phosphate 15 mmole/ (Dextrose) 255 mls @ 42.5 mls/hr IVPB ONCE ONE Stop: 03/08/17 19:22 Last Admin: 03/08/17 16:03 Dose: 42.5 mls/hr Levetiracetam (Keppra) 500 mg PO BID [facility] Last Admin: 03/08/17 17:52 Dose: 500 mg Magnesium Chloride (Slow-Mag) 64 mg PO DAILY [facility] Last Admin: 03/08/17 09:29 Dose: 64 mg Multivitamins/Minerals (Therapeutic-M Tab) 1 tab PO 0800 [facility] Last Admin: 10/24/17 08:12 Dose: 1 tab Neomycin/Polymyxin/Dexamethasone (Maxitrol Opht Susp) 0 ml OU QID [facility] Last Admin: 03/08/17 17:54 Dose: 2 drop Nystatin (Nystop Topical Powder) 0 gm TOP BID [facility] Last Admin: 03/08/17 17:53 Dose: 1 pow Ondansetron HCl (Zofran Tab) 4 mg PO Q8H PRN PRN Reason: Nausea/Vomiting Last Admin: 03/04/17 07:42 Dose: 4 mg Oxycodone HCl (Oxycodone Immediate Release Tab) 2.5 mg PO Q6H PRN PRN Reason: Pain, severe (8-10) Potassium Chloride (K-Dur 20 Meq Er Tab) 20 meq PO TID [facility] Last Admin: 03/08/17 17:53 Dose: 20 meq Potassium Phos/Sodium Phos (Neutra-Phos) 1 pkt PO BID [facility] Last Admin: 03/08/17 18:17 Dose: 1 pkt Prednisolone (Prednisolone Oral Soln) 20 mg PO BID [facility] Last Admin: 03/08/17 17:54 Dose: 6.6 ml Sucralfate (Carafate Oral Susp) 1 gm PO 0600,1600 [facility] Last Admin: 03/08/17 17:59 Dose: 1 gm Thiamine HCl (Vitamin B1 Tab) 100 mg PO Q8H [facility] Last Admin: 03/08/17 13:51 Dose: 100 mg Ursodiol (Actigall) 300 mg PO BID [facility] Last Admin: 03/08/17 17:52 Dose: 300 mg Zolpidem Tartrate (Ambien) 5 mg PO HS PRN; Protocol PRN Reason: Insomnia - Labs Labs: 03/08/17 08:15 03/08/17 08:15 PT 26.7 SECONDS (9.4-12.5) H 03/07/17 07:03 INR 2.38 (0.93-1.08) H 03/07/17 07:03 APTT 46.8 Seconds (25.1-36.5) H 03/08/17 13:00 - Constitutional Appears: No Acute Distress - Eye Exam Eye Exam: Scleral icterus - ENT Exam ENT Exam: Mucous Membranes Moist - Neck Exam Neck Exam: Normal Inspection - Respiratory Exam Respiratory Exam: NORMAL BREATHING PATTERN. absent: Respiratory Distress - Cardiovascular Exam Cardiovascular Exam: +S1, +S2 - GI/Abdominal Exam GI & Abdominal Exam: Soft, Normal Bowel Sounds. absent: Guarding, Tenderness, Organomegaly, Rebound - Extremities Exam Extremities Exam: Normal Capillary Refill, Pedal Edema. absent: Calf Tenderness - Neurological Exam Neurological Exam: Alert, Awake, Oriented x3 - Skin Skin Exam: Dry, Warm Additional comments: jaundice Assessment and Plan - Assessment and Plan (Free Text) Assessment: ASSESSMENT: Acute alcohol intoxication Alcohol withdrawal Elevated liver enzymes likely secondary to Alcoholic hepatitis, patient has elevated Maddery's discriminate factor 79.8, this is based on current PT (03/07 ) and Total bilirubin (03/08) Thrombocytopenia, likely due to EtOH History of acute liver failure, with poor Maddery's discriminate factor, treated with steroids in the past Status post fall Electrolyte imbalance History of polysubstance abuse Chronic alcoholism Peripheral neuropathy UTI (+) Ecoli Obesity History of gastric bypass History of peptic ulcer disease Plan: continue diet as tolerated continue Carafate, off PPI, thrombocytopenia On Librium on Keppra Trend LFTs on folic acid Start on Actigall 300mg twice a day SCD while in bed Will start patient on steroid therapy, prednisolone 20 mg BID, patient is currently off Cipro now May benefit from liver biopsy, patient with h/o of positive SLIME. Seen and discussed with Dr. Meza. <Ana Meza V - Last Filed: 03/08/17 22:29> Objective - Vital Signs/Intake and Output Vital Signs (last 24 hours): Temp Pulse Resp BP Pulse Ox 99.8 F H 77 20 118/50 L 95 03/08/17 16:53 03/08/17 16:53 03/08/17 16:53 03/08/17 16:53 03/08/17 06:00 - Medications Medications: Current Medications Calcium Carbonate (Oscal) 1,000 mg PO TID [facility] Last Admin: 03/08/17 17:53 Dose: 1,000 mg Chlordiazepoxide (Librium) 25 mg PO Q8 [facility] PRN Reason: Protocol Last Admin: 03/08/17 21:18 Dose: 25 mg Duloxetine HCl (Cymbalta) 20 mg PO DAILY [facility] Last Admin: 03/08/17 09:30 Dose: 20 mg Ergocalciferol (Drisdol 50,000 Intl Units Cap) 1 cap PO Q7D [facility] Last Admin: 03/07/17 18:44 Dose: 1 cap Folic Acid (Folic Acid) 1 mg PO DAILY [facility] Last Admin: 03/08/17 09:30 Dose: 1 mg Gabapentin (Neurontin) 300 mg PO BID [facility] PRN Reason: Protocol Last Admin: 03/08/17 17:52 Dose: 300 mg Levetiracetam (Keppra) 500 mg PO BID [facility] Last Admin: 03/08/17 17:52 Dose: 500 mg Magnesium Chloride (Slow-Mag) 64 mg PO DAILY [facility] Last Admin: 03/08/17 09:29 Dose: 64 mg Multivitamins/Minerals (Therapeutic-M Tab) 1 tab PO 0800 [facility] Last Admin: 03/08/17 08:12 Dose: 1 tab Neomycin/Polymyxin/Dexamethasone (Maxitrol Opht Susp) 0 ml OU QID [facility] Last Admin: 03/08/17 21:18 Dose: 1 drop Nystatin (Nystop Topical Powder) 0 gm TOP BID [facility] Last Admin: 03/08/17 17:53 Dose: 1 pow Ondansetron HCl (Zofran Tab) 4 mg PO Q8H PRN PRN Reason: Nausea/Vomiting Last Admin: 03/04/17 07:42 Dose: 4 mg Oxycodone HCl (Oxycodone Immediate Release Tab) 2.5 mg PO Q6H PRN PRN Reason: Pain, severe (8-10) Potassium Chloride (K-Dur 20 Meq Er Tab) 20 meq PO TID [facility] Last Admin: 03/08/17 17:53 Dose: 20 meq Potassium Phos/Sodium Phos (Neutra-Phos) 1 pkt PO BID [facility] Last Admin: 03/08/17 18:17 Dose: 1 pkt Prednisolone (Prednisolone Oral Soln) 20 mg PO BID [facility] Last Admin: 03/08/17 17:54 Dose: 6.6 ml Sucralfate (Carafate Oral Susp) 1 gm PO 0600,1600 [facility] Last Admin: 03/08/17 17:59 Dose: 1 gm Thiamine HCl (Vitamin B1 Tab) 100 mg PO Q8H [facility] Last Admin: 03/08/17 21:59 Dose: 100 mg Ursodiol (Actigall) 300 mg PO BID [facility] Last Admin: 03/08/17 17:52 Dose: 300 mg Zolpidem Tartrate (Ambien) 5 mg PO HS PRN; Protocol PRN Reason: Insomnia Last Admin: 03/08/17 21:18 Dose: 5 mg - Labs Labs: 03/08/17 08:15 03/08/17 08:15 PT 26.7 SECONDS (9.4-12.5) H 03/07/17 07:03 INR 2.38 (0.93-1.08) H 03/07/17 07:03 APTT 46.8 Seconds (25.1-36.5) H 03/08/17 13:00 Attending/Attestation - Attestation I have personally seen and examined this patient.: Yes I have fully participated in the care of the patient.: Yes I have reviewed all pertinent clinical information, including history, physical exam and plan: Yes Notes (Text): This is an addendum to GI progress report dictated by Whitney Rojas APN.The patient was seen and examined earlier. Medical records, lab studies, imagings were reviewed. Last 24 hours events reviewed. Agreed with the above treatment plan as outlined in Whitney Rojas APN's notes the with the addition of the following Appears more jaundiced Real concern in this patient is significant increase in LFT. DF ratio has also significantly gone up Will start the patient on prednisolone. Patient's AN A+. Prednisone could be useful in both conditions alcoholic hepatitis and also autoimmune Would Recommend a liver biopsy if the LFTs continues to increase in spite of being on steroids 03/08/17 22:26
--- NOTE | 2017-03-08 19:02 | PN ---
SUBJECTIVE: The patient is currently seen lying supine in bed on telemetry. She has no complaints. She tells me that she is committed to stopping alcohol completely when she leaves the hospital. She continues to receive supplements for her multiple electrolyte abnormalities. Of note, her vitamin D level was extremely low. MEDICATIONS: Medication list reviewed. The patient is on , Ambien, Carafate, Cymbalta, vitamin D, folic acid, K-Tab, Keppra, Librium, Maxitrol eye drops, Neutra-Phos, Neurontin, Nystatin, [place], oxycodone p.r.n., prednisolone eye drops, Slow-Mag, MultiVites, vitamin B1, and Zofran p.r.n. OBJECTIVE: INTAKE/OUTPUT: Intake 1919, output not charted. VITAL SIGNS: Blood pressure 101/62, temperature 97.1, respiratory rate is 20 with a pulse of 75. HEENT: Shows her to be normocephalic, atraumatic. Conjunctivae are pale. Sclerae are icteric. NECK: Supple. No neck vein distention. CHEST: Clear to auscultation and percussion. No rales, no rhonchi, no wheezing. Decreased breath sounds at bases. CARDIOVASCULAR: Shows a regular rate and rhythm with no audible murmurs or gallops noted. ABDOMEN: Moderately obese. No distention. Soft. No tenderness on palpation. No rebound. No guarding. EXTREMITIES: Show lower extremity 1+ pitting edema. Legs are puffy. No cyanosis or clubbing. NEUROLOGICAL: Shows no asterixis. LABORATORY DATA AND IMAGING STUDIES: CBC: White blood cell count today 3.9 with hemoglobin of 9.7, platelet count is 71,000. The patient remains pancytopenic. Coags: PT 26.7, INR 2.38. Chemistries normal electrolytes. BUN 2 with a creatinine of 0.8. Calcium is up to 6.7 with an albumin of 2.1, corrected calcium is 8.2 - 8.3 range. Phosphorus level remains low with 2.2 despite supplements. Magnesium level remains 1.6 on supplements. Elevated liver enzymes. Bilirubin is 12.2. Of note, vitamin D 25, hydroxy level was nondetectable. Microbiology: Urine was positive for E-coli. Blood cultures were negative at 5 days. ASSESSMENT: 1. Substance abuse with alcohol abuse, liver disease as noted above. 2. Multiple electrolyte abnormalities including hypokalemia, hypomagnesemia, hypocalcemia and hypophosphatemia. The patient is receiving supplements to correct these electrolyte abnormalities. 3. Severe vitamin D deficiency. The patient has been started on ergocalciferol 50,000 units weekly, this likely is an explanation for her is severely low calcium level. 4. Hepatitis secondary to alcohol abuse with elevated liver enzymes, elevated bilirubin. 5. History of obesity. 6. Lower extremity edema. The patient had been on diuretic therapy. Diuretic therapy is currently on hold until her electrolytes correct and the patient will likely need to start back on diuretic therapy. 7. Past history of seizure disorder, possibly secondary to alcohol withdrawal. The patient remains on Keppra therapy. PLAN: 1. Again, encouraged the patient to completely discontinue the alcohol intake upon discharge from the hospital. I explained to her this is matter of life and . 2. Continue calcium supplements. The patient will remain on oral calcium. She no longer requires IV calcium and should continue vitamin D supplements. 3. Supplement magnesium, supplement phosphorus. Phosphorus supplements are being given both orally and through IV. 4. Discussed with Dr. Mcdowell. Telemetry may be discontinued from renal standpoint. We will continue to monitor labs on a daily basis. Anthony Kelsey MD
[2017-03-08] MEDS: oxyCODONE 5 mg Immediate Release Tab PO PRN (23:59)
[2017-03-09] MEDS: Sucralfate 1 gm/10 ml Oral Susp UD PO SCH ×2 (05:05→17:00)
[2017-03-09 06:33] LABS: BASO # 0.02 K/mm3 (0.0-2.0); BASO % 0.6 % (0.0-3.0); EOS % 0.3 % (1.5-5.0); GRAN # 2.1 (1.4-6.5); GRAN % 68.3 % (50.0-68.0); HEMATOCRIT 27.4 % (36.0-48.0); LYMPH # 0.6 (1.2-3.4); LYMPH % 19.8 % (22.0-35.0); MEAN CELL VOLUME 98.2 fl (80.0-105.0); MEAN CORPUSCULAR HEMOGLOBIN 31.9 pg (25.0-35.0); MEAN CORPUSCULAR HGB CONC 32.5 g/dl (31.0-37.0); MEAN PLATELET VOLUME 10.4 fl (7.0-11.0); MONO # 0.3 (0.1-0.6); RED CELL DISTRIBUTION WIDTH 22.9 % (11.5-14.5); WHITE BLOOD COUNT 3.1 10^3/ul (4.5-11.0)
[2017-03-09 06:49] LABS: INR 2.38 (0.93-1.08)
[2017-03-09 06:54] LABS: ALB/GLOB RATIO 0.5 (1.1-1.8); ALKALINE PHOSPHATASE 133 U/L (38-126); ALT/SGPT 45 U/L (7-56); AST/SGOT 81 U/L (14-36); BILIRUBIN,DIRECT 9.6 mg/dL (0.0-0.4); BILIRUBIN,TOTAL 11.4 mg/dL (0.2-1.3); BLOOD UREA NITROGEN 2 mg/dL (7-21); CARBON DIOXIDE 27 mmol/L (21-33); CHLORIDE 112 mmol/L (95-110); GFR AFRICAN-AMERICAN > 60; GLUCOSE,RANDOM 99 mg/dL (70-110); MAGNESIUM 1.9 mg/dL (1.7-2.2); PHOSPHOROUS 2.3 mg/dL (2.5-4.5); POTASSIUM 4.3 mmol/L (3.6-5.0); SODIUM 143 mmol/L (132-148); TOTAL PROTEIN 5.9 g/dL (5.8-8.3)
[2017-03-09 07:11] LABS: CALCIUM 6.6 mg/dL (8.4-10.5)
[2017-03-09] MEDS: Multivitamin With Minerals Tab PO SCH (08:30)
[2017-03-09] MEDS: oxyCODONE 5 mg Immediate Release Tab PO PRN ×3 (08:44→21:11)
[2017-03-09] MEDS: Potassium Chloride 20 mEq ER Tab PO SCH ×3 (09:11→17:41)
[2017-03-09] MEDS: Potassium & Sodium Phosphate PO SCH ×2 (09:15→17:43)
[2017-03-09] MEDS: Neomy-Polymyx-Dexameth Ophth Susp (5 ml) OU SCH ×3 (09:16→17:42)
[2017-03-09] MEDS: Nystatin 100,000 Units/gm Topical Pow(15 gm) TOP SCH ×2 (09:16→17:40)
[2017-03-09] MEDS: PrednisoLONE 15 mg/5 ml Oral Syrup (240 ml) PO SCH ×2 (09:30→17:44)
--- NOTE | 2017-03-09 12:12 | PN ---
DATE: 03/08/2017 SUBJECTIVE: The patient was seen this Tuesday at the noon hour in room 272, bed 2. She is resting comfortably in bed, tolerating her adjustments in medications as we slowly taper her benzodiazepines and opioid use. She reports no pain at this moment and no seizure activity. Tremors and alcohol withdrawal symptoms have been under good control. In fact today, she is little bit groggy and lethargic on medications give. PHYSICAL EXAMINATION: Unremarkable. SKIN: Remains jaundiced. EYES: Sclerae are icteric. EXTREMITIES: Show +1 edema. PLAN: We will continue to follow up with GI and renal. Case was discussed at length with renal call center consultant regarding her potassium and calcium and phosphate and other electrolyte abnormalities. Since potassium and calcium have been supplemented to baseline are appropriate given her low albumin, I will discontinue telemetry. May consider increasing or adding additional diuretics. I spoke with the patient at length regarding her alcohol rehab programme, she is interested, but does not want to go for a prolonged period of time; therefore, we will work on physical therapy and look for discharge planning relatively soon. The only question remaining is adding diuretics given her liver failure and slight volume overload. Leonel Mcdowell MD
[2017-03-09] MEDS ORDERED: Ergocalciferol 50,000 Intl Units Cap PO SCH (13:18)
--- NOTE | 2017-03-09 14:31 | PN ---
DATE: 03/09/2017 SUBJECTIVE: The patient is seen sitting in bed. She is trying to eat lunch. She appears very icteric. She reports that she is feeling a little bit better. PHYSICAL EXAMINATION: GENERAL: Obese young woman sitting in bed. VITAL SIGNS: Blood pressure 191/50, heart rate 75, respiratory rate 18, temperature 98.8. T-max 99.8. HEENT: Normocephalic, atraumatic, positive icterus, positive pallor. NECK: Supple, no JVD. LUNGS: Bilateral equal air entry, no rales. CARDIAC: S1 and S2. Regular, rate, and rhythm, no murmur, no rub. ABDOMEN: Obese, distended, soft, nontender, bowel sounds present. EXTREMITIES: No lower extremity edema. INTAKE AND OUTPUT: . LABORATORY DATA: WBC 3.1, hemoglobin 8.9, hematocrit 27, platelets 72. Sodium 143, potassium 4.3, chloride 112, CO2 of 27, BUN 2, creatinine 0.7, glucose 99, calcium 6.6, phosphorus 2.3, magnesium 1.9, total bili 11.4, direct bili 9.6, AST 81, ALT 45, albumin 2.0. CURRENT MEDICATIONS: Actigall, ambient, Carafate, Cymbalta, Drisdol, folic acid, potassium 20 mEq t.i.d., Keppra Librium, Maxitrol, Neurontin, Neutra-Phos 1 packet b.i.d., [place], prednisolone, Protonix, Slow-Mag, multivitamin, thiamine, Zofran, magnesium sulphate 2 g given this morning, potassium phosphate 15 millimoles given. ASSESSMENT: 1. Alcohol abuse. 2. Alcoholic liver disease. 3. Hypokalemia, hypomagnesemia, hypophosphatemia, hypocalcemia. 4. Severe vitamin D deficiency. 5. Alcoholic hepatitis. 6. Obesity. 7. History of seizure disorder. PLAN 1. Continue potassium supplementation. 2. Continue phosphate supplementation. 3. Continue vitamin D 50,000 units change to twice a week. 4. Agree with magnesium and phosphorus IV. 5. Monitor LFTs. admission tenderness in the room. Mariya Vega, MD
[2017-03-09] MEDS: Magnesium Chloride 64 mg ER Tab PO SCH (14:45)
--- NOTE | 2017-03-09 18:10 | CP.PCM.PN ---
<Whitney Rojas - Last Filed: 03/09/17 18:08> Subjective - Date & Time of Evaluation Date of Evaluation: 03/09/17 Time of Evaluation: 10:25 - Subjective Subjective: S&E examined at bedside, patient denies N/V or abdominal pain. Had loose BM, no bleeding. tolerating oral intake. No acute overnight events. Objective - Vital Signs/Intake and Output Vital Signs (last 24 hours): Temp Pulse Resp BP Pulse Ox 98.8 F 86 18 101/64 91 L 03/09/17 16:00 03/09/17 16:00 03/09/17 16:00 03/09/17 16:00 03/09/17 16:00 Intake and Output: 03/09/17 03/09/17 06:59 18:59 Intake Total 630 300 Balance 630 300 - Medications Medications: Current Medications Calcium Carbonate (Oscal) 1,000 mg PO TID [facility] Last Admin: 03/09/17 17:40 Dose: 1,000 mg Chlordiazepoxide (Librium) 25 mg PO Q8 [facility] PRN Reason: Protocol Last Admin: 03/09/17 14:52 Dose: 25 mg Duloxetine HCl (Cymbalta) 20 mg PO DAILY [facility] Last Admin: 03/09/17 09:12 Dose: 20 mg Ergocalciferol (Drisdol 50,000 Intl Units Cap) 1 cap PO Q7D [facility] Last Admin: 03/09/17 14:52 Dose: 1 cap Folic Acid (Folic Acid) 1 mg PO DAILY [facility] Last Admin: 03/09/17 09:12 Dose: 1 mg Gabapentin (Neurontin) 300 mg PO BID [facility] PRN Reason: Protocol Last Admin: 03/09/17 17:42 Dose: 300 mg Levetiracetam (Keppra) 500 mg PO BID [facility] Last Admin: 03/09/17 17:41 Dose: 500 mg Magnesium Chloride (Slow-Mag) 64 mg PO DAILY [facility] Last Admin: 03/09/17 14:45 Dose: 64 mg Multivitamins/Minerals (Therapeutic-M Tab) 1 tab PO 0800 [facility] Last Admin: 03/09/17 08:30 Dose: 1 tab Neomycin/Polymyxin/Dexamethasone (Maxitrol Opht Susp) 0 ml OU QID [facility] Last Admin: 03/09/17 17:42 Dose: 1 drop Nystatin (Nystop Topical Powder) 0 gm TOP BID [facility] Last Admin: 03/09/17 17:40 Dose: 1 pow Ondansetron HCl (Zofran Tab) 4 mg PO Q8H PRN PRN Reason: Nausea/Vomiting Last Admin: 03/04/17 07:42 Dose: 4 mg Oxycodone HCl (Oxycodone Immediate Release Tab) 2.5 mg PO Q6H PRN PRN Reason: Pain, severe (8-10) Last Admin: 03/09/17 14:53 Dose: 2.5 mg Pantoprazole Sodium (Protonix Ec Tab) 20 mg PO 0600 [facility] Potassium Chloride (K-Dur 20 Meq Er Tab) 20 meq PO TID [facility] Last Admin: 03/09/17 17:41 Dose: 20 meq Potassium Phos/Sodium Phos (Neutra-Phos) 1 pkt PO BID [facility] Last Admin: 03/09/17 17:43 Dose: 1 pkt Prednisolone (Prednisolone Oral Soln) 20 mg PO BID [facility] Last Admin: 03/09/17 17:44 Dose: 5 ml Sucralfate (Carafate Oral Susp) 1 gm PO 0600,1600 [facility] Last Admin: 03/09/17 17:00 Dose: 1 gm Thiamine HCl (Vitamin B1 Tab) 100 mg PO Q8H [facility] Last Admin: 03/09/17 14:46 Dose: 100 mg Ursodiol (Actigall) 300 mg PO BID [facility] Last Admin: 03/09/17 17:41 Dose: 300 mg Zolpidem Tartrate (Ambien) 5 mg PO HS PRN; Protocol PRN Reason: Insomnia Last Admin: 03/08/17 21:18 Dose: 5 mg - Labs Labs: 03/09/17 06:00 03/09/17 06:00 PT 26.7 SECONDS (9.4-12.5) H 03/09/17 06:00 INR 2.38 (0.93-1.08) H 03/09/17 06:00 APTT 46.8 Seconds (25.1-36.5) H 03/08/17 13:00 - Constitutional Appears: No Acute Distress - Eye Exam Eye Exam: Scleral icterus - ENT Exam ENT Exam: Mucous Membranes Moist - Respiratory Exam Respiratory Exam: NORMAL BREATHING PATTERN. absent: Respiratory Distress - Cardiovascular Exam Cardiovascular Exam: +S1, +S2 - GI/Abdominal Exam GI & Abdominal Exam: Soft, Normal Bowel Sounds. absent: Guarding, Tenderness, Rebound - Extremities Exam Extremities Exam: Pedal Edema. absent: Calf Tenderness - Neurological Exam Neurological Exam: Alert, Awake, Oriented x3 - Skin Skin Exam: Dry, Warm Additional comments: jaundice Assessment and Plan - Assessment and Plan (Free Text) Assessment: ASSESSMENT: Acute alcohol intoxication Alcohol withdrawal Elevated liver enzymes likely secondary to Alcoholic hepatitis, patient has elevated Maddery's discriminate factor 79.8, this is based on current PT (03/07 ) and Total bilirubin (03/08) Thrombocytopenia, likely due to EtOH History of acute liver failure, with poor Maddery's discriminate factor, treated with steroids in the past Status post fall Electrolyte imbalance History of polysubstance abuse Chronic alcoholism Peripheral neuropathy UTI (+) Ecoli Obesity History of gastric bypass History of peptic ulcer disease Plan: continue diet as tolerated continue Carafate, off PPI, thrombocytopenia On Librium on Keppra Trend LFTs on folic acid continue Actigall 300mg twice a day SCD while in bed continue, prednisolone 20 mg BID May benefit from liver biopsy, patient with h/o of positive SLIME stool cdiff Seen and discussed with Dr. Meza. <Ana Meza V - Last Filed: 03/09/17 23:44> Objective - Vital Signs/Intake and Output Vital Signs (last 24 hours): Temp Pulse Resp BP Pulse Ox 98.8 F 86 18 101/64 91 L 03/09/17 16:00 03/09/17 16:00 03/09/17 16:00 03/09/17 16:00 03/09/17 16:00 Intake and Output: 03/09/17 03/10/17 18:59 06:59 Intake Total 300 540 Output Total 4 Balance 300 536 - Medications Medications: Current Medications Calcium Carbonate (Oscal) 1,000 mg PO TID [facility] Last Admin: 03/09/17 17:40 Dose: 1,000 mg Chlordiazepoxide (Librium) 25 mg PO Q8 [facility] PRN Reason: Protocol Last Admin: 03/09/17 21:11 Dose: 25 mg Duloxetine HCl (Cymbalta) 20 mg PO DAILY [facility] Last Admin: 03/09/17 09:12 Dose: 20 mg Ergocalciferol (Drisdol 50,000 Intl Units Cap) 1 cap PO Q7D [facility] Last Admin: 03/09/17 14:52 Dose: 1 cap Folic Acid (Folic Acid) 1 mg PO DAILY [facility] Last Admin: 03/09/17 09:12 Dose: 1 mg Gabapentin (Neurontin) 300 mg PO BID [facility] PRN Reason: Protocol Last Admin: 03/09/17 17:42 Dose: 300 mg Levetiracetam (Keppra) 500 mg PO BID [facility] Last Admin: 03/09/17 17:41 Dose: 500 mg Magnesium Chloride (Slow-Mag) 64 mg PO DAILY [facility] Last Admin: 03/09/17 14:45 Dose: 64 mg Multivitamins/Minerals (Therapeutic-M Tab) 1 tab PO 0800 [facility] Last Admin: 03/09/17 08:30 Dose: 1 tab Neomycin/Polymyxin/Dexamethasone (Maxitrol Opht Susp) 0 ml OU QID [facility] Last Admin: 03/09/17 17:42 Dose: 1 drop Nystatin (Nystop Topical Powder) 0 gm TOP BID [facility] Last Admin: 03/09/17 17:40 Dose: 1 pow Ondansetron HCl (Zofran Tab) 4 mg PO Q8H PRN PRN Reason: Nausea/Vomiting Last Admin: 03/04/17 07:42 Dose: 4 mg Oxycodone HCl (Oxycodone Immediate Release Tab) 2.5 mg PO Q6H PRN PRN Reason: Pain, severe (8-10) Last Admin: 03/09/17 21:11 Dose: 2.5 mg Pantoprazole Sodium (Protonix Ec Tab) 20 mg PO 0600 [facility] Potassium Chloride (K-Dur 20 Meq Er Tab) 20 meq PO TID [facility] Last Admin: 03/09/17 17:41 Dose: 20 meq Potassium Phos/Sodium Phos (Neutra-Phos) 1 pkt PO BID [facility] Last Admin: 03/09/17 17:43 Dose: 1 pkt Prednisolone (Prednisolone Oral Soln) 20 mg PO BID [facility] Last Admin: 03/09/17 17:44 Dose: 5 ml Sucralfate (Carafate Oral Susp) 1 gm PO 0600,1600 [facility] Last Admin: 03/09/17 17:00 Dose: 1 gm Thiamine HCl (Vitamin B1 Tab) 100 mg PO Q8H [facility] Last Admin: 03/09/17 14:46 Dose: 100 mg Ursodiol (Actigall) 300 mg PO BID [facility] Last Admin: 03/09/17 17:41 Dose: 300 mg Zolpidem Tartrate (Ambien) 5 mg PO HS PRN; Protocol PRN Reason: Insomnia Last Admin: 03/09/17 21:42 Dose: 5 mg - Labs Labs: 03/09/17 06:00 03/09/17 06:00 PT 26.7 SECONDS (9.4-12.5) H 03/09/17 06:00 INR 2.38 (0.93-1.08) H 03/09/17 06:00 APTT 46.8 Seconds (25.1-36.5) H 03/08/17 13:00 Attending/Attestation - Attestation I have personally seen and examined this patient.: Yes I have fully participated in the care of the patient.: Yes I have reviewed all pertinent clinical information, including history, physical exam and plan: Yes Notes (Text): This is an addendum to GI progress report dictated by Whitney Rojas APN.The patient was seen and examined earlier. Medical records, lab studies, imagings were reviewed. Last 24 hours events reviewed. Agreed with the above treatment plan as outlined in Whitney Rojas APN's notes the with the addition of the following LFTs show slight improvement of bilirubin on prednisolone. He also improving we 'll start the patient on low-dose PPI 03/09/17 23:43
[2017-03-10] MEDS ORDERED: Pantoprazole 20 mg EC Tab PO SCH (06:00)
[2017-03-10] MEDS: Sucralfate 1 gm/10 ml Oral Susp UD PO SCH ×2 (06:03→16:08)
[2017-03-10 06:40] LABS: BASO # 0.01 K/mm3 (0.0-2.0); BASO % 0.2 % (0.0-3.0); EOS % 0.5 % (1.5-5.0); GRAN # 3.07 (1.4-6.5); GRAN % 70.4 % (50.0-68.0); HEMATOCRIT 27.9 % (36.0-48.0); LYMPH # 0.7 (1.2-3.4); MEAN CORPUSCULAR HEMOGLOBIN 32.6 pg (25.0-35.0); MEAN CORPUSCULAR HGB CONC 32.6 g/dl (31.0-37.0); MEAN PLATELET VOLUME 11.2 fl (7.0-11.0); MONO # 0.5 (0.1-0.6); MONO % 11.9 % (1.0-6.0); RED CELL DISTRIBUTION WIDTH 23.7 % (11.5-14.5); WHITE BLOOD COUNT 4.4 10^3/ul (4.5-11.0)
[2017-03-10 06:56] LABS: ALB/GLOB RATIO 0.5 (1.1-1.8); BILIRUBIN,DIRECT 7.9 mg/dL (0.0-0.4); BILIRUBIN,TOTAL 9.5 mg/dL (0.2-1.3); MAGNESIUM 1.9 mg/dL (1.7-2.2); PHOSPHOROUS 2.1 mg/dL (2.5-4.5); TOTAL PROTEIN 6.2 g/dL (5.8-8.3)
[2017-03-10] MEDS: Multivitamin With Minerals Tab PO SCH (08:23)
--- NOTE | 2017-03-10 10:08 | PN ---
DATE: 03/09/2017 DAILY PROGRESS NOTE SUBJECTIVE: The patient is a 46-year-old female who is admitted to the [facility] on 03/01/2017 after suffering a possible syncopal episode. She was found to have hypocalcemia at the same time. She was therefore admitted. She is known to have a history alcoholic intoxication and alcoholic cirrhosis. She is being followed by Dr. Kelsey, the lambskin trimmer for electrolyte imbalances as well as Dr. Meza for her cirrhosis. She has been doing well during the hospital stay; however, her liver enzymes have been slowly rising. MEDICATIONS: At this point, she is being treated with Actigall, Carafate, Cymbalta, ergocalciferol, folic acid, potassium supplements, Keppra, Librium. She is receiving Maxitrol eye drops for conjunctivitis, which developed. She is also treated with Neurontin, Neutra-Phos, and Nystatin topically for dermatophytosis of the skin folds. She is receiving 20 mg of prednisolone orally twice a day, Protonix, Os-[place], Slow-Mag, multivitamins, vitamin B1 and Zofran as needed for nausea. PHYSICAL EXAMINATION: GENERAL: When seen today, she is awake, alert, and oriented. She is comfortable, has no complaints. VITAL SIGNS: Her blood pressure is 91/50, heart rate is 75 beats per minute, and she is afebrile. LUNGS: Clear anteriorly and laterally. HEART: Regular. ABDOMEN: Soft and nontender. EXTREMITIES: There is marked edema of bilateral lower extremities, which is not new. LABORATORY STUDIES: Show her INR to be evaluated at 2.38. Her calcium is now 6.6, total bilirubin is 11.4. White blood cell count is 3.1, platelet count is 72, hemoglobin is 8.9. Sodium is 143, potassium 4.3, BUN is 2, creatinine is 0.7. At this point, we are continuing the current medications. Once again, we urged compliance with her medications while at home as well as total abstinence from alcohol and hepatotoxic substances. The patient will continue to be followed closely. Russell Mcdowell MD [facility] # [id number]
[2017-03-10] MEDS: Potassium & Sodium Phosphate PO SCH ×2 (10:59→17:33)
[2017-03-10] MEDS: oxyCODONE 5 mg Immediate Release Tab PO PRN ×2 (10:59→18:03)
[2017-03-10] MEDS: Magnesium Chloride 64 mg ER Tab PO SCH (11:00)
[2017-03-10] MEDS: Potassium Chloride 20 mEq ER Tab PO SCH ×3 (11:01→17:43)
[2017-03-10] MEDS: Neomy-Polymyx-Dexameth Ophth Susp (5 ml) OU SCH ×3 (11:03→17:44)
[2017-03-10] MEDS: Nystatin 100,000 Units/gm Topical Pow(15 gm) TOP SCH ×2 (11:03→17:33)
[2017-03-10] MEDS: PrednisoLONE 15 mg/5 ml Oral Syrup (240 ml) PO SCH ×2 (11:51→18:04)
--- NOTE | 2017-03-10 13:38 | CP.PCM.PN ---
Subjective - Date & Time of Evaluation Date of Evaluation: 03/10/17 Time of Evaluation: 10:45 - Subjective Subjective: Seen and examined at the bedside earlier today, at the bedside. Feeling better today, appears less jaundice. Denies nausea, vomiting, or abdominal pain. Patient has a BM,, slightly loose no reports of bleeding. Had PT yesterday and was ambulating with a walker. Objective - Vital Signs/Intake and Output Vital Signs (last 24 hours): Temp Pulse Resp BP Pulse Ox 97.9 F 79 18 102/59 L 95 03/10/17 09:14 03/10/17 09:14 03/10/17 09:14 03/10/17 09:14 03/10/17 09:14 Intake and Output: 03/10/17 03/10/17 06:59 18:59 Intake Total 780 Output Total 4 Balance 776 - Medications Medications: Current Medications Calcium Carbonate (Oscal) 1,000 mg PO TID [facility] Last Admin: 03/10/17 11:00 Dose: 1,000 mg Chlordiazepoxide (Librium) 25 mg PO Q8 [facility] PRN Reason: Protocol Last Admin: 03/10/17 06:04 Dose: 25 mg Duloxetine HCl (Cymbalta) 20 mg PO DAILY [facility] Last Admin: 03/10/17 11:02 Dose: 20 mg Ergocalciferol (Drisdol 50,000 Intl Units Cap) 1 cap PO Q7D [facility] Last Admin: 03/09/17 14:52 Dose: 1 cap Folic Acid (Folic Acid) 1 mg PO DAILY [facility] Last Admin: 03/10/17 11:00 Dose: 1 mg Gabapentin (Neurontin) 300 mg PO BID [facility] PRN Reason: Protocol Last Admin: 03/10/17 11:00 Dose: 300 mg Levetiracetam (Keppra) 500 mg PO BID [facility] Last Admin: 03/10/17 11:00 Dose: 500 mg Magnesium Chloride (Slow-Mag) 64 mg PO DAILY [facility] Last Admin: 03/10/17 11:00 Dose: 64 mg Multivitamins/Minerals (Therapeutic-M Tab) 1 tab PO 0800 [facility] Last Admin: 03/10/17 08:23 Dose: 1 tab Neomycin/Polymyxin/Dexamethasone (Maxitrol Opht Susp) 0 ml OU QID [facility] Last Admin: 03/10/17 11:03 Dose: 1 drop Nystatin (Nystop Topical Powder) 0 gm TOP BID [facility] Last Admin: 03/10/17 11:03 Dose: 1 appful Ondansetron HCl (Zofran Tab) 4 mg PO Q8H PRN PRN Reason: Nausea/Vomiting Last Admin: 03/04/17 07:42 Dose: 4 mg Oxycodone HCl (Oxycodone Immediate Release Tab) 2.5 mg PO Q6H PRN PRN Reason: Pain, severe (8-10) Last Admin: 03/10/17 10:59 Dose: 2.5 mg Pantoprazole Sodium (Protonix Ec Tab) 20 mg PO 0600 [facility] Last Admin: 03/10/17 06:04 Dose: 20 mg Potassium Chloride (K-Dur 20 Meq Er Tab) 20 meq PO TID [facility] Last Admin: 03/10/17 11:01 Dose: 20 meq Potassium Phos/Sodium Phos (Neutra-Phos) 1 pkt PO BID [facility] Last Admin: 03/10/17 10:59 Dose: 1 pkt Prednisolone (Prednisolone Oral Soln) 20 mg PO BID [facility] Last Admin: 03/10/17 11:51 Dose: 5 ml Sucralfate (Carafate Oral Susp) 1 gm PO 0600,1600 [facility] Last Admin: 03/10/17 06:03 Dose: 1 gm Thiamine HCl (Vitamin B1 Tab) 100 mg PO Q8H [facility] Last Admin: 03/09/17 14:46 Dose: 100 mg Ursodiol (Actigall) 300 mg PO BID [facility] Last Admin: 03/10/17 11:02 Dose: 300 mg Zolpidem Tartrate (Ambien) 5 mg PO HS PRN; Protocol PRN Reason: Insomnia Last Admin: 03/09/17 21:42 Dose: 5 mg - Labs Labs: 03/10/17 06:00 03/09/17 06:00 PT 26.7 SECONDS (9.4-12.5) H 03/09/17 06:00 INR 2.38 (0.93-1.08) H 03/09/17 06:00 APTT 46.8 Seconds (25.1-36.5) H 03/08/17 13:00 - Constitutional Appears: No Acute Distress - Eye Exam Eye Exam: Scleral icterus - ENT Exam ENT Exam: Mucous Membranes Moist - Respiratory Exam Respiratory Exam: Decreased Breath Sounds, NORMAL BREATHING PATTERN. absent: Rales, Wheezes, Respiratory Distress - Cardiovascular Exam Cardiovascular Exam: +S1, +S2 - GI/Abdominal Exam GI & Abdominal Exam: Soft, Normal Bowel Sounds. absent: Guarding, Tenderness, Organomegaly, Rebound - Extremities Exam Extremities Exam: Pedal Edema. absent: Calf Tenderness - Neurological Exam Neurological Exam: Alert, Awake, Oriented x3 - Skin Skin Exam: Dry, Warm Additional comments: jaundice, noticed improvement Assessment and Plan - Assessment and Plan (Free Text) Assessment: ASSESSMENT: Acute alcohol intoxication Alcohol withdrawal Elevated liver enzymes likely secondary to Alcoholic hepatitis, patient has elevated Maddery's discriminate factor, on prednisolone, bilirubin improving Thrombocytopenia, likely due to EtOH History of acute liver failure, with poor Maddery's discriminate factor, treated with steroids in the past Status post fall Electrolyte imbalance History of polysubstance abuse Chronic alcoholism Peripheral neuropathy UTI (+) Ecoli Obesity History of gastric bypass History of peptic ulcer disease Plan: stool for C. difficile continue diet as tolerated continue Carafate start low dose Protonix On Librium on Keppra Trend LFTs on folic acid continue Actigall 300mg twice a day SCD while in bed continue, prednisolone 20 mg BID May benefit from liver biopsy,if LFTs continue an operative trend, patient with h/o of positive SLIME Seen and discussed with Dr. Meza.
[2017-03-10 16:33] VITALS: BP 132/70; PULSE 83; RESP 20; TEMP 97; O2SAT 98
--- NOTE | 2017-03-10 16:49 | PN ---
DATE: 03/10/2017 SUBJECTIVE: The patient is seen lying in bed. She is awake. She is alert. She is complaining of having a bad day. She reports she has had four bowel movements, loose, watery. She also complains of some abdominal pain. PHYSICAL EXAMINATION: GENERAL: Obese young lady. lying in bed. VITAL SIGNS: Blood pressure 102/59, heart rate 79, respiratory rate 18, temperature 97.9. HEENT: Normocephalic, atraumatic, positive pallor, positive icterus. NECK: Supple, no JVD. LUNGS: Bilateral equal air entry, no rales. CARDIAC: S1 and S2, regular, rate and rhythm, no murmur, no rub. ABDOMEN: Obese, distended, soft, nontender, bowel sounds present. EXTREMITIES: 1+ pitting edema of the lower extremities. INTAKE AND OUTPUT: 1080/not charted. LABORATORY DATA: WBC 4.4, hemoglobin 9.1, hematocrit 28, platelets 106. Sodium 143, potassium 4.3, chloride 112, CO2 27, BUN 2, creatinine 0.7, glucose 99, calcium 6.6, phosphorus 2.3, magnesium 1.9, total bilirubin 9.5, direct bilirubin 7.9, albumin 2.0. CURRENT MEDICATIONS: Actigall, Ambien, Carafate, Cymbalta, Drisdol, folic acid, potassium 20 mEq t.i.d., Keppra Librium, neomycin, gabapentin, potassium phosphate 1 packet b.i.d., nystatin, Os-[place] 1000 t.i.d., oxycodone, prednisolone, Protonix, Slow-Mag, thiamine, Zofran. ASSESSMENT: 1. Alcoholic hepatitis. 2. Jaundice. 3. Thrombocytopenia, slowly improving. 4. Hypokalemia, resolved. 5. Hypomagnesemia, resolved. 6. Severe hypocalcemia. 7. Hypophosphatemia, resolving. 8. Alcohol abuse. 9. Depression. PLAN: 1. Continue Drisdol 50,000 units twice a week. 2. Continue calcium 1000 t.i.d. 3. Start Aldactone 25 b.i.d. 4. Continue neomycin. 5. Monitor electrolytes closely. Mariya Vega MD [facility] # [id number]
== END 2017-03-10 21:16 | DRG 897 ==
LOC: ED 21:55 → ERH 03-01 01:17 → 2RSO 03-01 03:00 → 3RNO 03-09 10:39
PROVIDERS: ADMIT Internal Medicine; ATTEND Internal Medicine
PROC: HZ2ZZZZ Detoxification Services for Substance Abuse Treatment (ICD-10-PCS; principal; 2017-03-01)
DX: F10.239 Alcohol dependence with withdrawal, unspecified (principal); F11.23 Opioid dependence with withdrawal; E87.0 Hyperosmolality and hypernatremia; D69.59 Other secondary thrombocytopenia; E46 Unspecified protein-calorie malnutrition; E83.42 Hypomagnesemia; Z68.41 Body mass index [BMI] 40.0-44.9, adult; N39.0 Urinary tract infection, site not specified; E83.39 Other disorders of phosphorus metabolism; E83.51 Hypocalcemia; E87.6 Hypokalemia; F32.9 Major depressive disorder, single episode, unspecified; Y90.8 Blood alcohol level of 240 mg/100 ml or more; G89.29 Other chronic pain; G62.1 Alcoholic polyneuropathy; K72.90 Hepatic failure, unspecified without coma; K70.10 Alcoholic hepatitis without ascites; K70.30 Alcoholic cirrhosis of liver without ascites; B96.20 Unspecified Escherichia coli [E. coli] as the cause of diseases classified elsewhere; E55.9 Vitamin D deficiency, unspecified; G40.909 Epilepsy, unspecified, not intractable, without status epilepticus; D64.9 Anemia, unspecified; I25.10 Atherosclerotic heart disease of native coronary artery without angina pectoris; I10 Essential (primary) hypertension; I89.0 Lymphedema, not elsewhere classified; B35.8 Other dermatophytoses; H10.9 Unspecified conjunctivitis; F41.1 Generalized anxiety disorder; E66.01 Morbid (severe) obesity due to excess calories; Z98.84 Bariatric surgery status; Z91.81 History of falling; Z87.11 Personal history of peptic ulcer disease; Z90.49 Acquired absence of other specified parts of digestive tract

== ENCOUNTER 2017-03-10 20:56 | Inpatient (IN) | payer BC ==
[2017-03-10 21:28] VITALS: BMI 41.1
[2017-03-10] MEDS ORDERED: oxyCODONE 5 mg Immediate Release Tab PO PRN (21:29)
[2017-03-10] MEDS ORDERED: Neomy-Polymyx-Dexameth Ophth Susp (5 ml) OU SCH (22:00)
[2017-03-11] MEDS: Sucralfate 1 gm/10 ml Oral Susp UD PO SCH ×2 (05:45→17:00)
[2017-03-11] MEDS: Pantoprazole 20 mg EC Tab PO SCH (05:45)
[2017-03-11 07:17] LABS: BASO # 0.01 K/mm3 (0.0-2.0); BASO % 0.3 % (0.0-3.0); EOS % 0.5 % (1.5-5.0); GRAN # 2.42 (1.4-6.5); GRAN % 66.5 % (50.0-68.0); HEMATOCRIT 28.8 % (36.0-48.0); LYMPH # 0.8 (1.2-3.4); MEAN CELL VOLUME 99.3 fl (80.0-105.0); MEAN CORPUSCULAR HEMOGLOBIN 31.7 pg (25.0-35.0); MEAN CORPUSCULAR HGB CONC 31.9 g/dl (31.0-37.0); MONO # 0.4 (0.1-0.6); MONO % 10.7 % (1.0-6.0); RED CELL DISTRIBUTION WIDTH 23.9 % (11.5-14.5); WHITE BLOOD COUNT 3.6 10^3/ul (4.5-11.0)
[2017-03-11 07:21] LABS: INR 2.04 (0.93-1.08)
[2017-03-11 07:24] LABS: ALB/GLOB RATIO 0.5 (1.1-1.8); ALKALINE PHOSPHATASE 136 U/L (38-126); ALT/SGPT 41 U/L (7-56); AST/SGOT 97 U/L (14-36); BILIRUBIN,DIRECT 7.6 mg/dL (0.0-0.4); BILIRUBIN,TOTAL 9.2 mg/dL (0.2-1.3); BLOOD UREA NITROGEN 3 mg/dL (7-21); CALCIUM 7.5 mg/dL (8.4-10.5); CARBON DIOXIDE 29 mmol/L (21-33); CHLORIDE 109 mmol/L (98-107); GFR AFRICAN-AMERICAN > 60; GLUCOSE,RANDOM 70 mg/dL (70-110); PHOSPHOROUS 2.1 mg/dL (2.5-4.5); POTASSIUM 4.8 mmol/L (3.6-5.0); SODIUM 142 mmol/L (132-148); TOTAL PROTEIN 6.4 g/dL (5.8-8.3)
[2017-03-11] MEDS: Multivitamin With Minerals Tab PO SCH (08:55)
[2017-03-11] MEDS ORDERED: Potassium Chloride 20 mEq ER Tab PO SCH (10:00)
[2017-03-11] MEDS: Potassium & Sodium Phosphate PO SCH ×2 (10:38→17:59)
[2017-03-11] MEDS: Magnesium Chloride 64 mg ER Tab PO SCH (10:39)
[2017-03-11] MEDS: Nystatin 100,000 Units/gm Topical Pow(15 gm) TOP SCH ×2 (11:55→18:00)
[2017-03-11] MEDS: PrednisoLONE 15 mg/5 ml Oral Syrup (240 ml) PO SCH ×2 (11:56→18:34)
--- NOTE | 2017-03-11 13:16 | CP.PCM.PN ---
Subjective - Date & Time of Evaluation Date of Evaluation: 03/11/17 Time of Evaluation: 08:45 - Subjective Subjective: S&E at bedside earlier this am, had semiloose stool, reports that she went about 7 times, c/o abdominal cramps, midabdomen, reporting urge to have BM. No bleeding. She is tolerated plate of food. Had discomfort prior to eating. No N/V , SOB or chest pain. Attempt to give stool sample but missed the container, will attempt again. Objective - Vital Signs/Intake and Output Vital Signs (last 24 hours): Temp Pulse Resp BP Pulse Ox 97.6 F 72 18 108/73 95 03/11/17 06:00 03/11/17 06:00 03/11/17 06:00 03/11/17 06:00 03/11/17 06:00 - Medications Medications: Current Medications Chlordiazepoxide (Librium) 25 mg PO Q8 [facility] PRN Reason: Protocol Last Admin: 03/11/17 05:45 Dose: 25 mg Duloxetine HCl (Cymbalta) 20 mg PO DAILY [facility] Last Admin: 03/11/17 10:36 Dose: 20 mg Ergocalciferol (Drisdol 50,000 Intl Units Cap) 1 cap PO Q7D [facility] Folic Acid (Folic Acid) 1 mg PO DAILY [facility] Last Admin: 03/11/17 10:37 Dose: 1 mg Gabapentin (Neurontin) 300 mg PO BID [facility] PRN Reason: Protocol Last Admin: 03/11/17 10:37 Dose: 300 mg Levetiracetam (Keppra) 500 mg PO BID [facility] Last Admin: 03/11/17 10:37 Dose: 500 mg Magnesium Chloride (Slow-Mag) 64 mg PO DAILY [facility] Last Admin: 03/11/17 10:39 Dose: 64 mg Multivitamins/Minerals (Therapeutic-M Tab) 1 tab PO 0800 [facility] Last Admin: 03/11/17 08:55 Dose: 1 tab Nystatin (Nystop Topical Powder) 0 gm TOP BID [facility] Last Admin: 03/11/17 11:55 Dose: 1 applic Ondansetron HCl (Zofran Tab) 4 mg PO Q8H PRN PRN Reason: Nausea/Vomiting Pantoprazole Sodium (Protonix Ec Tab) 20 mg PO 0600 [facility] Last Admin: 03/11/17 05:45 Dose: 20 mg Potassium Phos/Sodium Phos (Neutra-Phos) 1 pkt PO BID [facility] Last Admin: 03/11/17 10:38 Dose: 1 pkt Prednisolone (Prednisolone Oral Soln) 20 mg PO BID [facility] Last Admin: 03/11/17 11:56 Dose: 1 dose Spironolactone (Aldactone) 25 mg PO BID [facility] Last Admin: 03/11/17 10:36 Dose: 25 mg Sucralfate (Carafate Oral Susp) 1 gm PO 0600,1600 [facility] Last Admin: 03/11/17 05:45 Dose: 1 gm Ursodiol (Actigall) 300 mg PO BID [facility] Last Admin: 03/11/17 10:36 Dose: 300 mg Zolpidem Tartrate (Ambien) 5 mg PO HS PRN; Protocol PRN Reason: Insomnia Last Admin: 03/10/17 23:05 Dose: 5 mg - Labs Labs: 03/11/17 06:50 03/11/17 06:50 PT 22.8 SECONDS (9.4-12.5) H 03/11/17 06:50 INR 2.04 (0.93-1.08) H 03/11/17 06:50 - Constitutional Appears: No Acute Distress - Eye Exam Eye Exam: Scleral icterus - ENT Exam ENT Exam: Mucous Membranes Moist - Respiratory Exam Respiratory Exam: NORMAL BREATHING PATTERN. absent: Respiratory Distress - Cardiovascular Exam Cardiovascular Exam: +S1, +S2 - GI/Abdominal Exam GI & Abdominal Exam: Soft, Tenderness (mild mid abdominal tenderness), Normal Bowel Sounds. absent: Guarding, Rebound - Extremities Exam Extremities Exam: absent: Calf Tenderness - Neurological Exam Neurological Exam: Alert, Awake, Oriented x3 - Skin Skin Exam: Dry, Warm Additional comments: jaundice Assessment and Plan - Assessment and Plan (Free Text) Assessment: ASSESSMENT: Acute alcohol intoxication Elevated liver enzymes likely secondary to Alcoholic hepatitis, patient had elevated Maddery's discriminate factor, on prednisolone, bilirubin improving, Maddrey's Discriminate factor imporved 58.9 based on todays PT 22.8, TB of 9.2, pt was over 69 previously when started steroid. Thrombocytopenia, likely due to EtOH, improving History of acute liver failure, with poor Maddery's discriminate factor, and (+ ) SLIME, treated with steroids in the past Status post fall Frequent stools, r/o CDiff, on steroid therapy and was on antibiotics Electrolyte imbalance History of polysubstance abuse Chronic alcoholism Peripheral neuropathy UTI (+) Ecoli Obesity History of gastric bypass History of peptic ulcer disease Plan: stool for C. difficile pending collection continue diet as tolerated continue Carafate continue Protonix 20 mg po daily On Librium on Keppra Trend LFTs on folic acid continue Actigall 300mg twice a day SCD while in bed continue, prednisolone 20 mg BID May benefit from liver biopsy,if LFTs continue an operative trend, patient with h/o of positive SLIME Seen and discussed with Dr. Meza.
--- NOTE | 2017-03-11 21:19 | CON ---
HISTORY OF PRESENT ILLNESS: Shortly, the patient is 46-year-old female, history of alcohol use disorder. The patient was admitted on the medical floor for evaluation of syncopal episode and hypocalcemia. Psych consult was called for evaluation of possible depressive symptoms. The patient is chronic alcoholic as well. The patient is very familiar to this internal communications writer from the previous consultation services on the medical side. The patient was seen and examined today. The patient presented to be alert and oriented, pleasant and cooperative. The patient said that she feels much better. The patient denied thoughts of harming herself or others. The patient denied being depressed. The patient also denied hearing voices, seeing things. Overall the patient reported to feel much better. The patient is willing to increase the dose of Cymbalta as well as Neurontin. The patient reported that she sleeps well on Ambien. MEDICATIONS: Reviewed. The patient is willing to increase Cymbalta to 30 mg as well as increase Neurontin to 3 times a day. MENTAL STATUS EXAMINATION: The patient presented to be alert and oriented, pleasant, cooperative. Socially appropriate. Intermittent eye contact. Speech was normal rate, tone, quality and quantity. Thought process coherent and goal directed. Thought content: The patient denied visual, auditory, or tactile hallucinations. Denied paranoid ideation. The patient denied thoughts of harming herself or others. Denied intents or plan. Insight and judgment are improving. Impulses are well controlled. IMPRESSION: Substance-induced mood disorder, alcohol use disorder, multiple medical issues. Please see Dr. Mcdowell's notes for more detailed information. PLAN: This internal communications writer will start tapering down Librium today to 10 mg four times a day, also Neurontin was increased, Cymbalta was increased. Discussed with Dr. Mcdowell today. Over the weekend, this internal communications writer does not feel that the patient needs to be seen by psychiatrist. If acute change in mental status or presentation, please feel free to call for a consultation again. This internal communications writer will follow up on this patient on Tuesday. Naltrexone option was discussed with the patient. The patient is willing to try that medication whenever her liver function test will be better. Thank you very much for letting me participate in care of your patient. Should you have any questions give me a call back. Katrin Olivares MD
[2017-03-12] MEDS: Pantoprazole 20 mg EC Tab PO SCH (05:29)
[2017-03-12] MEDS: Sucralfate 1 gm/10 ml Oral Susp UD PO SCH ×2 (05:29→16:39)
[2017-03-12] MEDS: Multivitamin With Minerals Tab PO SCH (08:55)
[2017-03-12] MEDS: PrednisoLONE 15 mg/5 ml Oral Syrup (240 ml) PO SCH ×2 (09:44→18:24)
[2017-03-12] MEDS: Potassium & Sodium Phosphate PO SCH ×2 (09:45→18:23)
[2017-03-12] MEDS: Magnesium Chloride 64 mg ER Tab PO SCH (09:46)
[2017-03-12] MEDS: Nystatin 100,000 Units/gm Topical Pow(15 gm) TOP SCH ×2 (09:46→18:24)
--- NOTE | 2017-03-12 12:25 | CON ---
DATE: 03/11/2017 REASON FOR CONSULTATION: Anemia, hypocalcemia, hypophosphatemia, severe hypoalbuminemia. HISTORY OF PRESENT ILLNESS: A 46-year-old young woman, known to me from multiple prior evaluations. The patient was recently admitted to medical side with alcohol intoxication, severe pain, multiple electrolyte abnormalities, dehydration, acute alcoholic hepatitis. Currently, the patient is now in the transitional care unit. She is receiving rehabilitation/therapy. Her alcoholic hepatitis is slowly resolving. She still remains hypocalcemic, hypophosphatemic and her albumin is only 2.2. PAST MEDICAL AND SURGICAL HISTORY: Depression, chronic pain, alcohol dependence, multi-substance abuse, alcoholic hepatitis, alcohol intoxication, anemia, thrombocytopenia, obesity. FAMILY HISTORY: Noncontributory. SOCIAL HISTORY: No smoking, heavy alcohol abuse, no drugs. ALLERGIES: NO KNOWN DRUG ALLERGIES. MEDICATIONS: Aldactone 25 b.i.d., ambient 5, Carafate, Cymbalta, vitamin D, folic acid, Keppra, Librium, gabapentin, potassium phosphate, nystatin, prednisolone, Protonix, Slow-Mag, multivitamin and Zofran. REVIEW OF SYSTEMS: The patient reports that she is feeling better. She is tolerating her p.o. intake. Her pain is better. She denies any chest tightness. She denies any shortness of breath. PHYSICAL EXAMINATION: GENERAL EXAMINATION: Obese young woman, sitting in bed. VITAL SIGNS: Blood pressure 109/69, heart rate 80, respiratory rate 20 and temperature 98.5. HEENT: Normocephalic and atraumatic. NECK: Supple, no JVD, positive icterus. LUNGS: Bilateral equal air entry, rales. CARDIAC: S1 and S2, regular rate and rhythm, no murmur, no rub. ABDOMEN: Obese, distended, soft, tenderness in the epigastrium. EXTREMITIES: 1+ pitting edema, decreasing edema, wrinkling of the skin. LABORATORY DATA: WBC 3.6, hemoglobin 9.2, hematocrit 28.8 and platelets 105. Sodium 142, potassium 4.8, chloride 109, CO2 of 29, BUN 3, creatinine 0.8 and glucose 70. Calcium 7.5, phosphorus 2.1 magnesium 2.0. Total bili 9.2, direct bili 7.6, AST 97, ALT 41, albumin 2.2. Corrected calcium is 8.7. ASSESSMENT: 1. Alcohol abuse, multi-substance abuse. 2. Resolving alcoholic hepatitis. 3. Severe anemia. 4. Thrombocytopenia, improving. 5. Hypocalcemia, improved, corrected calcium is normal. 6. Hypophosphatemia. 7. Severe hypoalbuminemia. PLAN: 1. Continue vitamin D. 2. Continue phosphate supplementation. 3. Push p.o. intake. 4. Physical therapy. 5. Psychiatric counseling. Mariya Vega MD
[2017-03-13] MEDS: Sucralfate 1 gm/10 ml Oral Susp UD PO SCH ×2 (05:18→17:54)
[2017-03-13] MEDS: Pantoprazole 20 mg EC Tab PO SCH (05:18)
[2017-03-13] MEDS: Multivitamin With Minerals Tab PO SCH (08:27)
[2017-03-13 08:42] LABS: HEMATOCRIT 32.1 % (36.0-48.0); MEAN CORPUSCULAR HEMOGLOBIN 32.1 pg (25.0-35.0); MEAN CORPUSCULAR HGB CONC 32.1 g/dl (31.0-37.0); MEAN PLATELET VOLUME 10.8 fl (7.0-11.0); RED CELL DISTRIBUTION WIDTH 23.2 % (11.5-14.5); WHITE BLOOD COUNT 7.1 10^3/ul (4.5-11.0)
[2017-03-13 08:53] LABS: ALB/GLOB RATIO 0.6 (1.1-1.8); ALKALINE PHOSPHATASE 142 U/L (38-126); ALT/SGPT 62 U/L (7-56); AST/SGOT 184 U/L (14-36); BILIRUBIN,TOTAL 10.4 mg/dL (0.2-1.3); BLOOD UREA NITROGEN 8 mg/dL (7-21); CALCIUM 7.7 mg/dL (8.4-10.5); CARBON DIOXIDE 29 mmol/L (21-33); CHLORIDE 107 mmol/L (98-107); GFR AFRICAN-AMERICAN > 60; GLUCOSE,RANDOM 78 mg/dL (70-110); POTASSIUM 4.6 mmol/L (3.6-5.0); SODIUM 143 mmol/L (132-148); TOTAL PROTEIN 7.4 g/dL (5.8-8.3)
[2017-03-13] MEDS: PrednisoLONE 15 mg/5 ml Oral Syrup (240 ml) PO SCH ×2 (09:39→17:55)
[2017-03-13] MEDS: Potassium & Sodium Phosphate PO SCH ×2 (09:39→17:54)
[2017-03-13] MEDS: Nystatin 100,000 Units/gm Topical Pow(15 gm) TOP SCH ×2 (09:39→17:55)
[2017-03-13] MEDS: Magnesium Chloride 64 mg ER Tab PO SCH (09:39)
--- NOTE | 2017-03-13 18:09 | PN ---
DATE: 03/13/2017 SUBJECTIVE: This patient was seen and evaluated earlier today. The patient is comfortable, tolerating the diet. Diarrhea has improved. PHYSICAL EXAMINATION: VITAL SIGNS: Temperature 97.8, pulse 72, blood pressure 130/72, respirations 18, O2 saturation 91%. HEENT: Atraumatic, jaundice. NECK: Supple. HEART: S1 and S2 heard. LUNGS: Bilateral air entry present. ABDOMEN: Soft. There was no tenderness. EXTREMITIES: Mild edema present. LABORATORY DATA: Hemoglobin 10.3, hematocrit 32.1, WBC 7.1 and platelet 150, is improving. AST 184, it has gone up; ALT 62, has increased; alkaline phosphatase 142, is high; total bilirubin is 10.4. IMPRESSION: This 46-year-old patient with a long history of EtOH, admitted with following a fall and has elevated LFTs, this is probably clinically suspect of the alcoholic hepatitis. The patient is been on prednisolone 40 mg totally in divided doses. The patient has some improvement with the LFTs, but significantly remains elevated. The patient also has seizure order. The patient on Neurontin and also Keppra. The patient has anemia with hemoglobin stable. Her thrombocytopenia and platelet count is improving. The patient is also on Actigall, has SLIME positive. One of the LFTs continues to have an upward trend, if LFTs shows upper trend we will consider liver biopsy. We will continue to closely followup her care and suggest further management based on the clinical course. Ana Meza MD
--- NOTE | 2017-03-14 05:15 | PN ---
DATE: 03/13/2017 SUBJECTIVE: The patient is seen, lying in bed. She is sleeping. She appears comfortable. PHYSICAL EXAMINATION: GENERAL: Obese, middle-aged lady, lying in bed. VITAL SIGNS: Blood pressure 130/72, heart rate 72, respiratory rate 18, and temperature 97.8. HEENT: Normocephalic and atraumatic. Positive pallor. Positive icterus. NECK: Supple. No JVD. LUNGS: Bilateral equal air entry, no rales. CARDIAC: S1 and S2. Regular rate and rhythm. No murmurs. No rubs. ABDOMEN: Obese, distended, soft, and tenderness in the epigastrium. Bowel sounds present. EXTREMITIES: No lower extremity edema. INTAKE AND OUTPUT: Not charted. LABORATORY DATA: WBC 7.1, hemoglobin 10.3, hematocrit 32, and platelets 150. Sodium 143, potassium 4.6, chloride 107, CO2 of 29, BUN 8, creatinine 0.8, glucose 78, calcium 7.7, total bili 10.4, AST 184, and ALT 62. CURRENT MEDICATIONS: Actigall, Aldactone 25 b.i.d., Ambien, Carafate, Cymbalta, vitamin D, folic acid, Keppra Librium, Neurontin, potassium phosphate, nystatin, prednisone, Protonix, tramadol, and Zofran. ASSESSMENT: 1. Acute alcoholic hepatitis, resolving? 2. Alcohol dependence. 3. Hypokalemia and hypomagnesemia, resolved. 4. Hypocalcemia, resolved. PLAN: 1. Continue current management. 2. Advance diet. 3. Comfortable at this time. 4. Continue physical therapy. Mariya Vega MD
[2017-03-14] MEDS: Sucralfate 1 gm/10 ml Oral Susp UD PO SCH ×2 (05:38→17:00)
[2017-03-14] MEDS: Pantoprazole 20 mg EC Tab PO SCH (05:39)
[2017-03-14] MEDS: Multivitamin With Minerals Tab PO SCH (09:00)
--- NOTE | 2017-03-14 09:16 | CP.PCM.PCO ---
Physician Communication Note - Physician Communication Note Physician Communication Note: no acute issues, will f/u tomorrow
--- NOTE | 2017-03-14 09:42 | PN ---
DATE: 03/12/2017 SUBJECTIVE: This patient was seen and evaluated. She says the diarrhea is slowing down. PHYSICAL EXAMINATION: VITAL SIGNS: Temperature is 98.9, blood pressure 104/63, pulse 81, respirations 18, and O2 saturation 96. HEENT: Atraumatic and anicteric. NECK: Supple. HEART: S1 and S2 heard. LUNGS: Bilateral air entry present. ABDOMEN: Soft. No tenderness. EXTREMITIES: No cyanosis. No clubbing. Mild edema present. LABORATORY DATA: There are no recent labs today. Yesterday's labs show slight decrease in total bilirubin. IMPRESSION: This is a 46-year-old patient with a history of long-term alcohol use, admitted with increased liver enzymes. The patient had status post fall and also recently treated for urinary tract infection with Cipro. The patient is presently on prednisolone for alcoholic hepatitis. Would recommend p.r.n. prednisolone. 1. ration is very high. Bilirubin is now coming down. 2. History of anemia, thrombocytopenia improving and hemoglobin also is now stable at 9.2. The patient is on pantoprazole 20 mg and also on Carafate, we will continue that. Stool for Clostridium difficile sent and is negative. We will continue to closely follow up her care and suggest further management based on the clinical course. We will repeat the labs. Thank you very much. Ana eMza MD 03/12/2017
[2017-03-14] MEDS: Potassium & Sodium Phosphate PO SCH ×2 (09:47→18:28)
[2017-03-14] MEDS: Nystatin 100,000 Units/gm Topical Pow(15 gm) TOP SCH ×2 (09:47→18:28)
[2017-03-14] MEDS: Magnesium Chloride 64 mg ER Tab PO SCH (09:48)
[2017-03-14] MEDS: PrednisoLONE 15 mg/5 ml Oral Syrup (240 ml) PO SCH ×2 (11:00→18:28)
--- NOTE | 2017-03-14 11:03 | CP.PCM.PN ---
<Whitney Rojas - Last Filed: 03/14/17 11:01> Subjective - Date & Time of Evaluation Date of Evaluation: 03/14/17 Time of Evaluation: 10:10 - Subjective Subjective: Seen and examined at the bedside earlier this morning, the chart was reviewed. Patient is awake but appears tired but easily arousable. She complains of back pain. Denies nausea, vomiting, or abdominal pain. Having formed stool, denies diarrhea. No reports of overt GI bleeding. Objective - Vital Signs/Intake and Output Vital Signs (last 24 hours): Temp Pulse Resp BP Pulse Ox 98.1 F 87 16 103/69 96 03/14/17 05:50 03/14/17 05:50 03/14/17 05:50 03/14/17 05:50 03/14/17 05:50 Intake and Output: 03/14/17 03/14/17 06:59 18:59 Intake Total 360 Balance 360 - Medications Medications: Current Medications Chlordiazepoxide (Librium) 10 mg PO QID [facility] PRN Reason: Protocol Last Admin: 03/14/17 01:09 Dose: Not Given Duloxetine HCl (Cymbalta) 30 mg PO DAILY [facility] Last Admin: 03/14/17 09:45 Dose: 30 mg Ergocalciferol (Drisdol 50,000 Intl Units Cap) 1 cap PO Q7D [facility] Folic Acid (Folic Acid) 1 mg PO DAILY [facility] Last Admin: 03/14/17 09:46 Dose: 1 mg Gabapentin (Neurontin) 300 mg PO TID [facility] PRN Reason: Protocol Last Admin: 03/14/17 09:47 Dose: 300 mg Levetiracetam (Keppra) 500 mg PO BID [facility] Last Admin: 03/14/17 09:46 Dose: 500 mg Magnesium Chloride (Slow-Mag) 64 mg PO DAILY [facility] Last Admin: 03/14/17 09:48 Dose: 64 mg Multivitamins/Minerals (Therapeutic-M Tab) 1 tab PO 0800 [facility] Last Admin: 03/14/17 09:00 Dose: 1 tab Nystatin (Nystop Topical Powder) 0 gm TOP BID [facility] Last Admin: 03/14/17 09:47 Dose: 1 applic Ondansetron HCl (Zofran Tab) 4 mg PO Q8H PRN PRN Reason: Nausea/Vomiting Pantoprazole Sodium (Protonix Ec Tab) 20 mg PO 0600 [facility] Last Admin: 03/14/17 05:39 Dose: 20 mg Potassium Phos/Sodium Phos (Neutra-Phos) 1 pkt PO BID [facility] Last Admin: 03/14/17 09:47 Dose: 1 pkt Prednisolone (Prednisolone Oral Soln) 20 mg PO BID [facility] Last Admin: 03/13/17 17:55 Dose: 1 dose Spironolactone (Aldactone) 25 mg PO BID [facility] Last Admin: 03/14/17 09:45 Dose: 25 mg Sucralfate (Carafate Oral Susp) 1 gm PO 0600,1600 [facility] Last Admin: 03/14/17 05:38 Dose: 1 gm Tramadol HCl (Ultram) 50 mg PO Q8H PRN; Protocol PRN Reason: Pain, severe (8-10) Last Admin: 03/14/17 09:39 Dose: 50 mg Ursodiol (Actigall) 300 mg PO BID [facility] Last Admin: 03/14/17 09:45 Dose: 300 mg Zolpidem Tartrate (Ambien) 5 mg PO HS PRN; Protocol PRN Reason: Insomnia Last Admin: 03/12/17 21:56 Dose: 5 mg - Labs Labs: 03/13/17 08:00 03/13/17 08:00 PT 22.8 SECONDS (9.4-12.5) H 03/11/17 06:50 INR 2.04 (0.93-1.08) H 03/11/17 06:50 - Constitutional Appears: No Acute Distress - Eye Exam Eye Exam: Normal appearance - ENT Exam ENT Exam: Mucous Membranes Moist - Neck Exam Neck Exam: Normal Inspection - Respiratory Exam Respiratory Exam: NORMAL BREATHING PATTERN. absent: Respiratory Distress - Cardiovascular Exam Cardiovascular Exam: +S1, +S2 - GI/Abdominal Exam GI & Abdominal Exam: Soft, Normal Bowel Sounds. absent: Guarding, Tenderness, Rebound - Extremities Exam Extremities Exam: absent: Calf Tenderness - Neurological Exam Neurological Exam: Alert, Awake, Oriented x3 - Skin Skin Exam: Dry, Warm Additional comments: jaundice Assessment and Plan - Assessment and Plan (Free Text) Assessment: ASSESSMENT: Acute alcohol intoxication Elevated liver enzymes likely secondary to Alcoholic hepatitis, patient had elevated Maddery's discriminate factor, on prednisolone, bilirubin improving, Maddrey's Discriminate factor improved Thrombocytopenia, likely due to EtOH, improving History of acute liver failure, with poor Maddery's discriminate factor, and (+ ) SLIME, treated with steroids in the past Status post fall History of polysubstance abuse Chronic alcoholism Peripheral neuropathy UTI (+) Ecoli Obesity History of gastric bypass History of peptic ulcer disease Plan: list of breath continue diet as tolerated continue Carafate continue Protonix 20 mg po daily On Librium on Keppra Trend LFTs on folic acid continue Actigall 300mg twice a day SCD while in bed continue, prednisolone 20 mg BID check labs today, ammonia level, cmp, cbc, pt/ptt May benefit from liver biopsy,if LFTs continue an operative trend, patient with h/o of positive SLIME Seen and discussed with Dr. Meza. <Ana Meza V - Last Filed: 03/14/17 22:43> Objective - Vital Signs/Intake and Output Vital Signs (last 24 hours): Temp Pulse Resp BP Pulse Ox 99.5 F 83 14 110/65 90 L 03/14/17 16:31 03/14/17 16:31 03/14/17 16:31 03/14/17 16:31 03/14/17 16:31 - Medications Medications: Current Medications Chlordiazepoxide (Librium) 10 mg PO QID [facility] PRN Reason: Protocol Last Admin: 03/14/17 21:43 Dose: Not Given Duloxetine HCl (Cymbalta) 30 mg PO DAILY [facility] Last Admin: 03/14/17 09:45 Dose: 30 mg Ergocalciferol (Drisdol 50,000 Intl Units Cap) 1 cap PO Q7D [facility] Folic Acid (Folic Acid) 1 mg PO DAILY [facility] Last Admin: 03/14/17 09:46 Dose: 1 mg Gabapentin (Neurontin) 300 mg PO TID [facility] PRN Reason: Protocol Last Admin: 03/14/17 18:27 Dose: 300 mg Lactulose (Enulose) 20 gm PO Q6H [facility] Last Admin: 03/14/17 21:42 Dose: 20 gm Levetiracetam (Keppra) 500 mg PO BID [facility] Last Admin: 03/14/17 18:26 Dose: 500 mg Magnesium Chloride (Slow-Mag) 64 mg PO DAILY [facility] Last Admin: 03/14/17 09:48 Dose: 64 mg Multivitamins/Minerals (Therapeutic-M Tab) 1 tab PO 0800 [facility] Last Admin: 03/14/17 09:00 Dose: 1 tab Nystatin (Nystop Topical Powder) 0 gm TOP BID [facility] Last Admin: 03/14/17 18:28 Dose: 1 applic Ondansetron HCl (Zofran Tab) 4 mg PO Q8H PRN PRN Reason: Nausea/Vomiting Last Admin: 03/14/17 12:19 Dose: 4 mg Pantoprazole Sodium (Protonix Ec Tab) 20 mg PO 0600 [facility] Last Admin: 03/14/17 05:39 Dose: 20 mg Potassium Phos/Sodium Phos (Neutra-Phos) 1 pkt PO BID [facility] Last Admin: 03/14/17 18:28 Dose: 1 pkt Prednisolone (Prednisolone Oral Soln) 20 mg PO BID [facility] Last Admin: 03/14/17 18:28 Dose: 1 dose Spironolactone (Aldactone) 25 mg PO DAILY [facility] Sucralfate (Carafate Oral Susp) 1 gm PO 0600,1600 [facility] Last Admin: 03/14/17 17:00 Dose: 1 gm Tramadol HCl (Ultram) 50 mg PO Q8H PRN; Protocol PRN Reason: Pain, severe (8-10) Last Admin: 03/14/17 09:39 Dose: 50 mg Ursodiol (Actigall) 300 mg PO BID [facility] Last Admin: 03/14/17 18:25 Dose: 300 mg Zolpidem Tartrate (Ambien) 5 mg PO HS PRN; Protocol PRN Reason: Insomnia Last Admin: 03/12/17 21:56 Dose: 5 mg - Labs Labs: 03/14/17 11:30 03/14/17 11:30 PT 25.0 SECONDS (9.4-12.5) H 03/14/17 11:30 INR 2.24 (0.93-1.08) H 03/14/17 11:30 APTT 37.4 Seconds (25.1-36.5) H 03/14/17 11:30 Attending/Attestation - Attestation I have personally seen and examined this patient.: Yes I have fully participated in the care of the patient.: Yes I have reviewed all pertinent clinical information, including history, physical exam and plan: Yes Notes (Text): This is an addendum to GI progress report dictated by Whitney Rojas APN.The patient was seen and examined earlier. Medical records, lab studies, imagings were reviewed. Last 24 hours events reviewed. Agreed with the above treatment plan as outlined in Whitney Rojas APN's notes the with the addition of the following patient states the diarrhea has slowed down The real concern is increasing LFTs history total bilirubin.his LFTs showing increasing trend off total bilirubin. Patient is on Predinisolone 40 mg daily. Elevated ammonia level on lactulose. Will start Xifaxan Patient is also found to have again a positive. Patient may need liver biopsy even the case of autoimmune hepatitis with prednisone should help to improve the LFTs. We'll closely follow up LFT 03/14/17 22:39
[2017-03-14 11:39] LABS: BASO # 0.04 K/mm3 (0.0-2.0); BASO % 0.6 % (0.0-3.0); EOS # 0.1 (0.0-0.7); EOS % 1.4 % (1.5-5.0); GRAN # 4.94 (1.4-6.5); HEMATOCRIT 28.6 % (36.0-48.0); LYMPH % 14.6 % (22.0-35.0); MEAN CELL VOLUME 99.7 fl (80.0-105.0); MEAN CORPUSCULAR HEMOGLOBIN 32.4 pg (25.0-35.0); MEAN CORPUSCULAR HGB CONC 32.5 g/dl (31.0-37.0); MEAN PLATELET VOLUME 11.2 fl (7.0-11.0); MONO # 0.6 (0.1-0.6); MONO % 8.4 % (1.0-6.0); RED CELL DISTRIBUTION WIDTH 23.2 % (11.5-14.5); WHITE BLOOD COUNT 6.6 10^3/ul (4.5-11.0)
[2017-03-14 11:47] LABS: ALB/GLOB RATIO 0.6 (1.1-1.8); ALKALINE PHOSPHATASE 123 U/L (38-126); ALT/SGPT 68 U/L (7-56); AST/SGOT 194 U/L (14-36); BILIRUBIN,TOTAL 11.3 mg/dL (0.2-1.3); BLOOD UREA NITROGEN 10 mg/dL (7-21); CALCIUM 7.3 mg/dL (8.4-10.5); CARBON DIOXIDE 26 mmol/L (21-33); CHLORIDE 107 mmol/L (98-107); GFR AFRICAN-AMERICAN > 60; GLUCOSE,RANDOM 77 mg/dL (70-110); POTASSIUM 3.7 mmol/L (3.6-5.0); SODIUM 140 mmol/L (132-148); TOTAL PROTEIN 6.4 g/dL (5.8-8.3)
[2017-03-14 11:53] LABS: INR 2.24 (0.93-1.08); PARTIAL THROMBOPLASTIN TIME 37.4 Seconds (25.1-36.5)
--- NOTE | 2017-03-14 13:02 | PN ---
DATE: 03/12/2017 DAILY PROGRESS NOTE SUBJECTIVE: The patient is a 46-year-old female who is admitted to [facility] on 03/01/2017 with hypocalcemia. She presented to the emergency room after suffering what appeared to be a syncopal episode. She has a past medical history of alcoholic intoxication, alcoholic cirrhosis, and electrolyte imbalance. She is being followed by Dr. Kelsey, the process technician and Dr. Meza, the sort manager. She was transferred to the Transitional Care Unit on 03/10/2017, for physical therapy. PHYSICAL EXAMINATION: GENERAL: When seen, the patient is resting comfortable. HEART: Regular anteriorly. LUNGS: Clear. VITAL SIGNS: Stable. PLAN: We will continue to follow the patient closely and encourage discontinuation of all alcohol and opiates. Russell Mcdowell MD
--- NOTE | 2017-03-14 13:59 | PN ---
DATE: 03/11/2017 DAILY PROGRESS NOTE SUBJECTIVE: The patient is a 46-year-old female who is admitted to [facility] on 03/01/2017 after suffering a possible syncopal episode. She was found to have hypocalcemia in the emergency room and was admitted. She has a history of alcoholic intoxication, alcoholic cirrhosis. She is being followed by Dr. Kelsey, supervisor fiberglass boat assembly for electrolyte imbalance as well as Dr. Meza for her alcoholic cirrhosis. She did well during the hospital stay and on the 03/10/2017 was transferred to the Transitional Care Unit. The patient continues to do well; however, she continues to complain of back pain due to the hospital bed and she is requesting opioid analgesics, which we are very very reluctant to give. Today, the patient is awake, alert and oriented. Her livers enzymes have been arising however. Total bilirubin is 7.6, AST is 97, and ALT is 41. PHYSICAL EXAMINATION: VITAL SIGNS: Her temperature is 97.6 degrees Fahrenheit, blood pressure is 108/73, and heart rate is 72 beats per minute. GENERAL: She is morbidly obese. HEART: Regular. CHEST: THE lungs are clear to auscultation and percussion. GASTROINTESTINAL: Abdomen is soft and nontender. EXTREMITIES: She has extreme edema of bilateral lower extremities. She has anasarca. SKIN: Dermatophytosis of the skin folds is nicely clearing up. LABORATORY DATA: Showed white blood cell count to be 3.6 and hemoglobin and hematocrit are 9.2 and 28.8. BUN is 3 and creatinine is 0.8. Her calcium is 7.5. ASSESSMENT AND PLAN: We are continuing to follow the patient closely and discouraging use of alcohol and opioids as well. Russell Mcdowell MD
--- NOTE | 2017-03-14 16:11 | PN ---
DAILY PROGRESS NOTE DATE: 03/13/2017 The patient is a 46-year-old female who presented to the [facility] after suffering what appeared to be a syncopal episode. She was found to be severely hypocalcemic and was admitted to the medical floor. Here, she is being followed by Dr. Kelsey, the kiln placer for her electrolyte imbalance as well as Dr. Meza, deburrer machine for her alcoholic cirrhosis. She was transferred to the transitional care on 03/10/2017. She is being treated with Actigall 300 mg twice a day, Aldactone 25 mg twice a day, Ambien 5 mg at bedtime for insomnia, Carafate 1 g twice a day, Cymbalta 30 mg daily, ergocalciferol 5000 units every 7 days, folic acid 1 mg daily, Keppra 500 mg twice a day, Librium 10 mg four times a day, Neurontin 300 mg three times a day, Neutra-Phos one packet twice a day, Nystatin topical powder to skin folds for dermatophytosis, prednisolone solution 20 mg twice a day, Protonix 20 mg, Slow-Mag 64 mg daily, multivitamins, Ultram 50 mg every 8 hours as needed for pain, and Zofran p.r.n. nausea and vomiting. The patient continues to request opiates for low back pain; however, she was repeatedly told that she is to discontinue opiates and alcohol. Her bilirubin has been slowly rising, went from 9.2 to 10.4. AST is also rising to 184, ALT is 62, her calcium currently is 7.7, phosphorus is 2.1. White blood cell count is 7.1, hemoglobin and hematocrit are 10.3 and 32.1, platelet is 150. Sodium is 143, potassium is 4.6. Blood urea nitrogen is 80, creatinine is 0.8. Her vital signs are stable. When seen, she was resting comfortably. In fact, she was a bit obtunded. The nursing staff asked the patient's permission to go through her things, where they found some empty medicine vials, 2 were unlabeled, 2 were labeled oxycodone; however, they were empty. The patient denies ever taking them and not taking drugs on her own during her hospital stay. We will continue to follow the patient clinically. Russell Mcdowell MD
[2017-03-15 05:58] LABS: INR 2.26 (0.93-1.08); PARTIAL THROMBOPLASTIN TIME 37.6 Seconds (25.1-36.5)
[2017-03-15 06:06] LABS: ALB/GLOB RATIO 0.5 (1.1-1.8); ALKALINE PHOSPHATASE 122 U/L (38-126); ALT/SGPT 87 U/L (7-56); AST/SGOT 213 U/L (14-36); BILIRUBIN,TOTAL 11.8 mg/dL (0.2-1.3); BLOOD UREA NITROGEN 9 mg/dL (7-21); CALCIUM 7.7 mg/dL (8.4-10.5); CARBON DIOXIDE 28 mmol/L (21-33); CHLORIDE 110 mmol/L (95-110); GFR AFRICAN-AMERICAN > 60; GLUCOSE,RANDOM 83 mg/dL (70-110); POTASSIUM 3.9 mmol/L (3.6-5.0); SODIUM 146 mmol/L (132-148); TOTAL PROTEIN 6.8 g/dL (5.8-8.3)
[2017-03-15] MEDS: Sucralfate 1 gm/10 ml Oral Susp UD PO SCH ×2 (06:17→17:15)
[2017-03-15] MEDS: Pantoprazole 20 mg EC Tab PO SCH (06:18)
[2017-03-15] MEDS: Nystatin 100,000 Units/gm Topical Pow(15 gm) TOP SCH ×2 (09:20→17:19)
[2017-03-15] MEDS: Potassium & Sodium Phosphate PO SCH ×2 (09:20→17:19)
[2017-03-15] MEDS: Multivitamin With Minerals Tab PO SCH (09:22)
[2017-03-15] MEDS: Magnesium Chloride 64 mg ER Tab PO SCH (09:22)
--- NOTE | 2017-03-15 09:31 | PN ---
DATE: 03/14/2017 SUBJECTIVE: The patient is seen sitting in chair. She is awake. She is alert. She reported she is not feeling well. She is complaining of back pain. She is complaining of lower extremity pain. PHYSICAL EXAMINATION: GENERAL: Obese young woman, sitting in chair. VITAL SIGNS: Blood pressure 117/76, heart rate 107, respiratory rate 20 and temperature 99.3. HEENT: Normocephalic, atraumatic. NECK: Supple, no JVD. LUNGS: Bilateral equal air entry, no rales. CARDIAC: S1 and S2, regular rate and rhythm, no murmur, no rub. ABDOMEN: Obese, distended, soft, nontender, bowel sounds present. EXTREMITIES: No lower extremity edema. INTAKE AND OUTPUT: Not charted. LABORATORY DATA: WBC 6.6, hemoglobin 9.3, hematocrit 28.6, and platelets 117. Sodium 140, potassium 3.7, chloride 107, CO2 of 26, BUN 10, creatinine 0.8, glucose 77, calcium 7.3, total bilirubin 11.3, AST 194, ALT 68, and albumin 2.3. CURRENT MEDICATIONS: Actigall, Aldactone 25 b.i.d., zolpidem, sucralfate, duloxetine, vitamin D, lactulose, folic acid, Keppra, Librium, gabapentin, potassium phosphate, nystatin, and prednisolone. ASSESSMENT: 1. Alcoholic hepatitis. 2. Once again raising bilirubin. 3. Hypokalemia. 4. Resolved edema. 5. Chronic back pain. 6. Hypotension. PLAN: 1. Change Aldactone to 25 mg daily. 2. Push p.o. intake. 3. Monitor liver enzymes and bilirubin. 4. Physical therapy. Mariya Vega MD
[2017-03-15] MEDS: PrednisoLONE 15 mg/5 ml Oral Syrup (240 ml) PO SCH ×2 (10:56→17:32)
--- NOTE | 2017-03-15 15:53 | PN ---
SUBJECTIVE: The patient is currently seen ambulating in her room in the TCU. She appears to be doing better. She is having a better day today. She has no complaints. She states that she is fully committed to giving up alcohol. MEDICATIONS: Medication list reviewed. The patient is on Actigall, Aldactone, Ambien, Carafate, Cymbalta, vitamin D, Enulose, folic acid, Keppra, Librium, Neurontin, Neutra-Phos, Nystatin powder, prednisolone oral solution, Protonix, Slow-Mag, MultiVites, Ultram, Xifaxan, and Zofran p.r.n. OBJECTIVE: VITAL SIGNS: Blood pressure 101/55, pulse 82, respiratory rate 18. HEENT: Normocephalic, atraumatic. Conjunctivae are pale. Sclerae are icteric. NECK: Supple. No neck vein distention. CHEST: Clear to auscultation and percussion. No rales. No rhonchi. No wheezing. CARDIOVASCULAR: Regular rate and rhythm with no audible murmurs, rubs, or gallops noted. ABDOMEN: Soft, mildly obese. No distention. Bowel sounds normal. No rebound. No guarding. EXTREMITIES: Show no cyanosis or clubbing. She has no lower extremity edema. Legs are puffy. NEUROLOGIC: Shows no asterixis. LABORATORY DATA: CBC, white blood cell count from yesterday 6.6, hemoglobin 9.3, platelet count is 117,000. Coags, PT 25.3, PTT 37.6. Chemistries, normal electrolytes, calcium is 7.7, corrects to normal for an albumin of 2.4. Ammonia level is 69. Liver enzymes remain elevated, AST 213 with an ALT of 87. Bilirubin is 11.7. Last phosphorus from several days ago was 2.1 with a magnesium level of 2.0. Stool for C. diff done several days ago was negative. ASSESSMENT: 1. Substance abuse with alcohol abuse and liver disease as noted above. 2. Status post multiple electrolyte abnormalities including that of hypokalemia, hypomagnesemia, hypocalcemia, hypophosphatemia. At present, her electrolytes are all within reasonable range with the exception of a low phosphorus level from several days ago. The patient does remain on oral phosphorus supplements. Repeat phosphorus level to be done tomorrow. 3. History of vitamin D deficiency. The patient will continue ergocalciferol weekly. 4. Hepatitis secondary to alcohol abuse with elevated liver enzymes, elevated bilirubin, elevated ammonia level, on lactulose and Xifaxan. 5. Past history of seizure disorder, possibly secondary to alcohol withdrawal. The patient remains on Keppra therapy. PLAN: 1. Continue rehabilitation in the TCU. 2. The patient is fully committed to never using alcohol again with the encouragement of her family and close friends. 3. Continue to monitor electrolytes on a regular basis throughout the hospital stay. 4. Recheck phosphorus level, this was done several days ago, with continued phosphorus supplements. 5. Continued close renal followup throughout the remainder of her hospital stay. Anthony Kelsey MD
--- NOTE | 2017-03-15 17:18 | CP.PCM.PN ---
<Whitney Rojas - Last Filed: 03/15/17 17:13> Subjective - Date & Time of Evaluation Date of Evaluation: 03/15/17 Time of Evaluation: 10:20 - Subjective Subjective: Seen and examined at the bedside earlier today, chart was reviewed. Patient is out of bed to chair is more alert and awake and reports that she feels better today. Her ammonia level was elevated yesterday over 70, patient tolerated lactulose, she had bowel movements, no reports of any bleeding. Denies nausea, vomiting, or abdominal pain. Ammonia level this morning is improved at 69. Objective - Vital Signs/Intake and Output Vital Signs (last 24 hours): Temp Pulse Resp BP Pulse Ox 98.7 F 87 18 92/58 L 94 L 03/15/17 16:02 03/15/17 16:02 03/15/17 16:02 03/15/17 16:02 03/15/17 16:02 Intake and Output: 03/15/17 03/15/17 06:59 18:59 Intake Total 450 Balance 450 - Medications Medications: Current Medications Chlordiazepoxide (Librium) 10 mg PO TID [facility] PRN Reason: Protocol Duloxetine HCl (Cymbalta) 30 mg PO DAILY [facility] Last Admin: 03/15/17 09:17 Dose: 30 mg Ergocalciferol (Drisdol 50,000 Intl Units Cap) 1 cap PO Q7D [facility] Folic Acid (Folic Acid) 1 mg PO DAILY [facility] Last Admin: 03/15/17 09:18 Dose: 1 mg Gabapentin (Neurontin) 300 mg PO TID [facility] PRN Reason: Protocol Last Admin: 03/15/17 13:55 Dose: 300 mg Lactulose (Enulose) 20 gm PO Q6H [facility] Last Admin: 03/15/17 09:17 Dose: 20 gm Levetiracetam (Keppra) 500 mg PO BID [facility] Last Admin: 03/15/17 09:18 Dose: 500 mg Magnesium Chloride (Slow-Mag) 64 mg PO DAILY [facility] Last Admin: 03/15/17 09:22 Dose: 64 mg Multivitamins/Minerals (Therapeutic-M Tab) 1 tab PO 0800 [facility] Last Admin: 03/15/17 09:22 Dose: 1 tab Nystatin (Nystop Topical Powder) 0 gm TOP BID [facility] Last Admin: 03/15/17 09:20 Dose: 1 applic Ondansetron HCl (Zofran Tab) 4 mg PO Q8H PRN PRN Reason: Nausea/Vomiting Last Admin: 03/14/17 12:19 Dose: 4 mg Pantoprazole Sodium (Protonix Ec Tab) 20 mg PO 0600 [facility] Last Admin: 03/15/17 06:18 Dose: 20 mg Potassium Phos/Sodium Phos (Neutra-Phos) 1 pkt PO BID [facility] Last Admin: 03/15/17 09:20 Dose: 1 pkt Prednisolone (Prednisolone Oral Soln) 20 mg PO BID [facility] Last Admin: 03/15/17 10:56 Dose: 1 dose Rifaximin (Xifaxan) 550 mg PO BID [facility] PRN Reason: Protocol Last Admin: 03/15/17 13:57 Dose: 550 mg Spironolactone (Aldactone) 25 mg PO DAILY [facility] Last Admin: 03/15/17 09:15 Dose: 25 mg Sucralfate (Carafate Oral Susp) 1 gm PO 0600,1600 [facility] Last Admin: 03/15/17 06:17 Dose: 1 gm Tramadol HCl (Ultram) 50 mg PO Q8H PRN; Protocol PRN Reason: Pain, severe (8-10) Last Admin: 03/14/17 09:39 Dose: 50 mg Ursodiol (Actigall) 300 mg PO BID [facility] Last Admin: 03/15/17 09:23 Dose: 300 mg Zolpidem Tartrate (Ambien) 5 mg PO HS PRN; Protocol PRN Reason: Insomnia Last Admin: 03/12/17 21:56 Dose: 5 mg - Labs Labs: 03/14/17 11:30 03/15/17 05:30 PT 25.3 SECONDS (9.4-12.5) H 03/15/17 05:30 INR 2.26 (0.93-1.08) H 03/15/17 05:30 APTT 37.6 Seconds (25.1-36.5) H 03/15/17 05:30 - Constitutional Appears: No Acute Distress - Eye Exam Eye Exam: Scleral icterus - ENT Exam ENT Exam: Mucous Membranes Moist - Respiratory Exam Respiratory Exam: Decreased Breath Sounds, NORMAL BREATHING PATTERN. absent: Rales, Wheezes, Respiratory Distress - Cardiovascular Exam Cardiovascular Exam: +S1, +S2 - GI/Abdominal Exam GI & Abdominal Exam: Soft, Normal Bowel Sounds. absent: Guarding, Tenderness, Organomegaly, Rebound - Extremities Exam Extremities Exam: Pedal Edema. absent: Calf Tenderness, Normal Capillary Refill - Neurological Exam Neurological Exam: Alert, Awake, Oriented x3 - Skin Skin Exam: Dry, Warm Additional comments: jaundice Assessment and Plan - Assessment and Plan (Free Text) Assessment: ASSESSMENT: Hepatic Encephalopathy Acute alcohol intoxication Elevated liver enzymes likely secondary to Alcoholic hepatitis, patient had elevated Maddery's discriminate factor, on prednisolone, bilirubin improving, Maddrey's Discriminate factor improved Thrombocytopenia, likely due to EtOH, improving History of acute liver failure, with poor Maddery's discriminate factor, and (+ ) SLIME, treated with steroids in the past Status post fall History of polysubstance abuse Chronic alcoholism Peripheral neuropathy UTI (+) Ecoli Obesity History of gastric bypass History of peptic ulcer disease Plan: continue diet as tolerated Continue lactulose Start Xifaxan twice a day continue Carafate continue Protonix 20 mg po daily On Librium, consider decreasing dose on Keppra Trend LFTs on folic acid continue Actigall 300mg twice a day SCD while in bed continue, prednisolone 20 mg BID Patient's liver enzymes are noted to be elevated especially total bilirubin, also consider medication-induced, patient is on Librium we will discuss with psychiatric services regarding considering decreasing the dose, patient with elevated ammonia level. There is a slight improvement. VM left with Dr. Katrin Erazo this afternoon, will FU. May benefit from liver biopsy,if LFTs continue an operative trend, patient with h/o of positive SLIME Seen and discussed with Dr. Meza. <Ana Meza V - Last Filed: 03/15/17 23:46> Objective - Vital Signs/Intake and Output Vital Signs (last 24 hours): Temp Pulse Resp BP Pulse Ox 98.7 F 87 18 92/58 L 94 L 03/15/17 16:02 03/15/17 16:02 03/15/17 16:02 03/15/17 16:02 03/15/17 16:02 Intake and Output: 03/15/17 03/16/17 18:59 06:59 Intake Total 450 520 Balance 450 520 - Medications Medications: Current Medications Chlordiazepoxide (Librium) 10 mg PO TID [facility] PRN Reason: Protocol Last Admin: 03/15/17 17:25 Dose: 10 mg Duloxetine HCl (Cymbalta) 30 mg PO DAILY [facility] Last Admin: 03/15/17 09:17 Dose: 30 mg Ergocalciferol (Drisdol 50,000 Intl Units Cap) 1 cap PO Q7D [facility] Folic Acid (Folic Acid) 1 mg PO DAILY [facility] Last Admin: 03/15/17 09:18 Dose: 1 mg Gabapentin (Neurontin) 300 mg PO TID [facility] PRN Reason: Protocol Last Admin: 03/15/17 17:18 Dose: 300 mg Lactulose (Enulose) 20 gm PO Q6H [facility] Last Admin: 03/15/17 21:48 Dose: 20 gm Levetiracetam (Keppra) 500 mg PO BID [facility] Last Admin: 03/15/17 17:18 Dose: 500 mg Magnesium Chloride (Slow-Mag) 64 mg PO DAILY [facility] Last Admin: 03/15/17 09:22 Dose: 64 mg Multivitamins/Minerals (Therapeutic-M Tab) 1 tab PO 0800 [facility] Last Admin: 03/15/17 09:22 Dose: 1 tab Nystatin (Nystop Topical Powder) 0 gm TOP BID [facility] Last Admin: 03/15/17 17:19 Dose: 1 applic Ondansetron HCl (Zofran Tab) 4 mg PO Q8H PRN PRN Reason: Nausea/Vomiting Last Admin: 03/14/17 12:19 Dose: 4 mg Pantoprazole Sodium (Protonix Ec Tab) 20 mg PO 0600 [facility] Last Admin: 03/15/17 06:18 Dose: 20 mg Potassium Phos/Sodium Phos (Neutra-Phos) 1 pkt PO BID [facility] Last Admin: 03/15/17 17:19 Dose: 1 pkt Prednisolone (Prednisolone Oral Soln) 20 mg PO BID [facility] Last Admin: 03/15/17 17:32 Dose: 1 dose Rifaximin (Xifaxan) 550 mg PO BID [facility] PRN Reason: Protocol Last Admin: 03/15/17 17:26 Dose: 550 mg Spironolactone (Aldactone) 25 mg PO DAILY [facility] Last Admin: 03/15/17 09:15 Dose: 25 mg Sucralfate (Carafate Oral Susp) 1 gm PO 0600,1600 [facility] Last Admin: 03/15/17 17:15 Dose: 1 gm Tramadol HCl (Ultram) 50 mg PO Q8H PRN; Protocol PRN Reason: Pain, severe (8-10) Last Admin: 03/14/17 09:39 Dose: 50 mg Ursodiol (Actigall) 300 mg PO BID [facility] Last Admin: 03/15/17 17:16 Dose: 300 mg Zolpidem Tartrate (Ambien) 5 mg PO HS PRN; Protocol PRN Reason: Insomnia Last Admin: 03/12/17 21:56 Dose: 5 mg - Labs Labs: 03/14/17 11:30 03/15/17 05:30 PT 25.3 SECONDS (9.4-12.5) H 03/15/17 05:30 INR 2.26 (0.93-1.08) H 03/15/17 05:30 APTT 37.6 Seconds (25.1-36.5) H 03/15/17 05:30 Attending/Attestation - Attestation I have personally seen and examined this patient.: Yes I have fully participated in the care of the patient.: Yes I have reviewed all pertinent clinical information, including history, physical exam and plan: Yes Notes (Text): p 03/15/17 23:46
--- NOTE | 2017-03-15 17:43 | CP.PCM.CON ---
<Óscar Vincent - Last Filed: 03/15/17 17:51> History of Present Illness - History of Present Illness History of Present Illness: Neurology Consult Note for Dr. Bao Vincent PGY2 Reason for consult: syncope/fall HPI: Patient is a 46yo female with past medical history of alcohol abuse, polysubstance abuse, hypokalemia, cirrhosis, neuropathy, diverticulitis, anxiety /depression who came to the ED for fall. She reports she was drinking alcohol for several weeks then stopped for a couple days and began drinking again. She got out of the bed and felt weak in her legs and fell on the right side of her head. She did not lose consciousness and denies tongue biting, bowel/bladder incontinence, vision changes, weakness, fever or chills, chest pain, dizziness, vertigo or shortness of breath. Patient has had prior hospitalizations in the past for similar circumstances. In the ED, head CT was noted to be negative for acute pathology. Maxillofacial CT was negative for fracture. She was found to be hypokalemic, hypocalcemic, hypernatremic and hyperbilirubinemia. Patient was also positive for alcohol and opiates. Presently, she is in the transitional care unit for physical strengthening due to generalized weakness and deconditioning. 12point ROS as per HPI above otherwise negative Past medical history: alcohol abuse, polysubstance abuse, hypokalemia, cirrhosis , neuropathy, diverticulitis, anxiety/depression Past surgical history: Cholecystectomy, gastric bypass Allergies: No known allergies Social Hx: Positive for alcohol use, polysubstance abuse (opioids) Family Hx: Noncontributory Past Patient History - Infectious Disease Hx of Infectious Diseases: None - Tetanus Immunizations Tetanus Immunization: Unknown - Past Medical History & Family History Past Medical History?: Yes - Past Social History Smoking Status: Never Smoked - CARDIAC Hx Cardiac Disorders: Yes (CAD) Hx Hypertension: Yes - PULMONARY Hx Respiratory Disorders: No - NEUROLOGICAL Hx Neurological Disorder: Yes Hx Dizziness: Yes Hx Seizures: Yes Other/Comment: neuropathy arms and legs - HEENT Hx HEENT Problems: No (WEARS RX GLASSES) - RENAL Hx Chronic Kidney Disease: Yes Hx Kidney Stones: Yes - ENDOCRINE/METABOLIC Hx Endocrine Disorders: No - HEMATOLOGICAL/ONCOLOGICAL Hx Blood Disorders: Yes Hx Anemia: Yes (BLOOD TRANSFUSION) - INTEGUMENTARY Other/Comment: TATOOS ,BILATERAL LEG EDEMA, multiple bruises old and new to b/l knees and b/l arms - MUSCULOSKELETAL/RHEUMATOLOGICAL Hx Back Pain: Yes Hx Falls: Yes - GASTROINTESTINAL Other/Comment: COLITIS,CHOLELITHIASIS,DIVERTICULITIS,GASTRIC BYPASS 2007 lost 100 lbs gained some back - GENITOURINARY/GYNECOLOGICAL Hx Genitourinary Disorders: Yes (2 C SECTIONS,TUBAL LIGATION) Other/Comment: IUD insertion - PSYCHIATRIC Other/Comment: ETOH ABUSE 1 1/.2 to 2 pints vodka a day quit 2 dys ago, INTOXICATION,INSOMNIA - SURGICAL HISTORY Hx Cardiac Catheterization: No Hx Cholecystectomy: Yes (2011) Hx Coronary Stent: No Hx Gastric Bypass Surgery: Yes (2007) Other/Comment: C/S X2,GASTRIC BYPASS,TUBAL LIGATION,BREAST REDUCTION,bladder sling - ANESTHESIA Hx Anesthesia: Yes Hx Anesthesia Reactions: No Hx Malignant Hyperthermia: No Meds Allergies/Adverse Reactions: Allergies Allergy/AdvReac Type Severity Reaction Status Date / Time No Known Allergies Allergy Verified 03/10/17 21:27 - Medications Medications: Current Medications Chlordiazepoxide (Librium) 10 mg PO TID [facility] PRN Reason: Protocol Last Admin: 03/15/17 17:25 Dose: 10 mg Duloxetine HCl (Cymbalta) 30 mg PO DAILY [facility] Last Admin: 03/15/17 09:17 Dose: 30 mg Ergocalciferol (Drisdol 50,000 Intl Units Cap) 1 cap PO Q7D [facility] Folic Acid (Folic Acid) 1 mg PO DAILY [facility] Last Admin: 03/15/17 09:18 Dose: 1 mg Gabapentin (Neurontin) 300 mg PO TID [facility] PRN Reason: Protocol Last Admin: 03/15/17 17:18 Dose: 300 mg Lactulose (Enulose) 20 gm PO Q6H [facility] Last Admin: 03/15/17 17:17 Dose: 20 gm Levetiracetam (Keppra) 500 mg PO BID [facility] Last Admin: 03/15/17 17:18 Dose: 500 mg Magnesium Chloride (Slow-Mag) 64 mg PO DAILY [facility] Last Admin: 03/15/17 09:22 Dose: 64 mg Multivitamins/Minerals (Therapeutic-M Tab) 1 tab PO 0800 [facility] Last Admin: 03/15/17 09:22 Dose: 1 tab Nystatin (Nystop Topical Powder) 0 gm TOP BID [facility] Last Admin: 10/31/17 17:19 Dose: 1 applic Ondansetron HCl (Zofran Tab) 4 mg PO Q8H PRN PRN Reason: Nausea/Vomiting Last Admin: 03/14/17 12:19 Dose: 4 mg Pantoprazole Sodium (Protonix Ec Tab) 20 mg PO 0600 [facility] Last Admin: 03/15/17 06:18 Dose: 20 mg Potassium Phos/Sodium Phos (Neutra-Phos) 1 pkt PO BID [facility] Last Admin: 03/15/17 17:19 Dose: 1 pkt Prednisolone (Prednisolone Oral Soln) 20 mg PO BID [facility] Last Admin: 03/15/17 17:32 Dose: 1 dose Rifaximin (Xifaxan) 550 mg PO BID [facility] PRN Reason: Protocol Last Admin: 03/15/17 17:26 Dose: 550 mg Spironolactone (Aldactone) 25 mg PO DAILY [facility] Last Admin: 03/15/17 09:15 Dose: 25 mg Sucralfate (Carafate Oral Susp) 1 gm PO 0600,1600 [facility] Last Admin: 03/15/17 17:15 Dose: 1 gm Tramadol HCl (Ultram) 50 mg PO Q8H PRN; Protocol PRN Reason: Pain, severe (8-10) Last Admin: 03/14/17 09:39 Dose: 50 mg Ursodiol (Actigall) 300 mg PO BID [facility] Last Admin: 03/15/17 17:16 Dose: 300 mg Zolpidem Tartrate (Ambien) 5 mg PO HS PRN; Protocol PRN Reason: Insomnia Last Admin: 03/12/17 21:56 Dose: 5 mg Physical Exam - Constitutional Appears: No Acute Distress - Head Exam Head Exam: ATRAUMATIC, NORMOCEPHALIC - Eye Exam Eye Exam: EOMI, PERRL, Scleral icterus - ENT Exam ENT Exam: Mucous Membranes Moist - Respiratory Exam Respiratory Exam: Decreased Breath Sounds. absent: Rales, Rhonchi, Wheezes - Cardiovascular Exam Cardiovascular Exam: RRR, +S1, +S2. absent: Gallop, JVD, Rubs - GI/Abdominal Exam GI & Abdominal Exam: Soft. absent: Distended, Firm, Rebound, Tenderness - Neurological Exam Neurological exam: Alert, CN II-XII Intact, Oriented x3 - Psychiatric Exam Psychiatric exam: Normal Affect, Normal Mood - Skin Skin Exam: Dry, Intact, Normal Color, Warm Results - Vital Signs Recent Vital Signs: Last Vital Signs Temp 98.7 F 03/15/17 16:02 Pulse 87 03/15/17 16:02 Resp 18 03/15/17 16:02 BP 92/58 L 03/15/17 16:02 Pulse Ox 94 L 03/15/17 16:02 - Labs Result Diagrams: 03/14/17 11:30 03/15/17 05:30 Labs: Laboratory Results - last 24 hr 03/15/17 03/15/17 03/15/17 05:25 05:30 05:30 PT 25.3 H INR 2.26 H APTT 37.6 H Sodium 146 Potassium 3.9 Chloride 110 Carbon Dioxide 28 Anion Gap 12 BUN 9 Creatinine 0.7 Est GFR ( Amer) > 60 Est GFR (Non-Af Amer) > 60 Random Glucose 83 Calcium 7.7 L Total Bilirubin 11.8 H AST 213 H ALT 87 H Alkaline Phosphatase 122 Ammonia 69 H Total Protein 6.8 Albumin 2.4 L Globulin 4.4 Albumin/Globulin Ratio 0.5 L Assessment & Plan - Assessment and Plan (Free Text) Plan: 46yo female with past medical history of alcohol abuse, polysubstance abuse, hypokalemia, cirrhosis, neuropathy, diverticulitis, anxiety/depression who came to the ED for fall and acute alcohol intoxication. Head CT was noted to be negative as well as maxillofacial CT. She was found to have multiple metabolic derangements. Peripheral neuropathy can be secondary to chronic alcohol use and metabolic derangements. 1. Syncope/fall 2. Hepatic encephalopathy 3. Alcohol induced hepatitis 4. Thrombocytopenia 5. Chronic alcohol abuse 6. Peripheral neuropathy -Fall/syncope likely secondary to multiple metabolic derangements due to chronic alcohol abuse -Recommend monitoring and correction of electrolyte abnormalities as indicated -Recommend continue Keppra for seizure prophylaxis -Patient has been counseled on alcohol cessation as well as adequate nutrition -Continue thiamine 100mg po daily -Continue Folic Acid -Continue CIWA protocol and monitor patient for withdrawal -Maintain systolic blood pressure between 120-130s. -Physical therapy -Patient will need multivitamin as well as thiamine and folic acid as outpatient -No further neurological evaluation necessary at this time, thank you for this consult. Please reconsult as necessary Patient seen and case discussed/reviewed with attending, Dr. Gore - Date & Time Date: 03/15/17 Time: 17:43 <Sharan Gore - Last Filed: 03/16/17 09:03> Meds - Medications Medications: Current Medications Chlordiazepoxide (Librium) 10 mg PO TID [facility] PRN Reason: Protocol Last Admin: 03/15/17 17:25 Dose: 10 mg Duloxetine HCl (Cymbalta) 30 mg PO DAILY [facility] Last Admin: 03/15/17 09:17 Dose: 30 mg Ergocalciferol (Drisdol 50,000 Intl Units Cap) 1 cap PO Q7D [facility] Folic Acid (Folic Acid) 1 mg PO DAILY [facility] Last Admin: 03/15/17 09:18 Dose: 1 mg Gabapentin (Neurontin) 300 mg PO TID [facility] PRN Reason: Protocol Last Admin: 03/15/17 17:18 Dose: 300 mg Lactulose (Enulose) 20 gm PO Q6H [facility] Last Admin: 03/16/17 08:30 Dose: 20 gm Levetiracetam (Keppra) 500 mg PO BID [facility] Last Admin: 03/15/17 17:18 Dose: 500 mg Magnesium Chloride (Slow-Mag) 64 mg PO DAILY [facility] Last Admin: 03/15/17 09:22 Dose: 64 mg Multivitamins/Minerals (Therapeutic-M Tab) 1 tab PO 0800 [facility] Last Admin: 03/16/17 08:30 Dose: 1 tab Nystatin (Nystop Topical Powder) 0 gm TOP BID [facility] Last Admin: 03/15/17 17:19 Dose: 1 applic Ondansetron HCl (Zofran Tab) 4 mg PO Q8H PRN PRN Reason: Nausea/Vomiting Last Admin: 03/14/17 12:19 Dose: 4 mg Pantoprazole Sodium (Protonix Ec Tab) 20 mg PO 0600 [facility] Last Admin: 03/16/17 06:14 Dose: 20 mg Potassium Phos/Sodium Phos (Neutra-Phos) 1 pkt PO BID [facility] Last Admin: 03/15/17 17:19 Dose: 1 pkt Prednisolone (Prednisolone Oral Soln) 20 mg PO BID [facility] Last Admin: 03/15/17 17:32 Dose: 1 dose Rifaximin (Xifaxan) 550 mg PO BID [facility] PRN Reason: Protocol Last Admin: 03/15/17 17:26 Dose: 550 mg Spironolactone (Aldactone) 25 mg PO DAILY [facility] Last Admin: 03/15/17 09:15 Dose: 25 mg Sucralfate (Carafate Oral Susp) 1 gm PO 0600,1600 [facility] Last Admin: 03/16/17 06:14 Dose: 1 gm Tramadol HCl (Ultram) 50 mg PO Q8H PRN; Protocol PRN Reason: Pain, severe (8-10) Last Admin: 03/14/17 09:39 Dose: 50 mg Ursodiol (Actigall) 300 mg PO BID [facility] Last Admin: 03/15/17 17:16 Dose: 300 mg Zolpidem Tartrate (Ambien) 5 mg PO HS PRN; Protocol PRN Reason: Insomnia Last Admin: 03/12/17 21:56 Dose: 5 mg Results - Vital Signs Recent Vital Signs: Last Vital Signs Temp 98.7 F 03/15/17 16:02 Pulse 87 03/15/17 16:02 Resp 18 03/15/17 16:02 BP 92/58 L 03/15/17 16:02 Pulse Ox 94 L 03/15/17 16:02 - Labs Result Diagrams: 03/16/17 06:15 03/16/17 06:15 Labs: Laboratory Results - last 24 hr 03/16/17 03/16/17 03/16/17 06:15 06:15 06:15 WBC 7.3 RBC 2.84 L Hgb 9.2 L Hct 29.2 L MCV 102.8 D MCH 32.4 MCHC 31.5 RDW 22.4 H Plt Count 124 MPV 11.3 H Gran % 74.8 H Lymph % (Auto) 16.5 L Dyer % (Auto) 7.1 H Eos % (Auto) 1.2 L Baso % (Auto) 0.4 Gran # 5.48 Lymph # 1.2 Dyer # 0.5 Eos # 0.1 Baso # 0.03 PT 23.5 H INR 2.10 H Sodium 143 Potassium 4.2 Chloride 111 H Carbon Dioxide 29 Anion Gap 7 L BUN 9 Creatinine 0.8 Est GFR ( Amer) > 60 Est GFR (Non-Af Amer) > 60 Random Glucose 69 L Calcium 7.4 L Phosphorus 2.8 Magnesium 2.1 Total Bilirubin 11.4 H AST 190 H ALT 90 H Alkaline Phosphatase 118 Total Protein 6.3 Albumin 2.3 L Globulin 4.1 Albumin/Globulin Ratio 0.6 L Attending/Attestation - Attestation I have personally seen and examined this patient.: Yes I have fully participated in the care of the patient.: Yes I have reviewed all pertinent clinical information: Yes
[2017-03-15] MEDS ORDERED: Phytonadione 10 mg/ml Inj (Adult) SC ONE (19:36)
--- NOTE | 2017-03-15 22:34 | PN ---
DATE: 03/15/2017 SUBJECTIVE: The patient was seen and was treated today late morning in transitional care unit, room 313, bed 1. She is resting comfortably in bed in no apparent distress. PHYSICAL EXAMINATION: SKIN: Markedly jaundiced. ABDOMEN: Soft and nontender. EXTREMITIES: Showed no edema. IMPRESSION: Alcoholic liver disease, liver failure, cirrhosis, jaundice, alcohol and polysubstance abuse and multiple electrolyte abnormalities, now corrected. PLAN: I spoke with the patient about physical therapy. She said she has been walking in the young. We will continue physical therapy efforts and ambulation. Leonel Mcdowell MD
--- NOTE | 2017-03-15 23:06 | PN ---
DATE: FOLLOWUP NOTE SUBJECTIVE: The patient was followed up. The patient is jaundiced today. The patient reported that she does not feel well. She reported to feel weak. The patient complained of the back pain, reported that she feels depressed about her medical issues. The patient denied thoughts of harming herself or others. Denied intent or plan. PHYSICAL EXAMINATION: Vital signs are reviewed, seem to be stable. Blood pressure is low. Oxygen saturation is 94. MEDICATIONS: This song writer will decrease the dose of Librium. The patient is also on Neurontin as well as Cymbalta. LABORATORY DATA: Labs reviewed. The patient has AST and ALT elevated. GI team is on board. MENTAL STATUS EXAMINATION: The patient presented to be alert, yellowish skin discoloration. Intermittent eye contact. Speech was underproductive. Mood described as depressed. Affect was constricted. Thought process coherent and goal directed. Thought content, the patient denied visual, auditory, or tactile hallucinations. Denied paranoid ideation. The patient denied thoughts of harming herself or others. Denied intent or plan. Insight and judgment are improving. Impulses are not predictable. IMPRESSION: The patient has history of alcohol use disorder, history of substance-induced mood disorder. The patient has multiple medical issues. Please see Dr. Mcdowell note as well as GI team for more detailed information. PLAN: Continue current management. This song writer decreased the dose of Librium. The patient was seen by GI team as well as medical team. The patient has yellowish discoloration. Medical team is aware of that. The patient was advised not to drink or not use drugs. The patient verbalized understanding. Should you have any questions, give me a call back. The patient pose no imminent danger to self or others. This song writer will sign off. In regards of the Librium, please taper that down to 20% today. Thank you very much for letting me participate in care of your patient. Should you have any questions, give me a call back. Katrin Olivares MD
[2017-03-16] MEDS: Sucralfate 1 gm/10 ml Oral Susp UD PO SCH ×2 (06:14→16:58)
[2017-03-16] MEDS: Pantoprazole 20 mg EC Tab PO SCH (06:14)
[2017-03-16 06:42] LABS: ALB/GLOB RATIO 0.6 (1.1-1.8); ALKALINE PHOSPHATASE 118 U/L (38-126); ALT/SGPT 90 U/L (7-56); AST/SGOT 190 U/L (14-36); BASO # 0.03 K/mm3 (0.0-2.0); BASO % 0.4 % (0.0-3.0); BILIRUBIN,TOTAL 11.4 mg/dL (0.2-1.3); BLOOD UREA NITROGEN 9 mg/dL (7-21); CALCIUM 7.4 mg/dL (8.4-10.5); CARBON DIOXIDE 29 mmol/L (21-33); CHLORIDE 111 mmol/L (95-110); EOS # 0.1 (0.0-0.7); EOS % 1.2 % (1.5-5.0); GFR AFRICAN-AMERICAN > 60; GLUCOSE,RANDOM 69 mg/dL (70-110); GRAN # 5.48 (1.4-6.5); GRAN % 74.8 % (50.0-68.0); HEMATOCRIT 29.2 % (36.0-48.0); LYMPH # 1.2 (1.2-3.4); LYMPH % 16.5 % (22.0-35.0); MAGNESIUM 2.1 mg/dL (1.7-2.2); MEAN CELL VOLUME 102.8 fl (80.0-105.0); MEAN CORPUSCULAR HEMOGLOBIN 32.4 pg (25.0-35.0); MEAN CORPUSCULAR HGB CONC 31.5 g/dl (31.0-37.0); MEAN PLATELET VOLUME 11.3 fl (7.0-11.0); MONO # 0.5 (0.1-0.6); MONO % 7.1 % (1.0-6.0); PHOSPHOROUS 2.8 mg/dL (2.5-4.5); POTASSIUM 4.2 mmol/L (3.6-5.0); RED CELL DISTRIBUTION WIDTH 22.4 % (11.5-14.5); SODIUM 143 mmol/L (132-148); TOTAL PROTEIN 6.3 g/dL (5.8-8.3); WHITE BLOOD COUNT 7.3 10^3/ul (4.5-11.0)
[2017-03-16 06:55] LABS: INR 2.1 (0.93-1.08)
[2017-03-16] MEDS: Multivitamin With Minerals Tab PO SCH (08:30)
--- NOTE | 2017-03-16 09:25 | CP.PCM.PCO ---
Physician Communication Note - Physician Communication Note Physician Communication Note: LFT elevation, d/c librium, ativan started
[2017-03-16] MEDS: Potassium & Sodium Phosphate PO SCH ×2 (10:28→16:59)
[2017-03-16] MEDS: Magnesium Chloride 64 mg ER Tab PO SCH (10:28)
[2017-03-16] MEDS: Nystatin 100,000 Units/gm Topical Pow(15 gm) TOP SCH ×2 (10:28→16:59)
[2017-03-16] MEDS: PrednisoLONE 15 mg/5 ml Oral Syrup (240 ml) PO SCH ×2 (10:32→16:59)
--- NOTE | 2017-03-16 12:36 | CP.PCM.PN ---
<Hesham Mezal V - Last Filed: 03/16/17 23:11> Objective - Vital Signs/Intake and Output Vital Signs (last 24 hours): Temp Pulse Resp BP Pulse Ox 97.5 F L 86 20 102/64 93 L 03/16/17 17:18 03/16/17 17:18 03/16/17 17:18 03/16/17 17:18 03/16/17 17:18 Intake and Output: 03/16/17 03/17/17 18:59 06:59 Intake Total 820 Balance 820 - Medications Medications: Current Medications Duloxetine HCl (Cymbalta) [address] [facility] Last Admin: 03/16/17 10:27 Dose: 30 mg Ergocalciferol (Drisdol 50,000 Intl Units Cap) [address] [facility] Last Admin: 03/16/17 21:03 Dose: 1 cap Folic Acid (Folic Acid) [address] [facility] Last Admin: 03/16/17 10:27 Dose: 1 mg Gabapentin (Neurontin) [address] [facility] PRN Reason: Protocol Last Admin: 03/16/17 16:59 Dose: 300 mg Lactulose (Enulose) [address] [facility] Last Admin: 03/16/17 21:03 Dose: 20 gm Levetiracetam (Keppra) [address] [facility] Last Admin: 03/16/17 16:59 Dose: 500 mg Lorazepam (Ativan) [address] [facility] PRN Reason: Protocol Last Admin: 03/16/17 17:02 Dose: 2 mg Magnesium Chloride (Slow-Mag) [address] [facility] Last Admin: 03/16/17 10:28 Dose: 64 mg Multivitamins/Minerals (Therapeutic-M Tab) [address] [facility] Last Admin: 03/16/17 08:30 Dose: 1 tab Nystatin (Nystop Topical Powder) [address] [facility] Last Admin: 03/16/17 16:59 Dose: 1 applic Ondansetron HCl (Zofran Tab) 4 mg PO Q8H PRN PRN Reason: Nausea/Vomiting Last Admin: 03/14/17 12:19 Dose: 4 mg Pantoprazole Sodium (Protonix Ec Tab) [address] [facility] Last Admin: 03/16/17 06:14 Dose: 20 mg Potassium Phos/Sodium Phos (Neutra-Phos) [address] [facility] Last Admin: 03/16/17 16:59 Dose: 1 pkt Prednisolone (Prednisolone Oral Soln) [address] [facility] Last Admin: 03/16/17 16:59 Dose: 1 dose Rifaximin (Xifaxan) 550 mg PO BID [facility] PRN Reason: Protocol Last Admin: 03/16/17 17:00 Dose: 550 mg Spironolactone (Aldactone) [address] [facility] Last Admin: 03/16/17 10:27 Dose: 25 mg Sucralfate (Carafate Oral Susp) 1 gm PO 0600,1600 [facility] Last Admin: 03/16/17 16:58 Dose: 1 gm Tramadol HCl (Ultram) 50 mg PO Q8H PRN; Protocol PRN Reason: Pain, severe (8-10) Last Admin: 03/14/17 09:39 Dose: 50 mg Ursodiol (Actigall) [address] [facility] Last Admin: 03/16/17 16:59 Dose: 300 mg Zolpidem Tartrate (Ambien) 5 mg PO HS PRN; Protocol PRN Reason: Insomnia Last Admin: 03/16/17 21:03 Dose: 5 mg - Labs Labs: 03/16/17 06:15 03/16/17 06:15 PT 23.5 SECONDS (9.4-12.5) H 03/16/17 06:15 INR 2.10 (0.93-1.08) H 03/16/17 06:15 APTT 37.6 Seconds (25.1-36.5) H 03/15/17 05:30 Attending/Attestation - Attestation I have personally seen and examined this patient.: Yes I have fully participated in the care of the patient.: Yes I have reviewed all pertinent clinical information, including history, physical exam and plan: Yes Notes (Text): p 03/16/17 23:12 <Whitney Rojas - Last Filed: 03/17/17 11:04> Subjective - Date & Time of Evaluation Date of Evaluation: 03/16/17 Time of Evaluation: 10:05 - Subjective Subjective: Seen and examined at the bedside earlier today, patient reports having noticed blood in her bowel movement yesterday she did have one this morning and it was soft and no blood noted. Denies nausea, vomiting, or abdominal pain. Status post vitamin K yesterday. Labs reviewed. Objective - Vital Signs/Intake and Output Vital Signs (last 24 hours): Temp Pulse Resp BP Pulse Ox 98.7 F 87 18 92/58 L 94 L 03/15/17 16:02 03/15/17 16:02 03/15/17 16:02 03/15/17 16:02 03/15/17 16:02 Intake and Output: 03/16/17 03/16/17 06:59 18:59 Intake Total 520 Balance 520 - Medications Medications: Current Medications Duloxetine HCl (Cymbalta) [address] [facility] Last Admin: 03/16/17 10:27 Dose: 30 mg Ergocalciferol (Drisdol 50,000 Intl Units Cap) [address] [facility] Folic Acid (Folic Acid) [address] [facility] Last Admin: 03/16/17 10:27 Dose: 1 mg Gabapentin (Neurontin) [address] [facility] PRN Reason: Protocol Last Admin: 03/16/17 10:27 Dose: 300 mg Lactulose (Enulose) [address] [facility] Last Admin: 03/16/17 08:30 Dose: 20 gm Levetiracetam (Keppra) [address] [facility] Last Admin: 03/16/17 10:27 Dose: 500 mg Lorazepam (Ativan) [address] [facility] PRN Reason: Protocol Last Admin: 03/16/17 10:31 Dose: 2 mg Magnesium Chloride (Slow-Mag) [address] [facility] Last Admin: 03/16/17 10:28 Dose: 64 mg Multivitamins/Minerals (Therapeutic-M Tab) [address] [facility] Last Admin: 03/16/17 08:30 Dose: 1 tab Nystatin (Nystop Topical Powder) [address] [facility] Last Admin: 03/16/17 10:28 Dose: 1 applic Ondansetron HCl (Zofran Tab) 4 mg PO Q8H PRN PRN Reason: Nausea/Vomiting Last Admin: 03/14/17 12:19 Dose: 4 mg Pantoprazole Sodium (Protonix Ec Tab) [address] [facility] Last Admin: 03/16/17 06:14 Dose: 20 mg Potassium Phos/Sodium Phos (Neutra-Phos) [address] [facility] Last Admin: 03/16/17 10:28 Dose: 1 pkt Prednisolone (Prednisolone Oral Soln) [address] [facility] Last Admin: 03/16/17 10:32 Dose: 1 dose Rifaximin (Xifaxan) [address] [facility] PRN Reason: Protocol Last Admin: 03/16/17 10:28 Dose: 550 mg Spironolactone (Aldactone) [address] [facility] Last Admin: 03/16/17 10:27 Dose: 25 mg Sucralfate (Carafate Oral Susp) 1 gm PO 0600,1600 [facility] Last Admin: 03/16/17 06:14 Dose: 1 gm Tramadol HCl (Ultram) 50 mg PO Q8H PRN; Protocol PRN Reason: Pain, severe (8-10) Last Admin: 03/14/17 09:39 Dose: 50 mg Ursodiol (Actigall) [address] [facility] Last Admin: 03/16/17 10:27 Dose: 300 mg Zolpidem Tartrate (Ambien) 5 mg PO HS PRN; Protocol PRN Reason: Insomnia Last Admin: 03/12/17 21:56 Dose: 5 mg - Labs Labs: 03/16/17 06:15 03/16/17 06:15 PT 23.5 SECONDS (9.4-12.5) H 03/16/17 06:15 INR 2.10 (0.93-1.08) H 03/16/17 06:15 APTT 37.6 Seconds (25.1-36.5) H 03/15/17 05:30 - Constitutional Appears: No Acute Distress - Eye Exam Eye Exam: Scleral icterus - ENT Exam ENT Exam: Mucous Membranes Moist - Respiratory Exam Respiratory Exam: NORMAL BREATHING PATTERN. absent: Respiratory Distress - Cardiovascular Exam Cardiovascular Exam: +S1, +S2 - GI/Abdominal Exam GI & Abdominal Exam: Soft, Normal Bowel Sounds. absent: Guarding, Tenderness, Rebound - Extremities Exam Extremities Exam: Normal Capillary Refill. absent: Calf Tenderness, Pedal Edema - Neurological Exam Neurological Exam: Alert, Awake, Oriented x3 - Skin Skin Exam: Dry, Warm Additional comments: jaundice Assessment and Plan - Assessment and Plan (Free Text) Assessment: ASSESSMENT: Hepatic Encephalopathy Acute alcohol intoxication Elevated liver enzymes likely secondary to Alcoholic hepatitis, patient had elevated Maddery's discriminate factor, on prednisolone, bilirubin improving, Maddrey's Discriminate factor improved Thrombocytopenia, likely due to EtOH, improving History of acute liver failure, with poor Maddery's discriminate factor, and (+ ) SLIME, treated with steroids in the past Status post fall History of polysubstance abuse Chronic alcoholism Peripheral neuropathy UTI (+) Ecoli Obesity History of gastric bypass History of peptic ulcer disease Plan: continue diet as tolerated monitor H/H Continue lactulose continue Xifaxan twice a day continue Carafate continue Protonix 20 mg po daily PM DC'd, started on Ativan on Keppra Trend LFTs on folic acid continue Actigall 300mg twice a day SCD while in bed continue, prednisolone 20 mg BID Appreciate psychiatric input, Librium was discontinued and Ativan was started. Seen and discussed with Dr. Meza.
--- NOTE | 2017-03-16 16:26 | PN ---
DATE: 03/16/2017 SUBJECTIVE: The patient is seen walking in the hallway. She is awake, she is alert, is comfortable. She denies any pain. PHYSICAL EXAMINATION: GENERAL: Obese, middle-aged lady, walking in the hallway. VITAL SIGNS: Blood pressure 92/58, heart rate 87, respiratory rate 18, temperature 98.7. HEENT: Normocephalic, atraumatic, positive icterus. NECK: Supple, no JVD. LUNGS: Bilateral equal entry, no rales. CARDIAC: S1 and S2, regular rate and rhythm, no murmur, no rub. ABDOMEN: Obese, distended, soft, nontender, bowel sounds present. EXTREMITIES: Trace lower extremity edema. INTAKE AND OUTPUT: Not charted. LABORATORY DATA: WBC 7, hemoglobin 9, hematocrit 29, platelets 124. Sodium 143, potassium 4.2, chloride 111, CO2 29, BUN 9, creatinine 0.8, glucose 69, calcium 7.4, phosphorus 2.8, magnesium 2.1, total bilirubin 11.4, AST 190, ALT 90, albumin 2.3, corrected calcium is 8.6. CURRENT MEDICATIONS: List reviewed. ASSESSMENT: 1. Hepatic encephalopathy. 2. Alcoholic hepatitis. 3. Severe hypokalemia, resolved. 4. Edema, much improved. 5. Chronic pain. 6. Obesity. PLAN: 1. Continue Aldactone 25 mg daily 2. Continue lactulose. 3. Continue Neutra-Phos 1 packet b.i.d. 4. Physical therapy. 5. GI followup Mariya Vega MD
[2017-03-16] MEDS ORDERED: Ergocalciferol 50,000 Intl Units Cap PO SCH (21:30)
[2017-03-17] MEDS: Sucralfate 1 gm/10 ml Oral Susp UD PO SCH (05:56)
[2017-03-17] MEDS: Pantoprazole 20 mg EC Tab PO SCH (05:56)
[2017-03-17 06:53] LABS: BASO # 0.04 K/mm3 (0.0-2.0); BASO % 0.7 % (0.0-3.0); EOS # 0.1 (0.0-0.7); EOS % 1.6 % (1.5-5.0); GRAN # 3.96 (1.4-6.5); GRAN % 70.3 % (50.0-68.0); HEMATOCRIT 28.4 % (36.0-48.0); LYMPH # 1.1 (1.2-3.4); LYMPH % 20.1 % (22.0-35.0); MEAN CELL VOLUME 102.5 fl (80.0-105.0); MEAN CORPUSCULAR HEMOGLOBIN 32.9 pg (25.0-35.0); MEAN PLATELET VOLUME 11.4 fl (7.0-11.0); MONO # 0.4 (0.1-0.6); MONO % 7.3 % (1.0-6.0); RED CELL DISTRIBUTION WIDTH 21.8 % (11.5-14.5); WHITE BLOOD COUNT 5.6 10^3/ul (4.5-11.0)
[2017-03-17 06:59] LABS: INR 1.67 (0.93-1.08)
[2017-03-17 07:09] LABS: ALB/GLOB RATIO 0.5 (1.1-1.8); ALKALINE PHOSPHATASE 116 U/L (38-126); ALT/SGPT 97 U/L (7-56); AST/SGOT 206 U/L (14-36); BILIRUBIN,TOTAL 12.5 mg/dL (0.2-1.3); BLOOD UREA NITROGEN 8 mg/dL (7-21); CALCIUM 7.5 mg/dL (8.4-10.5); CARBON DIOXIDE 28 mmol/L (21-33); CHLORIDE 110 mmol/L (95-110); GFR AFRICAN-AMERICAN > 60; GLUCOSE,RANDOM 62 mg/dL (70-110); POTASSIUM 4.1 mmol/L (3.6-5.0); SODIUM 143 mmol/L (132-148); TOTAL PROTEIN 6.4 g/dL (5.8-8.3)
--- NOTE | 2017-03-17 08:21 | PN ---
DATE: SUBJECTIVE: The patient was followed up today. GI team expressed their concerns about hepatotoxicity from Librium. Librium was discontinued and this senior grant writer started Ativan 2 mg 3 times a day, but it has to be weaned off. The patient reported that her mood is stable. Denied any thoughts of harming herself or others. Denied intent or plan. The patient is compliant with medications. No acute issues from the psychiatric standpoint. PHYSICAL EXAMINATION: VITAL SIGNS: Temperature 98.5, blood pressure 108/94, respiration 18 and oxygen saturation is 94. MEDICATIONS: Reviewed. The patient is on Cymbalta 30 mg daily, folic acid, Neurontin 3 times a day, Keppra, Ativan 2 mg 3 times a day, magnesium chloride, multivitamins, nystatin, Zofran, Protonix, Neutra-Phos, prednisone, , Aldactone, Carafate, Ultram, Actigall, and Ambien. LABORATORY DATA: Reviewed. Most recent was from today. Chemistry reviewed. AST and ALT are trending down, 119 and 90 today. MENTAL STATUS EXAMINATION: The patient appears to be alert and oriented, pleasant, cooperative. The patient has jaundice. Intermittent eye contact. Speech was normal rate, tone, quality and quantity, but underproductive. Thought process is coherent and goal directed. Thought content, the patient denied visual, auditory, or tactile hallucinations. Denied paranoid ideation. The patient denied thoughts of harming herself or others. Denied intent or plan. Insight and judgment are fair. Impulses are well controlled. IMPRESSION: Rule out major depressive disorder, seems to be in remission, rule out substance-induced mood disorder, rule out mood disorder with depressed mood. The patient has history of alcohol use disorder. PLAN: Continue current management. Continue current medication. The patient needs to be weaned from the Ativan. It has to be about 20% a day. This senior grant writer will sign off because the patient is not depressed and does not meet the criteria to go to Psychiatric Inpatient Unit. The patient might benefit from going to meeting [facility] program as well. Please talk to clinical social work aide. The patient denied that she has cravings for alcohol, hepatotoxic also. The patient was seen by GI team, discussed case with GI team. Should you have any questions, give me a call back. Thank you very much for letting me participate in care of your patient. Katrin Olivares MD
[2017-03-17] MEDS: Multivitamin With Minerals Tab PO SCH (08:28)
[2017-03-17] MEDS: Nystatin 100,000 Units/gm Topical Pow(15 gm) TOP SCH (09:36)
[2017-03-17] MEDS: PrednisoLONE 15 mg/5 ml Oral Syrup (240 ml) PO SCH (09:36)
[2017-03-17] MEDS: Potassium & Sodium Phosphate PO SCH (09:36)
[2017-03-17] MEDS: Magnesium Chloride 64 mg ER Tab PO SCH (09:37)
--- NOTE | 2017-03-17 11:07 | CP.PCM.PN ---
<Whitney Rojas - Last Filed: 03/17/17 11:05> Subjective - Date & Time of Evaluation Date of Evaluation: 03/17/17 Time of Evaluation: 09:25 - Subjective Subjective: S&E at bedside earlier today, no N/V or abdominal pain, had formed stool no bleeding. A bit tired today, no acute distress. Tolerating oral intake. No acute overnight events. Ammonia level improving. Objective - Vital Signs/Intake and Output Vital Signs (last 24 hours): Temp Pulse Resp BP Pulse Ox 98.2 F 71 16 95/58 L 93 L 03/17/17 06:00 03/17/17 06:00 03/17/17 06:00 03/17/17 06:00 03/17/17 06:00 Intake and Output: 03/17/17 03/17/17 06:59 18:59 Intake Total 820 Balance 820 - Medications Medications: Current Medications Duloxetine HCl (Cymbalta) 30 mg PO DAILY [facility] Last Admin: 03/17/17 09:35 Dose: 30 mg Ergocalciferol (Drisdol 50,000 Intl Units Cap) 1 cap PO Q7D [facility] Last Admin: 03/16/17 21:03 Dose: 1 cap Folic Acid (Folic Acid) 1 mg PO DAILY [facility] Last Admin: 03/17/17 09:35 Dose: 1 mg Gabapentin (Neurontin) 300 mg PO TID [facility] PRN Reason: Protocol Last Admin: 03/17/17 09:35 Dose: 300 mg Lactulose (Enulose) 20 gm PO Q6H [facility] Last Admin: 03/17/17 08:28 Dose: Not Given Levetiracetam (Keppra) 500 mg PO BID [facility] Last Admin: 03/17/17 09:35 Dose: 500 mg Lorazepam (Ativan) 2 mg PO TID [facility] PRN Reason: Protocol Last Admin: 03/17/17 09:35 Dose: 2 mg Magnesium Chloride (Slow-Mag) 64 mg PO DAILY [facility] Last Admin: 03/17/17 09:37 Dose: 64 mg Multivitamins/Minerals (Therapeutic-M Tab) 1 tab PO 0800 [facility] Last Admin: 03/17/17 08:28 Dose: 1 tab Nystatin (Nystop Topical Powder) 0 gm TOP BID [facility] Last Admin: 03/17/17 09:36 Dose: 1 applic Ondansetron HCl (Zofran Tab) 4 mg PO Q8H PRN PRN Reason: Nausea/Vomiting Last Admin: 03/14/17 12:19 Dose: 4 mg Pantoprazole Sodium (Protonix Ec Tab) 20 mg PO 0600 [facility] Last Admin: 03/17/17 05:56 Dose: 20 mg Potassium Phos/Sodium Phos (Neutra-Phos) 1 pkt PO BID [facility] Last Admin: 03/17/17 09:36 Dose: 1 pkt Prednisolone (Prednisolone Oral Soln) 20 mg PO BID [facility] Last Admin: 03/17/17 09:36 Dose: 1 dose Rifaximin (Xifaxan) 550 mg PO BID [facility] PRN Reason: Protocol Last Admin: 03/17/17 09:37 Dose: 550 mg Spironolactone (Aldactone) 25 mg PO DAILY [facility] Last Admin: 03/17/17 09:34 Dose: 25 mg Sucralfate (Carafate Oral Susp) 1 gm PO 0600,1600 [facility] Last Admin: 03/17/17 05:56 Dose: 1 gm Tramadol HCl (Ultram) 50 mg PO Q8H PRN; Protocol PRN Reason: Pain, severe (8-10) Last Admin: 03/14/17 09:39 Dose: 50 mg Ursodiol (Actigall) 300 mg PO BID [facility] Last Admin: 03/17/17 09:34 Dose: 300 mg Zolpidem Tartrate (Ambien) 5 mg PO HS PRN; Protocol PRN Reason: Insomnia Last Admin: 03/16/17 21:03 Dose: 5 mg - Labs Labs: 03/17/17 06:15 03/17/17 06:15 PT 18.6 SECONDS (9.4-12.5) H 03/17/17 06:15 INR 1.67 (0.93-1.08) H 03/17/17 06:15 APTT 37.6 Seconds (25.1-36.5) H 03/15/17 05:30 - Constitutional Appears: No Acute Distress - Eye Exam Eye Exam: Scleral icterus - ENT Exam ENT Exam: Mucous Membranes Moist - Respiratory Exam Respiratory Exam: NORMAL BREATHING PATTERN. absent: Respiratory Distress - Cardiovascular Exam Cardiovascular Exam: +S1, +S2 - GI/Abdominal Exam GI & Abdominal Exam: Soft, Normal Bowel Sounds. absent: Guarding, Tenderness, Organomegaly, Rebound - Extremities Exam Extremities Exam: Normal Capillary Refill. absent: Calf Tenderness, Pedal Edema - Neurological Exam Neurological Exam: Awake, Oriented x3 - Skin Skin Exam: Dry, Warm Additional comments: jaundice Assessment and Plan - Assessment and Plan (Free Text) Assessment: ASSESSMENT: Hepatic Encephalopathy Acute alcohol intoxication Elevated liver enzymes likely secondary to Alcoholic hepatitis, patient had elevated Maddery's discriminate factor, on prednisolone, bilirubin improving, Maddrey's Discriminate factor improved Thrombocytopenia, likely due to EtOH, improving History of acute liver failure, with poor Maddery's discriminate factor, and (+ ) SLIME, treated with steroids in the past Status post fall History of polysubstance abuse Chronic alcoholism Peripheral neuropathy UTI (+) Ecoli Obesity History of gastric bypass History of peptic ulcer disease Plan: continue diet as tolerated monitor H/H will decrease dose of Lactulose from Q6H to BID continue Xifaxan twice a day continue Carafate continue Protonix 20 mg po daily PM DC'd, started on Ativan on Keppra Trend LFTs on folic acid continue Actigall 300mg twice a day SCD while in bed continue, prednisolone 20 mg BID Seen and discussed with Dr. Meza. <Ana Meza V - Last Filed: 03/17/17 22:25> Objective - Vital Signs/Intake and Output Vital Signs (last 24 hours): Temp Pulse Resp BP Pulse Ox 98.5 F 85 18 101/62 96 03/17/17 10:00 03/17/17 12:04 03/17/17 10:00 03/17/17 10:00 03/17/17 12:04 - Labs Labs: 03/17/17 06:15 03/17/17 06:15 PT 18.6 SECONDS (9.4-12.5) H 03/17/17 06:15 INR 1.67 (0.93-1.08) H 03/17/17 06:15 APTT 37.6 Seconds (25.1-36.5) H 03/15/17 05:30 Attending/Attestation - Attestation I have personally seen and examined this patient.: Yes I have fully participated in the care of the patient.: Yes I have reviewed all pertinent clinical information, including history, physical exam and plan: Yes Notes (Text): p 03/17/17 22:24
[2017-03-17 12:33] VITALS: PULSE 85; O2SAT 96
[2017-03-17 12:51] VITALS: BP 101/62; RESP 18; TEMP 98.5
--- NOTE | 2017-03-17 16:23 | PN ---
DATE: 03/17/2017 SUBJECTIVE: The patient is seen sitting in chair. PHYSICAL EXAMINATION GENERAL: She is awake and alert. She is groggy. VITAL SIGNS: Blood pressure 100/67, heart rate 85, respiratory rate 18, temperature 98.2. HEENT: Normocephalic, atraumatic, positive pallor, positive icterus. NECK: Supple, no JVD. LUNGS: Bilateral equal entry, rales. HEART: S1 and S2. Regular rate and rhythm, no murmur, no rub. ABDOMEN: Obese, distended, soft, nontender, bowel sounds present. EXTREMITIES: Trace lower extremity edema. INTAKE AND OUTPUT: Not charted. LABORATORY DATA: WBC 5.6, hemoglobin 9, hematocrit 28, platelets 116. INR 1.6. Sodium 143, potassium 4.1, chloride 110, CO2 28, BUN 8, creatinine 0.7, glucose 62, calcium 7.5, total bili 12.5, AST , ALT is 97, albumin 2.3. Ammonia 45. CURRENT MEDICATIONS: Actigall, Aldactone 25 daily, Zolpidem, Ativan, Carafate, Cymbalta, ergocalciferol, lactulose, folic acid, Keppra, Neurontin, potassium phosphate, nystatin, prednisone, Protonix, Slow-Mag, tramadol, Rifaximin, Zofran. ASSESSMENT AND PLAN 1. Acute alcoholic hepatitis. 2. Multiple electrolyte abnormalities, resolved. 3. Chronic pain. 4. Chronic alcoholism. PLAN 1. Continue low dose Aldactone. 2. Close outpatient followup. 3. Follow up with Psychiatry. Mariya Vega MD
--- NOTE | 2017-03-17 16:31 | PN ---
DATE: 03/16/2017 The patient is a 46-year-old female, who was admitted to [facility] after suffering what appeared to be a syncopal episode. She was found to be severely hypocalcemic, was admitted to the medical floor, was followed by Dr. Kelsey as well as Dr. Meza, race board attendant, for her alcoholic cirrhosis. On 03/09, she was transferred to the transitional care unit for continued physical therapy. When seen today, the patient was in the bathroom for her bowel movement. As per nursing staff she is awake, alert and oriented. Her liver enzymes; however, has been rising through the hospital stay. This morning her total bilirubin is 11.4, white blood cell count is 7.3, hemoglobin and hematocrit 9.2 and 29.2. Blood urea nitrogen is 9, creatinine is 0.8, sodium is 143, potassium is 4.2. Her blood pressure is 92/58 and heart rate is 87 beats per minute. Her calcium level had been somewhat corrected to this point and is no longer critical, this morning's level was 7.5. So we are continuing to follow the patient. She is being treated with Actigall, Aldactone, Carafate, Cymbalta, ergocalciferol, lactulose, Keppra, folic acid, and Neurontin. We are encouraging the patient to avoid opiate, analgesics and avoid alcohol in the future, not only that, discharge is planned for 3 to 4 days from now. Russell Mcdowell MD
--- NOTE | 2017-03-18 16:03 | DS ---
DATE OF DISCHARGE: 03/17/2017 HISTORY OF PRESENT ILLNESS: The patient was seen this morning. I also had the opportunity to meet her for the first time. This is a 46-year-old woman, known to my practice for many years. I have only had the chance to meet her during hospital stays. Unfortunately, this one was one of many of those similar hospital stays. Initially, she presented to the emergency room with acute alcohol intoxication, polysubstance use, and liver failure. Her liver enzymes remained elevated. Her bilirubin was in the range of 8 to 10 but she was medically stable and came to the Transitional Care Unit for additional physical therapy, conditioning, ambulation, and trying to detox and adjust her medications. This is the discharge summary from the patient's stay in the Transitional Care Unit. HOSPITAL COURSE: The patient engaged in the activities of Unit, was walking up to 500 feet with a rolling walker. Her medications had been persistently decreased from high-dose opiates to none. We managed to keep her on a small dose of long-acting opiates to treat her alcohol withdrawal symptoms. The importance of detoxification and avoiding such medicines and alcohol were repeatedly emphasized to the patient through my daily sessions with her. I strongly encouraged her to attend AA or Narcotics Anonymous meetings. I explained to her how jaundiced she is with the bilirubin that maxed at 10 and how she needs to abstain from all alcohol and avoid opiates and benzodiazepines, in fact even Tylenol and any medicine that is metabolized by the liver. In TCU, she engaged in the activities of the Unit, was followed by her diesel mechanic farm and gem expert. Her coags remained elevated because of her liver disease. The severity of her illness was explained again to her as well as to her who I met for the first time today. Unfortunately, she is not a candidate for evaluation by the liver transplant team in [place] because of her continued alcohol consumption. She was discharged to home to follow up in the office in 1 week. Her requested that I relay the message to all her physicians to try to avoid opiates and benzodiazepines in view of her history of polysubstance abuse. I offered to see her in the office any time. I doubt she will follow up with me as she knows my position on chronic opiates and overuse of medication, but I will remain available to her nonetheless. FINAL DISCHARGE DIAGNOSES: 1. Deconditioning. 2. Cirrhosis. 3. Acute alcohol-related liver failure. 4. Jaundice. 5. Morbid obesity. 6. Chronic pain syndrome. 7. Polysubstance abuse. 8. Fall at home. 9. Multiple electrolyte abnormalities and hypoalbuminemia. 10. History of depression. 11. Benzodiazepine use. 12. Opiate use. 13. Chronic alcoholism. Leonel Mcdowell MD
== END 2017-03-17 13:04 | disposition home or self-care (01) | DRG 945 ==
LOC: TRCU 20:56
PROVIDERS: ADMIT Internal Medicine; ATTEND Internal Medicine
PROC: F07Z9FZ Gait Training/Functional Ambulation Treatment using Assistive, Adaptive, Supportive or Protective Equipment (ICD-10-PCS; principal; 2017-03-11)
PROC: F08Z4FZ Home Management Treatment using Assistive, Adaptive, Supportive or Protective Equipment (ICD-10-PCS; 2017-03-11)
DX: R53.1 Weakness (principal); K70.30 Alcoholic cirrhosis of liver without ascites; F10.24 Alcohol dependence with alcohol-induced mood disorder; D69.59 Other secondary thrombocytopenia; E83.51 Hypocalcemia; E88.09 Other disorders of plasma-protein metabolism, not elsewhere classified; E83.39 Other disorders of phosphorus metabolism; F10.288 Alcohol dependence with other alcohol-induced disorder; N39.0 Urinary tract infection, site not specified; G62.9 Polyneuropathy, unspecified; B35.9 Dermatophytosis, unspecified; K70.10 Alcoholic hepatitis without ascites; G89.29 Other chronic pain; E66.9 Obesity, unspecified; D64.9 Anemia, unspecified; E87.6 Hypokalemia; F41.9 Anxiety disorder, unspecified; E55.9 Vitamin D deficiency, unspecified; K72.90 Hepatic failure, unspecified without coma; G40.909 Epilepsy, unspecified, not intractable, without status epilepticus; I10 Essential (primary) hypertension; G47.00 Insomnia, unspecified; Z98.84 Bariatric surgery status; Z87.11 Personal history of peptic ulcer disease; Z91.81 History of falling

== ENCOUNTER 2017-04-12 13:14 | Inpatient (IN) | payer BC ==
--- NOTE | 2017-04-12 13:50 | ED PDOC ---
Arrival/HPI - General Historian: Patient - History of Present Illness Time/Duration: Prior to Arrival Symptom Onset: Gradual Symptom Course: Unchanged Activities at Onset: Rest Context: Home <Kristofer David - Last Filed: 04/12/17 15:17> - History of Present Illness Context: Home <Estuardo Wong - Last Filed: 04/12/17 15:46> - General Chief Complaint: Abnormal Labs Time Seen by Provider: 04/12/17 13:32 - History of Present Illness Narrative History of Present Illness (Text): 04/12/17 13:50 This is a 46 yo female, hx of seizures, acute liver failure, neuropathic pain, presenting from with chief complaint of weakness. Pt has a general feeling of weakness x 1 day. She has a hx of liver failure secondary to alcoholism. Her PMD called her at home and said her biliruibin was extremely high and that she should come into the ER. She says she feels so weak she feels she cannot lift a cup off the table. She denies fevers, chills, chest pain, sob, vomiting, diarrhea. PMH: alcoholism, liver failure, seizures PSH: gastric bypass, breast reduction, C section, cholecystectomy Allergies: NKDA FH: Denies Social hx: denies smoking. Hx of alcoholism, last drink 45 days ago. Denies drug use. 04/12/17 14:03 (Kristofer David) Past Medical History - Provider Review Nursing Documentation Reviewed: Yes - Travel History Have you recently traveled outside [place] w/in the past 3 mons?: No - Infectious Disease Hx of Infectious Diseases: None - Tetanus Immunization Tetanus Immunization: Unknown - Reproductive Menopause: No - Past Medical History Past Medical History: No Previous - Cardiac Hx Cardiac Disorders: Yes (CAD) Hx Hypertension: Yes - Pulmonary Hx Respiratory Disorders: No - Neurological Hx Neurological Disorder: Yes Hx Dizziness: Yes Hx Seizures: Yes Other/Comment: neuropathy arms and legs - HEENT Hx HEENT Disorder: No (WEARS RX GLASSES) - Renal Hx Renal Disorder: Yes Hx Kidney Stones: Yes - Endocrine/Metabolic Hx Endocrine Disorders: No - Hematological/Oncological Hx Blood Disorders: Yes Hx Anemia: Yes (BLOOD TRANSFUSION) - Integumentary Other/Comment: TATOOS ,BILATERAL LEG EDEMA, multiple bruises old and new to b/l knees and b/l arms - Musculoskeletal/Rheumatological Hx Back Pain: Yes Hx Falls: Yes - Gastrointestinal Other/Comment: COLITIS,CHOLELITHIASIS,DIVERTICULITIS,GASTRIC BYPASS 2007 lost 100 lbs gained some back - Genitourinary/Gynecological Hx Genitourinary Disorders: Yes (2 C SECTIONS,TUBAL LIGATION) Other/Comment: IUD insertion - Psychiatric Hx Substance Use: Yes Other/Comment: ETOH ABUSE 1 1/.2 to 2 pints vodka a day quit over a month ago, INTOXICATION,INSOMNIA - Surgical History Hx Cardiac Catheterization: No Hx Cholecystectomy: Yes (2011) Hx Coronary Stent: No Hx Gastric Bypass Surgery: Yes (2007) Other/Comment: C/S X2,GASTRIC BYPASS,TUBAL LIGATION,BREAST REDUCTION,bladder sling - Anesthesia Hx Anesthesia: Yes Hx Anesthesia Reactions: No Hx Malignant Hyperthermia: No - Suicidal Assessment Feels Threatened In Home Enviroment: No <Kristofer David - Last Filed: 04/12/17 15:17> Family/Social History - Physician Review Nursing Documentation Reviewed: Yes Family/Social History: No Known Family HX Smoking Status: Never Smoked Hx Alcohol Use: Yes Hx Substance Use: Yes Hx Substance Use Treatment: No <Kristofer David - Last Filed: 04/12/17 15:17> Allergies/Home Meds <Kristofer David - Last Filed: 04/12/17 15:17> <Estuardo Wong - Last Filed: 04/12/17 15:46> Allergies/Adverse Reactions: Allergies No Known Allergies Allergy (Verified 04/12/17 13:43) Home Medications: Home Meds Medication Instructions Recorded Confirmed ALPRAZolam [Xanax] 1 mg PO TID 04/12/17 04/12/17 Calcium Carbonate [Coral Calcium] 1,000 mg PO TID 04/12/17 04/12/17 DULoxetine [Cymbalta] 20 mg PO DAILY 04/12/17 04/12/17 Folic Acid 1 mg PO DAILY 04/12/17 04/12/17 Multivitamin [Multivitamin] 1 sgl PO DAILY 04/12/17 04/12/17 Review of Systems - Review of Systems Constitutional: Fatigue. absent: Fevers Eyes: absent: Vision Changes, Photophobia ENT: absent: Hearing Changes, Tinnitus Respiratory: absent: SOB, Cough Cardiovascular: absent: Chest Pain, Palpitations Gastrointestinal: absent: Abdominal Pain, Stool Changes Musculoskeletal: absent: Arthralgias, Back Pain Skin: Other (jaundice ). absent: Rash, Pruritis Neurological: absent: Headache, Dizziness Endocrine: absent: Diaphoresis, Polyuria Hemo/Lymphatic: absent: Adenopathy, Easy Bleeding Psychiatric: absent: Anxiety, Depression <Kristofer David - Last Filed: 04/12/17 15:17> Physical Exam Vital Signs Reviewed: Yes Mental Status: No: Alert and Oriented X 3 - Systems Exam Head: Present: Atraumatic, Normocephalic Extroacular Muscles: Present: EOMI Conjunctiva: Present: Icteric Respiratory/Chest: Present: Clear to Auscultation. No: Respiratory Distress Cardiovascular: Present: Normal S1, S2 Abdomen: No: Tenderness, Distention, Peritoneal Signs Upper Extremity: Present: Normal Inspection. No: Cyanosis, Edema Lower Extremity: Present: Edema. No: Normal Inspection Neurological: Present: CN II-XII Intact, Speech Normal Skin: Present: Warm, Dry Psychiatric: Present: Alert, Oriented x 3, Normal Insight, Normal Concentration <Kristofer David - Last Filed: 04/12/17 15:17> Temperature: Afebrile Blood Pressure: Hypotensive Pulse: Regular Respiratory Rate: Normal Appearance: Positive for: Non-Toxic, Comfortable <Estuardo Wong - Last Filed: 04/12/17 15:46> Vital Signs Temp Pulse Resp BP Pulse Ox 04/12/17 15:15 98.8 F 82 19 101/58 L 99 04/12/17 13:36 98.3 F 84 18 98/61 L 100 04/12/17 13:15 98.5 F 83 18 98/61 L 100 Medical Decision Making <Kristofer David - Last Filed: 04/12/17 15:17> <Estuardo Wong - Last Filed: 04/12/17 15:46> ED Course and Treatment: 04/12/17 14:00 Seen and examined with the resident. Our history and physical exam reveals an alcoholic woman who last drank 45 days ago. History of hepatic failure and hepatic encephalopathy. Seen by the physical therapist 3 days ago and again today with acutely worsening jaundice. They spoke with the PMD who directed to the emergency department. 04/12/17 15:46 EKG shows normal sinus rhythm rate approximately 85 with poor R-wave progression and nonspecific ST and T-wave changes (Estuardo Wong) - Lab Interpretations Lab Results: 04/12/17 14:14 04/12/17 14:14 Lab Results 04/12/17 14:14: Alcohol, Quantitative < 10 04/12/17 14:14: Ammonia 72 H 04/12/17 14:14: Sodium 138, Potassium 3.1 L, Chloride 107, Carbon Dioxide 20 L, Anion Gap 13, BUN 8, Creatinine 1.2, Est GFR ( Amer) 58, Est GFR (Non-Af Amer) 48, Random Glucose 92, Calcium 8.3 L, Magnesium 2.0, Total Bilirubin 23.3 H*, AST 228 H, ALT 68 H, Alkaline Phosphatase 146 H D, Total Protein 7.5, Albumin 2.6 L, Globulin 4.9, Albumin/Globulin Ratio 0.5 L 04/12/17 14:14: WBC 7.5 D, RBC 3.25 L, Hgb 10.5 L, Hct 31.6 L, MCV 97.2 D, MCH 32.3, MCHC 33.2, RDW 14.2, Plt Count 158, MPV 11.8 H, Gran % 74.6 H, Lymph % (Auto) 13.6 L, [place] % (Auto) 10.7 H, Eos % (Auto) 0.8 L, Baso % (Auto) 0.3, Gran # 5.56, Lymph # 1.0 L, [place] # 0.8 H, Eos # 0.1, Baso # 0.02 - Medication Orders Current Medication Orders: Discontinued Medications Lactulose (Enulose) 20 gm PO ONCE STA Stop: 04/12/17 13:48 Last Admin: 04/12/17 14:42 Dose: 20 gm <Kristofer David - Last Filed: 04/12/17 15:17> - Scribe Statement The provider has reviewed the documentation as recorded by the Scribe <Estuardo Wong - Last Filed: 04/12/17 15:46> - Scribe Statement Mary Davenport Provider Scribe Attestation: All medical record entries made by the Scribe were at my direction and personally dictated by me. I have reviewed the chart and agree that the record accurately reflects my personal performance of the history, physical exam, medical decision making, and the department course for this patient. I have also personally directed, reviewed, and agree with the discharge instructions and disposition. (Estuardo Wong) Disposition/Present on Arrival - Present on Arrival History of DVT/PE: No History of Uncontrolled Diabetes: No Urinary Catheter: No History of Decub. Ulcer: No History Surgical Site Infection Following: Bariatric Surgery <Kristofer David - Last Filed: 04/12/17 15:17> - Present on Arrival Any Indicators Present on Arrival: No History of DVT/PE: No History of Uncontrolled Diabetes: No Urinary Catheter: No History of Decub. Ulcer: No - Disposition Have Diagnosis and Disposition been Completed?: Yes Disposition Time: 15:07 Patient Plan: Admission <Estuardo Wong - Last Filed: 04/12/17 15:46> - Disposition Diagnosis: Hepatic encephalopathy Disposition: HOSPITALIZED Patient Problems: Current Active Problems Problem Status Onset Hepatic encephalopathy Acute Condition: SERIOUS
[2017-04-12 14:38] LABS: BASO # 0.02 K/mm3 (0.0-2.0); BASO % 0.3 % (0.0-3.0); EOS # 0.1 (0.0-0.7); EOS % 0.8 % (1.5-5.0); GRAN # 5.56 (1.4-6.5); GRAN % 74.6 % (50.0-68.0); HEMATOCRIT 31.6 % (36.0-48.0); LYMPH % 13.6 % (22.0-35.0); MEAN CELL VOLUME 97.2 fl (80.0-105.0); MEAN CORPUSCULAR HEMOGLOBIN 32.3 pg (25.0-35.0); MEAN CORPUSCULAR HGB CONC 33.2 g/dl (31.0-37.0); MEAN PLATELET VOLUME 11.8 fl (7.0-11.0); MONO # 0.8 (0.1-0.6); MONO % 10.7 % (1.0-6.0); RED CELL DISTRIBUTION WIDTH 14.2 % (11.5-14.5); WHITE BLOOD COUNT 7.5 10^3/ul (4.5-11.0)
[2017-04-12 14:55] LABS: ALB/GLOB RATIO 0.5 (1.1-1.8); BILIRUBIN,TOTAL 23.3 mg/dL (0.2-1.3); CALCIUM 8.3 mg/dL (8.4-10.5); POTASSIUM 3.1 mmol/L (3.6-5.0); TOTAL PROTEIN 7.5 g/dL (5.8-8.3)
[2017-04-12 16:33] LABS: PH,URINE 6.5 (4.7-8.0); URINE BILIRUBIN NEGATIVE (NEGATIVE); URINE BLOOD TRACE-INTACT (NEGATIVE); URINE GLUCOSE (UA) NEGATIVE (NEGATIVE); URINE KETONE NEGATIVE (NEGATIVE); URINE LEUKOCYTE ESTERASE NEGATIVE Leu/uL (NEGATIVE); URINE PROTEIN TRACE mg/dL (<30 mg/dL)
[2017-04-12 16:37] LABS: URINE COLOR DARK YELLOW (YELLOW)
[2017-04-12 16:38] LABS: URINE APPEARANCE CLEAR (CLEAR)
[2017-04-12 16:44] LABS: URINE AMORPHOUS SEDIMENT FEW; URINE BACTERIA MANY (NEG)
[2017-04-12] MEDS ORDERED: Potassium Chloride 20 mEq ER Tab PO ONE (19:36)
--- NOTE | 2017-04-12 19:48 | CARD ---
APPROVED REPORT EKG Measurement Heart [id number] <Conclusion> Normal sinus rhythm Cannot rule out Anterior infarct, age undetermined T wave abnormality, consider lateral ischemia Abnormal ECG
[2017-04-12 20:42] VITALS: BMI 36.3
[2017-04-12] MEDS ORDERED: Influenza Vaccine 60 mcg/0.5 mL SYR (4YR UP) IM ONE (20:42)
[2017-04-12] MEDS ORDERED: Pneumococcal 23-Valent Vaccine IM ONE (20:42)
[2017-04-13] MEDS: Pantoprazole 20 mg EC Tab PO SCH (05:16)
--- NOTE | 2017-04-13 07:56 | CON ---
DATE: 04/12/2017 HISTORY OF PRESENT ILLNESS: This patient was seen and evaluated earlier. This 46-year-old patient well known to our service because of the previous admissions, noticed to have significantly elevated liver enzymes and was advised by the primary doctor to come to the emergency room because of this abnormal LFT's. The patient also complained of feeling of weakness and unable to lift even a cup off the table. She had a history of unsteadiness of the gait. No history of any fever. No history of any abdominal pain as such. The patient has a long history of alcohol abuse. She denies having any drink for the last 40 days. The patient was discharged home about 3 weeks ago. Multiple hospitalizations with alcohol use. The patient was on steroid, treated with prednisolone 40 mg daily with the intent to do the tapering doses. The patient was at home, lactulose for hepatic encephalopathy along with Xifaxan. The patient also was on slightly low-dose of diuretics 25 mg of Aldactone. PAST MEDICAL HISTORY: Other past medical history is significant for herniated disk, chronic back pain, reflux disease, history of polysubstance abuse, anxiety, depression, history of diverticular disease, history of kidney stones. PAST SURGICAL HISTORY: Significant for cholecystectomy, history of gastric bypass, last endoscopy about 2 years ago. FAMILY HISTORY: Noncontributory. SOCIAL HISTORY: Positive for alcohol use, but last drink she claims was about 45 days. REVIEW OF SYSTEMS: Positive as above. Other systems reviewed are negative. PHYSICAL EXAMINATION: GENERAL: The patient is lying on the bed, not in acute distress. VITAL SIGNS: Temperature is 98.8, pulse 82, blood pressure 101/58, respirations 19 and O2 saturation 90%. HEENT: Atraumatic. The patient is obviously deeply jaundiced. NECK: Supple. HEART: S1 and S2 heard. LUNGS: Bilateral air entry present. ABDOMEN: Soft. Bowel sounds present. EXTREMITIES: Mild edema present. NEUROLOGIC: Alert and oriented. Moves all extremities. LABORATORY DATA: Hemoglobin 10.5, hematocrit 31.6, WBC 7.5 and platelets 158. Chemistry shows total bilirubin went up to 23.3, AST 228, ALT 58, alkaline phosphatase 146, potassium 3.1, calcium 8.3. IMPRESSION: This 46-year-old patient with long history of ETOH was discharged from the hospital about 3 weeks ago, was admitted with the worsening of the liver function, weakness. The patient has been on Xifaxan and lactulose for hepatic encephalopathy. The patient in the past at home was treated with steroid, prednisolone 40 mg daily. The patient did have an ultrasound scan done in the past, showed status post cholecystectomy, no stones. Previous workup includes hepatitis profile which is negative. The patient did have SLIME, which is positive. Autoimmune markers done in the past is negative. RECOMMENDATIONS: 1. Continue the lactulose and also Xifaxan for hepatic encephalopathy. Ammonia level is elevated to 72. We will increase the dose of lactulose. 2. The patient's discriminant factor is significantly elevated. Would benefit from steroid. We will start the patient on prednisolone. 3. Supplement potassium level and close followup of the electrolyte. 4. We will discuss with liver unit at the [facility] regarding further evaluation management. Thank you very much for allowing us to participate in the care of the patient. We will continue to closely follow up her care and suggest further management based on the clinical course. Ana Meza MD [place]
[2017-04-13] MEDS: Multivitamin With Minerals Tab PO SCH (08:30)
[2017-04-13] MEDS: Magnesium Chloride 64 mg ER Tab PO SCH (09:09)
[2017-04-13] MEDS: Potassium Chloride 20 mEq ER Tab PO SCH (09:09)
[2017-04-13 10:53] LABS: BASO # 0.03 K/mm3 (0.0-2.0); BASO % 0.6 % (0.0-3.0); EOS # 0.1 (0.0-0.7); EOS % 1.5 % (1.5-5.0); GRAN # 3.95 (1.4-6.5); HEMATOCRIT 30.6 % (36.0-48.0); LYMPH # 0.7 (1.2-3.4); MEAN CELL VOLUME 96.5 fl (80.0-105.0); MEAN CORPUSCULAR HEMOGLOBIN 31.9 pg (25.0-35.0); MEAN PLATELET VOLUME 10.2 fl (7.0-11.0); MONO # 0.5 (0.1-0.6); MONO % 8.9 % (1.0-6.0); RED CELL DISTRIBUTION WIDTH 14.4 % (11.5-14.5); WHITE BLOOD COUNT 5.3 10^3/ul (4.5-11.0)
[2017-04-13 11:02] LABS: INR 2.39 (0.93-1.08); PARTIAL THROMBOPLASTIN TIME 48.5 Seconds (25.1-36.5)
[2017-04-13 11:17] LABS: POTASSIUM 2.7 mmol/L (3.6-5.0)
[2017-04-13 11:28] LABS: ALB/GLOB RATIO 0.6 (1.1-1.8); BILIRUBIN,TOTAL 23.5 mg/dL (0.2-1.3); CALCIUM 8.2 mg/dL (8.4-10.5)
[2017-04-13] MEDS: PrednisoLONE 15 mg/5 ml Oral Syrup (240 ml) PO SCH ×2 (12:14→22:01)
--- NOTE | 2017-04-13 12:49 | CP.PCM.PN ---
<Susana,Kovil V - Last Filed: 04/14/17 10:10> Objective - Vital Signs/Intake and Output Vital Signs (last 24 hours): Temp Pulse Resp BP Pulse Ox 98 F 82 20 110/66 92 L 04/13/17 16:00 04/13/17 16:00 04/13/17 16:00 04/13/17 16:00 04/13/17 16:00 Intake and Output: 04/13/17 04/14/17 18:59 06:59 Intake Total 480 600 Output Total 2 Balance 478 600 - Medications Medications: Current Medications Alprazolam (Xanax) 0.5 mg PO BID PRN; Protocol PRN Reason: Anxiety Calcium Carbonate (Oscal) 1,000 mg PO TID [facility] Last Admin: 04/13/17 18:06 Dose: 1,000 mg Duloxetine HCl (Cymbalta) 20 mg PO DAILY [facility] Last Admin: 04/13/17 09:10 Dose: 20 mg Ergocalciferol (Drisdol 50,000 Intl Units Cap) 1 cap PO Q7D [facility] Escitalopram Oxalate (Lexapro) 10 mg PO DAILY [facility] Last Admin: 04/13/17 09:09 Dose: 10 mg Folic Acid (Folic Acid) 1 mg PO DAILY [facility] Last Admin: 04/13/17 09:09 Dose: 1 mg Furosemide (Lasix) 40 mg PO DAILY [facility] Last Admin: 04/13/17 10:35 Dose: Not Given Gabapentin (Neurontin) 300 mg PO TID [facility] PRN Reason: Protocol Last Admin: 04/13/17 18:06 Dose: 300 mg Hydrocortisone (Anusol-Hc) 0 gm MT BID [facility] Lactulose (Enulose) 20 gm PO TID [facility] Last Admin: 04/13/17 18:07 Dose: 20 gm Levetiracetam (Keppra) 500 mg PO BID [facility] Last Admin: 04/13/17 18:06 Dose: 500 mg Magnesium Chloride (Slow-Mag) 64 mg PO DAILY [facility] Last Admin: 04/13/17 09:09 Dose: 64 mg Multivitamins/Minerals (Therapeutic-M Tab) 1 tab PO 0800 [facility] Last Admin: 04/13/17 08:30 Dose: 1 tab Pantoprazole Sodium (Protonix Ec Tab) 20 mg PO 0600 [facility] Last Admin: 04/13/17 05:16 Dose: 20 mg Potassium Chloride (K-Dur 20 Meq Er Tab) 20 meq PO TID [facility] Last Admin: 04/13/17 09:09 Dose: 20 meq Prednisolone (Prednisolone Oral Soln) 20 mg PO Q12H [facility] Last Admin: 04/13/17 12:14 Dose: 15 mg Rifaximin (Xifaxan) 550 mg PO BID JACKIE PRN Reason: Protocol Last Admin: 04/13/17 18:06 Dose: 550 mg Spironolactone (Aldactone) 25 mg PO BID [facility] Last Admin: 04/13/17 18:06 Dose: 25 mg Vancomycin HCl (Vancocin 25 Mg/Ml (Oral Use)) 250 mg PO QID JACKIE PRN Reason: Protocol Last Admin: 04/13/17 18:07 Dose: 250 mg - Labs Labs: 04/13/17 10:45 04/13/17 10:45 PT 26.8 SECONDS (9.4-12.5) H 04/13/17 10:45 INR 2.39 (0.93-1.08) H 04/13/17 10:45 APTT 48.5 Seconds (25.1-36.5) H 04/13/17 10:45 Attending/Attestation - Attestation I have personally seen and examined this patient.: Yes I have fully participated in the care of the patient.: Yes I have reviewed all pertinent clinical information, including history, physical exam and plan: Yes Notes (Text): this patient was seen and evaluated earlier. Discussed with the patient's son who was at bedside. This is an addendum to the GI progress report dictated by Whitney Rojas APN. On examination patient was deeply jaundiced mild tenderness in the epigastric region on deep palpation Total bilirubin has gone up to 23.5. Patient's MELD Score is 30. Discriminant factor 89 In the morning the ammonia level has gone up to 93. Hypokalemia potassium is being supplemented. I would consider increasing dose of lactulose after correcting potassium patient's INR is elevated. history of alcoholic hepatitis . Patient states the last alcoholic dring and was nearly 5 weeks ago. Concern is worsening of the hepatic dysfunction total bilirubin with increasing trend. Try to reach out to hepatology fellow at telephone number [phone] 04/13/17 22:41 04/13/17 22:48 04/14/17 10:10 <Whitney Rojas - Last Filed: 04/15/17 13:46> Subjective - Date & Time of Evaluation Date of Evaluation: 04/13/17 Time of Evaluation: 10:50 - Subjective Subjective: S&E at bedside, no acute overnight events, jaundice, feel weak, at bedside, pt. had soft BM that was light yellow, notice mixed with blood and urine, pt. complain of hemorrhoid irritating her rectum. No N/V or abdominal pain. No SOB or chest pain. Objective - Vital Signs/Intake and Output Vital Signs (last 24 hours): Temp Pulse Resp BP Pulse Ox 97.7 F 76 18 105/57 L 98 04/13/17 07:00 04/13/17 07:00 04/13/17 07:00 04/13/17 07:00 04/13/17 07:00 Intake and Output: 04/13/17 04/13/17 06:59 18:59 Intake Total 600 Balance 600 - Medications Medications: Current Medications Alprazolam (Xanax) 0.5 mg PO BID PRN; Protocol PRN Reason: Anxiety Calcium Carbonate (Oscal) 1,000 mg PO TID [facility] Last Admin: 04/13/17 09:09 Dose: 1,000 mg Duloxetine HCl (Cymbalta) 20 mg PO DAILY [facility] Last Admin: 04/13/17 09:10 Dose: 20 mg Ergocalciferol (Drisdol 50,000 Intl Units Cap) 1 cap PO Q7D [facility] Escitalopram Oxalate (Lexapro) 10 mg PO DAILY [facility] Last Admin: 04/13/17 09:09 Dose: 10 mg Folic Acid (Folic Acid) 1 mg PO DAILY [facility] Last Admin: 04/13/17 09:09 Dose: 1 mg Furosemide (Lasix) 40 mg PO DAILY [facility] Gabapentin (Neurontin) 300 mg PO TID [facility] PRN Reason: Protocol Last Admin: 04/13/17 09:10 Dose: 300 mg Potassium Chloride (Potassium Chloride 20 Meq/100 Ml) 20 meq in 100 mls @ 50 mls/hr IVPB Q2H [facility] Stop: 04/13/17 15:29 Lactulose (Enulose) 20 gm PO TID [facility] Last Admin: 04/13/17 09:10 Dose: 20 gm Levetiracetam (Keppra) 500 mg PO BID [facility] Last Admin: 04/13/17 09:09 Dose: 500 mg Magnesium Chloride (Slow-Mag) 64 mg PO DAILY [facility] Last Admin: 04/13/17 09:09 Dose: 64 mg Multivitamins/Minerals (Therapeutic-M Tab) 1 tab PO 0800 [facility] Last Admin: 04/13/17 08:30 Dose: 1 tab Pantoprazole Sodium (Protonix Ec Tab) 20 mg PO 0600 [facility] Last Admin: 04/13/17 05:16 Dose: 20 mg Potassium Chloride (K-Dur 20 Meq Er Tab) 20 meq PO TID [facility] Last Admin: 04/13/17 09:09 Dose: 20 meq Prednisolone (Prednisolone Oral Soln) 20 mg PO Q12H [facility] Rifaximin (Xifaxan) 550 mg PO BID [facility] PRN Reason: Protocol Last Admin: 04/13/17 09:09 Dose: 550 mg Spironolactone (Aldactone) 25 mg PO BID [facility] Last Admin: 04/13/17 09:09 Dose: 25 mg - Labs Labs: 04/13/17 10:45 04/13/17 10:45 PT 26.8 SECONDS (9.4-12.5) H 04/13/17 10:45 INR 2.39 (0.93-1.08) H 04/13/17 10:45 APTT 48.5 Seconds (25.1-36.5) H 04/13/17 10:45 - Constitutional Appears: No Acute Distress - Head Exam Head Exam: NORMOCEPHALIC - Eye Exam Eye Exam: Scleral icterus - ENT Exam ENT Exam: Mucous Membranes Moist - Neck Exam Neck Exam: Normal Inspection - Respiratory Exam Respiratory Exam: Decreased Breath Sounds, NORMAL BREATHING PATTERN. absent: Respiratory Distress - Cardiovascular Exam Cardiovascular Exam: +S1, +S2 - GI/Abdominal Exam GI & Abdominal Exam: Soft, Normal Bowel Sounds. absent: Guarding, Tenderness, Organomegaly, Rebound - Rectal Exam Rectal Exam: Hemorrhoids (no bleeding). absent: Bloody Stool - Extremities Exam Extremities Exam: absent: Calf Tenderness, Pedal Edema - Neurological Exam Neurological Exam: Alert, Awake, Oriented x3 - Skin Skin Exam: Dry (severly jaundiced), Warm Assessment and Plan - Assessment and Plan (Free Text) Assessment: ASSESSMENT: Elevated LFT, Maddrey's Discriminate Function 89.3, based on todays labs (PT/TB) >32 suggest poor prognosis, pt has been started on steroids H/O ETOH, no alcohol intake for >30 days Hypokalemia Hepatic Encephalopathy Hemorrhoids Status post fall History of polysubstance abuse Peripheral neuropathy Obesity History of gastric bypass History of peptic ulcer disease PLAN: give Kriders 20 meq X2, hold PO potassium , recheck potassium , spoke to Tracy KIM start Prednislone 20 mg Q12H stat am labs: cmp,cbc,pt/ptt,ammonia level on lactulose 20 gm TID, monitor electrolytes closely continue Xiafaxin continue Protonix 20 mg daily SCD for DVT prophylaxsis anusol cream to hemorhoids BID trend LFT Contact [facility] for Hepatology service for possible transfer. Spoke to at the bedside. Seen and discussed w/ Dr. Meza.
--- NOTE | 2017-04-13 14:23 | HP ---
DATE: 04/12/2017 CHIEF COMPLAINT: Generalized weakness and worsening jaundice. HISTORY OF PRESENT ILLNESS: This is a 46-year-old woman, a lost unfortunate soul I have known for many years with a long history of polysubstance abuse including alcohol, benzodiazepines, and opiates. She was recently hospitalized at [facility] for multiple electrolyte abnormalities, hypokalemia, hypocalcemia, hypomagnesemia as well as worsening liver failure. She went home with bilirubin in the 6 to 8 range and was advised of worsening liver failure. The blood work as an outpatient showed remarkably elevated bilirubin at 28. She was for a home visit by me but was seen by physical therapist and agreed to come to the hospital for admission and reevaluation after deterioration of her overall clinical condition, worsening weakness, and jaundice. PAST MEDICAL HISTORY: Significant for multiple hospitalizations related to acute alcohol intoxication and polysubstance abuse as well as hypokalemia. She has a history of hyperbilirubinemia due to alcoholic liver failure with elevated coags. On her recent hospitalization in 02/2017, her blood alcohol level was 276; however, now the patient states it has been 46 days since she had a drink of alcohol and she has abstained completely from her opiates and benzodiazepines. She was considering a long-term alcohol rehab program in [place] earlier this year but declined that opportunity. Her past medical history is also significant for renal stones, cholelithiasis, diverticulitis, anxiety, and depression. SOCIAL HISTORY: She is with grown children. MEDICATIONS: Include oxycodone, Xanax, and Ambien. ALLERGIES: SHE HAS NO KNOWN ALLERGIES TO MEDICATIONS. REVIEW OF SYSTEMS: The patient reports chronic back pain and generalized fatigue. PHYSICAL EXAMINATION: GENERAL: The patient is seen this Tuesday evening in room 572, bed 2. She is severely jaundiced. HEENT AND NECK: Sclerae are icteric. Head and neck are otherwise unremarkable except for the jaundice. Dentition is poor. LUNGS: Have good aeration in right and left. HEART: Regular. Not tachycardiac. ABDOMEN: Soft and nontender, obese. EXTREMITIES: Overweight, but show no edema. LABORATORY DATA: Review of the lab shows bilirubin to be 23, AST and ALT are elevated at 228 and 68, alkaline phosphatase is 146, potassium is 3.1. IMPRESSION: Severe end-stage liver disease with markedly elevated bilirubin. PLAN: The patient will be admitted. We will continue lactulose, spironolactone, and cautious use of Lasix given the fact that she is not terribly volume overloaded at this point. I will speak with gastroenterology and transfer to a Tertiary Referral Unit as the patient is in end-stage liver disease, and I see liver transplant and/or followup with Tertiary Referral Center as her/our best option in her case. Leonel Mcdowell MD MTDD
[2017-04-13] MEDS: Vancomycin 25 MG/ML PO SCH ×2 (18:07→22:01)
[2017-04-14] MEDS: Pantoprazole 20 mg EC Tab PO SCH (05:46)
[2017-04-14 06:51] LABS: BASO # 0.01 K/mm3 (0.0-2.0); BASO % 0.2 % (0.0-3.0); EOS % 0.3 % (1.5-5.0); GRAN # 5.7 (1.4-6.5); GRAN % 88.8 % (50.0-68.0); HEMATOCRIT 27.9 % (36.0-48.0); LYMPH # 0.5 (1.2-3.4); LYMPH % 7.3 % (22.0-35.0); MEAN CELL VOLUME 97.6 fl (80.0-105.0); MEAN CORPUSCULAR HEMOGLOBIN 32.5 pg (25.0-35.0); MEAN CORPUSCULAR HGB CONC 33.3 g/dl (31.0-37.0); MEAN PLATELET VOLUME 10.8 fl (7.0-11.0); MONO # 0.2 (0.1-0.6); MONO % 3.4 % (1.0-6.0); RED CELL DISTRIBUTION WIDTH 14.2 % (11.5-14.5); WHITE BLOOD COUNT 6.4 10^3/ul (4.5-11.0)
[2017-04-14 07:03] LABS: INR 2.45 (0.93-1.08)
[2017-04-14 07:55] LABS: ALB/GLOB RATIO 0.5 (1.1-1.8); BILIRUBIN,TOTAL 21.8 mg/dL (0.2-1.3); CALCIUM 8.2 mg/dL (8.4-10.5); POTASSIUM 3.1 mmol/L (3.6-5.0); TOTAL PROTEIN 6.7 g/dL (5.8-8.3)
[2017-04-14] MEDS ORDERED: Phytonadione 10 mg/ml Inj (Adult) SC STA (09:41)
[2017-04-14] MEDS: Vancomycin 25 MG/ML PO SCH ×4 (09:48→22:47)
[2017-04-14] MEDS: Potassium Chloride 20 mEq ER Tab PO SCH ×3 (09:49→17:19)
[2017-04-14] MEDS: Multivitamin With Minerals Tab PO SCH (09:50)
[2017-04-14] MEDS: Hydrocortisone 2.5% Rectal Cream(30 gm) PR SCH ×3 (10:00→19:20)
[2017-04-14] MEDS: Magnesium Chloride 64 mg ER Tab PO SCH (13:18)
[2017-04-14] MEDS: PrednisoLONE 15 mg/5 ml Oral Syrup (240 ml) PO SCH ×2 (13:44→22:47)
[2017-04-14 17:19] VITALS: RESP 20
--- NOTE | 2017-04-15 02:53 | PN ---
DATE: SUBJECTIVE: This patient was seen and evaluated earlier today. The patient appears comfortable, had a bowel movement, had small amount of bright red blood per rectum along with brown stool. Tolerating the diet. Appears a little bit more comfortable. PHYSICAL EXAMINATION: VITAL SIGNS: Temperature 98, pulse 76, blood pressure 102/60, respirations 20, and O2 saturations 96%. HEENT: Jaundiced. Atraumatic. NECK: Supple. HEART: S1 and S2 heard. LUNGS: Bilateral air entry present. ABDOMEN: Softly distended. Bowel sounds present. Tenderness present in the epigastric area. EXTREMITIES: No cyanosis. No clubbing. Mild edema present. LABORATORY DATA: Hemoglobin 9.3, hematocrit 27.9, WBC 6.4, and platelets 111. Chemistry: Potassium is 3.1, supplemented, improved to 4.1. Total bilirubin has come down to 21.8. AST 173, ALT 61, and alkaline phosphatase 119. INR 2.45. Stool for C. diff positive. IMPRESSION AND PLAN: This is a 46-year-old patient with past medical history of alcohol abuse, history of alcoholic hepatitis treated in the past with the steroid with good improvement, history of SLIME positive, other autoimmune markers is negative, admitted with worsening of the liver function with increased LFTs. Total bilirubin was 23, now it has come down to 21.8. Real concern is the is probably due to alcoholic hepatitis in the background of chronic liver disease and cirrhosis possible. The patient did have an autoimmune markers, which was negative except that the SLIME was positive. 1. The patient is coagulopathic. The patient has small amount of rectal bleeding. We will try to give a dose of vitamin K now, which may not be correct the coagulopathy, but it can reduce the INR as part of the things related to malabsorption and poor intake. 2. Clostridium difficile colitis. The patient is on p.o. vancomycin. The problem in this patient is worsening of the liver enzymes and hepatic encephalopathy on Xifaxan and lactulose. The lactulose has been on a reduced dose because of the hypokalemia, which is being supplemented. We will continue the lactulose and also Xifaxan. The patient has peripheral neuropathy on 300 mg of Neurontin 3 times a day. History of alcohol abuse, as per the family it was more than 40 days ago. I spoke to the patient's son at length. Discussed with Dr. Mcdowell earlier yesterday. The real concern is transferring her to tertiary care setup in view of her age and worsening of the liver enzymes. The patient also presently has Clostridium difficile positive on p.o. vancomycin . The concern is flare up of the Clostridium difficile and also persistence in view of the background of 6:28. We will discuss with the hepatology fellow in the [facility]. The patient was accepted for transfer. We will continue to closely monitor the patient. We will continue to closely follow up her care and suggest further management based on the clinical course. Ana Meza MD
[2017-04-15] MEDS: Pantoprazole 20 mg EC Tab PO SCH (05:51)
[2017-04-15 07:18] LABS: BASO # 0.02 K/mm3 (0.0-2.0); BASO % 0.3 % (0.0-3.0); EOS # 0.1 (0.0-0.7); GRAN # 5.94 (1.4-6.5); GRAN % 74.5 % (50.0-68.0); HEMATOCRIT 29.2 % (36.0-48.0); LYMPH # 1.2 (1.2-3.4); LYMPH % 15.4 % (22.0-35.0); MEAN CORPUSCULAR HEMOGLOBIN 32.2 pg (25.0-35.0); MEAN CORPUSCULAR HGB CONC 32.9 g/dl (31.0-37.0); MEAN PLATELET VOLUME 11.8 fl (7.0-11.0); MONO # 0.7 (0.1-0.6); MONO % 8.8 % (1.0-6.0); RED CELL DISTRIBUTION WIDTH 14.4 % (11.5-14.5)
[2017-04-15 07:33] LABS: INR 2.23 (0.93-1.08); PARTIAL THROMBOPLASTIN TIME 47.1 Seconds (25.1-36.5)
[2017-04-15 08:30] LABS: ALB/GLOB RATIO 0.5 (1.1-1.8); BILIRUBIN,TOTAL 20.1 mg/dL (0.2-1.3); CALCIUM 8.3 mg/dL (8.4-10.5); POTASSIUM 3.8 mmol/L (3.6-5.0); TOTAL PROTEIN 6.7 g/dL (5.8-8.3)
[2017-04-15] MEDS ORDERED: Phytonadione 10 mg/ml Inj (Adult) SC ONE (10:36)
[2017-04-15] MEDS: Magnesium Chloride 64 mg ER Tab PO SCH (10:54)
[2017-04-15] MEDS: Potassium Chloride 20 mEq ER Tab PO SCH ×3 (10:57→18:19)
[2017-04-15] MEDS: Multivitamin With Minerals Tab PO SCH (10:58)
[2017-04-15] MEDS: Hydrocortisone 2.5% Rectal Cream(30 gm) PR SCH ×4 (11:00→18:21)
[2017-04-15] MEDS: Vancomycin 25 MG/ML PO SCH ×4 (11:29→22:12)
[2017-04-15] MEDS: PrednisoLONE 15 mg/5 ml Oral Syrup (240 ml) PO SCH ×2 (12:52→22:13)
--- NOTE | 2017-04-15 17:22 | CP.PCM.PN ---
<Whitney Rojas - Last Filed: 04/15/17 17:20> Subjective - Date & Time of Evaluation Date of Evaluation: 04/15/17 Time of Evaluation: 09:40 - Subjective Subjective: S&E at bedside, chart reviewed, no acute overnight events, patient w/ no complaints, awake and alert. Having BM, no bleeding, rectal discomfort improved. Tolerating oral intake. Awaiting a bed at [facility] for transfer. Objective - Vital Signs/Intake and Output Vital Signs (last 24 hours): Temp Pulse Resp BP Pulse Ox 98.6 F 77 20 128/78 95 04/15/17 08:07 04/15/17 08:07 04/15/17 08:07 04/15/17 10:55 04/15/17 08:07 Intake and Output: 04/15/17 04/15/17 06:59 18:59 Intake Total 960 480 Balance 960 480 - Medications Medications: Current Medications Alprazolam (Xanax) 0.5 mg PO BID PRN; Protocol PRN Reason: Anxiety Last Admin: 04/15/17 13:49 Dose: 0.5 mg Calcium Carbonate (Oscal) 1,000 mg PO TID [facility] Last Admin: 04/15/17 14:07 Dose: 1,000 mg Duloxetine HCl (Cymbalta) 20 mg PO DAILY [facility] Last Admin: 04/15/17 10:56 Dose: 20 mg Ergocalciferol (Drisdol 50,000 Intl Units Cap) 1 cap PO Q7D [facility] Escitalopram Oxalate (Lexapro) 10 mg PO DAILY [facility] Last Admin: 04/15/17 10:55 Dose: 10 mg Folic Acid (Folic Acid) 1 mg PO DAILY [facility] Last Admin: 04/15/17 10:57 Dose: 1 mg Furosemide (Lasix) 40 mg PO DAILY [facility] Last Admin: 04/15/17 10:55 Dose: 40 mg Gabapentin (Neurontin) 300 mg PO TID [facility] PRN Reason: Protocol Last Admin: 04/15/17 14:06 Dose: 300 mg Hydrocortisone (Anusol-Hc) 0 gm MS BID [facility] Last Admin: 04/15/17 11:11 Dose: 1 applic Lactulose (Enulose) 20 gm PO TID [facility] Last Admin: 04/15/17 14:07 Dose: 20 gm Levetiracetam (Keppra) 500 mg PO BID [facility] Last Admin: 04/15/17 10:57 Dose: 500 mg Magnesium Chloride (Slow-Mag) 64 mg PO DAILY [facility] Last Admin: 04/15/17 10:54 Dose: 64 mg Multivitamins/Minerals (Therapeutic-M Tab) 1 tab PO 0800 [facility] Last Admin: 04/15/17 10:58 Dose: 1 tab Pantoprazole Sodium (Protonix Ec Tab) 20 mg PO 0600 [facility] Last Admin: 04/15/17 05:51 Dose: Not Given Potassium Chloride (K-Dur 20 Meq Er Tab) 20 meq PO TID [facility] Last Admin: 04/15/17 14:07 Dose: 20 meq Prednisolone (Prednisolone Oral Soln) 20 mg PO Q12H [facility] Last Admin: 04/15/17 12:52 Dose: 20 mg Rifaximin (Xifaxan) 550 mg PO BID [facility] PRN Reason: Protocol Last Admin: 04/15/17 10:57 Dose: 550 mg Spironolactone (Aldactone) 25 mg PO BID [facility] Last Admin: 04/15/17 10:56 Dose: 25 mg Vancomycin HCl (Vancocin 25 Mg/Ml (Oral Use)) 250 mg PO QID [facility] PRN Reason: Protocol Last Admin: 04/15/17 14:08 Dose: 250 mg - Labs Labs: 04/15/17 06:50 04/15/17 06:50 PT 24.9 SECONDS (9.4-12.5) H 04/15/17 06:50 INR 2.23 (0.93-1.08) H 04/15/17 06:50 APTT 47.1 Seconds (25.1-36.5) H 04/15/17 06:50 - Constitutional Appears: No Acute Distress - Eye Exam Eye Exam: Scleral icterus - ENT Exam ENT Exam: Mucous Membranes Moist - Neck Exam Neck Exam: Normal Inspection - Respiratory Exam Respiratory Exam: NORMAL BREATHING PATTERN. absent: Respiratory Distress - Cardiovascular Exam Cardiovascular Exam: +S1, +S2 - GI/Abdominal Exam GI & Abdominal Exam: Soft, Normal Bowel Sounds. absent: Guarding, Tenderness, Rebound - Neurological Exam Neurological Exam: Alert, Awake, Oriented x3 - Skin Skin Exam: Dry, Warm Additional comments: jaundice Assessment and Plan - Assessment and Plan (Free Text) Assessment: ASSESSMENT: Elevated LFT, with poor Discriminate Function H/O ETOH, no alcohol intake for >30 days Resolved Hypokalemia Hepatic Encephalopathy Hemorrhoids Status post fall History of polysubstance abuse Peripheral neuropathy Obesity History of gastric bypass History of peptic ulcer disease PLAN: give dose of Vitamen K SQ continue Prednislone 20 mg Q12H on lactulose 20 gm TID, monitor electrolytes closely continue Xiafaxin continue Protonix 20 mg daily SCD for DVT prophylaxsis anusol cream to hemorhoids BID trend LFT transfer to [facility], awaiting bed Spoke to at the bedside. Seen and discussed w/ Dr. Meza. <Ana Meza V - Last Filed: 04/16/17 00:39> Objective - Vital Signs/Intake and Output Vital Signs (last 24 hours): Temp Pulse Resp BP Pulse Ox 98.7 F 68 20 98/56 L 96 04/15/17 16:00 04/15/17 16:00 04/15/17 16:00 04/15/17 16:00 04/15/17 16:00 Intake and Output: 04/15/17 04/16/17 18:59 06:59 Intake Total 480 1080 Balance 480 1080 - Medications Medications: Current Medications Alprazolam (Xanax) 0.5 mg PO BID PRN; Protocol PRN Reason: Anxiety Last Admin: 04/15/17 22:14 Dose: 0.5 mg Calcium Carbonate (Oscal) 1,000 mg PO TID [facility] Last Admin: 04/15/17 18:19 Dose: 1,000 mg Duloxetine HCl (Cymbalta) 20 mg PO DAILY [facility] Last Admin: 04/15/17 10:56 Dose: 20 mg Ergocalciferol (Drisdol 50,000 Intl Units Cap) 1 cap PO Q7D [facility] Escitalopram Oxalate (Lexapro) 10 mg PO DAILY [facility] Last Admin: 04/15/17 10:55 Dose: 10 mg Folic Acid (Folic Acid) 1 mg PO DAILY [facility] Last Admin: 04/15/17 10:57 Dose: 1 mg Furosemide (Lasix) 40 mg PO DAILY [facility] Last Admin: 04/15/17 10:55 Dose: 40 mg Gabapentin (Neurontin) 300 mg PO TID [facility] PRN Reason: Protocol Last Admin: 04/15/17 18:21 Dose: Not Given Hydrocortisone (Anusol-Hc) 0 gm MS BID [facility] Last Admin: 12/01/17 18:21 Dose: 1 applic Lactulose (Enulose) 20 gm PO TID [facility] Last Admin: 04/15/17 18:19 Dose: 20 gm Levetiracetam (Keppra) 500 mg PO BID [facility] Last Admin: 04/15/17 18:19 Dose: 500 mg Magnesium Chloride (Slow-Mag) 64 mg PO DAILY [facility] Last Admin: 04/15/17 10:54 Dose: 64 mg Multivitamins/Minerals (Therapeutic-M Tab) 1 tab PO 0800 [facility] Last Admin: 04/15/17 10:58 Dose: 1 tab Pantoprazole Sodium (Protonix Ec Tab) 20 mg PO 0600 [facility] Last Admin: 04/15/17 05:51 Dose: Not Given Potassium Chloride (K-Dur 20 Meq Er Tab) 20 meq PO TID [facility] Last Admin: 04/15/17 18:19 Dose: 20 meq Prednisolone (Prednisolone Oral Soln) 20 mg PO Q12H [facility] Last Admin: 04/15/17 22:13 Dose: 20 mg Rifaximin (Xifaxan) 550 mg PO BID [facility] PRN Reason: Protocol Last Admin: 04/15/17 18:19 Dose: 550 mg Spironolactone (Aldactone) 25 mg PO BID [facility] Last Admin: 04/15/17 18:19 Dose: 25 mg Vancomycin HCl (Vancocin 25 Mg/Ml (Oral Use)) 250 mg PO QID [facility] PRN Reason: Protocol Last Admin: 04/15/17 22:12 Dose: 250 mg - Labs Labs: 04/15/17 06:50 04/15/17 06:50 PT 24.9 SECONDS (9.4-12.5) H 04/15/17 06:50 INR 2.23 (0.93-1.08) H 04/15/17 06:50 APTT 47.1 Seconds (25.1-36.5) H 04/15/17 06:50
[2017-04-15 18:20] VITALS: PULSE 68; TEMP 98.7; O2SAT 96
--- NOTE | 2017-04-15 22:00 | PN ---
DATE: 04/15/2017 SUBJECTIVE: The patient was seen in room 572, bed 2 this Tuesday morning, resting comfortably in bed, not complaining of pain or requesting analgesics. Bilirubin has come down a bit to approximately 20 as we await transfer to a tertiary referral unit for evaluation of liver transplant. GI consultation notes are proceeded. Patient is well aware of the situation. PHYSICAL EXAMINATION: LUNGS: Good aeration, right and left. HEART: Regular. SKIN: Remarkably jaundiced. EXTREMITIES: Show no edema. I see no flap with extension of the arms. We will continue current level of supportive care and aggressive treatment for her liver disease as we await transfer to [facility]. Leonel Mcdowell MD
--- NOTE | 2017-04-15 22:15 | PN ---
DATE: 04/14/2017 SUBJECTIVE: The patient remains in room 572, bed 2 this . Phone call from the nursing staff earlier this morning, so she is ready for transfer to [facility] upon their call. I have spoken to her in the past about her best options as I see it, Tertiary Referral Center and an evaluation for liver transplant. Fortunately, she is now close to 50 days alcohol and polysubstance abuse free. Phone call later on in the day in the evening states that bed is not yet available, and therefore, the patient will stay pending this transfer. Leonel Mcdwoell MD
[2017-04-16] MEDS: Pantoprazole 20 mg EC Tab PO SCH (05:11)
[2017-04-16 06:45] LABS: ALB/GLOB RATIO 0.5 (1.1-1.8); ALKALINE PHOSPHATASE 147 U/L (38-126); ALT/SGPT 72 U/L (7-56); AST/SGOT 208 U/L (14-36); BLOOD UREA NITROGEN 10 mg/dL (7-21); CALCIUM 8.3 mg/dL (8.4-10.5); CARBON DIOXIDE 24 mmol/L (21-33); CHLORIDE 110 mmol/L (98-107); GFR AFRICAN-AMERICAN > 60; GLUCOSE,RANDOM 108 mg/dL (70-110); POTASSIUM 3.8 mmol/L (3.6-5.0); SODIUM 141 mmol/L (132-148); TOTAL PROTEIN 7.5 g/dL (5.8-8.3)
[2017-04-16 08:00] LABS: BILIRUBIN,TOTAL 21.3 mg/dL (0.2-1.3)
[2017-04-16] MEDS: Magnesium Chloride 64 mg ER Tab PO SCH (09:11)
[2017-04-16] MEDS: Multivitamin With Minerals Tab PO SCH (09:11)
[2017-04-16] MEDS: Potassium Chloride 20 mEq ER Tab PO SCH (09:18)
[2017-04-16] MEDS: Hydrocortisone 2.5% Rectal Cream(30 gm) PR SCH (09:18)
[2017-04-16 09:22] VITALS: BP 114/71
[2017-04-16] MEDS: Vancomycin 25 MG/ML PO SCH (09:24)
--- NOTE | 2017-04-17 17:10 | DS ---
HISTORY OF PRESENT ILLNESS: This is a 46-year-old unfortunate lone soul, who is known for sometime with several visits to the hospital. Although I do not initially see her in the office, my partner Dr. Russell Mcdowell will see her. She complained with the problem of chronic alcoholism, polysubstance abuse including Xanax and oxycodone. She has numerous hospitalizations because of acute alcohol intoxication and worsening liver failure. She was home after her recent hospital stay for above. Her bilirubin continued to rise. She was scheduled for house visit by me, but was seen by the physical therapist, noted to be profoundly jaundiced. The bilirubin was 28. She was sent to the emergency room, evaluated by the ER and admitted. GI and Hepatology who know her were called to see her. COURSE OF HOSPITAL STAY: The patient was treated with gentle hydration, diuretics, spironolactone, and a low dose furosemide for her ascites, Xifaxan, and lactulose. During the course of her stay, her total bilirubin remained elevated around 21. Her ammonia level however improved dramatically from 19 down to 11. I was able to speak with her , Terrance, on a few occasions including today, to talk to her about and to inform him of a bed available at a tertiary referral center and her transfer to [facility]. He was in agreement and so arrangements were confirmed, and the patient was transferred to [facility] in [place] where there is a tertiary referral liver center, and up until recently, I never had been involved in liver transplants. I explained this process to the patient and also we screened and evaluated, and while transfer may not be indicated immediately, at least visit the center where she will need to be followed. I also reviewed with her once again the importance of abstinence from alcohol, benzodiazepines, and narcotic analgesics. FINAL DISCHARGE DIAGNOSES: 1. End-stage liver disease. 2. Liver failure. 3. Severe jaundice. 4. Hepatic encephalopathy. 5. History of polysubstance abuse. Leonel Mcdowell MD [place]
[2017-04-18] MEDS ORDERED: Ergocalciferol 50,000 Intl Units Cap PO SCH (10:00)
== END 2017-04-16 11:42 | disposition short-term general hospital (02) | DRG 433 ==
LOC: ED 13:14 → ERH 15:05 → 5RSO 16:20
PROVIDERS: ADMIT Internal Medicine; ATTEND Internal Medicine
DX: K70.40 Alcoholic hepatic failure without coma (principal); A04.72 Enterocolitis due to Clostridium difficile, not specified as recurrent; K70.11 Alcoholic hepatitis with ascites; F10.20 Alcohol dependence, uncomplicated; Y90.0 Blood alcohol level of less than 20 mg/100 ml; G62.9 Polyneuropathy, unspecified; E87.6 Hypokalemia; F41.9 Anxiety disorder, unspecified; M54.9 Dorsalgia, unspecified; G89.29 Other chronic pain; K64.9 Unspecified hemorrhoids; I10 Essential (primary) hypertension; K21.9 Gastro-esophageal reflux disease without esophagitis; E66.9 Obesity, unspecified; Z68.36 Body mass index [BMI] 36.0-36.9, adult; Z98.84 Bariatric surgery status; Z87.442 Personal history of urinary calculi; Z87.11 Personal history of peptic ulcer disease; Z90.49 Acquired absence of other specified parts of digestive tract

== ENCOUNTER 2017-12-02 12:30 | Observation (INO) | payer BC, MEDICARE ==
[2017-12-02 13:14] LABS: BASO # 0.04 K/mm3 (0.0-2.0); BASO % 0.6 % (0.0-3.0); EOS # 0.2 (0.0-0.7); EOS % 3.1 % (1.5-5.0); GRAN # 4.64 (1.4-6.5); GRAN % 64.9 % (50.0-68.0); HEMOGLOBIN 9.9 g/dL (12.0-16.0); LYMPH # 1.7 (1.2-3.4); LYMPH % 23.8 % (22.0-35.0); MEAN CELL VOLUME 86.6 fl (80.0-105.0); MEAN CORPUSCULAR HEMOGLOBIN 26.5 pg (25.0-35.0); MEAN CORPUSCULAR HGB CONC 30.6 g/dl (31.0-37.0); MEAN PLATELET VOLUME 9.8 fl (7.0-11.0); MONO # 0.5 (0.1-0.6); MONO % 7.6 % (1.0-6.0); RBC 3.74 10^6/uL (3.5-6.1); RED CELL DISTRIBUTION WIDTH 15.7 % (11.5-14.5); WHITE BLOOD COUNT 7.1 10^3/ul (4.5-11.0)
[2017-12-02 13:29] LABS: ALBUMIN 3.7 g/dL (3.0-4.8); CALCIUM 8.1 mg/dL (8.4-10.5)
[2017-12-02 13:32] LABS: ACETAMINOPHEN < 10.0 ug/ml (10.0-20.0); SALICYLATE < 1 mg/dL (2.0-20.0); URINE BILIRUBIN NEGATIVE (NEGATIVE); URINE BLOOD NEGATIVE (NEGATIVE); URINE GLUCOSE (UA) NEGATIVE (NEGATIVE); URINE LEUKOCYTE ESTERASE NEGATIVE Leu/uL (NEGATIVE); URINE PROTEIN TRACE mg/dL (<30 mg/dL); URINE UROBILINOGEN 0.2 E.U./dL (<1 E.U./dL)
[2017-12-02 13:37] LABS: URINE APPEARANCE SL CLOUDY (CLEAR); URINE COLOR YELLOW (YELLOW)
[2017-12-02 13:44] LABS: URINE BACTERIA TRACE (NEG); URINE RBC 0 - 2 /hpf (0-2); URINE WBC 0 - 2 /hpf (0-6)
[2017-12-02 13:46] LABS: BARBITURATES, UR NEGATIVE (NEGATIVE); BENZODIAZEPINES, UR POSITIVE (NEGATIVE); OPIATES, UR POSITIVE (NEGATIVE); PHENCYCLIDINE, UR NEGATIVE (NEGATIVE)
--- NOTE | 2017-12-02 14:10 | ED PDOC ---
Arrival/HPI - General Chief Complaint: Psychiatric Evaluation Time Seen by Provider: 12/02/17 12:49 Historian: Patient, Family - History of Present Illness Narrative History of Present Illness (Text): 12/02/17 15:13 47-year-old female presents today complaining of hallucinations at home. Patient also complaining of cramping in the hands bilaterally. The patient states she feels the same way she did last time she was hospitalized for liver failure. Patient denies chest pain or shortness of breath. She denies fevers or chills. She denies nausea vomiting diarrhea or constipation. Patient states she' s been having decreased appetite but mostly because she is unable to chew due to her recent removal of multiple teeth. pt states she is seeing things that arent there. pt denies any trauma or injury. denies headaches, dizziness or weakness. no other complaints. Past Medical History - Provider Review Nursing Documentation Reviewed: Yes - Travel History Have you recently traveled outside [place] w/in the past 3 mons?: No - Infectious Disease Hx of Infectious Diseases: None - Tetanus Immunization Tetanus Immunization: Unknown - Past Medical History Past Medical History: No Previous - Cardiac Hx Cardiac Disorders: Yes (CAD) Hx Hypertension: Yes Hx Peripheral Edema: Yes (ble+2 pitting edema) - Pulmonary Hx Respiratory Disorders: No - Neurological Hx Neurological Disorder: Yes (syncope) Hx Dizziness: Yes Hx Seizures: Yes Other/Comment: neuropathy arms and legs "went away after starting gabapentin about 6 wks ago - HEENT Hx HEENT Disorder: No (WEARS RX GLASSES) - Renal Hx Renal Disorder: Yes Hx Kidney Stones: Yes - Endocrine/Metabolic Hx Endocrine Disorders: No - Hematological/Oncological Hx Blood Disorders: Yes Hx Anemia: Yes (BLOOD TRANSFUSION) Other/Comment: hypokalemia, hypocalcemia - Integumentary Other/Comment: TATOOS ,BILATERAL LEG EDEMA, multiple bruises old and new to b/l knees and b/l arms, facial bruising redness b/l orbit, dry flakey skin b/l ft, reddened buttock - Musculoskeletal/Rheumatological Hx Falls: Yes (ffell last night and this am) - Gastrointestinal Hx Gastrointestinal Disorders: Yes (colitis) Hx Diverticulitis: Yes Hx Liver Failure: Yes (cirrhosis, jaundiced) Other/Comment: COLITIS,CHOLELITHIASIS,DIVERTICULITIS,GASTRIC BYPASS 2008 lost 100 lbs gained some back - Genitourinary/Gynecological Hx Genitourinary Disorders: Yes (2 C SECTIONS,TUBAL LIGATION) Hx Hematuria: Yes ("a couple weeks") Other/Comment: IUD insertion, breast reduction, bladder sling, iud insertion for heavy bleeding was changed hx of heavy periods last period about 10 yrs ago as per pt - Psychiatric Hx Anxiety: Yes Hx Depression: Yes Hx Substance Use: No Other/Comment: ETOH ABUSE 1 1/.2 to 2 pints vodka a day quit 50 days ago, INTOXICATION,INSOMNIA - Surgical History Hx Cardiac Catheterization: No Hx Cholecystectomy: Yes (2011) Hx Coronary Stent: No Hx Gastric Bypass Surgery: Yes (2007) Other/Comment: C/S X2,GASTRIC BYPASS,TUBAL LIGATION,BREAST REDUCTION,bladder sling - Anesthesia Hx Anesthesia: Yes Hx Anesthesia Reactions: No Hx Malignant Hyperthermia: No - Suicidal Assessment Feels Threatened In Home Enviroment: No Family/Social History - Physician Review Nursing Documentation Reviewed: Yes Family/Social History: Unknown Family HX Smoking Status: Never Smoked Hx Alcohol Use: Yes (quit 50 days ago 1 1/2-2pts vodka a day) Hx Substance Use: No Hx Substance Use Treatment: No Allergies/Home Meds Allergies/Adverse Reactions: Allergies No Known Allergies Allergy (Verified 12/02/17 12:45) Home Medications: Home Meds Medication Instructions Recorded Confirmed DULoxetine [Cymbalta] 30 mg PO DAILY 04/12/17 12/02/17 Amoxicillin 500 mg PO Q8 12/02/17 12/02/17 Cholecalciferol [Vitamin D 1000 IU] 50,000 iu PO QWK 12/02/17 12/02/17 Docusate Sodium [Stool Softener] 1 tab PO DAILY 12/02/17 12/02/17 Gabapentin [Neurontin] 300 mg PO TID 12/02/17 12/02/17 Pentoxifylline [Pentoxifylline] 1 tab PO TID 12/02/17 12/02/17 Zolpidem [Ambien] 1 tab PO HS 12/02/17 12/02/17 oxyCODONE [oxyCODONE Immediate 1 tab PO BID 12/02/17 12/02/17 Release Tab] Review of Systems - Review of Systems Constitutional: absent: Fatigue, Fevers Respiratory: absent: SOB, Cough Cardiovascular: absent: Chest Pain, Palpitations Gastrointestinal: absent: Abdominal Pain, Nausea, Vomiting Genitourinary Female: absent: Dysuria, Frequency, Hematuria Musculoskeletal: Other (hand cramping). absent: Arthralgias, Back Pain, Neck Pain Skin: absent: Rash, Pruritis Neurological: absent: Headache, Dizziness Psychiatric: absent: Anxiety, Depression, Suicidal Ideation Physical Exam Vital Signs Reviewed: Yes Vital Signs Temp Pulse Resp BP Pulse Ox 12/02/17 16:12 83 16 122/74 94 L 12/02/17 14:31 97.8 F 87 18 117/72 98 12/02/17 12:42 97.8 F 87 18 117/72 98 12/02/17 12:31 97.8 F 87 16 117/72 98 Temperature: Afebrile Blood Pressure: Normal Pulse: Regular Respiratory Rate: Normal Appearance: Positive for: Well-Appearing, Non-Toxic, Comfortable Pain Distress: None Mental Status: Positive for: Alert and Oriented X 3 - Systems Exam Head: Present: Atraumatic Pupils: Present: PERRL Extroacular Muscles: Present: EOMI Conjunctiva: Present: Normal Ears: Present: Normal, NORMAL TM Mouth: Present: Moist Mucous Membranes Neck: Present: Normal Range of Motion Respiratory/Chest: Present: Clear to Auscultation, Good Air Exchange. No: Respiratory Distress, Accessory Muscle Use Cardiovascular: Present: Regular Rate and Rhythm, Normal S1, S2. No: Murmurs Abdomen: No: Tenderness, Rebound, Guarding Back: Present: Normal Inspection. No: Midline Tenderness, Paraspinal Tenderness Upper Extremity: Present: Normal ROM Lower Extremity: Present: Normal ROM Neurological: Present: GCS=15, Speech Normal Skin: Present: Warm, Dry, Normal Color. No: Rashes Psychiatric: Present: Alert, Oriented x 3. No: Suicidal Ideation, Homicidal Ideation Medical Decision Making ED Course and Treatment: 47yr old female presenting with hallucinations and cramping of the hands. Patient is nontoxic well-appearing in no distress vital signs are stable. CBC WNL CMP WNL ammonia; wnl Tylenol WNL Salicylate WNL Alcohol level WNL Urine drug screen + opiates, + benzos. ct head; ADDENDUM: Addendum: There is bony destruction of the alveolar ridge of the maxilla on the right side. This is most likely due to chronic dental disease. This can be seen on image 3 series 3 [ Addendum Report Added by Russell Barkley MD at 12/02/2017 15:22:28 ] FINDINGS: HEMORRHAGE: No intracranial hemorrhage. BRAIN: No mass effect or edema. No atrophy or chronic microvascular ischemic changes. VENTRICLES: Unremarkable. No hydrocephalus. CALVARIUM: Unremarkable. PARANASAL SINUSES: Unremarkable as visualized. No significant inflammatory changes. MASTOID AIR CELLS: Unremarkable as visualized. No inflammatory changes. OTHER FINDINGS: None. IMPRESSION: No acute finding UA; wnl cxr: wnl ekg normal sinus rhythm at 84 bpm normal axis normal intervals no ST elevations 12/02/17 14:38 i was called to bedside as patient walked to the bathroom and then claims that after urinating she couldn't get up and fell - hitting her back on the toilet seat. pt denies hitting her head. on examination there are no signs of trauma to the back; CT of lumbar and thoracic spine added. 12/02/17 15:17 ct Tspine; FINDINGS: VERTEBRAE: Unremarkable. No fracture. Normal alignment. Multiple vertebral hemangiomas DISCS/SPINAL CANAL/NEURAL FORAMINA: Within the limits of the CT technique, no disc herniation seen. No central canal or neural foraminal stenosis.. PARASPINAL SOFT TISSUES: Unremarkable. OTHER FINDINGS: Unremarkable. IMPRESSION: Unremarkable CT of the thoracic spine. ct L spine; FINDINGS: VERTEBRAE: Unremarkable. No fracture. Normal alignment. There is a vertebral hemangioma at L5 DISCS/SPINAL CANAL/NEURAL FORAMINA: L1-2: Unremarkable. L2-3: Unremarkable. L3-4: Unremarkable. L4-5: Unremarkable. L5-S1: Unremarkable. PARASPINAL SOFT TISSUES: Unremarkable. OTHER FINDINGS: None. IMPRESSION: Unremarkable CT of Lumbar Spine. 12/02/17 16:25 pt with continued back pain despite toradol and morphine. case discussed with dr. Ronny bah; accepts observational status admission to med/surg with psych eval. impression; back pain, hallucinations admit observational status to med/surg - Lab Interpretations Lab Results: 12/02/17 12:45 12/02/17 12:45 Lab Results 12/02/17 13:12: Ammonia 25 12/02/17 12:45: PT 13.2 H, INR 1.15 H, APTT 34.2 12/02/17 12:45: Magnesium 1.7 12/02/17 12:45: Alcohol, Quantitative < 10 12/02/17 12:45: Salicylates < 1 L, Acetaminophen < 10.0 L 12/02/17 12:45: Urine Opiates Screen Positive H, Urine Methadone Screen Negative , Ur Barbiturates Screen Negative, Ur Phencyclidine Scrn Negative, Ur Amphetamines Screen Negative, U Benzodiazepines Scrn Positive H, U Oth Cocaine Metabols Negative, U Cannabinoids Screen Negative 12/02/17 12:45: Sodium 137, Potassium 3.8, Chloride 100, Carbon Dioxide 27, Anion Gap 13, BUN 20, Creatinine 1.4 H, Est GFR ( Amer) 49, Est GFR (Non- Af Amer) 40, Random Glucose 62 L, Calcium 8.1 L, Total Bilirubin 0.9, AST 51 H D , ALT 30, Alkaline Phosphatase 163 H, Total Protein 7.5, Albumin 3.7, Globulin 3.8, Albumin/Globulin Ratio 1.0 L 12/02/17 12:45: Urine Color Yellow, Urine Appearance Sl cloudy, Urine pH 6.0, Ur Specific [place] 1.025, Urine Protein Trace H, Urine Glucose (UA) Negative, Urine Ketones Negative, Urine Blood Negative, Urine Nitrate Negative, Urine Bilirubin Negative, Urine Urobilinogen 0.2, Ur Leukocyte Esterase Negative, Urine RBC 0 - 2, Urine WBC 0 - 2, Ur Epithelial Cells 3 - 4, Urine Bacteria Trace 12/02/17 12:45: WBC 7.1, RBC 3.74, Hgb 9.9 L, Hct 32.4 L, MCV 86.6 D, MCH 26.5 , MCHC 30.6 L, RDW 15.7 H, Plt Count 158, MPV 9.8, Gran % 64.9, Lymph % (Auto) 23.8, [place] % (Auto) 7.6 H, Eos % (Auto) 3.1, Baso % (Auto) 0.6, Gran # 4.64, Lymph # (Auto) 1.7, [place] # (Auto) 0.5, Eos # (Auto) 0.2, Baso # (Auto) 0.04 - RAD Interpretation Radiology Orders: 12/02/17 12:50 CHEST PORTABLE [RAD] Stat 12/02/17 13:58 HEAD W/O CONTRAST [CT] Stat 12/02/17 14:32 LUMBAR SPINE W/O CONTRAST [CT] Stat THORACIC SPINE W/O CONT [CT] Stat - Medication Orders Current Medication Orders: Discontinued Medications Ketorolac Tromethamine (Toradol) 30 mg IVP STAT STA Stop: 12/02/17 14:35 Last Admin: 12/02/17 14:49 Dose: 30 mg MAR Pain Assessment Document 12/02/17 14:49 SRE (Rec: 12/02/17 14:49 SRE [id number]) Pain Reassessment Is this a pain reassessment? Yes Sleep Is patient sleeping during reassessment? No Presence of Pain Presence of Pain Yes Pain Scale Used Pain Scale Used Numeric Location Pain Location Body Site Back Description Description Intermittent IVP Administration Document 12/02/17 14:49 SRE (Rec: 12/02/17 14:49 SRE [id number]) Charges for Administration # of IVP Administrations 1 Re-Assess: MAR Pain Assessment Document 12/02/17 15:49 SRE (Rec: 12/02/17 16:00 SRE [id number]) Pain Reassessment Is this a pain reassessment? Yes Sleep Is patient sleeping during reassessment? No Presence of Pain Presence of Pain Yes Pain Scale Used Pain Scale Used Numeric Location Left, Right or Bilateral Bilateral Pain Location Body Site Leg Description Description Intermittent Morphine Sulfate (Morphine) 2 mg IVP STAT STA Stop: 12/02/17 15:50 Last Admin: 12/02/17 16:11 Dose: 2 mg MAR Pain Assessment Document 12/02/17 16:11 SRE (Rec: 12/02/17 16:12 SRE [id number]) Pain Reassessment Is this a pain reassessment? Yes Sleep Is patient sleeping during reassessment? No Presence of Pain Presence of Pain Yes Pain Scale Used Pain Scale Used Numeric Location Left, Right or Bilateral Bilateral Pain Location Body Site Leg Description Description Intermittent IVP Administration Document 12/02/17 16:11 SRE (Rec: 12/02/17 16:12 SRE [id number]) Charges for Administration # of IVP Administrations 1 Disposition/Present on Arrival - Present on Arrival Any Indicators Present on Arrival: No History of DVT/PE: No History of Uncontrolled Diabetes: No Urinary Catheter: No History of Decub. Ulcer: No History Surgical Site Infection Following: None - Disposition Have Diagnosis and Disposition been Completed?: Yes Diagnosis: Back pain, Hallucinations Disposition: HOSPITALIZED Disposition Time: 16:00 Patient Plan: Observation Condition: FAIR
[2017-12-02 14:18] LABS: INR 1.15 (0.93-1.08); PARTIAL THROMBOPLASTIN TIME 34.2 Seconds (25.1-36.5); PROTHROMBIN TIME 13.2 SECONDS (9.4-12.5)
--- NOTE | 2017-12-02 14:21 | RAD ---
Date of service: 12/02/2017 HISTORY: pes eval COMPARISON: No prior. FINDINGS: LUNGS: No active pulmonary disease. PLEURA: No significant pleural effusion identified, no pneumothorax apparent. CARDIOVASCULAR: Normal. OSSEOUS STRUCTURES: No significant abnormalities. VISUALIZED UPPER ABDOMEN: Normal. OTHER FINDINGS: None. IMPRESSION: No active disease.
--- NOTE | 2017-12-02 15:10 | CT ---
Date of service: 12/02/2017 PROCEDURE: CT HEAD WITHOUT CONTRAST. HISTORY: hallucinations COMPARISON: 02/28/2017 CT TECHNIQUE: Axial computed tomography images were obtained through the head/brain without intravenous contrast. Radiation dose: Total exam DLP = 1008 mGy-cm. This CT exam was performed using one or more of the following dose reduction techniques: Automated exposure control, adjustment of the mA and/or kV according to patient size, and/or use of iterative reconstruction technique. FINDINGS: HEMORRHAGE: No intracranial hemorrhage. BRAIN: No mass effect or edema. No atrophy or chronic microvascular ischemic changes. VENTRICLES: Unremarkable. No hydrocephalus. CALVARIUM: Unremarkable. PARANASAL SINUSES: Unremarkable as visualized. No significant inflammatory changes. MASTOID AIR CELLS: Unremarkable as visualized. No inflammatory changes. OTHER FINDINGS: None. IMPRESSION: No acute finding
--- NOTE | 2017-12-02 15:13 | CT ---
Date of service: 12/02/2017 PROCEDURE: CT Thoracic Spine without contrast HISTORY: back pain/ fall COMPARISON: None. TECHNIQUE: Axial computed tomography images were obtained of the thoracic spine without intravenous contrast. Coronal and sagittal reformatted images were created and reviewed. Radiation dose: Total exam DLP = 942 mGy-cm. This CT exam was performed using one or more of the following dose reduction techniques: Automated exposure control, adjustment of the mA and/or kV according to patient size, and/or use of iterative reconstruction technique. FINDINGS: VERTEBRAE: Unremarkable. No fracture. Normal alignment. Multiple vertebral hemangiomas DISCS/SPINAL CANAL/NEURAL FORAMINA: Within the limits of the CT technique, no disc herniation seen. No central canal or neural foraminal stenosis.. PARASPINAL SOFT TISSUES: Unremarkable. OTHER FINDINGS: Unremarkable. IMPRESSION: Unremarkable CT of the thoracic spine.
--- NOTE | 2017-12-02 15:19 | CT ---
Date of service: 12/02/2017 PROCEDURE: CT Lumbar Spine without contrast HISTORY: back pain/ fall COMPARISON: None. TECHNIQUE: Axial computed tomography images were obtained of the lumbar spine without the use of intravenous contrast. Coronal and sagittal reformatted images were created and reviewed. Radiation dose: Total exam DLP = 1251 mGy-cm. This CT exam was performed using one or more of the following dose reduction techniques: Automated exposure control, adjustment of the mA and/or kV according to patient size, and/or use of iterative reconstruction technique. FINDINGS: VERTEBRAE: Unremarkable. No fracture. Normal alignment. There is a vertebral hemangioma at L5 DISCS/SPINAL CANAL/NEURAL FORAMINA: L1-2: Unremarkable. L2-3: Unremarkable. L3-4: Unremarkable. L4-5: Unremarkable. L5-S1: Unremarkable. PARASPINAL SOFT TISSUES: Unremarkable. OTHER FINDINGS: None. IMPRESSION: Unremarkable CT of Lumbar Spine.
[2017-12-02] MEDS ORDERED: Morphine 2 mg/ml ISec IVP STA (15:49)
--- NOTE | 2017-12-02 16:12 | CARD ---
APPROVED REPORT Date of service: 12/02/2017 EKG Measurement Heart [id number] <Conclusion> Normal sinus rhythm Minimal voltage criteria for LVH, may be normal variant Cannot rule out Anterior infarct, age undetermined Abnormal ECG
[2017-12-02] MEDS ORDERED: oxyCODONE 10 mg Immediate Release Tab PO ONE (18:52)
[2017-12-02 22:04] VITALS: BMI 36.8
[2017-12-02] MEDS ORDERED: Pneumococcal 23-Valent Vaccine IM ONE (22:04)
[2017-12-02 22:55] VITALS: RESP 20
[2017-12-03] MEDS: Pantoprazole 20 mg EC Tab PO SCH (06:01)
[2017-12-03] MEDS: Multivitamin With Minerals Tab PO SCH (08:31)
[2017-12-03] MEDS: oxyCODONE 10 mg Immediate Release Tab PO SCH ×4 (09:55→21:05)
--- NOTE | 2017-12-04 00:06 | CON ---
DATE: 12/03/2017 HISTORY OF PRESENT ILLNESS: Shortly, the patient is a 47-year-old female. The patient was admitted on the medical side for evaluation of change in mental status and possible visual hallucinations. The patient had similar symptoms in the past when she had her liver failure. Psych consult was called for evaluation of possible visual hallucinations. The patient was seen and examined. The patient presented to be alert and oriented. The patient remembered this junior copywriter from the previous consultation services, which took place here in [place] in 02/2017. The patient reports that most recently, she started to have some visual hallucinations, she could see people who are not there and talking to the people who are not there. The patient denied bizarre delusions and denied hearing voices, but the patient reports that she is talking to her relatives who are not there. The patient reported that she was not able to sleep for past week or so despite the fact that she was compliant with the Ambien 10 mg at the nighttime. The patient denied history of suicidal attempts in the past, denied history of mental illness. The patient denied being depressed at present moment, denied any thoughts of harming herself or others, denied feeling of hopelessness or helplessness. The patient reports that she has history of falling and that is why her frontal teeth were removed, because she felled and cracked her teeth. The patient denied using drugs, denied smoking cigarettes and denied alcohol consumption. Last alcohol consumption was about 2 weeks ago. The patient has history of alcohol use disorder. This junior copywriter reviewed vital signs, seems to be stable. Temperature 98.9, pulse is 79, blood pressure 160/92, respirations 20, oxygen saturation is 98%. MEDICATIONS: Reviewed. The patient is on Colace, Cymbalta, Drisdol, Lexapro 10 mg, Neurontin 300 mg three times a day, multivitamins, oxycodone, Protonix, propranolol, Ambien. This junior copywriter implemented 25 mg of Seroquel at the nighttime to help the patient with hallucinations and delirium stage. LABORATORY DATA: Labs reviewed. Hematology reviewed. Coagulation reviewed. Chemistry reviewed. AST is elevated 51. Urinalysis reviewed. Toxicology reviewed. The patient's urine drug screen positive for opioids as well as benzodiazepines. MENTAL STATUS EXAMINATION: The patient presented to be alert, oriented, had fair eye contact. The patient had difficult to stay focused during the interview. Mood described as "I am not depressed." Affect was reactive, mood congruent. Thought process at times circumstantial. Thought content, the patient denied visual, auditory, tactile hallucinations. Denied paranoid ideations at the moment of interview, but the patient reported that she was talking to the relatives who were not there while she was at home. The patient reported that she has insomnia and she did not sleep well for past week or so. Insight and judgment seems to be fair. Impulses are well controlled. IMPRESSION: Most likely, the patient is in delirium stage due to her general medical condition. The patient denied relapse on alcohol, last drink was 2 weeks ago. The patient has long history of alcohol use disorder. PLAN: In regards of Cymbalta and Lexapro, we need to choose one, will discuss with Dr. Mcdowell. Hallucinations could be related to the medical issues and majority of the time visual hallucinations related to the medical and neurological problems. I hope that the patient will start feeling better after medical issues will be addressed. Physical therapy recommended. In order to help the patient with the delirium symptoms, Seroquel 25 mg at the nighttime will be started. Risks, benefits and alternatives discussed with the patient, the patient agreed. This junior copywriter will follow up and advise accordingly. Thank you very much for letting me participate in care of your patient. Katrin Olivares MD
[2017-12-04] MEDS: oxyCODONE 10 mg Immediate Release Tab PO SCH ×4 (04:59→11:49)
[2017-12-04] MEDS: Pantoprazole 20 mg EC Tab PO SCH (05:36)
[2017-12-04 08:28] VITALS: BP 143/87; PULSE 76; TEMP 98.6; O2SAT 95
[2017-12-04] MEDS: Multivitamin With Minerals Tab PO SCH (10:10)
--- NOTE | 2017-12-04 13:18 | PN ---
DATE: 12/04/2017 FOLLOWUP NOTE SUBJECTIVE: The patient was followed up today. The patient reported that she slept better on Seroquel, the patient reported that she does not have any hallucinations and she feels much better. This copy writer discussed option to discontinue Lexapro because Lexapro is subtherapeutic dose and the patient also is on Cymbalta 30 mg daily. The patient agreed to be on one antidepressant medication and after detailed explanation, the patient choose to be on Cymbalta. If the patient requires increased dose, it can be increased to 80 mg daily depends on the symptoms. The patient reported that she slept well and she wants to continue on Seroquel. This copy writer educated the patient that this is antipsychotic medication and this copy writer will recommend to continue Seroquel for at least a week in order to have stable improvement and Lexapro will be discontinued. The patient reported that she feels better. She denied being depressed. The patient denied thoughts of harming herself or others. Vital signs are stable. Medications reviewed. The patient is on Colace, Cymbalta. Lexapro will be discontinued. The patient is on Neurontin 300 mg three times day, multivitamins, oxycodone, Protonix, pentoxifylline. The patient is on Seroquel 25 mg at the nighttime and Ambien. Labs reviewed. Most recent was from . As per nursing report, the patient does not have any agitation or aggression. The patient was compliant with the medications. MENTAL STATUS EXAMINATION: The patient appears to be alert and oriented, pleasant, cooperative, socially appropriate, fair eye contact. Speech was normal rate, tone, quality and quantity. Mood described, I feel better. Affect was reactive and mood congruent. Thought process coherent, goal directed. There are no psychotic symptoms observed or reported. Thought content, the patient denied feeling of hopelessness. The patient denied being depressed. The patient denied thoughts of harming herself or others. Insight and judgment seems to be improving. Impulses are well controlled. IMPRESSION: Most likely, the patient was delirious, which is related to electrolyte imbalance, sleep deprivation and multiple medical issues, which are resolved. The patient has history of depression, rule out mood disorder due to general medical condition. PLAN: Continue Cymbalta, adjust dose accordingly her symptoms. Lexapro will be discontinued. Seroquel could be continued for 1 week at the nighttime. Ambien should be continued. The patient was educated about risks, benefits and alternatives of the medications. The patient also is aware that she needs to follow up with psychiatrist if she wants to continue Seroquel. Meanwhile, the patient pose no imminent danger to self or others. This copy writer will sign off. Thank you very much for letting me participate in the care of your patient. Should you have any questions, give me a call back. Katrin Olivares MD
--- NOTE | 2017-12-05 15:02 | PN ---
DATE: 12/03/2017 DAILY PROGRESS NOTE SUBJECTIVE: The patient is a 47-year-old female with a history of chronic low back pain, history of alcoholism with alcoholic cirrhosis and hepatic failure during the past, who had developed intractable pain from the lower back, cramping and immobility of the hands. She also had been complaining of hallucinations; therefore, was brought to the emergency room by her , was evaluated and admitted. During her hospital stay, she denies any further hallucinations, cramping of the hands has subsided. She had requested increasing her opiates analgesics from 3 times a day to 4 times a day as she had been taking it at home. X-rays of the thoracic spine and lumbosacral spine have been negative. CAT scan of the head has been negative. Chest x-ray was negative and EKG showed regular sinus rhythm. Laboratory studies showed the calcium was slightly depressed at 8.1, H and H was 9.9 and 32.4 respectively. Blood, urea, nitrogen was 20, creatinine 1.4. Her vital signs are stable. She was evaluated by Dr. Katrin Olivares, the psychiatrist who suggested Seroquel 25 mg to be taken at bedtime in place of the zolpidem, which apparently had not been working in the past, therefore, the patient will be reevaluated in the morning after her first dose of Seroquel tonight and hopeful of discharge to home in the morning. Russell Mcdowell MD
--- NOTE | 2017-12-05 18:15 | HP ---
HISTORY OF PRESENT ILLNESS: The patient is a 47-year-old female who presented to the emergency room complaining of severe back pain and possible hallucinations. She had been complaining of cramping of the hands bilaterally over the past few days, for which she was taking potassium, calcium, and magnesium. Apparently, the hand cramping stopped after her first dose of potassium. She states that her feeling of mental status changes and hallucinations, interacting with when hospitalized for hepatic failure and alcohol withdrawals in the past. The patient denies any alcohol consumption. She recently underwent dental work and many teeth were extracted. PAST MEDICAL HISTORY: Positive for hypertension, alcoholism, cirrhosis secondary to alcohol, chronic low back pain. Congestive heart failure with leg edema. She underwent gastric bypass in 2007. She has a history of diverticulitis, colitis, and cholelithiasis. She is status post breast reduction, tubal ligation, and bladder sling for more than 10 years ago. SOCIAL HISTORY: The patient never smoked. She has been known to drink alcohol objectively in the past; however, has not had any alcohol in the past two months. ALLERGIES: SHE HAS NO KNOWN MEDICAL ALLERGIES. MEDICATIONS: At the time of admission, she was taking Cymbalta 30 mg, amoxicillin 500 mg every 8 hours status post dental extractions, vitamin D once a week, and Colace twice a day. She is also on gabapentin 300 mg three times a day, pentoxifylline one tablet three times a day, and oxycodone 15 mg four times a day. REVIEW OF SYSTEMS: Otherwise unremarkable. PHYSICAL EXAMINATION: VITAL SIGNS: Blood pressure is 117/72, heart rate is 87, and she is afebrile. HEAD, EYES, EARS, NOSE, AND THROAT: Unremarkable. NECK: Supple with no lymphadenopathy. No goiter. LUNGS: Clear to auscultation and percussion. HEART: Regular. ABDOMEN: Soft, nontender. EXTREMITIES: +1 to +2 pretibial edema. NEUROLOGIC: The patient is awake, alert, and oriented. She is currently denying any hallucinations. She was complaining of intractable low back pain. IMAGING DATA: X-rays of the thoracic spine and lumbosacral spine are negative. CAT scan of the head is negative. Chest x-ray shows no acute disease. EKG shows regular sinus rhythm with a possible old anterior wall PA. LABORATORY DATA: White blood cell count is 7.1, hemoglobin and hematocrit are 9.9 and 32.4 respectively. Electrolytes were normal. Blood urea nitrogen is 20 with a creatinine of 1.4. Her glucose is low at 62. AST is slightly elevated at 51. ALT is normal at 30. Total bilirubin is normal at 0.9. Alkaline phosphatase is elevated at 163. So the patient is admitted with mental status changes, possible hallucinations. Consultation with Dr. Wilkes, the psychiatrist is requested and the patient will be reevaluated in the morning. Russell Mcdowell MD
--- NOTE | 2017-12-06 08:14 | DS ---
HOSPITAL COURSE: Patient is a 47-year-old female, who was admitted to [facility] on 12/02/2017 after complaining of intractable back pain, uncontrollable hand and arm cramping as well as hallucinations. She is known to have a history of alcoholism, alcohol withdrawal, hepatic failure from alcoholic cirrhosis. She also has a history of status post gastric bypass surgery, status post tubal ligation, status post bladder sling. During her hospital stay, she was evaluated by Dr. Katrin Olivares, the psychiatrist, and she was started on Seroquel 25 mg at bedtime. She received her last dose of Seroquel last night and did well. The patient apparently slept well. During her hospital stay, she had no further back pain. X-rays of the thoracic spine and lumbosacral spine, CAT scan of the head, chest x-ray were all negative. Her calcium is only mildly depressed at 8.1. Hemoglobin and hematocrit were 9.9 and 32.4. Other laboratory studies were unremarkable. The patient had improved and she was feeling better, no further hallucinations. Back pain has subsided to her baseline of chronic pain, for which, she takes oxycodone 15 mg four times a day. We decided to discharge the patient to home. The case was discussed with the patient's and he is in agreement. At the suggestion of Dr. Wilkes, the patient's Seroquel will be continued at 25 mg at bedtime. There is report of the patient taking Lexapro in addition to Cymbalta. It was decided that the Lexapro was to be discontinued and patient should be continued on only with the Cymbalta. The remaining of her medications are to remain the same, and the patient is to be reevaluated in 1 to 2 weeks in an office visit post discharge. Russell Mcdowell MD [id number]
[2017-12-09] MEDS ORDERED: Ergocalciferol 50,000 Intl Units Cap PO SCH (10:00)
== END 2017-12-04 14:22 | disposition home or self-care (01) ==
LOC: ED 12:30 → ERH 16:05 → 5RSO 17:21
PROVIDERS: ADMIT Internal Medicine; ATTEND Internal Medicine
DX: M54.5 Low back pain (principal); F05 Delirium due to known physiological condition; R25.2 Cramp and spasm; I11.0 Hypertensive heart disease with heart failure; I50.9 Heart failure, unspecified; K70.30 Alcoholic cirrhosis of liver without ascites; K70.40 Alcoholic hepatic failure without coma; D18.09 Hemangioma of other sites; Z72.820 Sleep deprivation; I25.10 Atherosclerotic heart disease of native coronary artery without angina pectoris; G89.29 Other chronic pain; E87.8 Other disorders of electrolyte and fluid balance, not elsewhere classified; F32.9 Major depressive disorder, single episode, unspecified; Z98.84 Bariatric surgery status; Z87.442 Personal history of urinary calculi
CPT/HCPCS: 70450; 71045; 72128; 72131; 80053; 81001; 82140; 83735; 85025; 85610; 85730; 93005; 96374; 96375; 99285; G0378; G0480; J1885; J2270